=== PATIENT | female | born 1950 | race Caucasian/White ===

== ENCOUNTER 2020-06-01 15:20 | Outpatient (REF) | payer OTHER, SELFPAY | END 2020-06-01 15:21 | disposition home or self-care (01) | LOC: HO.LNP 15:20 | PROVIDERS: Visit Provider Nurse Practitioner Family | DX: Z20.828 Contact with and (suspected) exposure to other viral communicable diseases (principal); R53.1 Weakness | CPT/HCPCS: U0003 ==

== ENCOUNTER 2021-04-17 15:28 | Outpatient (REF) | payer OTHER, SELFPAY | END 2021-04-17 15:29 | disposition home or self-care (01) | LOC: HO.LNP 15:28 | PROVIDERS: Visit Provider Physician Assistant Medical | DX: J43.2 Centrilobular emphysema (principal); Z20.822 Contact with and (suspected) exposure to COVID-19 | CPT/HCPCS: U0003; U0005 ==

== ENCOUNTER 2022-01-31 08:37 | Day surgery (SDC) | payer OTHER, SELFPAY ==
[2022-01-25 16:07] VITALS: BMI 20.5
--- NOTE | 2022-01-28 09:18 | HO.ANESPROP2 ---
Documented by User: Teagan Hendrickson NP 01/28/22 09:20 HPI - Anesthesia Eval Consult details Narrative: 71yo F for Upper Endoscopy with Balloon Dilitation, Colonoscopy PMFSH Active Problems Active Problems: All Active Problems (Updated 01/25/22 @ 16:03 by Amanda Chong, RN) Weakness (Acute) Centrilobular emphysema (Acute) Hx of bladder cancer (Acute) Primary insomnia (Acute) Surgical menopause (Acute) Osteoporosis (Acute) Cigarette smoker two packs a day or less (Acute) Tubular adenoma of colon (Acute) Hiatal hernia (Acute) Esophagitis determined by endoscopy (Acute) S/P balloon dilatation of esophageal stricture (Acute) Past Medical History Medical History (Updated 01/25/22 @ 16:03 by Amanda Chong, ANNE-MARIE) Cigarette smoker two packs a day or less Dysphagia Esophagitis determined by endoscopy Hiatal hernia History of COVID-19 History of esophageal stricture Hx of bladder cancer Osteoporosis Primary insomnia Surgical menopause Tubular adenoma of colon Family History Family History Father HTN (hypertension) Mother Melanoma Brother No problems noted. Brother No problems noted. Sister No problems noted. Daughter Melanoma Son No problems noted. Son No problems noted. Son No problems noted. Surgical History Surgical History Bone spur Ganglion cyst of finger of left hand History of cystoscopy History of esophagogastroduodenoscopy (EGD) History of hysterectomy Hx of colonoscopy S/P balloon dilatation of esophageal stricture Social History Social History Housing: House Patient Tobacco Use Status: Current everyday Tobacco user Tobacco use type: Cigarette Cigarette Packs Per Day: 0.5 Cigarettes Per Day: 10.0 Smoked in Last 30 Days: Yes e-Cigarette/Vaping Use: Never Used Use of substances other than those prescribed or required for medical reasons: No Are you DNR?: No Advance Directives: No Advance Directives Information Provided: Yes Recently lost weight without trying: No Nutrition Risks: No Nutritional Risk Current occupational status: employed Meds Allergies Allergy/AdvReac Type Severity Reaction Status Date / Time No Known Allergies Allergy Verified 01/25/22 16:03 [No Known Allergies*] Home Medications Medication Instructions Recorded Confirmed Last Taken Type magnesium oxide 400 mg (241.3 mg 400 mg PO DAILY 06/01/20 01/25/22 Unknown History magnesium) tablet Exam Exam Date and Time: January 28, 2022917 Height,Weight and Vital Signs: Height 5 ft 1 in Weight 49.442 kg Assessment and Plan Assessment Anesthesia Assessment: Chart Reviewed Documented by User: Danica Gutierrez MD 01/31/22 09:42 [facility] Past Medical History Medical History (Updated 01/25/22 @ 16:03 by Amanda Chong RN) Cigarette smoker two packs a day or less Dysphagia Esophagitis determined by endoscopy Hiatal hernia History of COVID-19 History of esophageal stricture Hx of bladder cancer Osteoporosis Primary insomnia Surgical menopause Tubular adenoma of colon Functional capacity: independent ambulation Patient : No Family History Family History Father HTN (hypertension) Mother Melanoma Brother No problems noted. Brother No problems noted. Sister No problems noted. Daughter Melanoma Son No problems noted. Son No problems noted. Son No problems noted. Family history of problems with anesthesia: No Surgical History Surgical History Bone spur Ganglion cyst of finger of left hand History of cystoscopy History of esophagogastroduodenoscopy (EGD) History of hysterectomy Hx of colonoscopy S/P balloon dilatation of esophageal stricture History of Problems with Anesthesia: No Social History Social History Housing: House Patient Tobacco Use Status: Current everyday Tobacco user Tobacco use type: Cigarette Cigarette Packs Per Day: 0.5 Cigarettes Per Day: 10.0 Smoked in Last 30 Days: Yes e-Cigarette/Vaping Use: Never Used Use of substances other than those prescribed or required for medical reasons: No Are you DNR?: No Advance Directives: No Advance Directives Information Provided: Yes Recently lost weight without trying: No Nutrition Risks: No Nutritional Risk Current occupational status: employed Meds Allergies Allergy/AdvReac Type Severity Reaction Status Date / Time No Known Allergies Allergy Verified 01/25/22 16:03 [No Known Allergies*] Home Medications Medication Instructions Recorded Confirmed Last Taken Type magnesium oxide 400 mg (241.3 mg 400 mg PO DAILY 06/01/20 01/25/22 Unknown History magnesium) tablet Exam Airway Mallampati Class: II TM Dist: >3cm Neck ROM: Full Denture: Upper Heart: RRR Lungs: ronhi Assessment and Plan Final Anesthetic Review Family History of Problems with Anesthesia: No History of Problems with Anesthesia: No Final Preanesthetic Review: No Changes in Pt Med Stat, Consent Obtained/Reviewed and Anes Risks/Benef Reviewed Patient Risk: Low Procedure Risk: Low Anesthetic Plan Anesthetic Plan: MAC: Disposition: Standard PACU
[2022-01-31 08:44] VITALS: BMI 20.5
[2022-01-31 09:04] VITALS: BP 127/70; PULSE 110; RESP 16; TEMP 36.1; O2SAT 95
[2022-01-31] MEDS: Lactated Ringers 1,000 ML 100 ML IVCONT (09:15)
[2022-01-31] MEDS: Scopolamine 1.5 MG PATCH.TD.3 EAR-BEHIND (09:36)
[2022-01-31 11:13] VITALS: BP 121/56; PULSE 95; RESP 16; TEMP 36.3; O2SAT 98
--- NOTE | 2022-01-31 11:19 | PM.OP ---
Brief Operative Note Date of Service: 01/31/22 Pre-op diagnosis: Dysphagia, Screening Post-op diagnosis: other (Esophageal stricture, R/O EoE, Hiatal hernia, Colon polyps) Procedure: EGD with Balloon Dilation and biopsies, Colonoscopy to the cecum with hot snare polypectomy x 2 Surgeon: Koffi Andrews Anesthesia: MAC Was an In Flight Refueling System Repairer used for this Procedure?: No Estimated blood loss (mL): 2.0 Pathology: other (A. Esophagus at 25cm B. Ascending colon polyps x 2) Condition: stable Disposition: PACU
[2022-01-31 11:28] VITALS: BP 137/65; PULSE 89; RESP 16; O2SAT 96
[2022-01-31 11:43] VITALS: BP 155/64; PULSE 89; RESP 18; TEMP 36.3; O2SAT 96
--- NOTE | 2022-01-31 12:18 | HO.POSTANES ---
Post Anesthesia Evaluation Post Anesthesia Evaluation Vital Signs: Vital Signs Temp Pulse Resp BP Pulse Ox O2 Del Method 01/31/22 11:43 97.3 F 89 18 155/64 H 96 Room Air 01/31/22 11:28 89 16 137/65 96 Room Air 01/31/22 11:13 97.3 F 95 16 121/56 L 98 Room Air 01/31/22 09:04 97.0 F 110 H 16 127/70 95 Room Air Anesthesia: Monitored Mental Status: Awake Pain Control: Satisfactory Nausea/Vomiting: None Hydration: Adequate Anesthesia-Related Issues: No Anes. Related Issues
--- NOTE | 2022-01-31 21:35 | OP_ITS ---
SURGEON: Koffi Andrews MD INDICATIONS: The patient presents for evaluation of dysphagia, personal history of tubular adenoma of the colon, and colorectal cancer screening. Full consent has been obtained from her for this, including risks of bleeding and perforation. PREOPERATIVE DIAGNOSIS: POSTOPERATIVE DIAGNOSIS: PROCEDURE PERFORMED: Esophagogastroduodenoscopy with balloon dilation and biopsy, and colonoscopy to the cecum with hot snare polypectomy x 2. ESTIMATED BLOOD LOSS: COMPLICATIONS: ANESTHESIA: Monitored anesthesia care. ASSISTANTS: SPECIMENS: PREOPERATIVE DIAGNOSES: Dysphagia and personal history of tubular adenoma of the colon, colorectal cancer screening. POSTOPERATIVE DIAGNOSES: Dysphagia and personal history of tubular adenoma of the colon, colorectal cancer screening, esophageal stricture, rule out eosinophilic esophagitis, hiatal hernia, colon polyps, diverticulosis, component of anal stenosis. PROCEDURE IN DETAIL: The patient was placed in the left lateral decubitus position. The Olympus video gastroscope was passed in the posterior oropharynx and upper esophagus under direct vision. The very proximal esophagus was notable for what appeared to be a very proximal web or stricture, which the scope popped past easily. There also appeared to be some subtle rings in the proximal esophagus as well, which were easily passed with the scope. The scope was advanced to the distal esophagus. The gastroesophageal junction at 35 cm was notable for a somewhat tight fibrotic stricture, which did allow passage of the scope. There was no mass or ulceration. There was a small hiatal hernia. The scope was advanced to the pylorus and the duodenum was cannulated to the descending portion. The duodenum including the bulb appeared normal without mass or ulceration. The scope was withdrawn back into the stomach. The gastric antrum and body appeared normal with good peristalsis. The scope was retroflexed visualizing the proximal stomach carefully, which appeared normal, without any sign of mass or ulceration. The scope was straightened and withdrawn back into the esophagus. At that point, the gastroesophageal junction was notable for the previous stricture, which was clearly disrupted by the passage of the scope. Again, there was no mass, nor ulceration. I did inflate a 12 mm balloon at this level, which really did not add to any of the dilation, but I did not proceed beyond that given the clear disruption of the mucosa already. The remainder of the esophagus was carefully inspected. There were no mucosal abnormalities, although the mucosa was friable as it has been in the past. The area in the very proximal esophagus also appeared to be quite disrupted with some mucosal disruption noted. I did obtain 2 biopsies at 25 cm to rule out eosinophilic esophagitis. The scope was withdrawn from the patient. She was then turned around for the colonoscopy. The digital rectal exam revealed a tight anal sphincter in which I could not really insert my finger. The Olympus pediatric video colonoscope was entered into the rectum and advanced easily to the cecum. Once in the cecum, I did identify normal-appearing cecal pouch with appendiceal orifice and a normal-appearing ileocecal valve. The entire cecum and ileocecal valve appeared normal. Scope was then slowly withdrawn assessing all mucosal surfaces carefully. Preparation was excellent. In the ascending colon, were 2 approximately 8 mm polyps, both which were removed by hot snare polypectomy and recovered by suction. Both polypectomy sites appeared clean, without any sign of residual polyp,nor bleeding. I did not visualize any other polyps, colitis, nor angiodysplasia. There was a mild amount of sigmoid diverticulosis. In the rectum, scope was retroflexed visualizing some small internal hemorrhoids, but no other pathology. The rectal mucosa appeared normal. Scope was straightened and withdrawn from the patient. She tolerated both procedures well and was returned to recovery area in stable condition. IMPRESSION: 1. Esophageal strictures, status post balloon dilation. Rule out eosinophilic esophagitis. 2. Hiatal hernia. 3. Colon polyps. 4. Diverticulosis. 5. Internal hemorrhoids. 6. Tight anal sphincter. PLAN: The results of the pathology will be checked. She has been instructed to continue omeprazole 40 mg b.i.d. and to resume her Carafate suspension 1 g q.i.d. She has been advised to stay off all aspirin and NSAIDs long-term. I would recommend a repeat colonoscopy in 5 years and she has been advised to see me by the Fall for a followup visit. She was advised to call sooner as needed. MD PAYTON Cline/ED / [phone] MEMO
== END 2022-01-31 12:15 | disposition home or self-care (01) ==
PROVIDERS: PCP Internal Medicine; Visit Provider Internal Medicine
PROC: (CPT 45385; principal; 2022-01-31 09:40)
PROC: 0DJD8ZZ Inspection of Lower Intestinal Tract, Via Natural or Artificial Opening Endoscopic (ICD-10-PCS; CPT 45378; 2022-01-31 09:40)
DX: Z12.11 Encounter for screening for malignant neoplasm of colon (principal); Z86.010 Personal history of colon polyps; D12.2 Benign neoplasm of ascending colon; K57.30 Diverticulosis of large intestine without perforation or abscess without bleeding; K64.8 Other hemorrhoids; R13.10 Dysphagia, unspecified; K22.2 Esophageal obstruction; K20.80 Other esophagitis without bleeding; K44.9 Diaphragmatic hernia without obstruction or gangrene; F17.210 Nicotine dependence, cigarettes, uncomplicated; Z79.899 Other long term (current) drug therapy; Z79.51 Long term (current) use of inhaled steroids; Z85.51 Personal history of malignant neoplasm of bladder; Z86.16 Personal history of COVID-19; Z87.01 Personal history of pneumonia (recurrent)
CPT/HCPCS: 45385; 43249; 43239; 88305; 88312; C1726

== ENCOUNTER 2022-06-17 13:07 | Outpatient (REF) | payer OTHER, SELFPAY ==
[2022-06-17 15:12] LABS: Influenza A PCR POSITIVE (Negative); Influenza B PCR NEGATIVE (Negative); Resp Syncy Virus RNA Qual PCR NEGATIVE (Negative); SARS COV2 PCR INHOUSE NEGATIVE (Negative)
== END 2022-06-17 13:08 | disposition home or self-care (01) ==
LOC: HO.LNP 13:07
PROVIDERS: Visit Provider Internal Medicine
DX: Z20.822 Contact with and (suspected) exposure to COVID-19 (principal); R43.9 Unspecified disturbances of smell and taste
CPT/HCPCS: 0241U

== ENCOUNTER → 2022-08-29 13:20 | Outpatient (BNVA) | payer OTHER, SELFPAY | PROVIDERS: PCP Internal Medicine; Visit Provider Hospitalist | DX: Z13.89 Encounter for screening for other disorder (principal) ==

== ENCOUNTER 2022-09-12 09:42 | Outpatient (REF) | payer OTHER, SELFPAY ==
--- NOTE | ~2022-09-12 | CT_ITS ---
EXAMINATION: CT CHEST SCREENING CLINICAL INFORMATION: 71-year-old current smoker with [id number] history of smoking. COMPARISON: 09/23/2019 TECHNIQUE: Multidetector volumetric CT imaging of the chest is performed without contrast using low dose technique. Additional 2-D coronal and sagittal reformatted images and axial 3-D maximum intensity projection (MIP) images are generated on the CT workstation. This CT examination was performed using dose optimization techniques as appropriate, variously including the following: *Automated exposure control. *Adjustment of mA and/or kV according to patient size (this includes techniques or standardized protocols for targeted exams where dose is matched to indication/reason for exam; i.e. extremities or head). *Use of iterative reconstruction technique. DLP: 35 mGy-cm FINDINGS: LUNGS: The central airways are patent. There is bronchial wall thickening present without evidence of bronchiectasis. This may be related to respiratory bronchiolitis of smoking. There are moderate changes of centrilobular emphysema present. No confluent parenchymal disease is identified. There are scattered sub-4 mm densities present bilaterally. A few calcified granulomas are present. There is a 6 mm noncalcified density seen adjacent to a bronchus within the right lower lobe on image [address] series #5[address] This was not present on prior study. There is a 4 mm noncalcified density seen within the lingula on image 238 of 551. On prior study of 09/23/2019, this measured approximately 2 mm in diameter. MEDIASTINUM: The visualized thyroid gland is unremarkable. Heart normal size. No pericardial effusion. No thoracic aortic aneurysm. No mediastinal or hilar lymphadenopathy is appreciated. CORONARY ARTERY CALCIFICATION: Present. PLEURA: There is no pleural effusion. No pleural mass or thickening. AXILLA: No lymphadenopathy. UPPER ABDOMEN: No significant abnormality appreciated. Some splenic calcifications are seen. OSSEOUS STRUCTURES: No destructive bony lesion identified. CT/CT lung screening IMPRESSION: 1. New 6 mm right lower lobe density. 2. Enlarging 4 mm noncalcified density. 3. Old granulomatous disease. 4. Moderate changes of emphysema. ASSESSMENT: Lung-RADS category 4A: Suspicious. RECOMMENDATION: Short interval 3 month followup low dose CT chest.
--- NOTE | 2022-09-12 17:09 | PFT_ITS ---
Forced vital capacity 48%, FEV1 32%, FEV1/FVC ratio is 50. [id number] 17% and MVV is 30%. Post bronchodilator therapy, there is no change. Total lung capacity 105%. Residual volume is 168%. Diffusion capacity 40%. CONCLUSION: Very severe obstructive airway disorder. No response to bronchodilator therapy. There is evidence of air trapping. MD CLARITA Anderson/MODL / [id number]
== END 2022-09-12 09:43 | disposition home or self-care (01) ==
LOC: HO.RESP 09:42
PROVIDERS: Visit Provider Hospitalist
DX: Z12.2 Encounter for screening for malignant neoplasm of respiratory organs (principal); J44.9 Chronic obstructive pulmonary disease, unspecified; F17.210 Nicotine dependence, cigarettes, uncomplicated
CPT/HCPCS: 71271; 94060; 94727; 94729

== ENCOUNTER → 2022-10-03 14:30 | Outpatient (BNVA) | payer OTHER, SELFPAY | PROVIDERS: PCP Internal Medicine; Visit Provider Hospitalist | DX: K21.9 Gastro-esophageal reflux disease without esophagitis (principal); J44.9 Chronic obstructive pulmonary disease, unspecified ==

== ENCOUNTER 2022-11-07 08:34 | Outpatient (REF) | payer OTHER, SELFPAY ==
[2022-11-07 16:56] LABS: Urine Cytology See Pathology rpt
== END 2022-11-07 08:35 | disposition home or self-care (01) ==
LOC: HO.LNP 08:34
PROVIDERS: PCP Internal Medicine; Visit Provider Nurse Practitioner Family
DX: Z85.51 Personal history of malignant neoplasm of bladder (principal)
CPT/HCPCS: 88112

== ENCOUNTER 2022-12-14 10:08 | Outpatient (REF) | payer OTHER, SELFPAY ==
--- NOTE | ~2022-12-14 | CT_ITS ---
EXAMINATION: LUNG CANCER SCREENING CT CHEST WITHOUT CONTRAST / FOLLOW-UP EXAM CLINICAL INFORMATION: New or changing pulmonary nodules on the previous screening exam. History of smoking. COMPARISON: Multiple priors, most recently 09/12/2022 and 09/23/2019 TECHNIQUE: Multidetector volumetric CT imaging of the chest was obtained noncontrast using low dose screening CT technique. Axial thin section 0.625 mm reformations in soft tissue and lung windows were obtained. Sagittal and coronal reformations were obtained. Axial MIP images were also created and reviewed. This CT examination was performed using dose optimization techniques as appropriate, variously including the following: *Automated exposure control *Adjustment of mA and/or kV according to patient size (this includes techniques or standardized protocols for targeted exams where dose is matched to indication/reason for exam; i.e. extremities or head) *Use of iterative reconstruction technique TOTAL EXAM DLP: 31.57 mGy-cm FINDINGS: PULMONARY NODULES (see julian images): A previously new 6 mm nodule in the right lower lobe has resolved. A micronodule in the lingula, described as 4 mm previously is unchanged, and is actually in a different location than the punctate nodule seen in this region in 2020. Stable 3 mm nodule in the delicia pulmonis. No new or suspicious pulmonary nodules. LUNGS / PLEURA: Moderate to severe upper lobe predominant emphysema. Diffuse mild bronchial wall thickening. No pleural effusion or pneumothorax. MEDIASTINUM / MADELINE: Heart normal in size without pericardial effusion. Great vessels normal caliber. No lymphadenopathy. Coronary calcifications present. Imaged thyroid gland unremarkable. CHEST WALL / AXILLA: Unremarkable. UPPER ABDOMEN: Included portions grossly unremarkable allowing for limitations in technique. OSSEOUS STRUCTURES: No acute or suspicious osseous abnormalities. CT/CT lung screen follow up IMPRESSION: * No evidence of pulmonary malignancy. * Moderate emphysema and chronic airways disease. ASSESSMENT: Lung RADS category: 2. Benign appearance or behavior. Nodules with a very low likelihood of becoming a clinically active cancer due to size or lack of growth. Continue annual screening with low-dose CT in 12 months. Probability of malignancy less than 1%. RECOMMENDATION: Follow up low dose CT chest in 1 year.
== END 2022-12-14 10:09 | disposition home or self-care (01) ==
LOC: HO.CT 10:08
PROVIDERS: PCP Internal Medicine; Visit Provider Physician Assistant Medical
DX: Z12.2 Encounter for screening for malignant neoplasm of respiratory organs (principal); F17.210 Nicotine dependence, cigarettes, uncomplicated
CPT/HCPCS: 71250

== ENCOUNTER 2022-12-31 07:54 | Outpatient (REF) | payer OTHER, SELFPAY ==
[2022-12-31 11:03] LABS: MANUAL DIFF FLAG NO
[2022-12-31 11:11] LABS: Basophils Absolute Auto 0.1 X10*3/uL (0.0-0.2); Basophils Percent Auto 0.5 % (0-2); Eosinophils Absolute Auto 0.2 X10*3/uL (0.0-0.4); Eosinophils Percent Auto 2.4 % (0-4); Hemoglobin 16.3 g/dl (12.0-16.0); Imm Gran Abs Auto 0.02 X10*3/uL (0.00-0.03); Imm Gran Pct Auto 0.2 % (0.0-0.4); Lymphocytes Absolute Auto 2.7 X10*3/uL (1.2-4.9); Lymphocytes Percent Auto 29.5 % (20-40); Mean Corpuscular HGB Conc 33.3 g/dl (31.0-35.0); Mean Corpuscular Hemoglobin 31.5 pg (27.0-33.0); Mean Corpuscular Volume 94.8 fL (80.0-98.0); Mean Platelet Volume 10.6 fL (9.4-12.3); Monocytes Absolute Auto 0.8 X10*3/uL (0.1-1.2); Monocytes Percent Auto 8.5 % (2-11); Neutrophils Absolute Auto 5.4 x10*3/uL (2.0-8.3); Neutrophils Percent Auto 58.9 % (45-73); Platelet Count 239 X10*3/uL (160-400); Red Blood Count 5.17 X10*6/uL (4.20-5.50); Red Cell Distribution Width 12.3 % (11.0-16.0); White Blood Count 9.2 X10*3/uL (4.8-10.8)
[2022-12-31 11:32] LABS: Alanine Aminotransferase 6 U/L (0-31); Albumin Level 4.1 g/dL (3.5-5.0); Alkaline Phosphatase 103 U/L (39-117); Anion Gap 12 (12-20); Aspartate Amino Transferase 17 U/L (5-31); Bilirubin Total 0.9 mg/dL (0.0-1.0); Blood Urea Nitrogen 13 mg/dL (9-16); Calcium 9.7 mg/dL (8.4-10.2); Carbon Dioxide 30 mmol/L (22-29); Chloride 102 mmol/L (96-108); Cholesterol 182 mg/dL; Estimated Glomerular Filt Rate > 60; Glucose Fasting 89 mg/dL (60-99); HDL Cholesterol 54 mg/dL; LDL Cholesterol Calculated 108 mg/dl; Magnesium 2.5 mg/dL (1.6-2.6); Potassium 3.8 mmol/L (3.3-5.1); Sodium 140 mmol/L (135-145); Total Protein 7.5 g/dL (6.5-8.0); Triglycerides 101 mg/dL
[2022-12-31 11:51] LABS: Vitamin D 25-OH Total 17.7 ng/mL (>30)
== END 2022-12-31 07:55 | disposition home or self-care (01) ==
LOC: HO.HMGCLDS 07:54
PROVIDERS: PCP Internal Medicine; Visit Provider Internal Medicine
DX: Z00.01 Encounter for general adult medical examination with abnormal findings (principal); K20.90 Esophagitis, unspecified without bleeding; D12.6 Benign neoplasm of colon, unspecified; F17.210 Nicotine dependence, cigarettes, uncomplicated; M18.0 Bilateral primary osteoarthritis of first carpometacarpal joints; E89.40 Asymptomatic postprocedural ovarian failure; F51.01 Primary insomnia; J43.2 Centrilobular emphysema; Z85.51 Personal history of malignant neoplasm of bladder
CPT/HCPCS: 36415; 80053; 80061; 82306; 83735; 85025

== ENCOUNTER → 2023-01-13 13:26 | Outpatient (BNVA) | payer OTHER, SELFPAY | PROVIDERS: Visit Provider Urology | DX: N32.9 Bladder disorder, unspecified (principal); Z85.51 Personal history of malignant neoplasm of bladder | CPT/HCPCS: 52000 ==

== ENCOUNTER 2023-01-26 14:33 | Outpatient (REF) | payer OTHER, SELFPAY | END 2023-01-26 14:34 | disposition home or self-care (01) | LOC: HO.HMGCLDS 14:33 | PROVIDERS: PCP Internal Medicine; Visit Provider Urology | DX: C67.9 Malignant neoplasm of bladder, unspecified (principal) | CPT/HCPCS: 88121 ==

== ENCOUNTER 2023-01-31 14:42 | Outpatient (AMB) | payer OTHER, SELFPAY ==
[2023-01-31 14:51] VITALS: BP 124/60; PULSE 80; O2SAT 96; BMI 19.8
--- NOTE | 2023-01-31 14:51 | A.OFFVIS_ITS ---
Intake Vital Signs 01/31/23 14:51 Height 5 ft 1 in Weight 104 lb 11.513 oz BMI 19.8 BP 124/60 Blood Pressure Location Lt brachial Position Sitting Pulse 80 Pulse Source Pulse Oximeter Pulse Oximetry (%) 96 Oxygen Delivery Method Room Air Intake Visit Reasons: Cystoscopy - Siddharth - TBA Residential Property Manager Required: No At Home Independent Call Center Agent: At Home Independent Call Center Agent offered & declined Accompanied by: Self / Same As Patient Allergies No Known Allergies [No Known Allergies*] Allergy (Verified 01/31/23 14:57) Medication List - Last Reconciled 01/31/23 by Sully Velasco LPN albuterol sulfate 90 mcg/actuation (Ventolin HFA) 2 puffs inhalation QID PRN 30 days cetirizine 10 mg PO DAILY cholecalciferol (vitamin D3) 1,250 mcg PO QWEEK 3 months ipratropium-albuterol 0.5 mg-3 mg(2.5 mg base)/3 mL 3 mL inhalation DAILY 30 days magnesium oxide 400 mg PO DAILY omeprazole 20 mg PO BID Symbicort 160-4.5 mcg/actuation (budesonide-formoterol) 2 puffs inhalation BID NS tiotropium bromide 1.25 mcg/actuation (Spiriva Respimat) 1 puff PO DAILY zolpidem 10 mg PO BEDTIME PRN HPI Cystoscopy - Siddharth - TBA HPI Details Ebony is a pleasant 72 year old current 1/2 ppd smoker with 55 pack year history, followed for severe COPD and pulmonary nodules. Today she presents for pulmonary evaluation. She reports good control of symptoms on Spiriva and Symbicort. She reports infrequent use of albuterol. She has a productive cough at baseline that has been unchanged and denies any increase in dyspnea. She denies any chest congestion or wheezing. She denies any recent respiratory infections or hospitalizations. [facility] Medical History COPD (chronic obstructive pulmonary disease) Dysphagia Esophagitis determined by endoscopy Hiatal hernia History of COVID-19 History of esophageal stricture Hx of bladder cancer (~2008) Nicotine dependence, cigarettes, uncomplicated Osteoporosis (~2019) Primary insomnia Pulmonary nodules Stress incontinence Surgical menopause Tubular adenoma of colon (~2016) Surgical History History of bladder surgery History of cataract surgery History of colonoscopy History of cystoscopy History of esophageal dilatation History of esophagogastroduodenoscopy (EGD) History of hand surgery History of hysterectomy Family History Father HTN (hypertension) Mother Melanoma Brother No problems noted. Brother No problems noted. Sister No problems noted. Daughter Melanoma Son No problems noted. Son No problems noted. Son No problems noted. Social History Housing: House Patient Tobacco Use Status: Current everyday Tobacco user Tobacco use type: Cigarette Cigarette Packs Per Day: 0.5 Cigarettes Per Day: 10.0 e-Cigarette/Vaping Use: Never Used Current occupational status: employed Cognitive needs: No Hearing needs: No Vision needs: Yes Physical Exam Vital Signs: Last Vital Signs Pulse 80 01/31/23 14:51 BP 124/60 01/31/23 14:51 Pulse Ox 96 01/31/23 14:51 Oxygen Delivery Method Room Air 01/31/23 14:51 BMI result Body Mass Index 19.8 Results Reviewed Results Reviewed: Assessment & Plan Assessment & Plan (1) Preop pulmonary/respiratory exam: Code(s): Z01.811 - Encounter for preprocedural respiratory examination (2) COPD (chronic obstructive pulmonary disease): Code(s): J44.9 - Chronic obstructive pulmonary disease, unspecified Qualifiers: COPD type: chronic bronchitis Chronic bronchitis type: mixed simple and mucopurulent Qualified Code(s): J41.8 - Mixed simple and mucopurulent chronic bronchitis (3) Nicotine dependence, cigarettes, uncomplicated: Comment: (current smoker - onset 15yo, x 56yrs, max 1ppd, now 1/2ppd - 40pyh) Code(s): F17.210 - Nicotine dependence, cigarettes, uncomplicated Plan Ebony presents for pulmonary preoperative evaluation for proposed urological procedure. At baseline, her symptoms are well controlled on current regimen. She denies any recent exacerbations and on exam no wheezing was appreciated. PFT from revealed severe COPD with decreased DLCO of 40, report above. At this time, secondary to patient's advanced COPD with decrease in diffusion capacity, Ebony is at intermediate risk for perioperative complications. All questions were answered and patient is in agreement of plan. Will follow up for regularly scheduled appointment with Dr. Simmons scheduled in March. Coding Level of Care Code Est Pt Level 3 (85113) Diagnoses Preop pulmonary/respiratory exam Z01.811 COPD (chronic obstructive pulmonary disease) J41.8 COPD type: chronic bronchitis Chronic bronchitis type: mixed simple and mucopurulent Nicotine dependence, cigarettes, uncomplicated F17.210
== END 2023-01-31 15:21 | disposition home or self-care (01) ==
PROVIDERS: PCP Internal Medicine; Visit Provider Nurse Practitioner Family
DX: Z01.811 Encounter for preprocedural respiratory examination (principal); J41.8 Mixed simple and mucopurulent chronic bronchitis; F17.210 Nicotine dependence, cigarettes, uncomplicated
CPT/HCPCS: 99213

== ENCOUNTER → 2023-01-31 14:42 | Outpatient (BNVA) | payer OTHER, SELFPAY | PROVIDERS: PCP Internal Medicine; Visit Provider Nurse Practitioner Family ==

== ENCOUNTER 2023-02-09 14:28 | Outpatient (AMB) | payer OTHER, SELFPAY ==
[2023-02-09 14:41] VITALS: BP 114/62; PULSE 97; O2SAT 94; BMI 19.7
--- NOTE | 2023-02-09 14:41 | MHC.PC.OV ---
Vital Signs 02/09/23 14:41 Height 5 ft 1 in Weight 104 lb 6 oz BMI 19.7 BP 114/62 Blood Pressure Location Lt brachial Position Sitting Pulse 97 Pulse Source Pulse Oximeter Pulse Oximetry (%) 94 Oxygen Delivery Method Room Air Intake Visit Reasons: 6 Month ffup emphysema , smoking cessation Intake Note: Pt is here today for 6 month f/u emphysema and smoking cessation. Allergies No Known Allergies [No Known Allergies*] Allergy (Verified 06/05/23 02:54) Medication List - Last Reconciled 02/09/23 by Arlin Watkins MD albuterol sulfate 90 mcg/actuation (Ventolin HFA) 2 puffs inhalation QID PRN 30 days cetirizine 10 mg PO DAILY cholecalciferol (vitamin D3) 1,250 mcg PO QWEEK 3 months ipratropium-albuterol 0.5 mg-3 mg(2.5 mg base)/3 mL 3 mL inhalation DAILY 30 days magnesium oxide 400 mg PO DAILY Symbicort 160-4.5 mcg/actuation (budesonide-formoterol) 2 puffs inhalation BID NS tiotropium bromide 1.25 mcg/actuation (Spiriva Respimat) 1 puff PO DAILY zolpidem 10 mg PO BEDTIME PRN Tobacco use date assessed: 02/09/23 Fall risk assessment: No Falls in past year Last assessed Fall Risk: 02/09/23 Dental Screening Dental Screen Date: 02/09/23 Did you have a dental visit in the last 12 months?: No Did you have a dental problem in the last 6 months where you did not have access to dental care?: No Was dental information given to patient?: No HPI 6 Month ffup emphysema , smoking cessation HPI Details 72-year-old lady with emphysema, and actively smoking cigarettes still, here today for follow-up. She has tried quitting, has been unsuccessful, tried several ways to quit smoking which includes nicotine patches, nicotine gum, Wellbutrin and Chantix, and even hypnosis, but unable to quit; states she is not ready to totally quit smoking yet but is trying to cut back. Patient states she is doing well with current Symbicort and Spiriva, her dissipates in the yearly low-dose CT screening for lung cancer and latest 1 done in November 2022 showed benign appearing nodule, and due for a recheck again in 1 year. Complains of having disturbed sleep over the last several days, complaining of nasal congestion and postnasal drainage, wakes up in the morning feeling congested has to constantly clear her throat. Denies any accompanying shortness of breath, no headache or wheezing reported [facility] Medical History Multiple environmental allergies Pulmonary nodules Nicotine dependence, cigarettes, uncomplicated COPD (chronic obstructive pulmonary disease) Stress incontinence Hx of bladder cancer (~2008) Dysphagia History of COVID-19 Primary insomnia Surgical menopause Osteoporosis (~2019) Tubular adenoma of colon (~2016) Hiatal hernia Esophagitis determined by endoscopy History of esophageal stricture Surgical History History of cataract surgery History of esophageal dilatation History of bladder surgery History of hand surgery History of colonoscopy History of esophagogastroduodenoscopy (EGD) History of cystoscopy History of hysterectomy Family History Father HTN (hypertension) Mother Melanoma Brother No problems noted. Brother No problems noted. Sister No problems noted. Daughter Melanoma Son No problems noted. Son No problems noted. Son No problems noted. Social History Housing: House Patient Tobacco Use Status: Current everyday Tobacco user Tobacco use type: Cigarette Cigarette Packs Per Day: 0.5 Cigarettes Per Day: 10 e-Cigarette/Vaping Use: Never Used Current occupational status: employed Cognitive needs: No Hearing needs: No Vision needs: Yes Questionnaire PHQ-9 Over the last 2 weeks, how often have you been bothered by any of the following problems? 1. Little interest or pleasure in doing things: not at all 2. Feeling down, depressed, or hopeless: not at all 3. Trouble falling or staying asleep, or sleeping too much: more than half the days 4. Feeling tired or having little energy: not at all 5. Poor appetite or overeating: not at all 6. Feeling bad about yourself - or that you are a failure or have let yourself or your family down: not at all 7. Trouble concentrating on things, such as reading the newspaper or watching television: not at all 8. Moving or speaking so slowly that other people could have noticed. Or the opposite - being so fidgety or restless that you have been moving around a lot more than usual: not at all 9. Thoughts that you would be better off or of hurting yourself in some way: not at all Total score: 2 Depression Screening Interpretation: Negative 71986 - PHQ-9 Billing: Yes Source: Developed by Drs. Koffi Thao, Esperanza Prince, Yeison Jules and colleagues, with an educational onesimo from [employer]. Thrive Questionnaire Date Thrive assessed: 02/09/23 I am a: Patient What is your living situation today?: I have a steady place to live Within the past 12 months, did the food you bought not last and you didn't have the money to get more?: Never true Within the past 12 months, did you worry whether your food would run out before you got money to buy more?: Never true Do you have trouble paying for medicines?: No Do you have trouble getting transportation to medical appointments?: No Do you have trouble paying your heating and electricity bill?: No Do you have trouble taking care of your child, family member or friend?: No Do you have trouble with day-to-day activities such as bathing, preparing meals, shopping, managing finances, etc.?: No Are you currently unemployed and looking for a job?: No Are you interested in more education?: No AUDIT C Alcohol Use Questionnaire (AUDIT-C) 1. How often do you have a drink containing alcohol?: Never 3. How often do you have six or more drinks on one occasion?: Never Total Score: 0 Score Reviewed/Action Taken: Yes AVERY-7 AMB Questionnaire AVERY-7 Date AVERY - 7 assessed: 02/09/23 Feeling nervous, anxious, or on edge: 0 = Not at all Not being able to stop or control worryin = Not at all Worrying too much about different things: 0 = Not at all Trouble relaxin = Not at all Being so restless that it is hard to sit still: 0 = Not at all Becoming easily annoyed or irritable: 0 = Not at all Feeling afraid as if something awful might happen: 0 = Not at all Total AVERY-7 score (0-4 normal; 5-9 mild; 10-14 moderate; 15-21 severe): 0 Source: Developed by Drs. Koffi Thao, Esperanza Prince, Yeison Jules and colleagues, with an educational onesimo from [employer]. AVERY-7 Assessment Billing AVERY-7 Assessment Tool: AVERY-7 Assessment 54096 Review of Systems Const Denies body aches, Denies fever(s), Denies headache(s), Denies weakness and Reports weight loss Eyes Denies change in vision and Denies itchy eyes ENT Denies dizziness, Denies headache(s) and Denies sore throat Card Denies chest pain, Denies lightheadedness, Denies palpitations and Denies dyspnea Resp Denies chest congestion, Denies cough, Denies pain on inspiration and Denies dyspnea GI Denies abdominal pain and Denies change in bowel habits Reports no additional complaints Musc Reports no additional complaints Neuro Denies dizziness, Denies headache(s) and Denies weakness Endo Denies polydipsia, Denies polyuria and Denies palpitations Pranav/Lymph Denies easy bruising Aller/Immun Denies itchy eyes and Denies seasonal rhinorrhea Physical exam (Primary Care) Vital Signs: Last Vital Signs Pulse 97 02/09/23 14:41 BP 114/62 02/09/23 14:41 Pulse Ox 94 02/09/23 14:41 Oxygen Delivery Method Room Air 02/09/23 14:41 BMI result Body Mass Index 19.7 Tobacco/Smoking Status: Tobacco use Status Tobacco use date assessed 02/09/23 02/09/23 14:46 Patient Tobacco Use Status Current everyday Tobacco 02/09/23 14:44 Tobacco use type Cigarette 02/09/23 14:44 e-Cigarette/Vaping Use Never Used 02/09/23 14:44 Are you ready to quit: No PHQ-9: PHQ-9 Score PHQ-9: Total score 2 06/05/23 02:55 Depression Screening Interpretation: Negative Thrive Assessment: Date of Thrive Assessment Date Thrive assessed 02/09/23 02/09/23 15:31 Const General: cooperative, comfortable and no acute distress Nutritional Appearance: average body habitus Orientation/consciousness: patient oriented x3 Neck Neck: Yes full ROM, Yes no lymphadenopathy, Yes no meningeal signs and Yes supple Thyroid: Thyroid normal Resp Effort & Inspection: normal respiratory effort and able to speak in complete sentences Auscultation: clear to auscultation bilaterally Cardio Rate: regular rate Rhythm: regular rhythm Heart sounds: S1 normal heart sound present and S2 normal heart sound present GI Palpation (GI): Soft to palpation, nontender, no guarding and no masses Skin General skin exam: no rashes or lesions noted Neuro General: patient oriented x3, gait normal, moves all extremities, no meningeal signs, no focal motor deficits and CN's II-XI intact bilaterally Extrem General: Yes full ROM, Yes no joint enlargement, Yes no pedal edema and Yes normal gait Psych Appearance: grossly normal Mental Status: mental status grossly normal Speech and movement: Normal speech and movement present Affect: normal affect Attitude: cooperative Thought process: Normal thought process present Thought content: Normal thought content present Assessment and Plan Assessment & Plan (1) Centrilobular emphysema: Code(s): J43.2 - Centrilobular emphysema Plan: Continue with Symbicort, Spiriva and uses her Ventolin inhaler as needed for episodes of bronchospasm and wheezing and has a DuoNeb for her nebulizer. Continue to cut back on her smoking, not ready to quit at present time. (2) Primary insomnia: Code(s): F51.01 - Primary insomnia Plan: Started on Zyrtec for control of her allergies, this should also help with sleep as it can cause drowsiness. Call if no improvement of symptoms noted however (3) Multiple environmental allergies: Code(s): Z91.09 - Other allergy status, other than to drugs and biological substances Plan: Started on cetirizine 10 mg 1 tablet at bedtime Medications: Refilled cetirizine 10 mg PO DAILY 30 tabs 5RF Coding Level of Care Code Est Pt Level 3 (59228) Diagnoses Centrilobular emphysema J43.2 Primary insomnia F51.01 Multiple environmental allergies Z91.09 Additional Codes AVERY-7 Assessment Billing - AVERY-7 Assessment Tool: AVERY-7 Assessment 24412 ([id number])
== END 2023-02-09 15:30 | disposition home or self-care (01) ==
PROVIDERS: PCP Internal Medicine; Visit Provider Internal Medicine
DX: J43.2 Centrilobular emphysema (principal); F51.01 Primary insomnia; Z91.09 Other allergy status, other than to drugs and biological substances
CPT/HCPCS: 99213

== ENCOUNTER 2023-02-10 10:02 | Day surgery (SDC) | payer OTHER, SELFPAY ==
--- NOTE | 2023-02-08 14:45 | P.CONAN_ITS ---
Documented by User: Teagan Hendrickson NP 02/08/23 14:46 HPI - Anesthesia Eval Consult details Narrative: 72yo F for Upper Endoscopy with Balloon Dilitation PMFSH Active Problems Active Problems: All Active Problems (Updated 01/31/23 @ 15:39 by Kiera Coelho NP) Preop pulmonary/respiratory exam (Acute) Lesion of bladder (Acute) Pulmonary nodules (Acute) Nicotine dependence, cigarettes, uncomplicated (Acute) COPD (chronic obstructive pulmonary disease) (Acute) Stress incontinence (Acute) Hx of bladder cancer (Acute ~2008) Centrilobular emphysema (Acute) Primary insomnia (Acute) Surgical menopause (Acute) Osteoporosis (Acute ~2019) Tubular adenoma of colon (Acute ~2017) Hiatal hernia (Acute) Esophagitis determined by endoscopy (Acute) Past Medical History Medical History COPD (chronic obstructive pulmonary disease) Dysphagia Esophagitis determined by endoscopy Hiatal hernia History of COVID-19 History of esophageal stricture Hx of bladder cancer (~2008) Multiple environmental allergies Nicotine dependence, cigarettes, uncomplicated Osteoporosis (~2019) Primary insomnia Pulmonary nodules Stress incontinence Surgical menopause Tubular adenoma of colon (~2016) Family History Family History Father HTN (hypertension) Mother Melanoma Brother No problems noted. Brother No problems noted. Sister No problems noted. Daughter Melanoma Son No problems noted. Son No problems noted. Son No problems noted. Family history of problems with anesthesia: No Surgical History Surgical History History of bladder surgery History of cataract surgery History of colonoscopy History of cystoscopy History of esophageal dilatation History of esophagogastroduodenoscopy (EGD) History of hand surgery History of hysterectomy History of Problems with Anesthesia: No Social History Social History Housing: House Patient Tobacco Use Status: Current everyday Tobacco user Tobacco use type: Cigarette Cigarette Packs Per Day: 0.5 Cigarettes Per Day: 10.0 Smoked in Last 30 Days: Yes e-Cigarette/Vaping Use: Never Used Patient Interested in Nicotine Replacement: No Are you DNR?: No Advance Directives: No Advance Directives Information Provided: Yes Nutrition Risks: No Nutritional Risk Current occupational status: employed Cognitive needs: No Hearing needs: No Vision needs: Yes Meds Allergies Allergy/AdvReac Type Severity Reaction Status Date / Time No Known Allergies Allergy Verified 02/09/23 14:42 [No Known Allergies*] Exam Exam Date and Time: February 08, 2023 1445 Pertinent Lab Results Pertinent Lab Results: Laboratory Tests 12/31/22 12/31/22 08:09 08:09 WBC 9.2 Hgb 16.3 H Hct 49.0 H Plt Count 239 Sodium 140 Potassium 3.8 Chloride 102 Carbon Dioxide 30 H BUN 13 Creatinine 0.83 Assessment and Plan Assessment Anesthesia Assessment: Chart Reviewed Final Anesthetic Review Family History of Problems with Anesthesia: No History of Problems with Anesthesia: No Documented by User: Delma Humphrey MD 02/10/23 12:20 [facility] Past Medical History Medical History COPD (chronic obstructive pulmonary disease) Dysphagia Esophagitis determined by endoscopy Hiatal hernia History of COVID-19 History of esophageal stricture Hx of bladder cancer (~2008) Multiple environmental allergies Nicotine dependence, cigarettes, uncomplicated Osteoporosis (~2019) Primary insomnia Pulmonary nodules Stress incontinence Surgical menopause Tubular adenoma of colon (~2016) Family History Family History Father HTN (hypertension) Mother Melanoma Brother No problems noted. Brother No problems noted. Sister No problems noted. Daughter Melanoma Son No problems noted. Son No problems noted. Son No problems noted. Surgical History Surgical History History of bladder surgery History of cataract surgery History of colonoscopy History of cystoscopy History of esophageal dilatation History of esophagogastroduodenoscopy (EGD) History of hand surgery History of hysterectomy Social History Social History Housing: House Patient Tobacco Use Status: Current everyday Tobacco user Tobacco use type: Cigarette Cigarette Packs Per Day: 0.5 Cigarettes Per Day: 10.0 Smoked in Last 30 Days: Yes e-Cigarette/Vaping Use: Never Used Patient Interested in Nicotine Replacement: No Are you DNR?: No Advance Directives: No Advance Directives Information Provided: Yes Nutrition Risks: No Nutritional Risk Current occupational status: employed Cognitive needs: No Hearing needs: No Vision needs: Yes Meds Allergies Allergy/AdvReac Type Severity Reaction Status Date / Time No Known Allergies Allergy Verified 02/09/23 14:42 [No Known Allergies*] Exam Airway Mallampati Class: I TM Dist: >3cm Neck ROM: Full Denture: Upper Partial: Lower Loose/Missing/Broken Teeth: No Heart: rr Lungs: cta Assessment and Plan Final Anesthetic Review NPO: Yes ASA Class: III Final Preanesthetic Review: No Changes in Pt Med Stat, Meds/Allgs Chart Reviewed, Consent Obtained/Reviewed and Anes Risks/Benef Reviewed Anesthetic Plan Anesthetic Plan: MAC: Disposition: Standard PACU
[2023-02-10 10:46] VITALS: BMI 20.6
[2023-02-10] MEDS: Lactated Ringers 1,000 ML 100 ML IVCONT (11:01)
[2023-02-10 11:03] VITALS: BP 134/69; PULSE 102; RESP 18; TEMP 36.6; O2SAT 97
[2023-02-10] MEDS: Albuterol Sulfate (0.083%) 2.5 MG/3 ML VIAL.NEB INHALE (11:14)
[2023-02-10 11:16] VITALS: PULSE 93; RESP 16; O2SAT 96
--- NOTE | 2023-02-10 11:23 | PC.NURSE ---
report given to junior godfrey rn at this time.
--- NOTE | 2023-02-10 12:15 | PM.OP ---
Brief Operative Note Date of Service: 02/10/23 Pre-op diagnosis: Dysphagia Post-op diagnosis: other (Esophageal stricture, Hiatal hernia) Procedure: EGD with Balloon Dilation of distal esophageal stricture from 10mm to 11mm to 12mm Surgeon: Koffi Andrews Anesthesia: MAC Was an Manager Technical Support used for this Procedure?: No Estimated blood loss (mL): 2.0 Pathology: none sent Condition: stable Disposition: PACU
[2023-02-10 12:18] VITALS: BP 105/46; PULSE 100; RESP 22; TEMP 36.1; O2SAT 100
[2023-02-10 12:32] VITALS: BP 112/41; PULSE 101; RESP 20; O2SAT 95
[2023-02-10 12:47] VITALS: BP 130/60; PULSE 97; RESP 20; TEMP 36.7; O2SAT 95
--- NOTE | 2023-02-10 23:11 | OP_ITS ---
DATE OF SERVICE: 02/10/2023 SURGEON: Koffi Andrews MD INDICATIONS: The patient presents for evaluation of recurrent dysphagia and known history of esophageal stricture. Full consent has been obtained from her for this, including risks of bleeding and perforation. PREOPERATIVE DIAGNOSIS: POSTOPERATIVE DIAGNOSIS: PROCEDURE PERFORMED: Esophagogastroduodenoscopy with balloon dilation of distal esophageal stricture. ESTIMATED BLOOD LOSS: COMPLICATIONS: ANESTHESIA: Monitored anesthesia care. ASSISTANTS: SPECIMENS: PREOPERATIVE DIAGNOSES: Dysphagia and history of esophageal stricture. POSTOPERATIVE DIAGNOSES: Dysphagia and history of esophageal stricture, tight distal esophageal stricture, hiatal hernia. DESCRIPTION OF PROCEDURE: The patient was placed in the left lateral decubitus position. The Olympus video gastroscope was passed in the posterior oropharynx and upper esophagus under direct vision. I did not visualize any proximal esophageal stricture, rings, nor web. The scope was able to pass easily to the distal esophagus at 35 cm. There was a fairly tight fibrotic-appearing esophageal stricture at 35 cm. The scope would not advance past this despite some attempted passage with application of pressure with the scope. I then used a Znode incremental balloon to dilate the stricture from 10 mm to 11 mm to 12 mm at the recommended pressure for 30 seconds each. Of note, the 12 mm balloon was only inflated up to 7 psi rather than 8 as there was clearly some friability noted at that point. However, once the dilation was accomplished, it was then easy to pass the scope into the stomach. There was a small hiatal hernia. The scope was advanced to the pylorus and the duodenum was cannulated in the descending portion. The duodenum including the bulb appeared normal without mass or ulceration. The scope was withdrawn back in the stomach. The gastric antrum and body appeared normal with good peristalsis. The scope was retroflexed visualizing the proximal stomach carefully, which appeared normal, without any sign of mass or ulceration. The scope was withdrawn back to the esophagus. At that point, the area of dilation in the distal esophageal stricture was notable for friability and clearly disruption of the mucosa and the previous stricture. Therefore, no further dilation was performed. The scope was slowly withdrawn assessing the remainder of the esophagus, which appeared otherwise normal without any proximal esophageal ring, nor stricture. The scope was withdrawn from the patient. She tolerated the procedure well and was returned to recovery area in stable condition. IMPRESSION: 1. Distal esophageal stricture, status post balloon dilation. 2. Hiatal hernia. PLAN: I have instructed the patient continue omeprazole 40 mg b.i.d. on a long-term basis and to call me if she needs refills or has any recurrence or worsening of her dysphagia. She was advised to avoid all aspirin and NSAIDs long-term as well. She will see me on a p.r.n. basis otherwise. MD PAYTON Cline/ED / [phone] MTDD
== END 2023-02-10 14:10 | disposition home or self-care (01) ==
PROVIDERS: PCP Internal Medicine; Visit Provider Internal Medicine
PROC: (CPT 43249; principal; 2023-02-10 11:40)
DX: R13.19 Other dysphagia (principal); K22.2 Esophageal obstruction; K44.9 Diaphragmatic hernia without obstruction or gangrene; J44.9 Chronic obstructive pulmonary disease, unspecified; Z85.51 Personal history of malignant neoplasm of bladder; Z98.890 Other specified postprocedural states; Z79.899 Other long term (current) drug therapy; F17.210 Nicotine dependence, cigarettes, uncomplicated
CPT/HCPCS: 43249; 94640; C1726; J2250

== ENCOUNTER 2023-02-20 10:27 | Outpatient (REF) | payer OTHER, SELFPAY ==
--- NOTE | ~2023-02-20 | CT_ITS ---
EXAMINATION: CT ABDOMEN AND PELVIS WITHOUT AND WITH CONTRAST CLINICAL INFORMATION: Bladder disorder. COMPARISON: None available. TECHNIQUE: Noncontrast CT of the abdomen and pelvis is performed followed by split bolus contrast-enhanced images using 85 mL Omnipaque 350 contrast.? Postcontrast imaging is performed during the combined nephrogram and excretion phase. Sagittal and coronal reformatted images were obtained on the technologist's workstation for both the precontrast and postcontrast phases. This CT examination was performed using dose optimization techniques as appropriate, variously including the following: *Automated exposure control *Adjustment of mA and/or kV according to patient size (this includes techniques or standardized protocols for targeted exams where dose is matched to indication/reason for exam; i.e. extremities or head) *Use of iterative reconstruction technique DLP: 287 mGy-cm FINDINGS: LUNG BASES: The visualized lung bases are unremarkable. LIVER, GALLBLADDER, AND BILIARY TREE: The liver is normal in size, shape, and attenuation. No focal hepatic lesion or biliary ductal dilatation is present. The gallbladder is unremarkable with no evidence of radiopaque gallstones, gallbladder wall thickening, or obvious pericholecystic inflammatory changes. PANCREAS: Unremarkable. SPLEEN: Unremarkable. ADRENAL GLANDS: Unremarkable. KIDNEYS AND URETERS: There are no radiopaque renal calculi. Postcontrast, there are symmetrical bilateral kidney nephrograms with no focal lesion or enhancement seen. Left kidney measures 9.8 cm in length and right kidney measures 10.0 cm in length. There is opacification of bilateral kidney pelvises and ureters without any intraluminal filling defect or narrowing. BLADDER: There are no radiopaque bladder calculi. There is good opacification of bladder from excreted urinary contrast with no intraluminal filling defect. No bladder wall thickening. GASTROINTESTINAL TRACT: There is scattered stool and gas seen throughout the colon without significant distention. The small bowel loops are normal caliber. Appendix is not visualized. No free air or free fluid seen. ABDOMINAL WALL: No significant hernia is appreciated. LYMPH NODES: Normal. VASCULAR: Unremarkable. PELVIC VISCERA: Unremarkable. OSSEUS STRUCTURES: No aggressive lytic or sclerotic process seen. CT/CT urogram IMPRESSION: 1. No radiopaque urolith, enhancing renal mass or hydroureteronephrosis. 2. Unremarkable bladder. 3. Mild constipation.
[2023-02-20] MEDS: iohexoL 350 MG/ML 75 ML INFUS..BTL 85 ML IV (11:30)
[2023-02-20 13:18] LABS: Creatinine POC 0.7 mg/dL (0.5-1.4); GFR POC > 60
== END 2023-02-20 10:28 | disposition home or self-care (01) ==
LOC: HO.CT 10:27
PROVIDERS: PCP Internal Medicine; Visit Provider Urology
DX: N32.9 Bladder disorder, unspecified (principal); Z85.51 Personal history of malignant neoplasm of bladder
CPT/HCPCS: 74178; 82565; Q9967

== ENCOUNTER 2023-02-21 08:19 | Day surgery (SDC) | payer OTHER, SELFPAY ==
[2023-02-16 13:54] VITALS: BMI 19.6
--- NOTE | 2023-02-20 09:51 | HO.ANESPROP2 ---
HPI - Anesthesia Eval Consult details Narrative: 72yo F for TUR Bladder Tumor, Cystoscopy & Bladder Biopsy poss bilateral retrogrades s/p EGD 02/10/23 with MAC PMFSH Active Problems Active Problems: All Active Problems (Updated 02/09/23 @ 15:30 by Arlin Watkins MD) Centrilobular emphysema (Acute) Lesion of bladder (Acute) Multiple environmental allergies (Acute) Pulmonary nodules (Acute) Nicotine dependence, cigarettes, uncomplicated (Acute) COPD (chronic obstructive pulmonary disease) (Acute) Stress incontinence (Acute) Hx of bladder cancer (Acute ~2008) Primary insomnia (Acute) Surgical menopause (Acute) Osteoporosis (Acute ~2019) Tubular adenoma of colon (Acute ~2017) Hiatal hernia (Acute) Esophagitis determined by endoscopy (Acute) Past Medical History Medical History COPD (chronic obstructive pulmonary disease) Dysphagia Esophagitis determined by endoscopy Hiatal hernia History of COVID-19 History of esophageal stricture Hx of bladder cancer (~2008) Multiple environmental allergies Nicotine dependence, cigarettes, uncomplicated Osteoporosis (~2019) Primary insomnia Pulmonary nodules Stress incontinence Surgical menopause Tubular adenoma of colon (~2016) Family History Family History Father HTN (hypertension) Mother Melanoma Brother No problems noted. Brother No problems noted. Sister No problems noted. Daughter Melanoma Son No problems noted. Son No problems noted. Son No problems noted. Family history of problems with anesthesia: No Surgical History Surgical History (Updated 02/16/23 @ 13:50 by Yohana Chandler RN) History of bladder surgery History of cataract surgery History of colonoscopy History of cystoscopy History of esophageal dilatation History of esophagogastroduodenoscopy (EGD) History of hand surgery History of hysterectomy History of Problems with Anesthesia: No Social History Social History Housing: House Patient Tobacco Use Status: Current everyday Tobacco user Tobacco use type: Cigarette Cigarette Packs Per Day: 0.5 Cigarettes Per Day: 10 Smoked in Last 30 Days: Yes e-Cigarette/Vaping Use: Never Used Patient Interested in Nicotine Replacement: No Are you DNR?: No Advance Directives: No Advance Directives Information Provided: Yes Nutrition Risks: No Nutritional Risk Current occupational status: employed Cognitive needs: No Hearing needs: No Vision needs: Yes Meds Allergies Allergy/AdvReac Type Severity Reaction Status Date / Time No Known Allergies Allergy Verified 02/09/23 14:42 [No Known Allergies*] Exam Exam Date and Time: February 20, 2023 0951 Height,Weight and Vital Signs: Height 5 ft 1 in Weight 47.174 kg Pertinent Lab Results Pertinent Lab Results: Laboratory Tests 12/31/22 12/31/22 08:09 08:09 WBC 9.2 Hgb 16.3 H Hct 49.0 H Plt Count 239 Sodium 140 Potassium 3.8 Chloride 102 Carbon Dioxide 30 H BUN 13 Creatinine 0.83 Assessment and Plan Assessment Anesthesia Assessment: Chart Reviewed Final Anesthetic Review Family History of Problems with Anesthesia: No History of Problems with Anesthesia: No
[2023-02-21] VITALS (9 sets, daily range): BP systolic 121–139; BP diastolic 50–65; PULSE 79–97; RESP 16–20; TEMP 36.2–36.6; O2SAT 92–97
--- NOTE | ~2023-02-21 | FL_ITS ---
EXAMINATION: XR FLUOROSCOPY WITH IMAGES CLINICAL INFORMATION: Cystoscopy bladder biopsy, possible bilateral retrogrades. COMPARISON: None available. TECHNIQUE: Fluoroscopy Supervised By: Dr. Sweta Spencer. Fluoroscopy Time: 18.3 seconds. Cumulative Dose: 2.97 mGy. DAP: None available. Images: 7. FINDINGS: Several digital images obtained during bilateral retrograde pyelogram. There is contrast opacifying bilateral kidney pelvises and ureters with no intraluminal filling defect. The bladder is also opacified and appears unremarkable. FL/FL guidance in OR IMPRESSION: Bilateral retrograde pyelograms obtained during bilateral retrograde pyelogram.
[2023-02-21] MEDS: Lactated Ringers 1,000 ML 100 ML IVCONT (08:27)
[2023-02-21] MEDS: Albuterol Sulfate (0.083%) 2.5 MG/3 ML VIAL.NEB INHALE (09:06)
--- NOTE | 2023-02-21 10:51 | P.CONAN_ITS ---
[facility] Active Problems Active Problems: All Active Problems (Updated 02/09/23 @ 15:30 by Arlin Watkins MD) Centrilobular emphysema (Acute) Lesion of bladder (Acute) Multiple environmental allergies (Acute) Pulmonary nodules (Acute) Nicotine dependence, cigarettes, uncomplicated (Acute) COPD (chronic obstructive pulmonary disease) (Acute) Stress incontinence (Acute) Hx of bladder cancer (Acute ~2008) Primary insomnia (Acute) Surgical menopause (Acute) Osteoporosis (Acute ~2019) Tubular adenoma of colon (Acute ~2017) Hiatal hernia (Acute) Esophagitis determined by endoscopy (Acute) Past Medical History Medical History COPD (chronic obstructive pulmonary disease) Dysphagia Esophagitis determined by endoscopy Hiatal hernia History of COVID-19 History of esophageal stricture Hx of bladder cancer (~2008) Multiple environmental allergies Nicotine dependence, cigarettes, uncomplicated Osteoporosis (~2019) Primary insomnia Pulmonary nodules Stress incontinence Surgical menopause Tubular adenoma of colon (~2016) Family History Family History Father HTN (hypertension) Mother Melanoma Brother No problems noted. Brother No problems noted. Sister No problems noted. Daughter Melanoma Son No problems noted. Son No problems noted. Son No problems noted. Family history of problems with anesthesia: No Surgical History Surgical History History of bladder surgery History of cataract surgery History of colonoscopy History of cystoscopy History of esophageal dilatation History of esophagogastroduodenoscopy (EGD) History of hand surgery History of hysterectomy History of Problems with Anesthesia: No Social History Social History Housing: House Patient Tobacco Use Status: Current everyday Tobacco user Tobacco use type: Cigarette Cigarette Packs Per Day: 0.5 Cigarettes Per Day: 10 e-Cigarette/Vaping Use: Never Used Use of substances other than those prescribed or required for medical reasons: No Are you DNR?: No Advance Directives: No Advance Directives Information Provided: Yes (brochure mailed) Advance Directives on File: No Recently lost weight without trying: No Eating poorly because of decreased appetite: No Nutrition Risks: No Nutritional Risk Current occupational status: employed Cognitive needs: No Hearing needs: No Vision needs: Yes Meds Allergies Allergy/AdvReac Type Severity Reaction Status Date / Time No Known Allergies Allergy Verified 02/21/23 09:02 [No Known Allergies*] Active Medications: Current Medications Albuterol Sulfate (Albuterol Sulfate (0.083%) 2.5 Mg/3 Ml Vial.Neb) 2.5 mg I NHALE ONCE PRN PRN Reason: Shortness of Breath/Wheezing Last Admin: 02/21/23 09:06 Dose: 2.5 mg Fentanyl (Fentanyl Citrate/Pf 100 Mcg/2 Ml Vial) 25 mcg IVPUSH Q5M PRN; Protocol PRN Reason: Pain, Moderate(Pain Scale 4-6) Lactated Ringer's (Lr) 1,000 mls @ 100 mls/hr IVCONT .Q10H KIRAN Last Admin: 02/21/23 08:27 Dose: 100 mls/hr Ondansetron HCl (Ondansetron Hcl 4 Mg/2 Ml Vial) 4 mg IVPUSH ONCE PRN PRN Reason: Nausea and Vomiting Exam Exam Date and Time: February 21, 2023 1051 Height,Weight and Vital Signs: Height 5 ft 1 in Weight 47.174 kg Last Vital Signs Temp 97.9 F 02/21/23 08:52 Pulse 95 02/21/23 09:07 Resp 16 02/21/23 09:07 BP 139/51 L 02/21/23 08:52 Pulse Ox 97 02/21/23 08:52 O2 Del Method Room Air 02/21/23 08:52 Airway Mallampati Class: II Denture: Upper and Lower Heart: rrr Lungs: clear Assessment and Plan Final Anesthetic Review Family History of Problems with Anesthesia: No History of Problems with Anesthesia: No NPO: Yes ASA Class: III Final Preanesthetic Review: No Changes in Pt Med Stat, Meds/Allgs Chart Reviewed, Consent Obtained/Reviewed and Anes Risks/Benef Reviewed Patient Risk: Intermediate Procedure Risk: Low Anesthetic Plan Anesthetic Plan: GA Disposition: Standard PACU
[2023-02-21] MEDS: Scopolamine 1.5 MG PATCH.TD.3 TRANSDERMA (11:02)
--- NOTE | 2023-02-21 11:09 | MHC.SHP ---
Pre-Procedural Eval Section A Date of Service: 02/21/23 The History & Physical has been completed within 30 days and I have reviewed it.: No Section B Chief Complaint: Bladder disorder, unspecified Details of Present Illness: The patient has history of superficial bladder cancer, diagnosed in October of 2008. Past medical history significant for COPD and nicotine dependence, esophagitis with dysphagia. The patient is an active smoker and started smoking from the age of 17 years. The patient gives a history of cigarette use for over 55 years. 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 The She states that her last cystoscopy was about 3 years ago. The patient has history of hysterectomy about age 20 for menorrhagia. Urine cytology-- collected 11/07/22-- few atypical cells noted. Office Cystoscopy 01/13/23-- findings-- erythematous flat lesion on the posterior wall of the bladder which need further evaluation with biopsy. Allergies: Allergies Allergy/AdvReac Type Severity Reaction Status Date / Time No Known Allergies Allergy Verified 02/21/23 09:02 [No Known Allergies*] Review of Systems Review of Systems Comment: 10 point ROS negative other than stated in HPI Exam Surgical H&P Exam: Normal: HEENT, Normal: Heart, Normal: Lungs and Normal: Neurological Plan Diagnosis/Plan: Unchanged I have reviewed the history and physical and performed a pertinent physical examination on my patient. No changes have occurred unless specified. Cystoscopy, bilateral retrogrades, bladder lesion biopsy, random bladder biopsies Time Spent With Patient Time: Total time managing care of this patient today ____ minutes.
--- NOTE | 2023-02-21 12:25 | P.OP_ITS ---
Operative Note Operative Note Date of Service: 02/21/23 Narrative: PREOP DIAGNOSIS: History of superficial urothelial carcinoma the bladder, recurrent Bladder lesion POSTOP DIAGNOSIS: History of superficial urothelial carcinoma the bladder, recurrent Bladder lesion PROCEDURE: CYSTOSCOPY TRANSURETHRAL RESECTION OF BLADDER TUMOR, FULGURATION, RANDOM BLADDER BIOPSIES Anesthesia: General Surgeon Dr. Ulloa Findings: Flattened papillary bladder lesion </= 1 cm, right posterior wall Details of procedure: The patient was brought into the operating room placed on the OR table in supine position. 2 g of Ancef IV. General anesthesia was administered. The patient was repositioned into lithotomy position, prepped and draped in the usual sterile fashion. Time-out was done per protocol. The 22 [place] Cystoscope was passed transurethrally into the bladder. Visualization of the bladder noted a small Flattened papillary bladder lesion right posterior wall, there were some erythematous changes noted on the posterior wall. Remained on bladder biopsies were done from the right lateral wall, left lateral wall, dome. A biopsy of the erythematous area on the posterior wall was also performed. The Bugbee electrode was used to cauterize and obtain adequate hemostasis. Cold cup resection of the bladder tumor was done using the flexible biopsy forceps, and the base of the tumor was fulgurated with the Bugbee electrode. Once there was good hemostasis the cystoscope was removed. 2 % urojet placed. The patient was brought out of anesthesia and taken to recovery in stable condition. Complications: None Drains: NONE
[2023-02-21] MEDS: Phenazopyridine HCL 200 MG TABLET PO (13:06)
== END 2023-02-21 14:16 | disposition home or self-care (01) ==
PROVIDERS: PCP Internal Medicine; Visit Provider Urology
PROC: 0TBB8ZZ Excision of Bladder, Via Natural or Artificial Opening Endoscopic (ICD-10-PCS; CPT 52234; principal; 2023-02-21 10:10)
PROC: (CPT 52234; 2023-02-21 10:10)
DX: N32.9 Bladder disorder, unspecified (principal); Z85.51 Personal history of malignant neoplasm of bladder; N39.3 Stress incontinence (female) (male); J44.9 Chronic obstructive pulmonary disease, unspecified; R91.8 Other nonspecific abnormal finding of lung field; K20.80 Other esophagitis without bleeding; M81.0 Age-related osteoporosis without current pathological fracture; Z79.899 Other long term (current) drug therapy; Z79.51 Long term (current) use of inhaled steroids; F17.210 Nicotine dependence, cigarettes, uncomplicated; Z86.16 Personal history of COVID-19
CPT/HCPCS: 52234; 52204; 88305; 88307; 88342; 94640; C1758; J0690; J1100; J2250; J2405; J3010; Q9967

== ENCOUNTER → 2023-02-21 08:19 | Outpatient (BNV) | payer OTHER, SELFPAY | PROVIDERS: PCP Internal Medicine; Visit Provider Urology | DX: C67.1 Malignant neoplasm of dome of bladder (principal) | CPT/HCPCS: 52224 ==

== ENCOUNTER 2023-03-13 14:43 | Outpatient (AMB) | payer OTHER, SELFPAY ==
--- NOTE | 2023-03-13 11:43 | A.OFFVIS_ITS ---
Intake Intake Visit Reasons: 3w follow up Intake Note: Patient presents today for a follow-up on Post Op: Meds- Cipro & Pyridium Allergies to Antibiotic- No Known Allergies Blood Thinner- None Labview Programmer Required: No Accompanied by: Self / Same As Patient Allergies No Known Allergies [No Known Allergies*] Allergy (Verified 02/21/23 09:02) Medication List - Last Reconciled 03/13/23 by Sweta Sepncer MD albuterol sulfate 90 mcg/actuation (Ventolin HFA) 2 puffs inhalation QID PRN 30 days cetirizine 10 mg PO DAILY cholecalciferol (vitamin D3) 1,250 mcg PO QWEEK 3 months ipratropium-albuterol 0.5 mg-3 mg(2.5 mg base)/3 mL 3 mL inhalation DAILY 30 days magnesium oxide 400 mg PO DAILY nitrofurantoin monohyd/m-cryst 100 mg (Macrobid) 100 mg PO BID 5 days omeprazole 40 mg PO BID phenazopyridine (Pyridium) 200 mg PO TID PRN Symbicort 160-4.5 mcg/actuation (budesonide-formoterol) 2 puffs inhalation BID NS tiotropium bromide 1.25 mcg/actuation (Spiriva Respimat) 1 puff PO DAILY zolpidem 10 mg PO BEDTIME PRN HPI HPI Comments History of Present Illness Details Ebony is a 72-year-old female who presents today to the office for a follow-up s/p TURBT 02/21/23 03/13/2023? I have reviewed the CT urogram results from 02/20/2023 revealed no radiopaque urolith, enhancing renal mass or hydroureteronephrosis. Unremarkable bladder. Mild constipation. 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 Urothelial carcinoma from th e bladder, random dome. She reports burning after urination. She is still smoking cigarettes. Review of charts: Last visit: 01/13/2023? The patient was last seen in the office on 01/13/23 by LAVON Masters. The patient denies gross hematuria. The patient has history of superficial bladder cancer, diagnosed in October of 2008. Past medical history significant for COPD and nicotine dependence, esophagitis with dysphagia The patient is an active smoker and started smoking from the age of 17 years. In review of note from 11/07/22, VELIA Boyd documented pathology 10/2008? 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 The patient gives a history of cigarette use for over 55 years. She states that her last cystoscopy was about 3 years ago. The patient has history of hysterectomy about age 20 for menorrhagia. Urine cytology-- collected 11/07/22--? few atypical cells noted. Evaluation today UA-- Blood:200 Earle/uL, leukocytes: negative. Cystoscopy findings-- erythematous flat lesion on the posterior wall of the bladder which need further evaluation with biopsy. Plan:urine bladder/FISH cytology test, as outpatient, urine provided not sufficient to send for testing Cystoscopy TURBT discussed to be scheduled. CT urogram prior with contrast was ordered. 03/13/2032?Plan: Recurrent bladder cancer high grade papillary urothelial carcinoma Gemcitabine bladder instillations once a week for 6 weeks. Follow-up Cystoscopy bladder biopsies. Prescribed Macrobid 100 mg BID for 5 days. [facility] Medical History COPD (chronic obstructive pulmonary disease) Dysphagia Esophagitis determined by endoscopy Hiatal hernia History of COVID-19 History of esophageal stricture Hx of bladder cancer (~2008) Multiple environmental allergies Nicotine dependence, cigarettes, uncomplicated Osteoporosis (~2020) Primary insomnia Pulmonary nodules Stress incontinence Surgical menopause Tubular adenoma of colon (~2017) Surgical History History of bladder surgery History of cataract surgery History of colonoscopy History of cystoscopy History of esophageal dilatation History of esophagogastroduodenoscopy (EGD) History of hand surgery History of hysterectomy Family History Father HTN (hypertension) Mother Melanoma Brother No problems noted. Brother No problems noted. Sister No problems noted. Daughter Melanoma Son No problems noted. Son No problems noted. Son No problems noted. Social History Housing: House Patient Tobacco Use Status: Current everyday Tobacco user Tobacco use type: Cigarette Cigarette Packs Per Day: 0.5 Cigarettes Per Day: 10 e-Cigarette/Vaping Use: Never Used Current occupational status: employed Cognitive needs: No Hearing needs: No Vision needs: Yes Review of Systems Const All systems reviewed & are unremarkable except as noted in HPI and below Reports no additional complaints Eyes Reports no additional complaints ENT Reports no additional complaints Card Denies dyspnea Resp Denies cough and Denies dyspnea GI Reports no additional complaints Reports no additional complaints Musc Reports no additional complaints Skin/Breast Denies rash and Denies unusual bruising Neuro Reports no additional complaints Psych Reports no additional complaints Endo Reports no additional complaints Pranav/Lymph Reports no additional complaints Aller/Immun Reports no additional complaints Physical Exam Const General: cooperative, healthy appearing and no acute distress Orientation/consciousness: patient oriented x3 HEENT Head: Yes normal to inspection, Yes normocephalic and Yes atraumatic Eyes Conjunctivae: conjunctivae normal Neck Neck: Yes normal visual inspection and Yes trachea midline Chest Chest palpation & inspection: normal inspection of the chest Resp Effort & Inspection: normal respiratory effort Cardio Rate: regular rate GI Inspection: Yes normal to inspection Neuro General: patient oriented x3 Psych Appearance: grossly normal Results AMB Urinalysis, Automated UA Leukoctes 15 Donal/uL Last Edit by DHAVAL Kessler on 03/13/23 15:19 UA Nitrite Negative Last Edit by DHAVAL Kessler on 03/13/23 15:19 UA Urobilinogen 0.2 mg/dL Last Edit by Sadia Dodd A on 03/13/23 15:1 9 UA Protein 30 mg/dL Last Edit by Sadia Dodd [facility] on 03/13/23 15:19 UA pH 6.0 Last Edit by Sabinachristianalu Valecharlee A on 03/13/23 15:19 UA Blood 200 Earle/uL Last Edit by Sadia Dodd [facility] on 03/13/23 15:19 2+ Sadia Dodd 03/13/23 15:19 UA Specific [place] 1.030 Last Edit by Sadia Dodd A on 03/13/23 15: 19 UA Ketone Negative Last Edit by Sadia Dodd [facility] on 03/13/23 15:19 UA Bilirubin 0 mg/dL Last Edit by Sadia Yousif, [facility] on 03/13/23 15:19 UA Glucose 0 mg/dL Last Edit by Sadia Dodd [facility] on 03/13/23 15:19 Results Reviewed Results Reviewed: Laboratory Last Values Urine pH (Auto) 6.0 03/13/23 14:50 Specific [place] (Auto) 1.030 03/13/23 14:50 Urine Protein (Auto) 30 mg/dL 03/13/23 14:50 Glucose (UA)(Auto) 0 mg/dL 03/13/23 14:50 Urine Ketones (Auto) Negative 03/13/23 14:50 Urine Blood (Auto) 200 Earle/uL 03/13/23 14:50 Urine Nitrite (Auto) Negative 03/13/23 14:50 Urine Bilirubin (Auto) 0 mg/dL 03/13/23 14:50 Urine Urobilinogen (Auto) 0.2 mg/dL 03/13/23 14:50 Leukocyte Esterase (Auto) 15 Donal/uL 03/13/23 14:50 Date of Service: 02/20/23 EXAMINATION: CT ABDOMEN AND PELVIS WITHOUT AND WITH CONTRAST? CLINICAL INFORMATION: Bladder disorder.? COMPARISON: None available.? ? FINDINGS: LUNG BASES: The visualized lung bases are unremarkable.? LIVER, GALLBLADDER, AND BILIARY TREE: The liver is normal in size, shape, and attenuation. No focal hepatic lesion or biliary ductal dilatation is present. The gallbladder is unremarkable with no evidence of radiopaque gallstones, gallbladder wall thickening, or obvious pericholecystic inflammatory changes.? PANCREAS: Unremarkable.? SPLEEN: Unremarkable.? ADRENAL GLANDS: Unremarkable.? KIDNEYS AND URETERS: There are no radiopaque renal calculi. Postcontrast, there are symmetrical bilateral kidney nephrograms with no focal lesion or enhancement seen. Left kidney measures 9.8 cm in length and right kidney measures 10.0 cm in length. There is opacification of bilateral kidney pelvises and ureters without any intraluminal filling defect or narrowing. BLADDER: There are no radiopaque bladder calculi. There is good opacification of bladder from excreted urinary contrast with no intraluminal filling defect. No bladder wall thickening.? GASTROINTESTINAL TRACT: There is scattered stool and gas seen throughout the colon without significant distention. The small bowel loops are normal caliber. Appendix is not visualized. No free air or free fluid seen.? ABDOMINAL WALL: No significant hernia is appreciated.? LYMPH NODES: Normal. VASCULAR: Unremarkable. PELVIC VISCERA: Unremarkable.? OSSEUS STRUCTURES: No aggressive lytic or sclerotic process seen.? IMPRESSION: 1.? No radiopaque urolith, enhancing renal mass or hydroureteronephrosis. 2.? Unremarkable bladder. 3.? Mild constipation. Diagnosis A. Bladder, right posterior wall, transurethral resection: - High-grade papillary urothelial carcinoma; non-invasive. - Muscularis propria present. B. Bladder, left lateral wall random, biopsy: Focal urothelial atypia worrisome for carcinoma in situ; background mild chronic cystitis; negative for carcinoma. C. Bladder, posterior wall random, biopsy: Chronic cystitis with reactive changes and focal foreign material; negative for carcinoma. The D. Bladder, right lateral wall random, biopsy: Mild chronic cystitis; muscularis propria within normal limits; negative for carcinoma. E. Bladder, random dome, biopsy: Urothelial carcinoma in situ; suspicious for microinvasion. Bladder, transurethral resection/biopsy Procedure: Transurethral resection; biopsies Tumor site: Right posterior wall; random left wall and random dome Histologic type: Papillary urothelial carcinoma; CIS in random biopsy (E) and suspicious for carcinoma in B Histologic grade: High grade Muscularis propria: Present Extent of invasion: Non-invasive Lymphovascular invasion: Not identified Clinical History Bladder disorder Microscopic Description A-E. Microscopic sections reviewed. CK20 immunostain supports the diagnosis in B and E Material Received A. Bladder tumor right posterior wall B. Left lateral wall random bladder biopsies C. Posterior wall random bladder biopsies D. Right lateral wall random bladder biopsies E. Random dome bladder biopsies Gross Description Received in 5 parts. Part A: Received in formalin labeled ?bladder tumor right posterior wall? are 4 glistening, semitranslucent, soft, hyperemic, ryan-pink irregular tissue fragments ranging from 0.15-0.25 cm in greatest dimension which are submitted in toto in a single cassette labeled A. Part B: Received in formalin labeled ?left lateral wall random bladder bx? is a 0.3 cm in greatest dimension glistening, hyperemic and congested, pink-red irregular tissue fragment which is submitted in toto in a single cassette labeled B. Part C: Received in formalin labeled ?posterior wall random bladder bx? is a 0.3 cm in greatest dimension glistening, semitranslucent, soft, hyperemic, ryan- pink irregular tissue fragment which is submitted in toto in a single labeled C. Part D: Received in formalin labeled ?right lateral wall random bladder bx? is a 0.2 cm in greatest dimension glistening, semitranslucent, soft, ryan-pink irregular tissue fragment which is submitted in toto in a single cassette labeled D. Part E: Received in formalin labeled ?random dome bladder bx? is a 0.2 cm in greatest dimension glistening, semitranslucent, soft, ryan-pink irregular tissue fragment which is submitted in toto in a single cassette labeled E. CEDS Assessment & Plan Assessment & Plan (1) Bladder cancer: Code(s): C67.9 - Malignant neoplasm of bladder, unspecified (2) Urinary tract infection: Code(s): N39.0 - Urinary tract infection, site not specified (3) Dysuria: Code(s): R30.0 - Dysuria Plan Gemcitabine bladder instillation once a week for 6 weeks. Follow-up Cystoscopy bladder biopsies. Prescribed Macrobid 100 mg BID for 5 days. Orders: Orders AMB Urinalysis Automated 03/13/23 Z13.9 - Encounter for screening, unspecified Medications: New nitrofurantoin monohyd/m-cryst 100 mg (Macrobid) must administer with a meal/food 100 mg PO BID 10 caps 0RF 5 days Patient Instructions: The patient had an opportunity to ask questions regarding treatment plan. All questions were answered. Imaging, Laboratory studies and physical exam results were discussed and reviewed in detail. No major barriers to understanding were identified. The patient expressed understanding and agreement with the above treatment plan.? ? ? The patient is aware they should contact our office by phone for worsening of their current condition or the appearance of new symptoms. Compliance is encouraged with any medications and followup testing that is ordered.? ? ? It is a privilege to be allowed the opportunity to participate in the urologic care of your patient. If you have any questions or concerns regarding treatment for the above conditions please do not hesitate to contact me. The office telephone contact is [phone].? ? ? This note is constructed in part using voice recognition software. While every effort has been made to ensure accuracy water main pipe layer errors may have been included.? ? ? Yours sincerely,? ? ? Sweta Spencer MD? Coding Level of Care Code Est Pt Level 4 (16789) Diagnoses Bladder cancer C67.9 Urinary tract infection N39.0 Dysuria R30.0
== END 2023-03-13 15:48 | disposition home or self-care (01) ==
PROVIDERS: PCP Internal Medicine; Visit Provider Urology
DX: C67.9 Malignant neoplasm of bladder, unspecified (principal); N39.0 Urinary tract infection, site not specified; R30.0 Dysuria
CPT/HCPCS: 99214

== ENCOUNTER → 2023-03-13 14:43 | Outpatient (BNVA) | payer OTHER, SELFPAY | PROVIDERS: PCP Internal Medicine; Visit Provider Urology | DX: C67.9 Malignant neoplasm of bladder, unspecified (principal); N39.0 Urinary tract infection, site not specified; R30.0 Dysuria | CPT/HCPCS: 81003 ==

== ENCOUNTER 2023-04-05 10:07 | Outpatient (AMB) | payer OTHER, SELFPAY ==
--- NOTE | 2023-04-05 10:33 | MHC.OFFVIS ---
Intake Intake Visit Reasons: cath check (per dr ramos) Intake Note: Patient here for straight cath for UA and culture. Dr. Ramos wants to repeat UA to confirm if UTI is present or not for patient to have Gemcitibine instillation today at oncology. Head Of Measurement & Insights: Head Of Measurement & Insights Present Allergies No Known Allergies [No Known Allergies*] Allergy (Verified 02/21/23 09:02) [facility] Medical History COPD (chronic obstructive pulmonary disease) Dysphagia Esophagitis determined by endoscopy Hiatal hernia History of COVID-19 History of esophageal stricture Hx of bladder cancer (~2008) Multiple environmental allergies Nicotine dependence, cigarettes, uncomplicated Osteoporosis (~2019) Primary insomnia Pulmonary nodules Stress incontinence Surgical menopause Tubular adenoma of colon (~2016) Surgical History History of bladder surgery History of cataract surgery History of colonoscopy History of cystoscopy History of esophageal dilatation History of esophagogastroduodenoscopy (EGD) History of hand surgery History of hysterectomy Family History Father HTN (hypertension) Mother Melanoma Brother No problems noted. Brother No problems noted. Sister No problems noted. Daughter Melanoma Son No problems noted. Son No problems noted. Son No problems noted. Social History Housing: House Patient Tobacco Use Status: Current everyday Tobacco user Tobacco use type: Cigarette Cigarette Packs Per Day: 0.5 Cigarettes Per Day: 10 e-Cigarette/Vaping Use: Never Used Current occupational status: employed Cognitive needs: No Hearing needs: No Vision needs: Yes Results AMB Urinalysis, Automated UA Leukoctes 0 Donal/uL Last Edit by DHAVAL Pinto on 04/05/23 10:35 UA Nitrite Negative Last Edit by DHAVAL Pinto on 04/05/23 10:35 UA Urobilinogen 0.2 mg/dL Last Edit by DHAVAL Pinto on 04/05/23 10:35 UA Protein 15 mg/dL Last Edit by DHAVAL Pinto on 04/05/23 10:35 UA pH 5.5 Last Edit by Iona Garcia, RMA on 04/05/23 10:35 UA Blood 200 Earle/uL Last Edit by Iona Garcia, RMA on 04/05/23 10:35 UA Specific [place] 1.030 Last Edit by Iona Garcia, RMA on 04/05/23 10:35 UA Ketone Negative Last Edit by Iona Garcia, RMA on 04/05/23 10:35 UA Bilirubin 0 mg/dL Last Edit by Ionamason Garcia, RMA on 04/05/23 10:35 UA Glucose 0 mg/dL Last Edit by Ionamason Garcia, RMA on 04/05/23 10:35 Results Reviewed Results Reviewed: Laboratory Last Values Urine pH (Auto) 5.5 04/05/23 10:31 Specific [place] (Auto) 1.030 04/05/23 10:31 Urine Protein (Auto) 15 mg/dL 04/05/23 10:31 Glucose (UA)(Auto) 0 mg/dL 04/05/23 10:31 Urine Ketones (Auto) Negative 04/05/23 10:31 Urine Blood (Auto) 200 Earle/uL 04/05/23 10:31 Urine Nitrite (Auto) Negative 04/05/23 10:31 Urine Bilirubin (Auto) 0 mg/dL 04/05/23 10:31 Urine Urobilinogen (Auto) 0.2 mg/dL 04/05/23 10:31 Leukocyte Esterase (Auto) 0 Donal/uL 04/05/23 10:31 Assessment & Plan Assessment & Plan Plan UA was negative for nitrite and negative for leukocytes. Dr. Ramos read the results and said it was okay for patient to walk over to oncology for the gemcitabine instillation. I called Madelyn from oncology and confirmed that it was okay for patient to walk over for the procedure. Patient notified and walked over to oncology in no distress. Orders: Orders UA CC w/rflx Micro + Cult Today R39.9 - Unspecified symptoms and signs involving the genitourinary system AMB Urinalysis Automated Today Z13.9 - Encounter for screening, unspecified Coding
--- NOTE | 2023-04-05 11:36 | AM.OFFVISNUR ---
Intake Intake Visit Reasons: cath check (per dr ramos) Allergies No Known Allergies [No Known Allergies*] Allergy (Verified 02/21/23 09:02) Nursing Note Patient came in today for straight cath for a UA and culture per Dr. Ramos's orders. Patient came in and agreed to the straight cath. The UA was negative for nitrites and negative for leukocytes. Confirmed with Dr. Ramos. Dr. Ramos said patient was all set to go to oncology for the gemcitabine instillation. patient notified and walked over to oncology. Results AMB Urinalysis, Automated UA Leukoctes 0 Donal/uL Last Edit by Iona Garcia, A on 04/05/23 10:35 UA Nitrite Negative Last Edit by Iona Garcia, A on 04/05/23 10:35 UA Urobilinogen 0.2 mg/dL Last Edit by Iona Garcia, A on 04/05/23 10:35 UA Protein 15 mg/dL Last Edit by Iona Garcia, A on 04/05/23 10:35 UA pH 5.5 Last Edit by Iona Garcia, A on 04/05/23 10:35 UA Blood 200 Earle/uL Last Edit by Iona Garcia, A on 04/05/23 10:35 UA Specific [place] 1.030 Last Edit by Iona Garcia A on 04/05/23 10:35 UA Ketone Negative Last Edit by Iona Garcia, A on 04/05/23 10:35 UA Bilirubin 0 mg/dL Last Edit by Iona Garcia, A on 04/05/23 10:35 UA Glucose 0 mg/dL Last Edit by Iona Garcia, A on 04/05/23 10:35 Coding Assessment & Plan Assessment & Plan Orders: Orders UA CC w/rflx Micro + Cult Today R39.9 - Unspecified symptoms and signs involving the genitourinary system AMB Urinalysis Automated Today Z13.9 - Encounter for screening, unspecified
== END 2023-04-05 10:41 | disposition home or self-care (01) ==
PROVIDERS: PCP Internal Medicine; Visit Provider Urology
DX: Z13.9 Encounter for screening, unspecified (principal)

== ENCOUNTER 2023-04-05 10:07 | Outpatient (REF) | payer OTHER, SELFPAY ==
[2023-04-05 16:51] LABS: Appearance Urine Clear; Color Urine Yellow; Glucose Urine UA Negative (Negative); Leukocyte Esterase Urine Small (1+) (Negative); Nitrite Urine Negative (Negative); PH 5.5 (5.0-9.0); UMIC TRIGGER UACC YES; Urine Blood Moderate (2+) (Negative); Urine Ketones Negative (Negative); Urine Protein Trace mg/dL (Neg-Trace)
[2023-04-05 17:04] LABS: Bacteria Urine None Seen (None Seen); Calcium Oxalate Crystals Urine Present; Hyaline Casts Urine 0-2 /LPF (0-2); UACC Culture Trigger YES; WBC Urine 21-50 /HPF (0-5)
== END 2023-04-05 10:08 | disposition home or self-care (01) ==
LOC: HO.LAB 10:07
PROVIDERS: PCP Internal Medicine; Visit Provider Urology
DX: R82.89 Other abnormal findings on cytological and histological examination of urine (principal); Z13.9 Encounter for screening, unspecified
CPT/HCPCS: 81001; 81003; 87086

== ENCOUNTER 2023-05-05 14:04 | Outpatient (AMB) | payer OTHER, SELFPAY ==
--- NOTE | 2023-05-05 14:05 | A.OFFVIS_ITS ---
Intake Intake Visit Reasons: FOLLO-UP PER DR IRAHETA Intake Note: Patient presents today for a follow-up on Dysuria: Meds- Pyridium Allergies to Antibiotic- No Known Allergies Blood Thinner- None Dolphin Researcher Required: No Accompanied by: Self / Same As Patient Allergies No Known Allergies [No Known Allergies*] Allergy (Verified 02/21/23 09:02) HPI HPI Comments History of Present Illness Details Ebony is a 72-year-old female who presents today to the office for a follow-up. 05/05/2023? She is followed today for dysuria. 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 Urothelial carcinoma insitu from the bladder dome. Currently receiving Gemcitabine bladder instillations, completed 3 treatments, Today would have been week 4. Pre treatment UA was done yesterday, significant for ++leukocytes, ++RBC's I have advised to follow-up to do catheterize urine to send for urine culture. Examination: vaginal atrophy and urethral caruncle Catheterized urine minimal volume about 5 mL- just enough to send for culture. 05/05/23: Plan: Follow-up urine culture and treatment as appropriate and re institute the bladder instillations pending result for urine culture. PENDING SALE TO [facility] Medical History Multiple environmental allergies Pulmonary nodules Nicotine dependence, cigarettes, uncomplicated COPD (chronic obstructive pulmonary disease) Stress incontinence Hx of bladder cancer (~2008) Dysphagia History of COVID-19 Primary insomnia Surgical menopause Osteoporosis (~2019) Tubular adenoma of colon (~2016) Hiatal hernia Esophagitis determined by endoscopy History of esophageal stricture Surgical History History of cataract surgery History of esophageal dilatation History of bladder surgery History of hand surgery History of colonoscopy History of esophagogastroduodenoscopy (EGD) History of cystoscopy History of hysterectomy Family History Father HTN (hypertension) Mother Melanoma Brother No problems noted. Brother No problems noted. Sister No problems noted. Daughter Melanoma Son No problems noted. Son No problems noted. Son No problems noted. Social History Housing: House Patient Tobacco Use Status: Current everyday Tobacco user Tobacco use type: Cigarette Cigarette Packs Per Day: 0.5 Cigarettes Per Day: 10 e-Cigarette/Vaping Use: Never Used Current occupational status: employed Cognitive needs: No Hearing needs: No Vision needs: Yes Review of Systems Const All systems reviewed & are unremarkable except as noted in HPI and below Reports no additional complaints Eyes Reports no additional complaints ENT Reports no additional complaints Card Denies dyspnea Resp Denies cough and Denies dyspnea GI Reports no additional complaints Reports no additional complaints Musc Reports no additional complaints Skin/Breast Denies rash and Denies unusual bruising Neuro Reports no additional complaints Psych Reports no additional complaints Endo Reports no additional complaints Pranav/Lymph Reports no additional complaints Aller/Immun Reports no additional complaints Physical Exam Const General: cooperative, healthy appearing and no acute distress Orientation/consciousness: patient oriented x3 HEENT Head: Yes normal to inspection, Yes normocephalic and Yes atraumatic Eyes Conjunctivae: conjunctivae normal Neck Neck: Yes normal visual inspection and Yes trachea midline Chest Chest palpation & inspection: normal inspection of the chest Resp Effort & Inspection: normal respiratory effort GI Inspection: Yes normal to inspection Palpation (GI): Soft to palpation General: No no CVA tenderness External Female Exam: normal external appearance Speculum Exam - Vagina: vagina atrophic Back/Spine/Pelvis Back: No no CVA tenderness Neuro General: patient oriented x3 Psych Appearance: grossly normal Office Procedures Bladder/Catheter Procedure Details: Under sterile technique a 14 Mongolian catheter was passed transurethrally, 5 mL urine drained [id number] Bladder Catheter Procedure code (CPT) selection complete Assessment & Plan Assessment & Plan (1) Bladder cancer: Code(s): C67.9 - Malignant neoplasm of bladder, unspecified (2) Dysuria: Code(s): R30.0 - Dysuria Plan Follow-up urine culture and treatment as appropriate and re institute the bladder instillations pending result for urine culture.? Orders: Orders AMB Bladder/Catheter Procedure 05/05/23 C67.9 - Malignant neoplasm of bladder, unspecified Urine Culture 05/05/23 N39.0 - Urinary tract infection, site not specified Patient Instructions: The patient had an opportunity to ask questions regarding treatment plan. All questions were answered. Imaging, Laboratory studies and physical exam results were discussed and reviewed in detail. No major barriers to understanding were identified. The patient expressed understanding and agreement with the above treatment plan.? ? ? The patient is aware they should contact our office by phone for worsening of their current condition or the appearance of new symptoms. Compliance is encouraged with any medications and followup testing that is ordered.? ? ? It is a privilege to be allowed the opportunity to participate in the urologic care of your patient. If you have any questions or concerns regarding treatment for the above conditions please do not hesitate to contact me. The office telephone contact is [phone].? ? ? This note is constructed in part using voice recognition software. While every effort has been made to ensure accuracy stationary fireman errors may have been included.? ? ? Yours sincerely,? ? ? Sweta Spencer MD? ? Coding Level of Care Code Est Pt Level 3 (63435) Diagnoses Bladder cancer C67.9 Dysuria R30.0 CPT Codes Bladder/Catheter Procedure - CPT: 88959-Mehiva Bladder Catheter ([id number])
== END 2023-05-05 14:56 | disposition home or self-care (01) ==
LOC: HO.HUSH 14:04
PROVIDERS: PCP Internal Medicine; Visit Provider Urology
DX: C67.9 Malignant neoplasm of bladder, unspecified (principal); R30.0 Dysuria
CPT/HCPCS: 51701; 99213

== ENCOUNTER 2023-05-05 14:04 | Outpatient (REF) | payer OTHER, SELFPAY | END 2023-05-05 14:05 | disposition home or self-care (01) | LOC: HO.LAB 14:04 | PROVIDERS: PCP Internal Medicine; Visit Provider Urology | DX: N39.0 Urinary tract infection, site not specified (principal); D09.0 Carcinoma in situ of bladder; F17.210 Nicotine dependence, cigarettes, uncomplicated | CPT/HCPCS: 51701; 87086 ==

== ENCOUNTER 2023-07-12 14:54 | Outpatient (AMB) | payer OTHER, SELFPAY ==
--- NOTE | 2023-07-12 15:02 | A.OFFVIS_ITS ---
Intake Intake Visit Reasons: follow up after gemcitabine Intake Note: Patient presents today to discuss Gemcitabine: Meds- Pyridium Allergies to Antibiotic- No Known Allergies Blood Thinner- None Feed Blender Required: No Accompanied by: Self / Same As Patient Allergies No Known Allergies [No Known Allergies*] Allergy (Verified 08/10/23 11:13) HPI HPI Comments History of Present Illness Details Ebony is a 72-year-old female who presents today to the office for a follow-up. She completed 9 weekly bladder instillations of gemcitabine. 07/12/23? Ebony is followed for bladder cancer, initially diagnosed 2008. 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 Urothelial carcinoma insitu from the bladder dome. BCG not available, she Received Gemcitabine bladder instillations. weekly Treatments were interrupted due to leukocytosis and urine c/s checked, she complained of symptoms of dysuria and fatigue. 06/2723: Plan: Cystoscopy bladder biopsies [facility] Medical History (Updated 08/13/23 @ 17:59 by Sweta Spencer MD) Multiple environmental allergies Pulmonary nodules Nicotine dependence, cigarettes, uncomplicated COPD (chronic obstructive pulmonary disease) Stress incontinence Hx of bladder cancer (~2008) Dysphagia History of COVID-19 Primary insomnia Surgical menopause Osteoporosis (~2019) Tubular adenoma of colon (~2016) Hiatal hernia Esophagitis determined by endoscopy History of esophageal stricture Surgical History (Updated 08/11/23 @ 10:08 by Yohana Chandler RN) History of cataract surgery History of esophageal dilatation History of bladder surgery History of hand surgery History of colonoscopy History of esophagogastroduodenoscopy (EGD) History of cystoscopy History of hysterectomy Family History Father HTN (hypertension) Mother Melanoma Brother No problems noted. Brother No problems noted. Sister No problems noted. Daughter Melanoma Son No problems noted. Son No problems noted. Son No problems noted. Social History Housing: House Patient Tobacco Use Status: Current everyday Tobacco user Tobacco use type: Cigarette Cigarette Packs Per Day: 0.5 Cigarettes Per Day: 10 e-Cigarette/Vaping Use: Never Used Current occupational status: employed Cognitive needs: No Hearing needs: No Vision needs: Yes Review of Systems Const All systems reviewed & are unremarkable except as noted in HPI and below Reports no additional complaints Eyes Reports no additional complaints ENT Reports no additional complaints Card Denies dyspnea Resp Denies cough and Denies dyspnea GI Reports no additional complaints Reports no additional complaints Musc Reports no additional complaints Skin/Breast Denies rash and Denies unusual bruising Neuro Reports no additional complaints Psych Reports no additional complaints Endo Reports no additional complaints Pranav/Lymph Reports no additional complaints Aller/Immun Reports no additional complaints Assessment & Plan Assessment & Plan (1) Bladder cancer: Code(s): C67.9 - Malignant neoplasm of bladder, unspecified (2) Leukocytes in urine: Code(s): R82.998 - Other abnormal findings in urine (3) Dysuria: Code(s): R30.0 - Dysuria Plan cystoscopy bladder biopsies Patient Instructions: The patient had an opportunity to ask questions regarding treatment plan. All questions were answered. Imaging, Laboratory studies and physical exam results were discussed and reviewed in detail. No major barriers to understanding were identified. The patient expressed understanding and agreement with the above treatment plan. The patient is aware they should contact our office by phone for worsening of their current condition or the appearance of new symptoms. Compliance is encouraged with any medications and followup testing that is ordered. It is a privilege to be allowed the opportunity to participate in the urologic care of your patient. If you have any questions or concerns regarding treatment for the above conditions please do not hesitate to contact me. The office telephone contact is [phone]. This note is constructed in part using voice recognition software. While every effort has been made to ensure accuracy therapist physical errors may have been included. Yours sincerely, Sweta Spencer MD Coding Level of Care Code Est Pt Level 4 (35707) Diagnoses Bladder cancer C67.9 Leukocytes in urine R82.998 Dysuria R30.0
== END 2023-07-12 15:42 | disposition home or self-care (01) ==
PROVIDERS: PCP Internal Medicine; Visit Provider Urology
DX: C67.8 Malignant neoplasm of overlapping sites of bladder (principal); R82.998 Other abnormal findings in urine; R30.0 Dysuria
CPT/HCPCS: 99214

== ENCOUNTER → 2023-07-12 14:54 | Outpatient (BNVA) | payer OTHER, SELFPAY | PROVIDERS: PCP Internal Medicine; Visit Provider Urology ==

== ENCOUNTER 2023-08-10 11:01 | Outpatient (AMB) | payer OTHER, SELFPAY ==
[2023-08-10 11:11] VITALS: BP 120/60; PULSE 88; O2SAT 95; BMI 19.1
--- NOTE | 2023-08-10 11:11 | A.OFFVIS_ITS ---
Intake Vital Signs 08/10/23 11:11 Height 5 ft 1.5 in Weight 102 lb 8.239 oz BMI 19.1 BP 120/60 Blood Pressure Location Lt brachial Position Sitting Pulse 88 Pulse Source Pulse Oximeter Pulse Oximetry (%) 95 Oxygen Delivery Method Room Air Intake Visit Reasons: Cystoscopy TURBT with bladder bx on 08/15/23 Pension Adviser Required: No Allergies No Known Allergies [No Known Allergies*] Allergy (Verified 08/10/23 11:13) HPI HPI Comments History of Present Illness Details The patient is a 72 year woman the with tobacco dependency along with COPD presenting with worsening shortness of breath. She has minimal smoker all her life. The patient was having issues with shortness of breath and back in 2002 she did undergo pulmonary function studies here at [facility]. It demonstrated that her FEV1 was down to 54% after bronchodilators consistent with moderate to severe COPD. She has been participating in the lung cancer screening program. Her last CT scan was a year to ago. She does have moderate degree of emphysema in the upper lung zones and has the ill-defined nodular density in the right hemithorax. Her next CT scan will be in the coming months. The patient has been taking Symbicort Spiriva now for some time. These inhalers appear to be working for her. She would like not to change them at this time. As far as smoking cessation she has quit many times but she has gone back to smoking. She has tried and failed multiple medications including Wellbutrin Chantix. She also tried hypnosis. She is willing to try the Nicotrol inhaler with hopes that she can start cutting down release alternating a real cigarette with day Nicotrol inhaler. With the hope that she continue decreasing. The patient will also have pulmonary function studies are will return in 4-6 weeks. The meantime will start azithromycin 2 treated for the chronic bronchitis related to her COPD. 10/03/2022 the patient is here for a pulmonary follow-up visit. Overall she is doing a little better. She is concerned because she did have her low-dose CT scan of the chest and she was found to have multiple nodules. She has a new 6 mm pulmonary nodule and it was recommended that she have a very repeat CT scan in 3 months time. I did reassure her. We did look at the CAT scan. She does have significant emphysema. Her new pulmonary nodules do not have concerning appearance is however I do agree that repeating the CT scan in 3 months time is to correct decision. She continues use her respiratory medicine with good effect. She still struggling with smoking. We did review her pulmonary function studies demonstrating very severe COPD. The patient also has significant air trapping. Her diffusing capacity is around 40% predicted. Explained to her that if it drops further down to the 30s then she will likely require oxygen supplementation. 08/10/2023 the patient is here for a pulm onary follow-up visit. She has a scheduled procedure with Urology. Apparently she was diagnosed with bladder cancer many years ago and then was lost to follow-up. Now she has been on therapy for with urology. Although she would like to stop the therapy. She needs to have a repeat cystoscopy at this point under anesthesia. She does have severe COPD. She has been medically optimized with both Symbicort Spiriva. She continues to smoke cigarettes. She does have a productive chronic cough. [id number] severity. Typically worse in the morning. She is also part of the lung cancer screening program. Her next CT scan is going to be around November or December of 2023. Clinically from the pulmonary standpoint the patient may be able to proceed with anesthesia and surgical intervention. She does have increased risk for perioperative pulmonary complications which includes hypoxia, atelectasis, COPD exacerbation and pneumonia. At this point the patient is able to proceed with her procedure. Prior to the procedure she will start using her nebulizer more regularly to try a bronchodilator and try to clear secretions out of her lungs preemptively. FOR[facility]LY [facility], [facility] Medical History Multiple environmental allergies Pulmonary nodules Nicotine dependence, cigarettes, uncomplicated COPD (chronic obstructive pulmonary disease) Stress incontinence Hx of bladder cancer (~2008) Dysphagia History of COVID-19 Primary insomnia Surgical menopause Osteoporosis (~2019) Tubular adenoma of colon (~2016) Hiatal hernia Esophagitis determined by endoscopy History of esophageal stricture Surgical History History of cataract surgery History of esophageal dilatation History of bladder surgery History of hand surgery History of colonoscopy History of esophagogastroduodenoscopy (EGD) History of cystoscopy History of hysterectomy Family History Father HTN (hypertension) Mother Melanoma Brother No problems noted. Brother No problems noted. Sister No problems noted. Daughter Melanoma Son No problems noted. Son No problems noted. Son No problems noted. Social History Housing: House Patient Tobacco Use Status: Current everyday Tobacco user Tobacco use type: Cigarette Cigarette Packs Per Day: 0.5 Cigarettes Per Day: 10 e-Cigarette/Vaping Use: Never Used Current occupational status: employed Cognitive needs: No Hearing needs: No Vision needs: Yes Review of Systems Const Denies body aches, Denies fever(s), Denies headache(s), Denies weakness and Reports weight loss Eyes Denies change in vision and Denies itchy eyes ENT Denies dizziness, Denies headache(s), Denies nasal congestion, Denies nasal discharge and Denies sore throat Card Denies chest pain, Denies lightheadedness, Denies palpitations, Denies dyspnea and Reports dyspnea on exertion Resp Reports chest congestion, Reports cough, Denies dyspnea, Reports dyspnea on exertion and Reports wheezing GI Denies abdominal pain and Denies change in bowel habits Musc Reports myalgias Neuro Denies dizziness, Denies headache(s) and Denies weakness Endo Denies polydipsia, Denies polyuria and Denies palpitations Pranav/Lymph Denies easy bruising Aller/Immun Denies itchy eyes, Denies seasonal rhinorrhea and Reports wheezing Physical Exam Vital Signs: Last Vital Signs Pulse 88 08/10/23 11:11 BP 120/60 08/10/23 11:11 Pulse Ox 95 08/10/23 11:11 Oxygen Delivery Method Room Air 08/10/23 11:11 BMI result Body Mass Index 19.1 Const General: comfortable Orientation/consciousness: patient oriented x3 Limitations: no limitations HEENT Head: Yes normal to inspection Eyes General: appearance normal, both eyes and all related structures Neck Neck: Yes normal visual inspection Chest Chest palpation & inspection: normal palpation of entire chest wall Resp Effort & Inspection: normal respiratory effort Auscultation: diminished lung sounds Cardio Rate: regular rate Rhythm: regular rhythm Heart sounds: S1 normal heart sound present and S2 normal heart sound present GI Auscultation: normal bowel sounds Neuro General: patient oriented x3 Extrem General: Yes no clubbing, cyanosis or edema Assessment & Plan Assessment & Plan (1) COPD (chronic obstructive pulmonary disease): Code(s): J44.9 - Chronic obstructive pulmonary disease, unspecified Qualifiers: COPD type: chronic bronchitis Chronic bronchitis type: mixed simple and mucopurulent Qualified Code(s): J41.8 - Mixed simple and mucopurulent chronic bronchitis (2) Cigarette smoker two packs a day or less: Code(s): F17.210 - Nicotine dependence, cigarettes, uncomplicated (3) Hiatal hernia: Code(s): K44.9 - Diaphragmatic hernia without obstruction or gangrene (4) Pulmonary nodules: Code(s): R91.8 - Other nonspecific abnormal finding of lung field (5) Preop pulmonary/respiratory exam: Code(s): Z01.811 - Encounter for preprocedural respiratory examination Plan continue Symbocrt and Spiriva KENDRICK as needed Duoneb as needed Tobacco cessation LDCT The patient is able to proceed with urology procedure/surgery and anesthesia F/U 6-8 months with PFTs Orders: Orders PFT pulmonary function test Today J41.8 - Mixed simple and mucopurulent chronic bronchitis Coding Level of Care Code Est Pt Level 4 (53055) Diagnoses Mixed simple and mucopurulent chronic bronchitis J41.8 COPD type: chronic bronchitis Chronic bronchitis type: mixed simple and mucopurulent Cigarette smoker two packs a day or less F17.210 Hiatal hernia K44.9 Pulmonary nodules R91.8 Preop pulmonary/respiratory exam Z01.811 Time Spent (min) 17
== END 2023-08-10 11:36 | disposition home or self-care (01) ==
PROVIDERS: PCP Internal Medicine; Visit Provider Hospitalist
DX: J41.8 Mixed simple and mucopurulent chronic bronchitis (principal); F17.210 Nicotine dependence, cigarettes, uncomplicated; K44.9 Diaphragmatic hernia without obstruction or gangrene; R91.8 Other nonspecific abnormal finding of lung field; Z01.811 Encounter for preprocedural respiratory examination
CPT/HCPCS: 99214

== ENCOUNTER → 2023-08-10 11:01 | Outpatient (BNVA) | payer OTHER, SELFPAY | PROVIDERS: PCP Internal Medicine; Visit Provider Hospitalist ==

== ENCOUNTER 2023-08-15 05:53 | Day surgery (SDC) | payer OTHER, SELFPAY ==
[2023-08-11 10:13] VITALS: BMI 19.0
[2023-08-15] VITALS (7 sets, daily range): BP systolic 131–158; BP diastolic 64–76; PULSE 69–91; RESP 16–18; TEMP 36.2–36.7; O2SAT 91–96; BMI 19.3
--- NOTE | 2023-08-15 07:12 | MHC.SHP ---
Pre-Procedural Eval Section A - 24 Hr Update-Section A only Date of Service: 08/15/23 The patient is an INPATIENT: No The patient has been examined within 24 hours of the surgical procedure. The History & Physical has been completed within 30 days and I have reviewed it.: Yes Section B - Complete if H&P > 30 days Chief Complaint: Malignant neoplasm of bladder, unspecified Allergies: Allergies Allergy/AdvReac Type Severity Reaction Status Date / Time No Known Allergies Allergy Verified 08/10/23 11:13 [No Known Allergies*] Plan Diagnosis/Plan: Unchanged I have reviewed the history and physical and performed a pertinent physical examination on my patient. No changes have occurred unless specified. Cystoscopy bladder biopsies, transurethral resection bladder tumor Time Spent With Patient Time: Total time managing care of this patient today ____ minutes.
[2023-08-15] MEDS: Scopolamine 1.5 MG PATCH.TD.3 EAR-BEHIND (07:23)
--- NOTE | 2023-08-15 08:03 | HO.ANESPROP2 ---
[facility] Active Problems Active Problems: All Active Problems (Updated 08/13/23 @ 17:59 by Sweta Spencer MD) Leukocytes in urine (Acute) Dysuria (Acute) Urinary tract infection (Acute) Bladder cancer (Acute) Lesion of bladder (Acute) Centrilobular emphysema (Acute) Multiple environmental allergies (Acute) Pulmonary nodules (Acute) Nicotine dependence, cigarettes, uncomplicated (Acute) COPD (chronic obstructive pulmonary disease) (Acute) Stress incontinence (Acute) Hx of bladder cancer (Acute ~2008) Primary insomnia (Acute) Surgical menopause (Acute) Osteoporosis (Acute ~2019) Tubular adenoma of colon (Acute ~2017) Hiatal hernia (Acute) Esophagitis determined by endoscopy (Acute) Past Medical History Medical History Multiple environmental allergies Pulmonary nodules Nicotine dependence, cigarettes, uncomplicated COPD (chronic obstructive pulmonary disease) Stress incontinence Hx of bladder cancer (~2008) Dysphagia History of COVID-19 Primary insomnia Surgical menopause Osteoporosis (~2019) Tubular adenoma of colon (~2017) Hiatal hernia Esophagitis determined by endoscopy History of esophageal stricture Functional capacity: independent ambulation Family History Family History Father HTN (hypertension) Mother Melanoma Brother No problems noted. Brother No problems noted. Sister No problems noted. Daughter Melanoma Son No problems noted. Son No problems noted. Son No problems noted. Family history of problems with anesthesia: No Surgical History Surgical History History of cataract surgery History of esophageal dilatation History of bladder surgery History of hand surgery History of colonoscopy History of esophagogastroduodenoscopy (EGD) History of cystoscopy History of hysterectomy History of Problems with Anesthesia: No Social History Social History Housing: House Patient Tobacco Use Status: Current everyday Tobacco user Tobacco use type: Cigarette Cigarette Packs Per Day: 0.5 Cigarettes Per Day: 10 e-Cigarette/Vaping Use: Never Used Advance Directives: No Advance Directives Information Provided: Yes Current occupational status: employed Cognitive needs: No Hearing needs: No Vision needs: Yes Meds Allergies Allergy/AdvReac Type Severity Reaction Status Date / Time No Known Allergies Allergy Verified 08/10/23 11:13 [No Known Allergies*] Home Medications Medication Instructions Recorded Confirmed Last Taken Type omeprazole 40 mg capsule,delayed 40 mg PO BID 03/13/23 08/11/23 Unknown History release nebulizers 08/10/23 Unknown History Exam Height,Weight and Vital Signs: Height 5 ft 1.5 in Weight 47.174 kg Last Vital Signs Temp 97.9 F 08/15/23 06:34 Pulse 91 08/15/23 06:34 Resp 18 08/15/23 06:34 BP 152/74 H 08/15/23 06:34 Pulse Ox 96 08/15/23 06:34 O2 Del Method Room Air 08/15/23 06:34 Airway Mallampati Class: II TM Dist: >3cm Neck ROM: Full Denture: Upper and Lower Heart: RRR Lungs: CTA Assessment and Plan Assessment Anesthesia Assessment: Anesthesia Plan Discussed and Smoking Cess. Discussed Final Anesthetic Review Family History of Problems with Anesthesia: No History of Problems with Anesthesia: No NPO: Yes ASA Class: II Final Preanesthetic Review: Meds/Allgs Chart Reviewed, Consent Obtained/Reviewed and Anes Risks/Benef Reviewed Patient Risk: Low Procedure Risk: Low Anesthetic Plan Anesthetic Plan: GA Disposition: Standard PACU
--- NOTE | 2023-08-15 08:36 | P.OP_ITS ---
Operative Note Operative Note Date of Service: 08/15/23 Narrative: PREOP DIAGNOSIS: Urothelial carcinoma the bladder, CIS s/p gemcitobine bladder instillations POSTOP DIAGNOSIS: Urothelial carcinoma the bladder, CIS s/p gemcitobine bladder instillations PROCEDURE: CYSTOSCOPY TRANSURETHRAL RESECTION OF BLADDER TUMOR, FULGURATION, RANDOM BLADDER BIOPSIES Anesthesia: General Surgeon Dr. Sweta Ulloa Findings: Flattened irregular erythematous bladder lesion </= 1 cm, left posterior wall Details of procedure: The patient was brought into the operating room placed on the OR table in supine position. 2 g of Ancef IV. General anesthesia was administered. The patient was repositioned into lithotomy position, prepped and draped in the usual sterile fashion. Time-out was done per protocol. 2% lidocaine jelly placed transurethrally. The 22 Arabic Cystoscope was passed transurethrally into the bladder. Visualization of the bladder noted a irregular erythematous bladder lesion left posterior wall, in an area that was previously biopsied, there were no other suspicious lesions noted. Random bladder biopsies were done from the right lateral wall, posterior wall, and dome. The Bugbee electrode was used to cauterize and obtain adequate hemostasis. Cold cup resection of the erythematous area on the left posterior wall was performed using the flexible biopsy forceps and the base of the tumor was fulgurated with the Bugbee electrode. Once there was good hemostasis the cystoscope was removed. 2 % urojet placed. The patient was brought out of anesthesia and taken to recovery in stable condition. EBL: minimal, <5 mL Complications: None Drains: NONE
--- NOTE | 2023-08-15 09:49 | HO.POSTANES ---
Post Anesthesia Evaluation Post Anesthesia Evaluation Date of Service: 08/15/23 Vital Signs: Vital Signs Temp Pulse Resp BP Pulse Ox O2 Del Method O2 Flow Rate 08/15/23 09:16 97.1 F 83 18 143/65 H 94 Room Air 08/15/23 09:01 83 17 147/69 H 94 Room Air 08/15/23 08:46 79 16 131/64 96 Nasal Cannula 2 08/15/23 08:41 81 16 145/67 H 96 Nasal Cannula 2 08/15/23 08:36 69 16 146/76 H 96 Nasal Cannula 2 08/15/23 08:31 98.1 F 86 16 158/69 H 91 L Room Air 08/15/23 06:34 97.9 F 91 18 152/74 H 96 Room Air Anesthesia: General LMA Mental Status: Awake Pain Control: Satisfactory Nausea/Vomiting: None Hydration: Adequate Anesthesia-Related Issues: No Anes. Related Issues
== END 2023-08-15 10:05 | disposition home or self-care (01) ==
PROVIDERS: PCP Internal Medicine; Visit Provider Urology
PROC: 0TBB8ZZ Excision of Bladder, Via Natural or Artificial Opening Endoscopic (ICD-10-PCS; CPT 52234; principal; 2023-08-15 07:30)
DX: C67.9 Malignant neoplasm of bladder, unspecified (principal); D09.0 Carcinoma in situ of bladder; R82.998 Other abnormal findings in urine; R30.0 Dysuria; N39.3 Stress incontinence (female) (male); Z85.51 Personal history of malignant neoplasm of bladder; Z92.21 Personal history of antineoplastic chemotherapy; J44.9 Chronic obstructive pulmonary disease, unspecified; R91.8 Other nonspecific abnormal finding of lung field; K20.90 Esophagitis, unspecified without bleeding; F51.01 Primary insomnia; M81.0 Age-related osteoporosis without current pathological fracture; Z79.899 Other long term (current) drug therapy; F17.210 Nicotine dependence, cigarettes, uncomplicated; Z98.890 Other specified postprocedural states; Z86.16 Personal history of COVID-19
CPT/HCPCS: 52234; 52204; 88305; 88342; 88360; J0690; J1100; J2250; J2704; J3010

== ENCOUNTER → 2023-08-15 05:53 | Outpatient (BNV) | payer OTHER, SELFPAY | PROVIDERS: PCP Internal Medicine; Visit Provider Urology | DX: C67.4 Malignant neoplasm of posterior wall of bladder (principal) | CPT/HCPCS: 52234 ==

== ENCOUNTER 2023-09-01 14:31 | Outpatient (AMB) | payer OTHER, SELFPAY ==
--- NOTE | 2023-09-01 11:37 | A.OFFVIS_ITS ---
Intake Intake Visit Reasons: Bladder bx results Intake Note: Patient presents today to discuss Bladder Biopsy Results: Meds- Pyridium Allergies to Antibiotic- No Known Allergies Blood Thinner- None Cell Tester Required: No Accompanied by: Self / Same As Patient Allergies No Known Allergies [No Known Allergies*] Allergy (Verified 09/01/23 15:39) HPI HPI Comments History of Present Illness Details 09/01/23--S/P bladder bx post gemcitabine instillations path 08/15/23--CIS - right lat wall, left lat wall, post wall, Discussed nicotine cessation Discussed treatment recommendation for Bladder instillation of BCG immunotherapy, not readily available. I will investigate availablity. Otherwise bladder instillation with combination gemcitobine with docetaxel. Review of chart: 03/13/2023? Ebony is a 72-year-old female who presents today to the office for a follow-up s/p TURBT 02/21/23 I have reviewed the CT urogram results from 02/20/2023 revealed no radiopaque urolith, enhancing renal mass or hydroureteronephrosis. Unremarkable bladder. Mild constipation. 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 Urothelial carcinoma from the bladder, random dome. She reports burning after urination. She is still smoking cigarettes. Last visit: 01/13/2023? The patient was last seen in the office on 01/13/23 by LAVON Masters. The patient denies gross hematuria. The patient has history of superficial bladder cancer, diagnosed in October of 2008. Past medical history significant for COPD and nicotine dependence, esophagitis with dysphagia The patient is an active smoker and started smoking from the age of 17 years. In review of note from 11/07/22, VELIA Boyd documented pathology 10/2008? 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 The patient gives a history of cigarette use for over 55 years. She states that her last cystoscopy was about 3 years ago. The patient has history of hysterectomy about age 20 for menorrhagia. Urine cytology-- collected 11/07/22--? few atypical cells noted. Evaluation today UA-- Blood:200 Earel/uL, leukocytes: negative. Cystoscopy findings-- erythematous flat lesion on the posterior wall of the bladder which need further evaluation with biopsy. Plan:urine bladder/FISH cytology test, as outpatient, urine provided not sufficient to send for testing Cystoscopy TURBT discussed to be scheduled. CT urogram prior with contrast was ordered. 09/01/23--Discussed treatment recommendat ion for Bladder instillation of BCG immunotherapy, not readily available has been on back order. I will investigate availablity. Otherwise bladder instillation with combination gemcitobine with docetaxel [facility] Medical History Multiple environmental allergies Pulmonary nodules Nicotine dependence, cigarettes, uncomplicated COPD (chronic obstructive pulmonary disease) Stress incontinence Hx of bladder cancer (~2008) Dysphagia History of COVID-19 Primary insomnia Surgical menopause Osteoporosis (~2019) Tubular adenoma of colon (~2016) Hiatal hernia Esophagitis determined by endoscopy History of esophageal stricture Surgical History History of cataract surgery History of esophageal dilatation History of bladder surgery History of hand surgery History of colonoscopy History of esophagogastroduodenoscopy (EGD) History of cystoscopy History of hysterectomy Family History Father HTN (hypertension) Mother Melanoma Brother No problems noted. Brother No problems noted. Sister No problems noted. Daughter Melanoma Son No problems noted. Son No problems noted. Son No problems noted. Social History Housing: House Patient Tobacco Use Status: Current everyday Tobacco user Tobacco use type: Cigarette Cigarette Packs Per Day: 0.5 Cigarettes Per Day: 10 e-Cigarette/Vaping Use: Never Used Current occupational status: employed Cognitive needs: No Hearing needs: No Vision needs: Yes Review of Systems Const All systems reviewed & are unremarkable except as noted in HPI and below Reports no additional complaints Eyes Reports no additional complaints ENT Reports no additional complaints Card Reports no additional complaints Resp Reports no additional complaints GI Reports no additional complaints Reports as per HPI Musc Reports no additional complaints Skin/Breast Reports system reviewed and no additional complaints, except as documented Neuro Reports no additional complaints Psych Reports no additional complaints Endo Reports no additional complaints Pranav/Lymph Reports no additional complaints Aller/Immun Reports no additional complaints Results Reviewed Results Reviewed: Collected: 08/15/23 Location: [facility] Received: 08/15/23 Diagnosis A. Bladder, random posterior wall, biopsy: -Urothelial carcinoma in situ, involving cystitis glandularis; no invasion identified. -Muscularis propria present. B. Bladder, right lateral wall, biopsy: -Focal urothelial carcinoma in situ; no invasion identified. -Muscularis propria not identified. C. Bladder, left posterior wall lesion, biopsy: -Urothelial carcinoma in situ, focally involving cystitis glandularis; no invasion identified. -Encrusted cystitis with acute and chronic inflammation, and cystitis glandularis. -Muscularis propria not identified. D. Bladder, dome, biopsy: -Benign urothelium with mild chronic inflammation. -Muscularis propria present. Assessment & Plan Assessment & Plan (1) Bladder cancer: Code(s): C67.9 - Malignant neoplasm of bladder, unspecified (2) Dysuria: Code(s): R30.0 - Dysuria (3) CIS (carcinoma in situ of bladder): Code(s): D09.0 - Carcinoma in situ of bladder (4) Nicotine dependence: Code(s): F17.200 - Nicotine dependence, unspecified, uncomplicated Plan Discussed treatment recommendation for Bladder instillation of BCG immunotherapy, not readily available has been on back order. I will investigate availablity. Otherwise bladder instillation with combination gemcitobine with docetaxel Coding Level of Care Code Est Pt Level 4 (92057) Diagnoses Bladder cancer C67.9 Dysuria R30.0 CIS (carcinoma in situ of bladder) D09.0 Nicotine dependence F17.200
== END 2023-09-01 17:08 | disposition home or self-care (01) ==
PROVIDERS: PCP Internal Medicine; Visit Provider Urology
DX: C67.9 Malignant neoplasm of bladder, unspecified (principal); R30.0 Dysuria; D09.0 Carcinoma in situ of bladder; F17.200 Nicotine dependence, unspecified, uncomplicated
CPT/HCPCS: 99214

== ENCOUNTER → 2023-09-01 14:31 | Outpatient (BNVA) | payer OTHER, SELFPAY | PROVIDERS: PCP Internal Medicine; Visit Provider Urology ==

== ENCOUNTER 2024-01-05 13:13 | Outpatient (AMB) | payer OTHER, SELFPAY ==
--- NOTE | 2024-01-05 13:14 | A.OFFVIS_ITS ---
Intake Visit Reasons: biopsy/H&P Intake Note: Patient presents today to discuss Bladder Biopsy Results: Meds- Pyridium Allergies to Antibiotic- No Known Allergies Blood Thinner- None Lpc Required: No Accompanied by: Self / Same As Patient Allergies No Known Allergies [No Known Allergies*] Allergy (Verified 01/05/24 13:15) HPI Comments Details: 01/05/24--Ebony is a 73-year-old female who is being followed due to urothelial carcinoma of the bladder, initially diagnosed by another urologist in 2008. She did not have follow-up for several years and was seen in December of 2022 and is status post TURBT 02/21/2023 noting high-grade noninvasive urothelial carcinoma right lateral wall followed by gemcitabine installations. Repeat bladder biopsies 08/15/2023 noted multifocal areas of carcinoma in Situ. The patient received bladder installations of mitomycin/cytarubine, last 1 12/08/2023. The patient states she has been doing well she denies dysuria. During the course of bladder installations she did have some fatigue. Consent today is obtained for repeat cystoscopy bladder biopsies. Review of chart: 09/01/23--S/P bladder bx post gemcitabine instillations path 08/15/23--CIS - right lat wall, left lat wall, post wall, Discussed nicotine cessation Discussed treatment recommendation for Bladder instillation of BCG immunotherapy, not readily available. I will investigate availablity. Otherwise bladder instillation with combination gemcitobine with docetaxel. 03/13/2023? Ebony is a 72-year-old female who presents today to the office for a follow-up s/p TURBT 02/21/23 I have reviewed the CT urogram results from 02/20/2023 revealed no radiopaque urolith, enhancing renal mass or hydroureteronephrosis. Unremarkable bladder. Mild constipation. 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 Urothelial carcinoma from the okay since he is seeing me for the 1st time, rachel cotton. She reports burning after urination. She is still smoking cigarettes. 01/13/2023? The patient was last seen in the office on 01/13/23 by LAVON Masters. The patient denies gross hematuria. The patient has history of superficial bladder cancer, diagnosed in October of 2008. Past medical history significant for COPD and nicotine dependence, esophagitis with dysphagia The patient is an active smoker and started smoking from the age of 17 years. In review of note from 11/07/22, VELIA Boyd documented pathology 10/2008? 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 The patient gives a history of cigarette use for over 55 years. She states that her last cystoscopy was about 3 years ago. The patient has history of hysterectomy about age 20 for menorrhagia. Urine cytology-- collected 11/07/22--? few atypical cells noted. Evaluation today UA-- Blood:200 Earle/uL, leukocytes: negative. Cystoscopy findings-- erythematous flat lesion on the posterior wall of the bladder which need further evaluation with biopsy. Plan:urine bladder/FISH cytology test, as outpatient, urine provided not sufficient to send for testing Cystoscopy TURBT discussed to be scheduled. CT urogram prior with contrast was ordered. PFSH Medical History Multiple environmental allergies Pulmonary nodules Nicotine dependence, cigarettes, uncomplicated COPD (chronic obstructive pulmonary disease) Stress incontinence Hx of bladder cancer (~2008) Dysphagia History of COVID-19 Primary insomnia Surgical menopause Osteoporosis (~2019) Tubular adenoma of colon (~2016) Hiatal hernia Esophagitis determined by endoscopy History of esophageal stricture Surgical History History of cataract surgery History of esophageal dilatation History of bladder surgery History of hand surgery History of colonoscopy History of esophagogastroduodenoscopy (EGD) History of cystoscopy History of hysterectomy Family History Father HTN (hypertension) Mother Melanoma Brother No problems noted. Brother No problems noted. Sister No problems noted. Daughter Melanoma Son No problems noted. Son No problems noted. Son No problems noted. Social History Housing: House Patient Tobacco Use Status: Current everyday Tobacco user Tobacco use type: Cigarette Cigarette Packs Per Day: 0.5 Cigarettes Per Day: 10 e-Cigarette/Vaping Use: Never Used Current occupational status: employed Cognitive needs: No Hearing needs: No Vision needs: Yes Review of Systems Const All systems reviewed & are unremarkable except as noted in HPI and below Reports no additional complaints Eyes Reports no additional complaints ENT Reports no additional complaints Card Reports no additional complaints Resp Reports no additional complaints GI Reports no additional complaints Reports as per HPI Musc Reports no additional complaints Skin/Breast Reports system reviewed and no additional complaints, except as documented Neuro Reports no additional complaints Psych Reports no additional complaints Endo Reports no additional complaints Pranav/Lymph Reports no additional complaints Aller/Immun Reports no additional complaints Results Reviewed Results Reviewed: Collected: 08/15/23 Location: [facility] Received: 08/15/23 Diagnosis A. Bladder, random posterior wall, biopsy: -Urothelial carcinoma in situ, involving cystitis glandularis; no invasion identified. -Muscularis propria present. B. Bladder, right lateral wall, biopsy: -Focal urothelial carcinoma in situ; no invasion identified. -Muscularis propria not identified. C. Bladder, left posterior wall lesion, biopsy: -Urothelial carcinoma in situ, focally involving cystitis glandularis; no invasion identified. -Encrusted cystitis with acute and chronic inflammation, and cystitis glandularis. -Muscularis propria not identified. D. Bladder, dome, biopsy: -Benign urothelium with mild chronic inflammation. -Muscularis propria present. Date of Service: 02/20/23 EXAMINATION: CT ABDOMEN AND PELVIS WITHOUT AND WITH CONTRAST? CLINICAL INFORMATION: Bladder disorder.? COMPARISON: None available.? ? FINDINGS: LUNG BASES: The visualized lung bases are unremarkable.? LIVER, GALLBLADDER, AND BILIARY TREE: The liver is normal in size, shape, and attenuation. No focal hepatic lesion or biliary ductal dilatation is present. The gallbladder is unremarkable with no evidence of radiopaque gallstones, gallbladder wall thickening, or obvious pericholecystic inflammatory changes.? PANCREAS: Unremarkable.? SPLEEN: Unremarkable.? ADRENAL GLANDS: Unremarkable.? KIDNEYS AND URETERS: There are no radiopaque renal calculi. Postcontrast, there are symmetrical bilateral kidney nephrograms with no focal lesion or enhancement seen. Left kidney measures 9.8 cm in length and right kidney measures 10.0 cm in length. There is opacification of bilateral kidney pelvises and ureters without any intraluminal filling defect or narrowing. BLADDER: There are no radiopaque bladder calculi. There is good opacification of bladder from excreted urinary contrast with no intraluminal filling defect. No bladder wall thickening.? GASTROINTESTINAL TRACT: There is scattered stool and gas seen throughout the colon without significant distention. The small bowel loops are normal caliber. Appendix is not visualized. No free air or free fluid seen.? ABDOMINAL WALL: No significant hernia is appreciated.? LYMPH NODES: Normal. VASCULAR: Unremarkable. PELVIC VISCERA: Unremarkable.? OSSEUS STRUCTURES: No aggressive lytic or sclerotic process seen.? IMPRESSION: 1.? No radiopaque urolith, enhancing renal mass or hydroureteronephrosis. 2.? Unremarkable bladder. 3.? Mild constipation. Collected: 02/21/23 Location: [facility] Received: 02/21/23 Diagnosis A. Bladder, right posterior wall, transurethral resection: - High-grade papillary urothelial carcinoma; non-invasive. - Muscularis propria present. B. Bladder, left lateral wall random, biopsy: Focal urothelial atypia worrisome for carcinoma in situ; background mild chronic cystitis; negative for carcinoma. C. Bladder, posterior wall random, biopsy: Chronic cystitis with reactive changes and focal foreign material; negative for carcinoma. The D. Bladder, right lateral wall random, biopsy: Mild chronic cystitis; muscularis propria within normal limits; negative for carcinoma. E. Bladder, random dome, biopsy: Urothelial carcinoma in situ; suspicious for microinvasion. Bladder, transurethral resection/biopsy Procedure: Transurethral resection; biopsies Tumor site: Right posterior wall; random left wall and random dome Histologic type: Papillary urothelial carcinoma; CIS in random biopsy (E) and suspicious for carcinoma in B Histologic grade: High grade Muscularis propria: Present Extent of invasion: Non-invasive Lymphovascular invasion: Not identified Clinical History Bladder disorder Microscopic Description A-E. Microscopic sections reviewed. CK20 immunostain supports the diagnosis in B and E Material Received A. Bladder tumor right posterior wall B. Left lateral wall random bladder biopsies C. Posterior wall random bladder biopsies D. Right lateral wall random bladder biopsies E. Random dome bladder biopsies Assessment & Plan Assessment & Plan (1) Bladder cancer: Code(s): C67.9 - Malignant neoplasm of bladder, unspecified Category: Medical (2) Dysuria: Code(s): R30.0 - Dysuria Category: Medical (3) CIS (carcinoma in situ of bladder): Code(s): D09.0 - Carcinoma in situ of bladder Category: Medical (4) Nicotine dependence: Code(s): F17.200 - Nicotine dependence, unspecified, uncomplicated Category: Medical Plan Schedule cystoscopy bladder biopsies Patient Instructions: The patient had an opportunity to ask questions regarding treatment plan. The patient expressed understanding and agreement with the above treatment plan. The patient is aware they should contact our office by phone for worsening of their current condition or the appearance of new symptoms. Compliance is encour aged with any medications and followup testing that is ordered. It is a privilege to be allowed the opportunity to participate in the urologic care of your patient. If you have any questions or concerns regarding treatment for the above conditions please do not hesitate to contact me. The office telephone contact is [phone]. This note is constructed in part using voice recognition software. While every effort has been made to ensure accuracy side guider errors may have been included. Yours sincerely, Sweta Spencer MD Coding Level of Care Code Est Pt Level 4 (68652) Diagnoses Bladder cancer C67.9 Dysuria R30.0 CIS (carcinoma in situ of bladder) D09.0 Nicotine dependence F17.200
== END 2024-01-05 14:00 | disposition home or self-care (01) ==
PROVIDERS: PCP Internal Medicine; Visit Provider Urology
DX: C67.9 Malignant neoplasm of bladder, unspecified (principal); R30.0 Dysuria; D09.0 Carcinoma in situ of bladder; F17.200 Nicotine dependence, unspecified, uncomplicated
CPT/HCPCS: 99214

== ENCOUNTER → 2024-01-05 13:13 | Outpatient (BNVA) | payer OTHER, SELFPAY | PROVIDERS: PCP Internal Medicine; Visit Provider Urology ==

== ENCOUNTER 2024-01-30 11:06 | Day surgery (SDC) | payer OTHER, SELFPAY ==
--- NOTE | 2024-01-29 13:00 | HO.ANESPROP2 ---
Documented by User: Teagan Hendrickson NP 01/29/24 13:01 HPI - Anesthesia Eval Consult details Narrative: 73yo F for Cystoscopy & Bladder Biopsy s/p TURBT 07/2023 with GA-LMA 4 PMFSH Active Problems Active Problems: All Active Problems Nicotine dependence (Acute) CIS (carcinoma in situ of bladder) (Acute) Leukocytes in urine (Acute) Dysuria (Acute) Urinary tract infection (Acute) Bladder cancer (Acute) Lesion of bladder (Acute) Centrilobular emphysema (Acute) Multiple environmental allergies (Acute) Pulmonary nodules (Acute) Nicotine dependence, cigarettes, uncomplicated (Acute) COPD (chronic obstructive pulmonary disease) (Acute) Stress incontinence (Acute) Hx of bladder cancer (Acute ~2008) Primary insomnia (Acute) Surgical menopause (Acute) Osteoporosis (Acute ~2019) Tubular adenoma of colon (Acute ~2016) Hiatal hernia (Acute) Esophagitis determined by endoscopy (Acute) Past Medical History Medical History Multiple environmental allergies Pulmonary nodules Nicotine dependence, cigarettes, uncomplicated COPD (chronic obstructive pulmonary disease) Stress incontinence Hx of bladder cancer (~2008) Dysphagia History of COVID-19 Primary insomnia Surgical menopause Osteoporosis (~2019) Tubular adenoma of colon (~2016) Hiatal hernia Esophagitis determined by endoscopy History of esophageal stricture Family History Family History Father HTN (hypertension) Mother Melanoma Brother No problems noted. Brother No problems noted. Sister No problems noted. Daughter Melanoma Son No problems noted. Son No problems noted. Son No problems noted. Family history of problems with anesthesia: No Surgical History Surgical History History of cataract surgery History of esophageal dilatation History of bladder surgery History of hand surgery History of colonoscopy History of esophagogastroduodenoscopy (EGD) History of cystoscopy History of hysterectomy History of Problems with Anesthesia: No Social History Social History Housing: House Patient Tobacco Use Status: Current everyday Tobacco user Tobacco use type: Cigarette Cigarette Packs Per Day: 0.5 Cigarettes Per Day: 5 e-Cigarette/Vaping Use: Never Used Use of substances other than those prescribed or required for medical reasons: No Are you DNR?: No Advance Directives: No Advance Directives Information Provided: Yes Current occupational status: employed Cognitive needs: No Hearing needs: No Vision needs: Yes Meds Allergies Allergy/AdvReac Type Severity Reaction Status Date / Time No Known Allergies Allergy Verified 01/05/24 13:15 [No Known Allergies*] Home Medications ?Medication ?Instructions ?Recorded ?Confirmed ?Last Taken ?Type omeprazole 40 mg capsule,delayed 40 mg PO BID 03/13/23 08/11/23 Unknown History release nebulizers 08/10/23 Unknown History Assessment and Plan Assessment Anesthesia Assessment: Chart Reviewed Final Anesthetic Review Family History of Problems with Anesthesia: No History of Problems with Anesthesia: No Documented by User: Vicky Rivas MD 01/30/24 12:57 PMFSH Past Medical History Medical History Multiple environmental allergies Pulmonary nodules Nicotine dependence, cigarettes, uncomplicated COPD (chronic obstructive pulmonary disease) Stress incontinence Hx of bladder cancer (~2008) Dysphagia History of COVID-19 Primary insomnia Surgical menopause Osteoporosis (~2019) Tubular adenoma of colon (~2016) Hiatal hernia Esophagitis determined by endoscopy History of esophageal stricture Family History Family History Father HTN (hypertension) Mother Melanoma Brother No problems noted. Brother No problems noted. Sister No problems noted. Daughter Melanoma Son No problems noted. Son No problems noted. Son No problems noted. Surgical History Surgical History History of cataract surgery History of esophageal dilatation History of bladder surgery History of hand surgery History of colonoscopy History of esophagogastroduodenoscopy (EGD) History of cystoscopy History of hysterectomy Social History Social History Housing: House Patient Tobacco Use Status: Current everyday Tobacco user Tobacco use type: Cigarette Cigarette Packs Per Day: 0.5 Cigarettes Per Day: 5 e-Cigarette/Vaping Use: Never Used Use of substances other than those prescribed or required for medical reasons: No Are you DNR?: No Advance Directives: No Advance Directives Information Provided: Yes Current occupational status: employed Cognitive needs: No Hearing needs: No Vision needs: Yes Meds Allergies Allergy/AdvReac Type Severity Reaction Status Date / Time No Known Allergies Allergy Verified 01/05/24 13:15 [No Known Allergies*] Home Medications ?Medication ?Instructions ?Recorded ?Confirmed ?Last Taken ?Type omeprazole 40 mg capsule,delayed 40 mg PO BID 03/13/23 08/11/23 Unknown History release nebulizers 08/10/23 Unknown History Exam Airway Mallampati Class: II TM Dist: >3cm Neck ROM: Full Heart: rrrr Lungs: cta Assessment and Plan Assessment Anesthesia Assessment: Anesthesia Plan Discussed Final Anesthetic Review ASA Class: III Final Preanesthetic Review: No Changes in Pt Med Stat, Meds/Allgs Chart Reviewed, Consent Obtained/Reviewed and Anes Risks/Benef Reviewed Patient Risk: Intermediate Procedure Risk: Low Anesthetic Plan Anesthetic Plan: GA Disposition: Standard PACU
[2024-01-30] VITALS (8 sets, daily range): BP systolic 126–134; BP diastolic 53–65; PULSE 80–103; RESP 14–16; TEMP 36.4–36.7; O2SAT 93–100; BMI 18.1
[2024-01-30] MEDS: Lactated Ringers 1,000 ML 100 ML IVCONT (11:42)
[2024-01-30] MEDS: Scopolamine 1.5 MG PATCH.TD.3 TRANSDERMA (12:46)
--- NOTE | 2024-01-30 12:55 | MHC.SHP ---
Pre-Procedural Eval Section A - 24 Hr Update-Section A only Date of Service: 01/30/24 The patient is an INPATIENT: No The patient has been examined within 24 hours of the surgical procedure. The History & Physical has been completed within 30 days and I have reviewed it.: Yes Section B - Complete if H&P > 30 days Chief Complaint: Malignant neoplasm of bladder, unspecified Allergies: Allergies Allergy/AdvReac Type Severity Reaction Status Date / Time No Known Allergies Allergy Verified 01/05/24 13:15 [No Known Allergies*] Plan Diagnosis/Plan: Unchanged I have reviewed the history and physical and performed a pertinent physical examination on my patient. No changes have occurred unless specified. Cystoscopy bladder biopsies. Time Spent With Patient Time: Total time managing care of this patient today ____ minutes.
--- NOTE | 2024-01-30 13:48 | W.PM.OPN ---
Operative Note Operative Note Date of Service: 01/30/24 Narrative: PREOP DIAGNOSIS: History of urothelial carcinoma of the bladder status post bladder installations with chemo agent POSTOP DIAGNOSIS: History of urothelial carcinoma of the bladder status post bladder installations with chemo agent PROCEDURE: Cystoscopy bladder biopsies, fulguration SURGEON: Sweta Spencer MD ANESTHESIA: General Details of procedure: The patient was brought into the operating room placed on the OR table in supine position. Antibiotics confirmed. General anesthesia was administered. The patient was repositioned into lithotomy position, prepped and draped in the usual sterile fashion. Time-out was done per protocol. A 22 fr cystoscope was placed transurethrally into the bladder. Urine was sent for culture. The right and left ureteral orifices were visualized. There were minimal erythematous changes noted on the posterior wall. Biopsies were taken from the erythematous changes posterior wall x3. Two biopsies sent labeled posterior wall # 1, and third biopsy labelled posterior wall # 2. Random bladder biopsies taken from the left and right lateral french. Cautery was used for hemostasis and to fulgurate the base of the biopsies on the posterior wall. Good hemostasis was obtained. The bladder was drained the cystoscope was removed. 2% lidocaine urojet was passed transurethrally into the bladder. The patient was brought out of anesthesia and taken to recovery in stable condition. Complications: None Drains: none
[2024-01-30] MEDS: Phenazopyridine HCL 200 MG TABLET PO (14:41)
== END 2024-01-30 15:31 | disposition home or self-care (01) ==
PROVIDERS: PCP Internal Medicine; Visit Provider Urology
PROC: (CPT 52204; principal; 2024-01-30 13:30)
DX: D09.0 Carcinoma in situ of bladder (principal); R30.0 Dysuria; Z85.51 Personal history of malignant neoplasm of bladder; Z92.21 Personal history of antineoplastic chemotherapy; N39.3 Stress incontinence (female) (male); J44.9 Chronic obstructive pulmonary disease, unspecified; R91.8 Other nonspecific abnormal finding of lung field; M81.0 Age-related osteoporosis without current pathological fracture; K44.9 Diaphragmatic hernia without obstruction or gangrene; K20.90 Esophagitis, unspecified without bleeding; Z79.899 Other long term (current) drug therapy; Z79.51 Long term (current) use of inhaled steroids; Z91.09 Other allergy status, other than to drugs and biological substances; F17.210 Nicotine dependence, cigarettes, uncomplicated; Z98.890 Other specified postprocedural states
CPT/HCPCS: 52204; 87086; 88305; J0690; J1100; J2250; J2405; J2704; J3010

== ENCOUNTER → 2024-01-30 11:06 | Outpatient (BNV) | payer OTHER, SELFPAY | PROVIDERS: PCP Internal Medicine; Visit Provider Urology | DX: C67.8 Malignant neoplasm of overlapping sites of bladder (principal) | CPT/HCPCS: 52204 ==

== ENCOUNTER 2024-02-16 13:44 | Outpatient (AMB) | payer OTHER, SELFPAY ==
--- NOTE | 2024-02-16 13:48 | A.OFFVIS_ITS ---
Intake Visit Reasons: Bladder biopsy results Intake Note: Ebony is a 73 year old female who presents to the office today for her bladder biopsy results. Allergies No Known Allergies [No Known Allergies*] Allergy (Verified 02/16/24 13:49) Medication List - Last Reconciled 02/16/24 by Sweta Spencer MD albuterol sulfate 90 mcg/actuation (Ventolin HFA) 2 puffs inhalation QID PRN 30 days cetirizine 10 mg PO DAILY ipratropium-albuterol 0.5 mg-3 mg(2.5 mg base)/3 mL 3 mL inhalation DAILY 30 days magnesium oxide 400 mg PO DAILY nebulizers As directed omeprazole 40 mg PO BID Symbicort 160-4.5 mcg/actuation (budesonide-formoterol) 2 puffs inhalation BID NS tiotropium bromide 1.25 mcg/actuation (Spiriva Respimat) 1 puff PO DAILY zolpidem 10 mg PO BEDTIME PRN HPI Comments Details: 02/16/24--s/p post repeat bladder biopsies, 01/30/24- significant for CIS is all biopsies. The patient has failed chemotherapy bladder instillations. Plan refer to oncology for evaluation for Keytruda. She was prescribed gemtesa for LUTS for urinary frequency/urgency, insurance did not cover. She states she does not want another medication called in at this time. Patient agrees with plan. Review of chart: 01/05/24--Ebony is a 73-year-old female who is being followed due to urothelial carcinoma of the bladder, initially diagnosed by another urologist in 2008. She did not have follow-up for several years and was seen in December of 2022 and is status post TURBT 02/21/2023 noting high-grade noninvasive urothelial carcinoma right lateral wall followed by gemcitabine installations. Repeat bladder biopsies 08/15/2023 noted multifocal areas of carcinoma in Situ. The patient received bladder installations of mitomycin/cytarubine, last 1 12/08/2023. The patient states she has been doing well she denies dysuria. During the course of bladder installations she did have some fatigue. Consent today is obtained for repeat cystoscopy bladder biopsies. 09/01/23--S/P bladder bx post gemcitabine instillations. path 08/15/23--CIS - right lat wall, left lat wall, post wall, Discussed nicotine cessation. Discussed treatment recommendation for Bladder instillation of BCG immunotherapy, not readily available. I will investigate availablity. Otherwise bladder instillation with combination gemcitobine with docetaxel. 03/13/2023? Ebony is a 72-year-old female who presents today to the office for a follow-up s/p TURBT 02/21/23. I have reviewed the CT urogram results from 02/20/2023 revealed no radiopaque urolith, enhancing renal mass or hydroureteronephrosis. Unremarkable bladder. Mild constipation. 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 Urothelial carcinoma from the okay since he is seeing me for the 1st time, rachel cotton. She reports burning after urination. She is still smoking cigarettes. 01/13/2023? The patient was last seen in the office on 01/13/23 by LAVON Masters. The patient denies gross hematuria. The patient has history of superficial bladder cancer, diagnosed in October of 2008. Past medical history significant for COPD and nicotine dependence, esophagitis with dysphagia. The patient is an active smoker and started smoking from the age of 17 years. In review of note from 11/07/22, [facility] documented pathology 10/2008? 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 The patient gives a history of cigarette use for over 55 years. She states that her last cystoscopy was about 3 years ago. The patient has history of hysterectomy about age 20 for menorrhagia. Urine cytology-- collected 11/07/22--? few atypical cells noted. Evaluation today UA-- Blood:200 Earle/uL, leukocytes: negative. Cystoscopy findings-- erythematous flat lesion on the posterior wall of the bladder which need further evaluation with biopsy. Plan:urine bladder/FISH cytology test, as outpatient, urine provided not sufficient to send for testing Cystoscopy TURBT discussed to be scheduled. CT urogram prior with contrast was ordered. PFSH Medical History Multiple environmental allergies Pulmonary nodules Nicotine dependence, cigarettes, uncomplicated COPD (chronic obstructive pulmonary disease) Stress incontinence Hx of bladder cancer (~2008) Dysphagia History of COVID-19 Primary insomnia Surgical menopause Osteoporosis (~2019) Tubular adenoma of colon (~2016) Hiatal hernia Esophagitis determined by endoscopy History of esophageal stricture Surgical History History of cataract surgery History of esophageal dilatation History of bladder surgery History of hand surgery History of colonoscopy History of esophagogastroduodenoscopy (EGD) History of cystoscopy History of hysterectomy Family History Father HTN (hypertension) Mother Melanoma Brother No problems noted. Brother No problems noted. Sister No problems noted. Daughter Melanoma Son No problems noted. Son No problems noted. Son No problems noted. Social History Housing: House Patient Tobacco Use Status: Current everyday Tobacco user Tobacco use type: Cigarette Cigarette Packs Per Day: 0.5 Cigarettes Per Day: 5 e-Cigarette/Vaping Use: Never Used Current occupational status: employed Cognitive needs: No Hearing needs: No Vision needs: Yes Review of Systems Const All systems reviewed & are unremarkable except as noted in HPI and below Reports no additional complaints Eyes Reports no additional complaints ENT Reports no additional complaints Card Reports no additional complaints Resp Reports no additional complaints GI Reports no additional complaints Reports as per HPI Musc Reports no additional complaints Skin/Breast Reports system reviewed and no additional complaints, except as documented Neuro Reports no additional complaints Psych Reports no additional complaints Endo Reports no additional complaints Pranav/Lymph Reports no additional complaints Aller/Immun Reports no additional complaints Results Reviewed Results Reviewed: Collected: 01/30/24 [facility] Received: 01/30/24 Diagnosis A. Bladder, posterior wall #1, biopsy: Carcinoma in situ; no muscularis propria identified. B. Bladder, right lateral wall, biopsy: Carcinoma in situ; no muscularis propria identified. C. Bladder, left lateral wall, biopsy: Carcinoma in situ; no muscularis propria identified. D. Bladder, posterior wall #2, biopsy: Carcinoma in situ; no muscularis propria identified. Clinical History Malignant neoplasm of bladder, unspecified Microscopic Description A-D. Microscopic sections reviewed. Material Received A. Posterior bladder wall #1 B. Right lateral bladder wall C. Left lateral bladder wall D. Posterior bladder wall #2 Collected: 08/15/23 [facility] Received: 08/15/23 Diagnosis A. Bladder, random posterior wall, biopsy: -Urothelial carcinoma in situ, involving cystitis glandularis; no invasion identified. -Muscularis propria present. B. Bladder, right lateral wall, biopsy: -Focal urothelial carcinoma in situ; no invasion identified. -Muscularis propria not identified. C. Bladder, left posterior wall lesion, biopsy: -Urothelial carcinoma in situ, focally involving cystitis glandularis; no invasion identified. -Encrusted cystitis with acute and chronic inflammation, and cystitis glandularis. -Muscularis propria not identified. D. Bladder, dome, biopsy: -Benign urothelium with mild chronic inflammation. -Muscularis propria present. Date of Service: 02/20/23 EXAMINATION: CT ABDOMEN AND PELVIS WITHOUT AND WITH CONTRAST? CLINICAL INFORMATION: Bladder disorder.? COMPARISON: None available.? ? FINDINGS: LUNG BASES: The visualized lung bases are unremarkable.? LIVER, GALLBLADDER, AND BILIARY TREE: The liver is normal in size, shape, and attenuation. No focal hepatic lesion or biliary ductal dilatation is present. The gallbladder is unremarkable with no evidence of radiopaque gallstones, gallbladder wall thickening, or obvious pericholecystic inflammatory changes.? PANCREAS: Unremarkable.? SPLEEN: Unremarkable.? ADRENAL GLANDS: Unremarkable.? KIDNEYS AND URETERS: There are no radiopaque renal calculi. Postcontrast, there are symmetrical bilateral kidney nephrograms with no focal lesion or enhancement seen. Left kidney measures 9.8 cm in length and right kidney measures 10.0 cm in length. There is opacification of bilateral kidney pelvises and ureters without any intraluminal filling defect or narrowing. BLADDER: There are no radiopaque bladder calculi. There is good opacification of bladder from excreted urinary contrast with no intraluminal filling defect. No bladder wall thickening.? GASTROINTESTINAL TRACT: There is scattered stool and gas seen throughout the colon without significant distention. The small bowel loops are normal caliber. Appendix is not visualized. No free air or free fluid seen.? ABDOMINAL WALL: No significant hernia is appreciated.? LYMPH NODES: Normal. VASCULAR: Unremarkable. PELVIC VISCERA: Unremarkable.? OSSEUS STRUCTURES: No aggressive lytic or sclerotic process seen.? IMPRESSION: 1.? No radiopaque urolith, enhancing renal mass or hydroureteronephrosis. 2.? Unremarkable bladder. 3.? Mild constipation. Collected: 02/21/23 [facility] Received: 02/21/23 Diagnosis A. Bladder, right posterior wall, transurethral resection: - High-grade papillary urothelial carcinoma; non-invasive. - Muscularis propria present. B. Bladder, left lateral wall random, biopsy: Focal urothelial atypia worrisome for carcinoma in situ; background mild chronic cystitis; negative for carcinoma. C. Bladder, posterior wall random, biopsy: Chronic cystitis with reactive changes and focal foreign material; negative for carcinoma. The D. Bladder, right lateral wall random, biopsy: Mild chronic cystitis; muscularis propria within normal limits; negative for carcinoma. E. Bladder, random dome, biopsy: Urothelial carcinoma in situ; suspicious for microinvasion. Bladder, transurethral resection/biopsy Procedure: Transurethral resection; biopsies Tumor site: Right posterior wall; random left wall and random dome Histologic type: Papillary urothelial carcinoma; CIS in random biopsy (E) and suspicious for carcinoma in B Histologic grade: High grade Muscularis propria: Present Extent of invasion: Non-invasive Lymphovascular invasion: Not identified Clinical History Bladder disorder Microscopic Description A-E. Microscopic sections reviewed. CK20 immunostain supports the diagnosis in B and E Material Received A. Bladder tumor right posterior wall B. Left lateral wall random bladder biopsies C. Posterior wall random bladder biopsies D. Right lateral wall random bladder biopsies E. Random dome bladder biopsies Assessment & Plan Assessment & Plan (1) CIS (carcinoma in situ of bladder): Code(s): D09.0 - Carcinoma in situ of bladder Category: Medical Plan refer to Oncology. Orders: Referrals Hematology & Oncology Referral D09.0 - Carcinoma in situ of bladder Medications: Discontinued vibegron (Gemtesa) Discontinued Reason: Insurance Denied 75 mg PO DAILY 30 tabs 3RF bladder spasms, urinary urgency Patient Instructions: The patient had an opportunity to ask questions regarding treatment plan. The patient expressed understanding and agreement with the above treatment plan. The patient is aware they should contact our office by phone for worsening of their current condition or the appearance of new symptoms. Compliance is encouraged with any medications and followup testing that is ordered. It is a privilege to be allowed the opportunity to participate in the urologic care of your patient. If you have any questions or concerns regarding treatment for the above conditions please do not hesitate to contact me. The office telephone contact is [phone]. This note is constructed in part using voice recognition software. While every effort has been made to ensure accuracy frame feeder errors may have been included. Yours sincerely, Sweta Spencer MD Coding Level of Care Code Est Pt Level 4 (92280) Diagnoses CIS (carcinoma in situ of bladder) D09.0
== END 2024-02-16 14:11 | disposition home or self-care (01) ==
PROVIDERS: PCP Internal Medicine; Visit Provider Urology
DX: D09.0 Carcinoma in situ of bladder (principal)
CPT/HCPCS: 99214

== ENCOUNTER → 2024-02-16 13:44 | Outpatient (BNVA) | payer OTHER, SELFPAY | PROVIDERS: PCP Internal Medicine; Visit Provider Urology ==

== ENCOUNTER → 2024-03-14 15:00 | Outpatient (BNV) | payer OTHER, SELFPAY | PROVIDERS: PCP Internal Medicine; Referring Provider Urology; Visit Provider Internal Medicine Medical Oncology | DX: D09.0 Carcinoma in situ of bladder (principal); Z92.21 Personal history of antineoplastic chemotherapy; R91.8 Other nonspecific abnormal finding of lung field | CPT/HCPCS: 99213; 99214 ==

== ENCOUNTER 2024-03-20 12:54 | Outpatient (AMB) | payer OTHER, SELFPAY ==
[2024-03-20 13:00] VITALS: BP 118/66; PULSE 96; O2SAT 95; BMI 19.9
--- NOTE | 2024-03-20 13:00 | A.OFFPC_ITS ---
Vital Signs 03/20/24 13:00 Height 5 ft 1 in Weight 105 lb 2 oz BMI 19.9 BP 118/66 Blood Pressure Location Lt brachial Position Sitting Pulse 96 Pulse Source Pulse Oximeter Pulse Oximetry (%) 95 Oxygen Delivery Method Room Air Intake Visit Reasons: f/u rx refill zolpidem Allergies No Known Allergies [No Known Allergies*] Allergy (Verified 03/20/24 13:02) Medication List - Last Reconciled 03/25/24 by Arlin Watkins MD albuterol sulfate 90 mcg/actuation (Ventolin HFA) 2 puffs inhalation QID PRN 30 days cetirizine 10 mg PO DAILY ipratropium-albuterol 0.5 mg-3 mg(2.5 mg base)/3 mL 3 mL inhalation DAILY 30 days magnesium oxide 400 mg PO DAILY nebulizers As directed omeprazole 40 mg PO BID Symbicort 160-4.5 mcg/actuation (budesonide-formoterol) 2 puffs inhalation BID NS tiotropium bromide 1.25 mcg/actuation (Spiriva Respimat) 1 puff PO DAILY zolpidem 10 mg PO BEDTIME PRN Tobacco use date assessed: 03/20/24 Fall risk assessment: No Falls in past year Dental Screening Dental Screen Date: 03/20/24 Did you have a dental visit in the last 12 months?: Yes Did you have a dental problem in the last 6 months where you did not have access to dental care?: No Was dental information given to patient?: Patient declined HPI f/u rx refill zolpidem HPI0 Details 73-year-old lady with chronic insomnia, here today for follow-up. She has been taking zolpidem 10 mg per tablet, sometimes would take it half a tablet at bedtime but usually would need to take another dose the same night as she still has difficulty with maintaining sleep on the lower dose. Denies any adverse effects from the medication does not wake up groggy or lightheaded., denies sleep walking [facility] Medical History (Updated 03/25/24 @ 00:19 by Arlin Watkins MD) Multiple environmental allergies Pulmonary nodules Nicotine dependence, cigarettes, uncomplicated COPD (chronic obstructive pulmonary disease) Stress incontinence Hx of bladder cancer (~2008) Dysphagia History of COVID-19 Primary insomnia Surgical menopause Osteoporosis (~2020) Tubular adenoma of colon (~2017) Hiatal hernia Esophagitis determined by endoscopy History of esophageal stricture Surgical History History of cataract surgery History of esophageal dilatation History of bladder surgery History of hand surgery History of colonoscopy History of esophagogastroduodenoscopy (EGD) History of cystoscopy History of hysterectomy Family History Father HTN (hypertension) Mesothelioma Mother Melanoma Brother No problems noted. Brother No problems noted. Sister No problems noted. Daughter Melanoma Son No problems noted. Son No problems noted. Son No problems noted. Sister Lung cancer Social History Housing: House Patient Tobacco Use Status: Current everyday Tobacco user Tobacco use type: Cigarette e-Cigarette/Vaping Use: Never Used service: No Current occupational status: employed Cognitive needs: No Hearing needs: No Vision needs: Yes Questionnaire PHQ-9 Over the last 2 weeks, how often have you been bothered by any of the following problems? 1. Little interest or pleasure in doing things: not at all 2. Feeling down, depressed, or hopeless: not at all 3. Trouble falling or staying asleep, or sleeping too much: nearly every day 4. Feeling tired or having little energy: several days 5. Poor appetite or overeating: not at all 6. Feeling bad about yourself - or that you are a failure or have let yourself or your family down: not at all 7. Trouble concentrating on things, such as reading the newspaper or watching television: not at all 8. Moving or speaking so slowly that other people could have noticed. Or the op posite - being so fidgety or restless that you have been moving around a lot more than usual: not at all 9. Thoughts that you would be better off or of hurting yourself in some way: not at all Total score: 4 Depression Screening Interpretation: Negative Depression Screening Done: Yes 29575 - PHQ-9 Billing: Yes Source: Developed by Drs. Koffi Thao, Esperanza Prince, Yeison Jules and colleagues, with an educational onesimo from [employer]. Thrive Questionnaire Date Thrive assessed: 03/20/24 I am a: Patient What is your living situation today?: I have a steady place to live Within the past 12 months, did the food you bought not last and you didn't have the money to get more?: Never true Within the past 12 months, did you worry whether your food would run out before you got money to buy more?: Never true Do you have trouble paying for medicines?: No Do you have trouble getting transportation to medical appointments?: No Do you have trouble paying your heating and electricity bill?: No Do you have trouble taking care of your child, family member or friend?: No Do you have trouble with day-to-day activities such as bathing, preparing meals, shopping, managing finances, etc.?: No Are you currently unemployed and looking for a job?: No Are you interested in more education?: No Please select the resources that you would like help with: None Currently or been in a relationship where the following occur: No concerns reported THRIVE Score: 0 AUDIT C Alcohol Use Questionnaire (AUDIT-C) 1. How often do you have a drink containing alcohol?: Never Total Score: 0 AVERY-7 AMB Questionnaire AVERY-7 Date AVERY - 7 assessed: 02/09/23 Feeling nervous, anxious, or on edge: 0 = Not at all Not being able to stop or control worryin = Several days Worrying too much about different things: 0 = Not at all Trouble relaxin = Not at all Being so restless that it is hard to sit still: 0 = Not at all Becoming easily annoyed or irritable: 0 = Not at all Feeling afraid as if something awful might happen: 0 = Not at all Total AVERY-7 score (0-4 normal; 5-9 mild; 10-14 moderate; 15-21 severe): 1 Source: Developed by Drs. Koffi Thao, Esperanza Prince, Yeison Jules and colleagues, with an educational onesimo from [employer]. AVERY-7 Assessment Billing AVERY-7 Assessment Tool: AVERY-7 Assessment 52672 Review of Systems Const Denies body aches, Denies fever(s), Denies headache(s) and Denies weakness Eyes Denies change in vision ENT Denies dizziness, Denies headache(s), Denies nasal congestion and Denies nasal discharge Card Denies chest pain, Denies lightheadedness, Denies palpitations, Denies dyspnea and Reports dyspnea on exertion Resp Denies dyspnea and Reports dyspnea on exertion GI Denies abdominal pain and Denies change in bowel habits Reports no additional complaints Musc Reports myalgias Neuro Denies dizziness, Denies headache(s) and Denies weakness Endo Denies polydipsia, Denies polyuria and Denies palpitations Pranav/Lymph Denies easy bruising Aller/Immun Denies seasonal rhinorrhea Physical exam (Primary Care) Vital Signs: Last Vital Signs Pulse 96 03/20/24 13:00 BP 118/66 03/20/24 13:00 Pulse Ox 95 03/20/24 13:00 Oxygen Delivery Method Room Air 03/20/24 13:00 BMI result Body Mass Index 19.9 Tobacco/Smoking Status: Tobacco use Status Tobacco use date assessed 03/20/24 03/20/24 13:03 Patient Tobacco Use Status Current everyday Tobacco 03/20/24 13:03 Tobacco use type Cigarette 03/20/24 13:03 e-Cigarette/Vaping Use Never Used 03/20/24 13:03 Are you ready to quit: No PHQ-9: PHQ-9 Score PHQ-9: Total score 4 03/20/24 13:34 Depression Screening Interpretation: Negative Thrive Assessment: Date of Thrive Assessment Date Thrive assessed 02/09/23 03/20/24 13:03 Currently or been in a relationship where the following occur: No concerns reported Const General: cooperative, comfortable and no acute distress Nutritional Appearance: average body habitus Orientation/consciousness: patient oriented x3 Neck Neck: Yes full ROM, Yes no lymphadenopathy, Yes no meningeal signs and Yes supple Thyroid: Thyroid normal Resp Effort & Inspection: normal respiratory effort and able to speak in complete sentences Auscultation: diminished lung sounds Cardio Rate: regular rate Rhythm: regular rhythm Heart sounds: S1 normal heart sound present and S2 normal heart sound present GI Palpation (GI): Soft to palpation, nontender, no guarding and no masses Neuro General: patient oriented x3, gait normal, moves all extremities, no meningeal signs, no focal motor deficits and CN's II-XI intact bilaterally Extrem General: Yes full ROM, Yes no joint enlargement, Yes no pedal edema and Yes normal gait Psych Appearance: grossly normal Mental Status: mental status grossly normal Speech and movement: Normal speech and movement present Affect: normal affect Attitude: cooperative Thought process: Normal thought process present Thought content: Normal thought content present Assessment and Plan Assessment & Plan (1) Primary insomnia: Code(s): F51.01 - Primary insomnia Plan: Refill prescription for zolpidem 10 mg per tablet, to take 1 tab at at bedtime as needed for difficulty with sleeping. Patient aware of possible side effects of medication, advised to take it only a on an as needed basis Medications: Refilled zolpidem 10 mg PO BEDTIME PRN 30 tabs 0RF insomnia Coding Level of Care Code Est Pt Level 3 (53305) Diagnoses Primary insomnia F51.01 Additional Codes AVERY-7 Assessment Billing - AVERY-7 Assessment Tool: AVERY-7 Assessment 66886 ([id number])
== END 2024-03-20 14:35 | disposition home or self-care (01) ==
PROVIDERS: PCP Internal Medicine; Visit Provider Internal Medicine
DX: F51.01 Primary insomnia (principal)
CPT/HCPCS: 99213

== ENCOUNTER 2024-03-21 13:48 | Outpatient (REF) | payer OTHER, SELFPAY ==
--- NOTE | ~2024-03-21 | CT_ITS ---
EXAMINATION: CT Chest, Abdomen, and Pelvis CLINICAL INFORMATION: Bladder cancer, smoking history COMPARISON: CT urogram on 02/20/2023, CT lung cancer screening on 12/14/2022 TECHNIQUE: Helical computed tomography was performed from the inferior neck through the pubic symphysis after administration of 100 mL of Omnipaque 350 intravenous contrast. Multiplanar reconstructions are available for interpretation. DOSE LOWERING TECHNIQUES: This CT examination was performed using dose optimization techniques as appropriate, variously including the following: - Automated exposure control - Adjustment of mA and/or kV according to patient size (this includes techniques or standardized protocols for targeted exams were dose is matched to indication/reason for exam; i.e. extremities or head) - Use of degenerative construction technique Total DLP is 339 mGy*cm. FINDINGS: Lungs: There is in the regular spiculated lesion in the left upper lobe measuring 1.6 cm. There is underlying moderate emphysema. There is a 0.6 cm nodule in the lateral right upper lobe. Airways: The central airways are patent. The peripheral airways are normal. There is no bronchiectasis. Pleura: The pleural surfaces are normal bilaterally. There is no pleural effusion. There is no pneumothorax. Mediastinum/Araceli: Multiple small mediastinal lymph nodes. Cardiovascular: The heart is globally normal in size. The thoracic aorta is normal in course and caliber. The main pulmonary artery is normal in caliber. There is no pericardial effusion or pericardial thickening. There are coronary artery calcifications. Liver: Normal in size and attenuation. No focal lesions. Gallbladder and bile ducts: The gallbladder is normal. No intrahepatic or extrahepatic biliary ductal dilatation. Spleen: Normal in size and attenuation. Pancreas: Unremarkable. Adrenal glands: Unremarkable. Right kidney: The right kidney is normal. There is no hydronephrosis or hydroureter. Left kidney: The left kidney is normal. There is no hydronephrosis or hydroureter. Lymph nodes: There is no lymphadenopathy in the abdomen or pelvis. Gastrointestinal tract: The stomach, small, and large bowel are normal in course and caliber. Urinary bladder: Underdistended. Mild diffuse bladder wall thickening may be secondary to underdistention. No definite discrete focal lesions. Pelvic organs: Prior hysterectomy. Vasculature: Normal in caliber. The moderate atherosclerotic disease. Additional findings: There is no intraperitoneal free air or fluid. Soft tissues: In the right perineal soft tissues, there is an indeterminate 2.7 cm fluid collection/soft tissue density. Osseous structures: No lytic or blastic lesions identified. CT/CT abdomen pelvis wo/w IV con IMPRESSION: 1. 1.6 cm spiculated lesion in the left upper lobe is highly suspicious for malignancy. Consider biopsy for further evaluation. 2. 0.6 cm nodule in the lateral right upper lobe. 3. Indeterminate 2.7 cm fluid collection/soft tissue density in the right perineal soft tissues. Recommend correlation with direct visualization. 4. Mild diffuse bladder wall thickening may be secondary to underdistention. No definite discrete focal lesions. Electronically signed by: Cat Taveras MD 03/23/2024 10:42 AM EDT RP
[2024-03-21] MEDS: iohexoL 350 MG/ML 100 ML INFUS..BTL IV (14:54)
== END 2024-03-21 13:49 | disposition home or self-care (01) ==
LOC: HO.CT 13:48
PROVIDERS: PCP Internal Medicine; Visit Provider Internal Medicine Medical Oncology
DX: C67.9 Malignant neoplasm of bladder, unspecified (principal); Z85.51 Personal history of malignant neoplasm of bladder
CPT/HCPCS: 71260; 74178; Q9967

== ENCOUNTER → 2024-04-09 08:24 | Outpatient (BNV) | payer OTHER, SELFPAY | PROVIDERS: PCP Internal Medicine; Visit Provider Physician Assistant Surgical | DX: R91.8 Other nonspecific abnormal finding of lung field (principal); J93.9 Pneumothorax, unspecified | CPT/HCPCS: 32408; 32551; 77012; 99152 ==

== ENCOUNTER 2024-04-09 12:49 | Inpatient (IN) | payer OTHER, SELFPAY ==
[2024-04-09] VITALS (15 sets, daily range): BP systolic 119–195; BP diastolic 55–133; PULSE 90–138; RESP 16–24; TEMP 36.2–37; O2SAT 94–100; BMI 19.8
--- NOTE | 2024-04-09 | ECG_ITS ---
Test Reason : tachycardia Blood Pressure : / mmHG Vent. Rate : 137 BPM Atrial Rate : 137 BPM P-R Int : 136 ms QRS Dur : 058 ms QT Int : 290 ms P-R-T Axes : 083 079 074 degrees QTc Int : 437 ms Sinus tachycardia with Fusion complexes Right atrial enlargement Anterior infarct (cited on or before 28-AUG-2018) Abnormal ECG When compared with ECG of 28-AUG-2018 07:19, Fusion complexes are now Present Vent. rate has increased BY 45 BPM Referred By: Una Virgen Electronically Signed By:LINCOLN SEE
--- NOTE | ~2024-04-09 | XR_ITS ---
EXAMINATION: XR CHEST CLINICAL INFORMATION: Follow-up left pneumothorax COMPARISON: Multiple priors with the last chest x-ray of 04/13/2024 TECHNIQUE: Frontal view of the chest was obtained. FINDINGS: A left-sided chest tube with the tip projecting over the left upper chest area of paramediastinal location is again noted and likely unchanged considering the change in technique and positioning of the patient compared to last x-ray. No visible pneumothorax. Underlying changes of emphysema are better seen on the chest CT of 03/21/2024. No significant pleural effusions or pulmonary edema. Cardiomediastinal silhouette is unchanged with normal cardiac size. Multiple EKG leads and wires overlie the chest. Irregular patchy opacity in the left apex is redemonstrated. This finding was biopsied under CT guidance on 04/09/2024. No new airspace opacities are seen. XR/XR chest 1V IMPRESSION: No visible pneumothorax. Considering the technical/positional differences, the left chest tube appears to be unchanged in position. Electronically signed by: Bryce Maria MD 04/14/2024 08:10 AM EDT
--- NOTE | ~2024-04-09 | XR_ITS ---
EXAMINATION: XR CHEST CLINICAL INFORMATION: Follow-up left-sided pneumothorax COMPARISON: Chest radiograph 04/10/2024 TECHNIQUE: Frontal view of the chest was obtained. FINDINGS: Tiny residual left apical pneumothorax has been completely stable with no increase in size. Chest tube remains in place in the left hemithorax. No other significant abnormality is noted involving the heart, lungs, mediastinum, bony thorax or soft tissues. XR/XR chest 1V IMPRESSION: Tiny residual left apical pneumothorax. Electronically signed by: Otis Chavez MD 04/11/2024 04:03 PM EDT
--- NOTE | ~2024-04-09 | XR_ITS ---
EXAMINATION: XR CHEST CLINICAL INFORMATION: Follow-up left-sided pneumothorax. COMPARISON: Most recent chest radiograph done earlier the same day. TECHNIQUE: Frontal view of the chest was obtained. FINDINGS: Redemonstration of a left-sided pigtail catheter. Small left-sided pneumothorax, increased when compared to the prior radiographs done earlier the same day. The pneumothorax measures approximately 1.9 cm apically as well as 1.0 cm laterally, and 2.4 cm within the left lung base. The prior examination there was only a small left apical pneumothorax. No right-sided pneumothorax. No pleural effusion. Stable left apical airspace opacities. Stable cardiomediastinal silhouette. XR/XR chest 1V IMPRESSION: 1. Left-sided pigtail catheter in unchanged position. Small left-sided pneumothorax, increased when compared to the prior radiographs done earlier the same day. 2. Stable left apical airspace opacities. This critical result was discussed with Dr. Turner at 10:17 PM on 04/11/2024 and it was ascertained that the content and urgency of the report was understood at the time of direct communication. Electronically signed by: Jaylon Gonsalves MD 04/11/2024 10:18 PM EDT
--- NOTE | ~2024-04-09 | XR_ITS ---
EXAMINATION: XR CHEST CLINICAL INFORMATION: Postbiopsy left pneumothorax, chest tube placement COMPARISON: Chest x-ray on 02/02/2019 TECHNIQUE: Frontal view of the chest was obtained. FINDINGS: HEART & VASCULARITY: There are normal cardiac size and pulmonary vascularity. LUNGS: Lungs are hyperinflated. Streaky, patchy and nodular densities are seen in medial left upper lobe extending to the left lung apex. Left apical 2% pneumothorax is seen. Left lateral small caliber percutaneous thoracostomy catheter is seen, forming a loop in the left midlung with the coiled up tip in lateral left lower chest. BONES: Bony skeleton is intact. XR/XR chest 1V IMPRESSION: 1. Unchanged emphysematous COPD. 2. Interval development of extensive patchy, streaky and nodular densities in medial left upper lobe. 3. Interval appearance of tiny residual postbiopsy left apical pneumothorax and placement of left lateral thoracostomy catheter. Electronically signed by: Gustavo Dias MD 04/10/2024 07:10 AM EDT
--- NOTE | ~2024-04-09 | XR_ITS ---
EXAMINATION: XR CHEST CLINICAL INFORMATION: Follow-up pneumothorax. COMPARISON: Chest radiograph 04/13/2024 at 11:48 AM. TECHNIQUE: Frontal view of the chest was obtained. FINDINGS: Similar moderate left-sided pneumothorax. Left sided catheter in similar positioning to prior. Unchanged focal reticular opacities overlying the left upper lung field. No new focal air space densities. No pleural effusion. Stable cardiomediastinal silhouette. No acute osseous findings. XR/XR chest 1V IMPRESSION: 1. Similar moderate left-sided pneumothorax. 2. Unchanged focal reticular opacities in the left upper lung field. Electronically signed by: Misty Pérez MD 04/13/2024 05:09 PM EDT
--- NOTE | ~2024-04-09 | XR_ITS ---
EXAMINATION: XR CHEST CLINICAL INFORMATION: Chest tube. Follow-up pneumothorax. COMPARISON: Chest x-ray from 2 hours earlier the same day. TECHNIQUE: Portable AP view of the chest was obtained. FINDINGS: A previously seen small bore left chest tube is no longer visualized. The tip and sidehole of a new large bore left chest tube project over the left upper and mid lung sanchez, respectively. No significant residual pneumothorax or pleural fluid is seen. Similar appearance of small, focal left upper lobe interstitial and alveolar infiltrate. Question small left basal atelectasis and/or focal infiltrate. The right lung appears clear. The heart appears normal in size. The mediastinum, diaphragm, bones, and soft tissues appear unremarkable. XR/XR chest 1V IMPRESSION: Findings as above. Electronically signed by: Basilio Vargas MD 04/13/2024 07:40 PM EDT
--- NOTE | ~2024-04-09 | XR_ITS ---
EXAMINATION: XR CHEST CLINICAL INFORMATION: Dyspnea COMPARISON: Chest radiograph 04/09/2024 TECHNIQUE: Frontal view of the chest was obtained. FINDINGS: Trace residual left apical pneumothorax. Left lateral hemithorax pigtail catheter in similar position. The lungs are adequately expanded. Background emphysematous changes. Similar streaky and patchy opacity within the left upper lobe. No pleural effusions. The cardiomediastinal silhouette is within normal limits. No acute osseous abnormality. XR/XR chest 1V IMPRESSION: Trace residual left apical pneumothorax. Left lateral hemithorax pigtail catheter in similar position. Similar streaky and patchy opacity in the left upper lobe. Background emphysematous changes. Electronically signed by: Gael Corbett MD 04/10/2024 08:54 AM EDT
--- NOTE | ~2024-04-09 | XR_ITS ---
EXAMINATION: XR CHEST CLINICAL INFORMATION: Chest tube placement. COMPARISON: April 14, 2024 TECHNIQUE: Frontal view of the chest was obtained. FINDINGS: The lungs are well expanded. Irregular patchy opacity at the left apex is redemonstrated. No new consolidation. Left chest tube is in place with tip terminating towards the left apex. No sizable pneumothorax. No significant pleural effusion. Cardiac silhouette is unchanged. XR/XR chest 1V IMPRESSION: Left chest tube terminating towards the left apex. No acute abnormality. Electronically signed by: Francisco Ruggiero MD 04/15/2024 08:30 AM EDT
--- NOTE | ~2024-04-09 | XR_ITS ---
EXAMINATION: XR CHEST CLINICAL INFORMATION: Dyspnea, image of 04/09/2024 at 11:54 PM presented for interpretation COMPARISON: 04/09/2024 and previous exams TECHNIQUE: AP portable upright view of the chest was obtained. FINDINGS: Small residual left apical pneumothorax. Pigtail catheter is redemonstrated in the lateral left hemithorax, similar in position Redemonstration of emphysematous changes. Heart size is normal. Similar streaky opacities predominantly in the left upper lung. No significant pleural effusion. XR/XR chest 1V IMPRESSION: Small residual left apical pneumothorax. This study was presented 04/10/2024 for interpretation. Stat results provided at this time as requested by referring provider. Electronically signed by: Kathie Samaniego MD 04/10/2024 09:16 AM EDT
--- NOTE | ~2024-04-09 | CT_ITS ---
Left upper lobe lung mass. Current smoker. Bladder cancer. PROCEDURES: 1. Limited preprocedure CT of the chest. Permanent images saved in PACS. 2. CT-guided biopsy of the left lung mass. 3. CT- guided left chest tube 3. Limited postprocedure CT of the chest. Permanent images saved in PACS. CLINICIANS: Grea Stratton PA-C MEDICATIONS: -Versed 0.5 mg, Fentanyl 25 mcg, and lidocaine 1% 10 mL SQ -Antibiotics: None -For additional details, please see nursing flowsheet. COMPLICATIONS: None ESTIMATED BLOOD LOSS: < 5 ml CONTRAST: None SPECIMENS: 4 x 20 g cores were sent for pathology MODERATE SEDATION TIME: 27 min PROCEDURE NOTE: The procedure, risks, benefits, and alternatives were carefully explained to the patient and written informed consent was obtained. The patient was placed prone on the CT table. A timeout was performed. A limited CT of the chest was performed to localize the left lung mass and choose appropriate needle entry and trajectory. The patient was prepped and draped in usual sterile fashion. The skin and deeper soft tissues were anesthetized with lidocaine. Under CT guidance, a 19-gauge trocar needle was advanced to the left lung mass. A 20 gauge biopsy device was inserted through the trocar needle and advanced into the mass. A total of 4 cores were performed. The specimens were placed in formalin and sent to pathology. A total of 10 mL of nonclotted blood was obtained from the patient's IV by the nursing staff. A blood patch was then administered through the trocar needle. The needle was removed. A dry dressing was applied and secured with Tegaderm. A limited postprocedure CT of the chest was performed, which did not demonstrate any pneumothorax or hemothorax. As the patient was moved to the [facility] to be transferred to the PACU, she experienced immediate shortness of breath and left chest discomfort. A new limited CT of the chest was performed, which demonstrated a large left pneumothorax. The patient's left anterior chest was prepped and draped in usual sterile fashion.The skin and subcutaneous tissues were anesthetized with lidocaine. Under CT guidance, a 5 Bulgarian Yueh needle/catheter was advanced into the left pleural space. Air was immediately aspirated. A 0.0035 J wire was inserted through the the trocar needle and coiled in the left chest cavity. The needle was then removed over the wire. The tract was then serially dilated. Over the wire, a 10 fr all-purpose drainage catheter was advanced and coiled into the left pleural space under CT guidance. The wire was then removed. The catheter was immediately contacted to a close drainage system. The catheter was secured to the skin with a 2-0 nylon suture. A limited postprocedure CT was then obtained, which demonstrated a significant reduction in the size of the left pneumothorax. The patient was stable after the procedure and was transferred to the post anesthesia care unit. The procedure was done under moderate sedation with a dedicated nurse for monitoring of vital signs. CT/CT chest tube placement Impression: 1. CT-guided left lung mass biopsy 2. CT-guided left chest tube placement for large pneumothorax. This procedure was performed by Gera Stratton PA-C and supervised by Dr. Cortes. Electronically signed by: Mike Cortes MD 04/11/2024 03:19 PM EDT
--- NOTE | ~2024-04-09 | XR_ITS ---
EXAMINATION: XR CHEST CLINICAL INFORMATION: Follow-up left pneumothorax COMPARISON: Chest radiograph 04/11/2024 TECHNIQUE: Frontal view of the chest was obtained. FINDINGS: Left-sided pigtail catheter in similar position. Trace residual left apical pneumothorax, decreased from prior exam. The lungs are adequately expanded. Similar left apical airspace opacities. Right lung is clear. No pleural effusions. The cardiac mediastinal silhouette is within normal limits. Aortic calcifications. XR/XR chest 1V IMPRESSION: Left-sided pigtail catheter in similar position. Trace residual left apical pneumothorax, decreased from prior exam. Similar patchy opacities in the left lung apex. Electronically signed by: Gael Corbett MD 04/12/2024 04:45 PM EDT
--- NOTE | ~2024-04-09 | XR_ITS ---
EXAMINATION: XR CHEST CLINICAL INFORMATION: Follow-up left pneumothorax. COMPARISON: Chest 04/12/2024 at 7:20 AM. TECHNIQUE: Frontal view of the chest was obtained. FINDINGS: There is moderate increase in the left pneumothorax with no change in percutaneously placed left chest catheter. There is patchy opacity seen in the left upper lobe, stable. The right lung is expanded and clear. Heart size and vascularity is normal. No gross bony abnormality seen. XR/XR chest 1V IMPRESSION: Increase in the left pneumothorax in spite of chest catheter. Left upper lobe patchy opacity question atelectasis/infiltrate versus scarring, stable. Electronically signed by: Dony Farah MD 04/13/2024 09:30 AM EDT RP
--- NOTE | ~2024-04-09 | XR_ITS ---
EXAMINATION: XR CHEST CLINICAL INFORMATION: Evaluate for pneumothorax COMPARISON: Chest radiograph 6:28 AM today TECHNIQUE: Frontal view of the chest was obtained. FINDINGS: Again seen is a left-sided chest tube with its tip at the left apex. No pneumothorax is visualized. The exam is otherwise unchanged XR/XR chest 1V IMPRESSION: No pneumothorax is seen. Left-sided chest tube remains in place. Electronically signed by: Otis Chavez MD 04/15/2024 06:11 PM EDT
--- NOTE | ~2024-04-09 | CT_ITS ---
Left upper lobe lung mass. Current smoker. Bladder cancer. PROCEDURES: 1. Limited preprocedure CT of the chest. Permanent images saved in PACS. 2. CT-guided biopsy of the left lung mass. 3. CT- guided left chest tube 3. Limited postprocedure CT of the chest. Permanent images saved in PACS. CLINICIANS: Gera Stratton PA-C MEDICATIONS: -Versed 0.5 mg, Fentanyl 25 mcg, and lidocaine 1% 10 mL SQ -Antibiotics: None -For additional details, please see nursing flowsheet. COMPLICATIONS: None ESTIMATED BLOOD LOSS: < 5 ml CONTRAST: None SPECIMENS: 4 x 20 g cores were sent for pathology MODERATE SEDATION TIME: 27 min PROCEDURE NOTE: The procedure, risks, benefits, and alternatives were carefully explained to the patient and written informed consent was obtained. The patient was placed prone on the CT table. A timeout was performed. A limited CT of the chest was performed to localize the left lung mass and choose appropriate needle entry and trajectory. The patient was prepped and draped in usual sterile fashion. The skin and deeper soft tissues were anesthetized with lidocaine. Under CT guidance, a 19-gauge trocar needle was advanced to the left lung mass. A 20 gauge biopsy device was inserted through the trocar needle and advanced into the mass. A total of 4 cores were performed. The specimens were placed in formalin and sent to pathology. A total of 10 mL of nonclotted blood was obtained from the patient's IV by the nursing staff. A blood patch was then administered through the trocar needle. The needle was removed. A dry dressing was applied and secured with Tegaderm. A limited postprocedure CT of the chest was performed, which did not demonstrate any pneumothorax or hemothorax. As the patient was moved to the [facility] to be transferred to the PACU, she experienced immediate shortness of breath and left chest discomfort. A new limited CT of the chest was performed, which demonstrated a large left pneumothorax. The patient's left anterior chest was prepped and draped in usual sterile fashion.The skin and subcutaneous tissues were anesthetized with lidocaine. Under CT guidance, a 5 [place] Yueh needle/catheter was advanced into the left pleural space. Air was immediately aspirated. A 0.0035 J wire was inserted through the the trocar needle and coiled in the left chest cavity. The needle was then removed over the wire. The tract was then serially dilated. Over the wire, a 10 fr all-purpose drainage catheter was advanced and coiled into the left pleural space under CT guidance. The wire was then removed. The catheter was immediately contacted to a close drainage system. The catheter was secured to the skin with a 2-0 nylon suture. A limited postprocedure CT was then obtained, which demonstrated a significant reduction in the size of the left pneumothorax. The patient was stable after the procedure and was transferred to the post anesthesia care unit. The procedure was done under moderate sedation with a dedicated nurse for monitoring of vital signs. CT/CT biopsy lung LT Impression: 1. CT-guided left lung mass biopsy 2. CT-guided left chest tube placement for large pneumothorax. This procedure was performed by Gera Stratton PA-C and supervised by Dr. Cortes. Electronically signed by: Mike Cortes MD 04/11/2024 03:19 PM EDT
--- NOTE | ~2024-04-09 | XR_ITS ---
EXAMINATION: XR CHEST CLINICAL INFORMATION: Chest tube removed. Air leak. COMPARISON: Chest x-ray from 4 hours earlier the same day. TECHNIQUE: Portable AP view of the chest was obtained. FINDINGS: The previously seen left chest tube has been removed compared with 4 hours prior. There is an approximately 5-10% left pneumothorax, similar at the apex and new at the base. Small hazy and patchy density at the left base appears unchanged, possibly representing a small amount of pleural fluid, atelectasis, and/or infiltrate. Focal somewhat stellate left upper lobe density appears unchanged. Suspect emphysema. The heart appears normal in size. Mild atherosclerotic aorta. Bones appear unremarkable. XR/XR chest 1V IMPRESSION: Findings as above. Electronically signed by: Basilio Vargas MD 04/16/2024 11:08 AM EDT RP
--- NOTE | ~2024-04-09 | XR_ITS ---
EXAMINATION: XR CHEST CLINICAL INFORMATION: Followup left pneumothorax, CT to water seal. COMPARISON: 04/15/2024 TECHNIQUE: Frontal view of the chest was obtained. FINDINGS: Redemonstration of left-sided chest tube with tip at the left apex. There is a small left apical pneumothorax. Heart size is normal. Similar asymmetric elevation of the left lung base with moderate left basilar streaky opacities. Trace left pleural effusion. XR/XR chest 1V IMPRESSION: 1. Small left apical pneumothorax. 2. Similar asymmetric elevation of the left lung base with moderate left basilar streaky opacities. Trace left pleural effusion. Electronically signed by: Kathie Samaniego MD 04/17/2024 08:48 AM EDT RP
[2024-04-09 09:26] LABS: INTERNATIONAL NORM RATIO 0.9 (0.9-1.1); Prothrombin Time 10.2 SEC (10.9-12.4)
[2024-04-09 09:29] LABS: Partial Thromboplastin Time 30.3 SEC (26.0-36.8)
--- NOTE | 2024-04-09 10:28 | MHC.SHP ---
Pre-Procedural Eval Section A - 24 Hr Update-Section A only Date of Service: 04/09/24 Section B - Complete if H&P > 30 days Chief Complaint: LEFT LUNG-bladder cancer Details of Present Illness: 73 y/o female with bladder cancer who presents with a left lung mass. Relevant Family History (Specify if Yes): No Relevant Social History: Tobacco Use (current) Present Medications: see Short Stay Collaborative assessment Medical History: Significant History History of Previous Operations: Relevant previous surgery/procedure and date(s) Allergies: Allergies Allergy/AdvReac Type Severity Reaction Status Date / Time No Known Allergies Allergy Verified 04/03/24 14:33 [No Known Allergies*] Review of Systems Sugical H&P ROS: Negative: Constitution, Cardiovascular, Respiratory and Integumentary Exam Surgical H&P Exam: Normal: Heart, Normal: Lungs, Normal: Skin and Normal: Neurological Plan 73 y/o female with bladder cancer and a MANUEL lung mass -CT left lung biopsy. Time Spent With Patient Time: Total time managing care of this patient today ____ minutes.
--- NOTE | 2024-04-09 11:30 | PC.NURSE ---
This RN assumed care at 1900, pt called asking for inhaler, lungs sounded wheezy/diminished, reached out to respiratory about it, as pt began to desat, very diaphoretic, dyspnic needing to be increased to 5L NC from 2L. Pt sitting at edge of bed reporting severe SOB, rapid response called for assistance. Chest tube is functioning properly and in place. Vital signs taken: BP 198/100, tachycardic in the 140s. Additional IV placed #22 LFA. Obtained EKG, VBG, CXR. IV ativan, lasix and metoprolol given per Dr. Virgen tele monitor and Lobo placed per Dr. Virgen's order. Pt responding well, SpO2 95%, RR: 20, BP: 123/64, HR: 90.
--- NOTE | 2024-04-09 12:27 | PM.PROC ---
Brief Operative Note Date of procedure: 04/09/24 Pre-op diagnosis: Left lung mass, smoker, bladder cancer Post-op diagnosis: same Procedure: 1) CT left lung mass biopsy 2) CT left chest tube 4 x 20 g cores performed. Patient developed a large pneumothorax immediately post procedure with respiratory distress. A 10 fr chest tube was placed emergently with significant improvement in respiratory status. Will contact Hospitalist staff for admission. Gera EWING Interventional Radiology
[2024-04-09] MEDS: Morphine Sulfate 2 MG/ML CARTRIDGE 1 MG IVPUSH (12:38)
[2024-04-09] MEDS: ondansetron HCL 4 MG/2 ML VIAL IVPUSH (12:51)
[2024-04-09] MEDS: Lidocaine HCl 1 % MPF 5 ML VIAL 10 ML SUBCUT (13:55)
--- NOTE | 2024-04-09 14:14 | HO.THORCON_ITS ---
History of Present Illness Consult details Consult date: 04/09/24 Narrative: Patient is a 73-year-old female who underwent left upper lobe lung mass interventional radiologic biopsy and developed an iatrogenic postprocedure pneumothorax. This was treated with just to placement with good result. Patient is currently on the floor and clinically stable. Consult by thoracic surgery for chest tube management was undertaken. Chart was reviewed and patient evaluated PMFSH Past Medical History Medical History (Updated 04/09/24 @ 14:17 by Lee Turner MD) Multiple environmental allergies Pulmonary nodules Nicotine dependence, cigarettes, uncomplicated COPD (chronic obstructive pulmonary disease) Stress incontinence Hx of bladder cancer (~2008) Dysphagia History of COVID-19 Primary insomnia Surgical menopause Osteoporosis (~2019) Tubular adenoma of colon (~2016) Hiatal hernia Esophagitis determined by endoscopy History of esophageal stricture Family History Family History Father HTN (hypertension) Mesothelioma Mother Melanoma Brother No problems noted. Brother No problems noted. Sister No problems noted. Daughter Melanoma Son No problems noted. Son No problems noted. Son No problems noted. Sister Lung cancer Surgical History Surgical History History of cataract surgery History of esophageal dilatation History of bladder surgery History of hand surgery History of colonoscopy History of esophagogastroduodenoscopy (EGD) History of cystoscopy History of hysterectomy Social History Social History Household Members: Spouse Housing: House Do you presently have visiting nurse or other home services: No Patient Tobacco Use Status: Current everyday Tobacco user Tobacco use type: Cigarette Cigarettes Per Day: 5 Smoked in Last 30 Days: Yes e-Cigarette/Vaping Use: Never Used Patient Interested in Nicotine Replacement: Yes Patient Given Instructions on How to Stop Smoking: No Second Hand Smoke Exposure: No Use of substances other than those prescribed or required for medical reasons: No Currently Displaying Signs/Symptoms of Drug Intoxication Withdrawal: No Have you been hit, kicked, punched, or otherwise hurt by someone within the past year? If so, by whom?: No Do you feel safe in your current relationship?: Yes Is there a partner from a previous relationship who is making you feel unsafe now?: No Are you made to feel afraid or neglected: No Advance Directives: No Advance Directives Information Provided: Yes Advance Directives on File: Yes Recently lost weight without trying: Unsure Nutrition Risks: No Nutritional Risk Patient : No : No Poor oral hygiene: No service: No Current occupational status: employed Cognitive needs: No Hearing needs: No Vision needs: Yes Meds Allergies Allergy/AdvReac Type Severity Reaction Status Date / Time No Known Allergies Allergy Verified 04/03/24 14:33 [No Known Allergies*] Active Medications: Current Medications Acetaminophen (Acetaminophen 325 Mg Tablet) 650 mg PO Q6H PRN PRN Reason: Pain, Mild (Pain Scale 1-3), fever or headache Calcium Carbonate (Calcium Carbonate 750 Mg Tab.Chew) 750 mg PO Q4H PRN PRN Reason: Heartburn Heparin Sodium (Porcine) (Heparin Sodium,Porcine 5,000 Unit/Ml Vial) 5,000 unit SUBCUT Q12H KIRAN Magnesium Hydroxide (Milk Of Magnesia 30 Ml Oral.Susp) 30 ml PO DAILY PRN PRN Reason: Constipation Melatonin (Melatonin 3 Mg Tablet) 6 mg PO BEDTIME PRN PRN Reason: Insomnia Morphine Sulfate (Morphine Sulfate 2 Mg/Ml Cartridge) 1 mg IVPUSH Q4H PRN; Protocol PRN Reason: Pain, Severe (Pain Scale 7-10) Last Admin: 04/09/24 12:38 Dose: 1 mg Ondansetron HCl (Ondansetron Hcl 4 Mg/2 Ml Vial) 4 mg IVPUSH Q8H PRN PRN Reason: Nausea and Vomiting Last Admin: 04/09/24 12:51 Dose: 4 mg Sodium Chloride (0.9 % Sodium Chloride Flush 3 Ml Syringe) 3 ml [facility]FLUSH [facility] Home Medications ?Medication ?Instructions ?Recorded ?Confirmed ?Last Taken ?Type omeprazole 40 mg capsule,delayed 40 mg PO BID PRN Acid Reflux 03/13/23 04/09/24 Unknown History release nebulizers 08/10/23 04/03/24 Unknown History ipratropium 0.5 mg-albuterol 3 mg 3 ml inhalation DAILY PRN 04/09/24 04/09/24 Unknown History (2.5 mg base)/3 mL nebulization Shortness Of Breath Or Wheezing soln Physical Exam 2 Vital Signs: Vital Signs: Last Vital Signs Temp 97.8 F 04/09/24 14:02 Pulse 100 04/09/24 14:02 Resp 22 H 04/09/24 14:02 BP 137/64 04/09/24 14:02 Pulse Ox 97 04/09/24 14:02 O2 Del Method Nasal Cannula 04/09/24 14:02 O2 Flow Rate 2 04/09/24 14:02 BMI result Body Mass Index 19.8 Chest: Other: Chest tube site dressing clean dry and intact. Very small air leak and minimal output from Pleur-evac. Results Labs 04/10/24 06:47 04/10/24 06:47 Labs: Abnormal lab results 04/09/24 Range/Units 09:14 PT 10.2 L (10.9-12.4) SEC All other labs normal. Assessment and Plan (1) Pneumothorax after biopsy: Status: Acute Plan With present, chest tube to wall suction, encourage incentive spirometry, wean O2 as tolerated, out of bed to chair, serial chest x-rays. Procedures Date of Service Date of Service: 04/10/24
--- NOTE | 2024-04-09 14:31 | PHA.MEDREC ---
Addendum entered by Maday Bonner RPh 04/09/24 14:49: Med rec was reviewed by [facility]. Original Note: Pharmacy Consult ? Medication Reconciliation Pharmacy has completed the medication reconciliation. spoke to patient to confirm med list. Patient states she is not taking Magnesium oxide 400 mg.
--- NOTE | 2024-04-09 14:40 | P.HPHOSP_ITS ---
History of Present Illness Date of Service: 04/09/24 Chief Complaint: Pneumothorax 73-year-old woman status post lung biopsy for lung mass. She was in Interventional Radiology and after biopsy developed a large pneumothorax. She had a chest tube placed emergently. Iron provider contacted hospitalist service to request admission for patient. Patient was seen and evaluated in the PACU, she reported some pain especially at the chest tube site. She denied any nausea, vomiting, diarrhea. She has chronic shortness of breath and wet cough. Her vital signs are stable, lab work is pending. Plan is to admit patient for further management and treatment of acute pneumothorax. Review of Systems Review of Systems: Denies any recent fever chills or decrease in appetite respiratory chronic shortness of breath and cough cardiovascular denied chest pain gastrointestinal denies any dysphagia abdominal pain nausea vomiting or diarrhea genitourinary denies any dysuria frequency or hematuria musculoskeletal denies any joint pain or swelling neuropsych denies any weakness or seizures all other systems reviewed are negative [facility] Medical History (Updated 04/09/24 @ 14:17 by Lee Turner MD) Multiple environmental allergies Pulmonary nodules Nicotine dependence, cigarettes, uncomplicated COPD (chronic obstructive pulmonary disease) Stress incontinence Hx of bladder cancer (~2008) Dysphagia History of COVID-19 Primary insomnia Surgical menopause Osteoporosis (~2019) Tubular adenoma of colon (~2016) Hiatal hernia Esophagitis determined by endoscopy History of esophageal stricture Family History Father HTN (hypertension) Mesothelioma Mother Melanoma Brother No problems noted. Brother No problems noted. Sister No problems noted. Daughter Melanoma Son No problems noted. Son No problems noted. Son No problems noted. Sister Lung cancer Surgical History History of cataract surgery History of esophageal dilatation History of bladder surgery History of hand surgery History of colonoscopy History of esophagogastroduodenoscopy (EGD) History of cystoscopy History of hysterectomy Social History Household Members: Spouse Housing: House Do you presently have visiting nurse or other home services: No Patient Tobacco Use Status: Current everyday Tobacco user Tobacco use type: Cigarette Cigarettes Per Day: 5 Smoked in Last 30 Days: Yes e-Cigarette/Vaping Use: Never Used Patient Interested in Nicotine Replacement: Yes Patient Given Instructions on How to Stop Smoking: No Second Hand Smoke Exposure: No Use of substances other than those prescribed or required for medical reasons: No Have you been hit, kicked, punched, or otherwise hurt by someone within the past year? If so, by whom?: No Do you feel safe in your current relationship?: Yes Is there a partner from a previous relationship who is making you feel unsafe now?: No Are you made to feel afraid or neglected: No Advance Directives: No Advance Directives Information Provided: Yes Advance Directives on File: Yes Recently lost weight without trying: Unsure Nutrition Risks: No Nutritional Risk Patient : No : No Poor oral hygiene: No service: No Current occupational status: employed Cognitive needs: No Hearing needs: No Vision needs: Yes Meds Allergies Allergy/AdvReac Type Severity Reaction Status Date / Time No Known Allergies Allergy Verified 04/03/24 14:33 [No Known Allergies*] Active Medications: Current Medications Acetaminophen (Acetaminophen 325 Mg Tablet) 650 mg PO Q6H PRN PRN Reason: Pain, Mild (Pain Scale 1-3), fever or headache Calcium Carbonate (Calcium Carbonate 750 Mg Tab.Chew) 750 mg PO Q4H PRN PRN Reason: Heartburn Heparin Sodium (Porcine) (Heparin Sodium,Porcine 5,000 Unit/Ml Vial) 5,000 unit SUBCUT Q12H KIRAN Magnesium Hydroxide (Milk Of Magnesia 30 Ml Oral.Susp) 30 ml PO DAILY PRN PRN Reason: Constipation Melatonin (Melatonin 3 Mg Tablet) 6 mg PO BEDTIME PRN PRN Reason: Insomnia Morphine Sulfate (Morphine Sulfate 2 Mg/Ml Cartridge) 1 mg IVPUSH Q4H PRN; Protocol PRN Reason: Pain, Severe (Pain Scale 7-10) Last Admin: 04/09/24 12:38 Dose: 1 mg Ondansetron HCl (Ondansetron Hcl 4 Mg/2 Ml Vial) 4 mg IVPUSH Q8H PRN PRN Reason: Nausea and Vomiting Last Admin: 04/09/24 12:51 Dose: 4 mg Sodium Chloride (0.9 % Sodium Chloride Flush 3 Ml Syringe) 3 ml IVFLUSH [facility] Home Medications ?Medication ?Instructions ?Recorded ?Confirmed ?Last Taken ?Type omeprazole 40 mg capsule,delayed 40 mg PO BID 03/13/23 04/09/24 04/08/24 History release nebulizers 08/10/23 04/03/24 Unknown History ipratropium 0.5 mg-albuterol 3 mg 3 ml inhalation DAILY PRN 04/09/24 04/09/24 Unknown History (2.5 mg base)/3 mL nebulization Shortness Of Breath Or Wheezing soln Physical Exam Vital Signs and Narrative: Vital Signs: Last Vital Signs Temp 97.8 F 04/09/24 14:02 Pulse 100 04/09/24 14:02 Resp 22 H 04/09/24 14:02 BP 137/64 04/09/24 14:02 Pulse Ox 97 04/09/24 14:02 O2 Del Method Nasal Cannula 04/09/24 14:02 O2 Flow Rate 2 04/09/24 14:02 BMI result Body Mass Index 19.8 Appearing in no acute distress head is normocephalic atraumatic eyes pupils are PERRLA sclera is anicteric mouth throat mucous membranes are intact and moist neck is supple no lymphadenopathy, no JVD noted lung sounds rhonchorous, left chest tube heart regular rate rhythm, clear S1, S2 positive bowel sounds, abdomen is soft, nontender neuro patient is alert x3, no focal deficits Results Labs Labs: Laboratory Results - last 24 hr 04/09/24 09:14 PT 10.2 L INR 0.9 APTT 30.3 Assessment and Plan (1) Pneumothorax after biopsy: Status: Acute Plan 73 year old women s/p lung biopsy admitted due to large pneumothorax after procedure Large pneumothorax Status post lung biopsy Thoracic surgery following Pain management Repeat chest x-ray in the morning History of bladder cancer Under the care of [facility] Oncology Smoker Patient reports that she smokes 5 cigarettes a day NRT as needed Discussed importance of smoking cessation COPD No exacerbation Continue albuterol and other respiratory treatments as needed sign GERD Continue PPI DVT prophylaxis with pneumatic compression boots Full code Quality Stroke Does the patient have a stroke diagnosis?: No VTE Prior VTE?: No VTE Risk Level:: Medical - moderate - high VTE Device Contraindication: Treatment Not Indicated VTE Drug Contraindication: N/A - Med Ordered
[2024-04-09 15:35] LABS: Hematocrit 41.8 % (37.0-47.0); Hemoglobin 14.3 g/dl (12.0-16.0); Mean Corpuscular HGB Conc 34.2 g/dl (31.0-35.0); Mean Corpuscular Hemoglobin 31.6 pg (27.0-33.0); Mean Corpuscular Volume 92.5 fL (80.0-98.0); Mean Platelet Volume 9.9 fL (9.4-12.3); Platelet Count 179 X10*3/uL (160-400); Red Blood Count 4.52 X10*6/uL (4.20-5.50); Red Cell Distribution Width 12.7 % (11.0-16.0); White Blood Count 16.3 X10*3/uL (4.8-10.8)
[2024-04-09] MEDS: Heparin Sodium,Porcine 5,000 UNIT/ML VIAL 5000 UNIT SUBCUT (15:49)
[2024-04-09 15:50] LABS: Anion Gap 9 (12-20); Blood Urea Nitrogen 17 mg/dL (9-16); Calcium 9.6 mg/dL (8.4-10.2); Carbon Dioxide 31 mmol/L (22-29); Chloride 105 mmol/L (96-108); Creatinine Clr Calc Pharmacy 48.2; Estimated Glomerular Filt Rate > 60; Glucose Random 109 mg/dL (60-115); Potassium 4.2 mmol/L (3.3-5.1); Sodium 141 mmol/L (135-145)
[2024-04-09] MEDS: 0.9 % Sodium Chloride Flush 3 ML SYRINGE IVFLUSH ×2 (15:53→21:15)
[2024-04-09 23:34] LABS: Glucose, Whole Blood 124 mg/dL (60-115)
[2024-04-09] MEDS: LORazepam 2 MG/ML VIAL 1 MG IVPUSH (23:38)
[2024-04-09] MEDS: Furosemide 40 MG/4 ML VIAL IVPUSH (23:50)
[2024-04-09 23:54] LABS: VBG Base Excess 0.9 mmol/L; VBG HCO3 24 mmol/L (22-26); VBG pCO2 36 mmHg; VBG pH 7.43 (7.32-7.43); VBG pO2 77 mmHg
[2024-04-09] MEDS: Metoprolol Tartrate 5 MG/5 ML VIAL IVPUSH (23:55)
[2024-04-10] VITALS (11 sets, daily range): BP systolic 116–165; BP diastolic 58–76; PULSE 72–102; RESP 17–24; TEMP 36.2–36.7; O2SAT 89–98
--- NOTE | 2024-04-10 00:04 | PM.EVENT ---
Event Note Date of Service: 04/10/24 Event Note: Rapid response was called as patient was diaphoretic, dyspneic and with increasing oxygen requirements. Patient was sitting at the edge of the bed leaning over and saying that she was feeling short of breath. Chest tube okay. Blood pressure around 198/100 and patient was tachycardic in the 140s. Etiology of acute respiratory distress is likely pulmonary edema in the setting of increased BP. Obtained chest x-ray. Administered IV Lasix and IV beta-eamon with improvement in dyspnea and oxygen requirements. Time Spent With Patient Time: Total time managing care of this patient today ____ minutes.
[2024-04-10 00:32] LABS: B Type Natriuretic Peptide 72 pg/mL (<100)
[2024-04-10 01:04] LABS: Venous Blood Gas Refer to POC result
[2024-04-10 07:14] LABS: MANUAL DIFF FLAG NO
[2024-04-10 07:22] LABS: Basophils Absolute Auto 0.1 X10*3/uL (0.0-0.2); Basophils Percent Auto 0.4 % (0-2); Eosinophils Percent Auto 0.3 % (0-4); Hematocrit 45.6 % (37.0-47.0); Hemoglobin 15.4 g/dl (12.0-16.0); Imm Gran Abs Auto 0.06 X10*3/uL (0.00-0.03); Imm Gran Pct Auto 0.4 % (0.0-0.4); Lymphocytes Absolute Auto 2.2 X10*3/uL (1.2-4.9); Lymphocytes Percent Auto 16.2 % (20-40); Mean Corpuscular HGB Conc 33.8 g/dl (31.0-35.0); Mean Corpuscular Hemoglobin 31.4 pg (27.0-33.0); Mean Corpuscular Volume 92.9 fL (80.0-98.0); Monocytes Absolute Auto 1.3 X10*3/uL (0.1-1.2); Monocytes Percent Auto 9.5 % (2-11); Neutrophils Absolute Auto 9.8 x10*3/uL (2.0-8.3); Neutrophils Percent Auto 73.2 % (45-73); Platelet Count 200 X10*3/uL (160-400); Red Blood Count 4.91 X10*6/uL (4.20-5.50); Red Cell Distribution Width 12.6 % (11.0-16.0); White Blood Count 13.4 X10*3/uL (4.8-10.8)
[2024-04-10 07:34] LABS: Alanine Aminotransferase 7 U/L (0-31); Albumin Level 4.2 g/dL (3.5-5.0); Alkaline Phosphatase 119 U/L (39-117); Anion Gap 15 (12-20); Aspartate Amino Transferase 18 U/L (5-31); Bilirubin Total 0.7 mg/dL (0.0-1.0); Blood Urea Nitrogen 18 mg/dL (9-16); Calcium 9.8 mg/dL (8.4-10.2); Carbon Dioxide 33 mmol/L (22-29); Chloride 98 mmol/L (96-108); Estimated Glomerular Filt Rate 55; Glucose Random 108 mg/dL (60-115); Potassium 4.5 mmol/L (3.3-5.1); Sodium 141 mmol/L (135-145); Total Protein 7.8 g/dL (6.5-8.0)
--- NOTE | 2024-04-10 08:01 | PM.PNTS ---
Subjective Subjective Date of Service: 04/10/24 Interval history: Last evening's events noted; CHF improved. Patient states her dyspnea is better. Minimal output from Pleur-evac. Very small air leak. Physical Exam Vital Signs: Vital Signs: Last Vital Signs Temp 97.5 F 04/10/24 07:50 Pulse 80 04/10/24 07:50 Resp 17 04/10/24 07:50 BP 116/60 04/10/24 07:50 Pulse Ox 97 04/10/24 07:50 O2 Del Method Nasal Cannula 04/10/24 07:50 O2 Flow Rate 2 04/10/24 07:50 Oxygen Flow Rate 2 04/10/24 02:30 BMI result Body Mass Index 19.8 Chest: Other: Chest tube dressing clean dry and intact. Pleur-evac as noted above. A.m. chest x-ray no pneumothorax Procedures Date of Service Date of Service: 04/10/24 Progress Note: A&P Assessment and plan (1) Pneumothorax after biopsy: Status: Acute (2) Left upper lobe pulmonary nodule: Status: Acute Plan Continue current plan of chest tube to wall suction, encourage incentive spirometry, out of bed to chair, wean O2 as tolerated Time Spent With Patient Time: Total time managing care of this patient today ____ minutes. Quality Stroke Does the patient have a stroke diagnosis?: No VTE Prior VTE?: No VTE Risk Level:: Medical - moderate - high VTE Device Contraindication: Treatment Not Indicated VTE Drug Contraindication: N/A - Med Ordered
[2024-04-10] MEDS: 0.9 % Sodium Chloride Flush 3 ML SYRINGE IVFLUSH ×2 (08:10→21:25)
[2024-04-10] MEDS: Fluticasone/Vilanterol 200/25 BLST.W.DEV 1 PUFF INHALE (10:46)
[2024-04-10] MEDS: Heparin Sodium,Porcine 5,000 UNIT/ML VIAL 5000 UNIT SUBCUT (13:28)
--- NOTE | 2024-04-10 14:12 | P.PNIM_ITS ---
Subjective Subjective Date of Service: 04/10/24 Interval History: Feeling better this morning complaining of pain at site chest tube and lung biopsy. Denies shortness of breath, tolerating diet no other acute events overnight. Review of Systems All other system reviewed and negative Physical Exam 2 Vital Signs: Vital Signs: Last Vital Signs Temp 98.0 F 04/10/24 11:38 Pulse 90 04/10/24 11:38 Resp 18 04/10/24 11:38 BP 131/58 L 04/10/24 11:38 Pulse Ox 98 04/10/24 11:38 O2 Del Method Nasal Cannula 04/10/24 11:38 O2 Flow Rate 2 04/10/24 11:38 Oxygen Flow Rate 2 04/10/24 02:30 BMI result Body Mass Index 19.8 Const: Other: General awake alert in no acute distress. Neck supple no JVD. CVS regular rate rhythm, Respiratory lungs diminished breath sound , no respiratory distress, no wheeze, no rhonchi. Gastrointestinal abdomen soft, non tender, bowel sounds audible Extremities noedema. Neuro non focal Skin no rash Objective Data Active Medications Acetaminophen (Acetaminophen 325 Mg Tablet) 650 mg PO Q6H PRN PRN Reason: Pain, Mild (Pain Scale 1-3), fever or headache Albuterol/Ipratropium (Albuterol/Iprat 2.5/0.5mg 3 Ml Ampul.Neb) 3 ml INHALE DAILY PRN PRN Reason: Shortness Of Breath Or Wheezing Calcium Carbonate (Calcium Carbonate 750 Mg Tab.Chew) 750 mg PO Q4H PRN PRN Reason: Heartburn Fluticasone/Vilanterol (Fluticasone/Vilanterol 200/25 Blst.W.Dev) 1 puff INHALE RDAILY [facility] Last Admin: 04/10/24 10:46 Dose: 1 puff Documented By: PIPPA Heparin Sodium (Porcine) (Heparin Sodium,Porcine 5,000 Unit/Ml Vial) 5,000 unit SUBCUT Q12H [facility] Last Admin: 04/10/24 13:28 Dose: 5,000 unit Documented By: POP Magnesium Hydroxide (Milk Of Magnesia 30 Ml Oral.Susp) 30 ml PO DAILY PRN PRN Reason: Constipation Melatonin (Melatonin 3 Mg Tablet) 6 mg PO BEDTIME PRN PRN Reason: Insomnia Morphine Sulfate (Morphine Sulfate 2 Mg/Ml Cartridge) 1 mg IVPUSH Q4H PRN; Protocol PRN Reason: Pain, Severe (Pain Scale 7-10) Last Admin: 04/09/24 12:38 Dose: 1 mg Documented By: AKOSUA Nicotine Polacrilex (Nicotine Polacrilex Lozenge 2 Mg Lozenge) 2 mg BUCCAL Q2H PRN PRN Reason: Nicotine Cravings Non-Formulary Medication (Tiotropium Ethel [Spiriva Respimat]) 1 puff PO DAILY KIRAN Ondansetron HCl (Ondansetron Hcl 4 Mg/2 Ml Vial) 4 mg IVPUSH Q8H PRN PRN Reason: Nausea and Vomiting Last Admin: 04/09/24 12:51 Dose: 4 mg Documented By: AKOSUA Sodium Chloride (0.9 % Sodium Chloride Flush 3 Ml Syringe) 3 ml IVFLUSH QSHIFT KIRAN Last Admin: 04/10/24 08:10 Dose: 3 ml Documented By: POP Zolpidem Tartrate (Zolpidem Tartrate 5 Mg Tablet) 10 mg PO BEDTIME PRN PRN Reason: insomnia Labs 04/10/24 06:47 04/10/24 06:47 Labs: Laboratory Results - last 24 hr 04/09/24 04/09/24 04/09/24 15:28 23:30 23:43 MCV 92.5 MCH 31.6 MCHC 34.2 RDW 12.7 Plt Count 179 MPV 9.9 Immature Gran % (Auto) Neut % (Auto) Lymph % (Auto) [place] % (Auto) Eos % (Auto) Baso % (Auto) Lymph # (Auto) [place] # (Auto) Eos # (Auto) Baso # (Auto) Abs Immat Gran (auto) Absolute Neuts (auto) Absolute Nucleated RBC 0.000 Nucleated RBC % (auto) 0.0 VBG pH 7.43 VBG pCO2 36 VBG pO2 77 VBG HCO3 24 VBG O2 Saturation 96.0 VBG Base Excess 0.9 Anion Gap 9 L Estim Creat Clear Calc 48.2 Estimated GFR > 60 POC Glucose 124 H Random Glucose 109 Calcium 9.6 Total Bilirubin AST ALT Alkaline Phosphatase B-Natriuretic Peptide Total Protein Albumin 04/09/24 04/10/24 23:45 06:47 MCV 92.9 MCH 31.4 MCHC 33.8 RDW 12.6 Plt Count 200 MPV 10.0 Immature Gran % (Auto) 0.4 Neut % (Auto) 73.2 H Lymph % (Auto) 16.2 L [place] % (Auto) 9.5 Eos % (Auto) 0.3 Baso % (Auto) 0.4 Lymph # (Auto) 2.2 [place] # (Auto) 1.3 H Eos # (Auto) 0.0 Baso # (Auto) 0.1 Abs Immat Gran (auto) 0.06 H Absolute Neuts (auto) 9.8 H Absolute Nucleated RBC 0.000 Nucleated RBC % (auto) 0.0 VBG pH VBG pCO2 VBG pO2 VBG HCO3 VBG O2 Saturation VBG Base Excess Anion Gap 15 Estim Creat Clear Calc 38.0 Estimated GFR 55 POC Glucose Random Glucose 108 Calcium 9.8 Total Bilirubin 0.7 AST 18 ALT 7 Alkaline Phosphatase 119 H B-Natriuretic Peptide 72 Total Protein 7.8 Albumin 4.2 Assessment and Plan (1) Pneumothorax after biopsy: Status: Acute (2) Nicotine dependence: Status: Acute Plan 73 year old women s/p lung biopsy admitted due to large pneumothorax after procedure Acute Large pneumothorax Status post lung biopsy Thoracic surgery following Pain management/cough medicine chest x-ray this a.m. showed trace residual left apical pneumothorax, left lateral hemithorax pigtail catheter in similar position, background emphysematous changes, similar streaky and patchy opacity left upper lobe. Leukocytosis likely reactive will follow Continue chest tube/serial chest x-ray as per thoracic surgery History of bladder cancer Follow-up outpatient with [facility] [place] Oncology Active Smoker smokes 5 cigarettes a day NRT as needed Discussed importance of smoking cessation COPD No acute exacerbation Continue home inhalers Breo and Spiriva GERD scheduled PPI DVT prophylaxis with heparin subQ Full code In my clinical judgment patient requires continued inpatient hospitalization from treatment of acute left pneumothorax requiring chest tube and expert consultation. Quality Stroke Does the patient have a stroke diagnosis?: No VTE Prior VTE?: No VTE Risk Level:: Medical - moderate - high VTE Device Contraindication: Treatment Not Indicated VTE Drug Contraindication: N/A - Med Ordered
--- NOTE | 2024-04-10 16:03 | MHC.CM.PN ---
Pt self-care, lives at home with her partner who will transport her home at discharge. New HCP completed with pt, now on file. PCP: Dr. Arlin Watkins
[2024-04-10] MEDS: Acetaminophen 325 MG TABLET 650 MG PO (21:25)
[2024-04-11] MEDS: Heparin Sodium,Porcine 5,000 UNIT/ML VIAL 5000 UNIT SUBCUT
[2024-04-11 04:00] VITALS: BP 124/59; PULSE 94; RESP 20; TEMP 36.2; O2SAT 94
[2024-04-11 07:19] LABS: Anion Gap 15 (12-20); Blood Urea Nitrogen 28 mg/dL (9-16); Calcium 9.9 mg/dL (8.4-10.2); Carbon Dioxide 30 mmol/L (22-29); Chloride 100 mmol/L (96-108); Creatinine Clr Calc Pharmacy 42.8; Estimated Glomerular Filt Rate > 60; Glucose Random 96 mg/dL (60-115); Sodium 141 mmol/L (135-145)
[2024-04-11 07:48] LABS: Hematocrit 46.1 % (37.0-47.0); Hemoglobin 15.6 g/dl (12.0-16.0); Mean Corpuscular HGB Conc 33.8 g/dl (31.0-35.0); Mean Corpuscular Hemoglobin 31.1 pg (27.0-33.0); Mean Platelet Volume 10.4 fL (9.4-12.3); Platelet Count 202 X10*3/uL (160-400); Red Blood Count 5.01 X10*6/uL (4.20-5.50); Red Cell Distribution Width 12.6 % (11.0-16.0); White Blood Count 8.4 X10*3/uL (4.8-10.8)
[2024-04-11 07:50] VITALS: BP 105/53; PULSE 98; RESP 20; TEMP 35.6; O2SAT 93
[2024-04-11] MEDS: Omeprazole 20 MG CAPSULE.DR PO (07:50)
[2024-04-11] MEDS: Acetaminophen 325 MG TABLET 650 MG PO ×3 (07:50→23:24)
[2024-04-11] MEDS: 0.9 % Sodium Chloride Flush 3 ML SYRINGE IVFLUSH (07:50)
--- NOTE | 2024-04-11 08:55 | PM.PNTS ---
Subjective Subjective Date of Service: 04/11/24 <Gayathri Ortiz PA-C - Last Filed: 04/11/24 08:58> 04/11/24 <Lee Turner MD - Last Filed: 04/11/24 10:15> Interval history: Occasionally coughing up bloody sputum. Feels like her breathing is better. Now on room air. OOB to commode and recliner. <Gayathri Ortiz PA-C - Last Filed: 04/11/24 08:58> Physical Exam Vital Signs: Vital Signs: Last Vital Signs Temp 96.0 F L 04/11/24 07:50 Pulse 98 04/11/24 07:50 Resp 20 04/11/24 07:50 BP 105/53 L 04/11/24 07:50 Pulse Ox 93 04/11/24 07:50 O2 Del Method Room Air 04/11/24 07:50 O2 Flow Rate 2 04/11/24 04:00 Oxygen Flow Rate 2 04/10/24 02:30 BMI result Body Mass Index 19.8 <Gayathri Ortiz PA-C - Last Filed: 04/11/24 08:58> Const: General: comfortable, no acute distress and alert <ANDERSON Carrasco Last Filed: 04/11/24 08:58> Orientation/consciousness: patient oriented x3 <ANDERSON Carrasco Last Filed: 04/11/24 08:58> Chest: Other: chest tube in anterior chest wall pleurvac with scant drainage, very small air leak <Gayathri Ortiz PA-C - Last Filed: 04/11/24 08:58> Resp: Effort & Inspection: normal respiratory effort, able to speak in complete sentences, Actively coughing, no respiratory distress, not tachypneic and no use of accessory muscles <ANDERSON Carrasco Last Filed: 04/11/24 08:58> Skin: General skin exam: no rashes or lesions noted <ANDERSON Carrasco Last Filed: 04/11/24 08:58> Neuro: General: patient oriented x3 and moves all extremities <ANDERSON Carrasco Last Filed: 04/11/24 08:58> Procedures Date of Service Date of Service: 04/11/24 <Gayathri Ortiz PA-C - Last Filed: 04/11/24 08:58> 04/11/24 <Lee Turner MD - Last Filed: 04/11/24 10:15> Progress Note: A&P Assessment and plan (1) Pneumothorax after biopsy: Status: Acute <Gayathri Ortiz PA-C - Last Filed: 04/11/24 08:58> (2) Left upper lobe pulmonary nodule: Status: Acute <Gayathri Ortiz PA-C - Last Filed: 04/11/24 08:58> Assessment and Plan: Chest tube to water seal this morning. Repeat CXR later this afternoon. If lung remains up and she remains stable from respiratory standpoint, possible dc chest tube tomorrow. Encouraged OOB, incentive use. Small amount of hemoptysis is expected following biopsy, cont to monitor. <Gayathri Ortiz PA-C - Last Filed: 04/11/24 08:58> Chest tube to water seal this morning. Repeat CXR later this afternoon. If lung remains up and she remains stable from respiratory standpoint, possible dc chest tube tomorrow. Encouraged OOB, incentive use. Small amount of hemoptysis is expected following biopsy, cont to monitor. As noted above <Lee Turner MD - Last Filed: 04/11/24 10:15> Time Spent With Patient Time: Total time managing care of this patient today ____ minutes. <Gayathri Ortiz PA-C - Last Filed: 04/11/24 08:58> Quality Stroke Does the patient have a stroke diagnosis?: No <Gayathri Ortiz PA-C - Last Filed: 04/11/24 08:58> VTE Prior VTE?: No <Gayathri Ortiz PA-C - Last Filed: 04/11/24 08:58> VTE Risk Level:: Medical - moderate - high <ANDERSON Carrasco Last Filed: 04/11/24 08:58> VTE Device Contraindication: Treatment Not Indicated <Gayathri Ortiz PA-C - Last Filed: 04/11/24 08:58> VTE Drug Contraindication: N/A - Med Ordered <Gayathri Ortiz PA-C - Last Filed: 04/11/24 08:58>
[2024-04-11] MEDS: Fluticasone/Vilanterol 200/25 BLST.W.DEV 1 PUFF INHALE (09:32)
[2024-04-11 09:34] VITALS: PULSE 120; RESP 22; O2SAT 90
[2024-04-11 12:05] VITALS: BP 123/58; PULSE 114; RESP 20; TEMP 36.7; O2SAT 96
--- NOTE | 2024-04-11 14:14 | PM.CNPUL ---
History of Present Illness History of Present Illness Consult date: 04/11/24 Chief complaint: Pneumothorax Narrative: 73-year-old lady with underlying COPD and spiculated left lung nodule, now status post transthoracic biopsy on 04/09/2024 complicated by pneumothorax, now status post chest tube still with significant air bubbling through the collection chamber, with hospital course complicated by small volume hemoptysis, now improving. Review of Systems Constitutional: Constitutional: Denies daytime sleepiness, Denies excessive sweating, Denies fatigue, Denies fever(s), Denies lethargy, Denies malaise, Denies night sweats, Denies snoring and Denies weight loss Eyes: Eyes: Denies blurry vision and Denies itchy eyes ENT: Denies nasal congestion, Denies post nasal drip, Denies sinus pain, Denies sinus pressure and Denies other ( Thrush) Cardiovascular: Cardiovascular: Denies chest pain, Denies pedal edema, Denies dyspnea, Denies orthopnea and Denies paroxysmal nocturnal dyspnea Respiratory: Respiratory: Reports cough, Reports hemoptysis, Denies excessive phlegm production, Denies dyspnea, Denies snoring and Denies wheezing Gastrointestinal: Gastrointestinal: Denies abdominal pain and Denies heartburn Musculoskeletal: Musculoskeletal: Denies myalgias, Denies arthralgias and Denies joint swelling Integumentary/Breasts: Skin/Breast: Denies rash Neurologic: Denies memory loss and Denies seizure-like activity Psychiatric: Psychiatric: Denies abnormal sleep pattern, Denies anxiety and Denies memory loss Endocrine: Endocrine: Denies excessive sweating, Denies fatigue and Denies heat intolerance Hematologic/Lymphatic: Hematologic/Lymphatic: Denies easy bruising Allergic/Immunologic: Allergic/Immunologic: Denies itchy eyes, Denies seasonal rhinorrhea and Denies wheezing PMFSH Past Medical History Medical History (Updated 04/11/24 @ 14:16 by Davin Campbell MD) Multiple environmental allergies Pulmonary nodules Nicotine dependence, cigarettes, uncomplicated COPD (chronic obstructive pulmonary disease) Stress incontinence Hx of bladder cancer (~2008) Dysphagia History of COVID-19 Primary insomnia Surgical menopause Osteoporosis (~2019) Tubular adenoma of colon (~2016) Hiatal hernia Esophagitis determined by endoscopy History of esophageal stricture Family History Family History Father HTN (hypertension) Mesothelioma Mother Melanoma Brother No problems noted. Brother No problems noted. Sister No problems noted. Daughter Melanoma Son No problems noted. Son No problems noted. Son No problems noted. Sister Lung cancer Surgical History Surgical History History of cataract surgery History of esophageal dilatation History of bladder surgery History of hand surgery History of colonoscopy History of esophagogastroduodenoscopy (EGD) History of cystoscopy History of hysterectomy Social History Social History Household Members: Spouse Housing: House Do you presently have visiting nurse or other home services: No Patient Tobacco Use Status: Current everyday Tobacco user Tobacco use type: Cigarette Cigarettes Per Day: 5 Smoked in Last 30 Days: Yes e-Cigarette/Vaping Use: Never Used Patient Interested in Nicotine Replacement: Yes Patient Given Instructions on How to Stop Smoking: No Second Hand Smoke Exposure: No Use of substances other than those prescribed or required for medical reasons: No Currently Displaying Signs/Symptoms of Drug Intoxication Withdrawal: No Have you been hit, kicked, punched, or otherwise hurt by someone within the past year? If so, by whom?: No Do you feel safe in your current relationship?: Yes Is there a partner from a previous relationship who is making you feel unsafe now?: No Are you made to feel afraid or neglected: No Advance Directives: No Advance Directives Information Provided: Yes Advance Directives on File: Yes Recently lost weight without trying: Unsure Nutrition Risks: No Nutritional Risk Patient : No : No Poor oral hygiene: No service: No Current occupational status: employed Cognitive needs: No Hearing needs: No Vision needs: Yes Meds Allergies Allergy/AdvReac Type Severity Reaction Status Date / Time No Known Allergies Allergy Verified 04/03/24 14:33 [No Known Allergies*] Active Medications: Current Medications Acetaminophen (Acetaminophen 325 Mg Tablet) 650 mg PO Q6H PRN PRN Reason: Pain, Mild (Pain Scale 1-3), fever or headache Last Admin: 04/11/24 07:50 Dose: 650 mg Albuterol/Ipratropium (Albuterol/Iprat 2.5/0.5mg 3 Ml Ampul.Neb) 3 ml INHALE DAILY PRN PRN Reason: Shortness Of Breath Or Wheezing Calcium Carbonate (Calcium Carbonate 750 Mg Tab.Chew) 750 mg PO Q4H PRN PRN Reason: Heartburn Fluticasone/Vilanterol (Fluticasone/Vilanterol 200/25 Blst.W.Dev) 1 puff INHALE RDAILY [facility] Last Admin: 04/11/24 09:32 Dose: 1 puff Guaifenesin/Dextromethorphan (Guaifenesin Dm 200/20/10 Ml 10 Ml Syrup) 10 ml PO TID [facility] Magnesium Hydroxide (Milk Of Magnesia 30 Ml Oral.Susp) 30 ml PO DAILY PRN PRN Reason: Constipation Melatonin (Melatonin 3 Mg Tablet) 6 mg PO BEDTIME PRN PRN Reason: Insomnia Morphine Sulfate (Morphine Sulfate 2 Mg/Ml Cartridge) 2 mg IVPUSH Q4H PRN; Protocol PRN Reason: Pain, Severe (Pain Scale 7-10) Nicotine Polacrilex (Nicotine Polacrilex Lozenge 2 Mg Lozenge) 2 mg BUCCAL Q2H PRN PRN Reason: Nicotine Cravings Pt Own (Tiotropium [place] [Spiriva Respimat] 1.25 Mcg/Actuation Mist) 1 puff PO [facility] Last Admin: 04/11/24 11:42 Dose: Not Given Omeprazole (Omeprazole 20 Mg Capsule.Dr) 20 mg PO DAILY@0630 [facility] Last Admin: 04/11/24 07:50 Dose: 20 mg Ondansetron HCl (Ondansetron Hcl 4 Mg/2 Ml Vial) 4 mg IVPUSH Q8H PRN PRN Reason: Nausea and Vomiting Last Admin: 04/09/24 12:51 Dose: 4 mg Sodium Chloride (0.9 % Sodium Chloride Flush 3 Ml Syringe) 3 ml IVFLUSH QSHIFT [facility] Last Admin: 04/11/24 07:50 Dose: 3 ml Zolpidem Tartrate (Zolpidem Tartrate 5 Mg Tablet) 10 mg PO BEDTIME PRN PRN Reason: insomnia Home Medications ?Medication ?Instructions ?Recorded ?Confirmed ?Last Taken ?Type omeprazole 40 mg capsule,delayed 40 mg PO BID PRN Acid Reflux 03/13/23 04/09/24 Unknown History release nebulizers 08/10/23 04/03/24 Unknown History ipratropium 0.5 mg-albuterol 3 mg 3 ml inhalation DAILY PRN 04/09/24 04/09/24 Unknown History (2.5 mg base)/3 mL nebulization Shortness Of Breath Or Wheezing soln Physical Exam Vital Signs: Vital Signs: Last Vital Signs Temp 98.0 F 04/11/24 12:05 Pulse 114 H 04/11/24 12:05 Resp 20 04/11/24 12:05 BP 123/58 L 04/11/24 12:05 Pulse Ox 96 04/11/24 12:05 O2 Del Method Nasal Cannula 04/11/24 12:05 O2 Flow Rate 2 04/11/24 12:05 Oxygen Flow Rate 2 04/10/24 02:30 BMI result Body Mass Index 19.8 Const: General: no acute distress and alert Nutritional Appearance: not obese Orientation/consciousness: Other orientation findings ( oriented) HEENT: Head: Yes atraumatic Eyes: General: appearance normal, both eyes and all related structures Sclerae: sclerae normal EOM: EOMs intact bilaterally Neck: Neck: Yes supple Lymphatic: no lymphadenopathy noted Chest: Other: left-sided chest tube with air leak Resp: Effort & Inspection: normal respiratory effort and no use of accessory muscles Auscultation: clear to auscultation bilaterally Cardio: Rate: tachycardic Rhythm: regular rhythm Heart sounds: no gallops, no murmurs and no rubs Skin: General skin exam: other ( warm) Extrem: General: No clubbing, No cyanosis and No edema Results Laboratory Findings 04/11/24 07:00 04/11/24 07:00 ABG, PT/INR, D-dimer: PT/INR, D-dimer PT 10.2 SEC (10.9-12.4) L 04/09/24 09:14 INR 0.9 (0.9-1.1) 04/09/24 09:14 Abnormal lab findings: Abnormal Labs 04/09/24 04/09/24 04/09/24 09:14 15:28 23:30 WBC 16.3 H Neut % (Auto) Lymph % (Auto) [place] # (Auto) Abs Immat Gran (auto) Absolute Neuts (auto) PT 10.2 L Carbon Dioxide 31 H Anion Gap 9 L BUN 17 H POC Glucose 124 H Alkaline Phosphatase 04/10/24 04/11/24 06:47 07:00 WBC 13.4 H Neut % (Auto) 73.2 H Lymph % (Auto) 16.2 L [place] # (Auto) 1.3 H Abs Immat Gran (auto) 0.06 H Absolute Neuts (auto) 9.8 H PT Carbon Dioxide 33 H 30 H Anion Gap BUN 18 H 28 H POC Glucose Alkaline Phosphatase 119 H Assessment and Plan (1) Pneumothorax after biopsy: Status: Acute (2) Hemoptysis: Status: Acute (3) Left upper lobe pulmonary nodule: Status: Acute (4) COPD (chronic obstructive pulmonary disease): Qualifiers: COPD type: chronic bronchitis Chronic bronchitis type: mixed simple and mucopurulent Qualified Code(s): J41.8 - Mixed simple and mucopurulent chronic bronchitis Status: Acute Plan Impression: 73-year-old lady status post transthoracic biopsy of a left upper lobe nodule complicated by pneumothorax and small volume hemoptysis. Hemoptysis is improving. Pneumothorax status post chest tube, still with air leak. Recommendations: At this time will continue with conservative management. When air leak resolves, consider clamping chest tube And assessing with chest x-ray. Hemoptysis is small volume, self-limited, and improving. At this time does not require further investigation. Procedures Date of Service Date of Service: 04/11/24
--- NOTE | 2024-04-11 14:26 | P.PNIM_ITS ---
Subjective Subjective Date of Service: 04/11/24 Interval History: Complaining of hemoptysis, coughing up small amount of bloody sputum that started yesterday, good worsened this morning, denies fever chills, complaining of chest discomfort at site of chest tube, denies shortness of breath, not on home oxygen, no acute events overnight. Review of Systems All other system reviewed and are negative. Physical Exam 2 Vital Signs: Vital Signs: Last Vital Signs Temp 98.0 F 04/11/24 12:05 Pulse 114 H 04/11/24 12:05 Resp 20 04/11/24 12:05 BP 123/58 L 04/11/24 12:05 Pulse Ox 96 04/11/24 12:05 O2 Del Method Nasal Cannula 04/11/24 12:05 O2 Flow Rate 2 04/11/24 12:05 Oxygen Flow Rate 2 04/10/24 02:30 BMI result Body Mass Index 19.8 Const: Other: General awake alert in no acute distress. Neck supple no JVD. CVS regular rate rhythm, Respiratory lungs diminished breath sound , no respiratory distress, no wheeze, no rhonchi. Left anterior chest tube in place/biopsy site left upper back with no hematoma Gastrointestinal abdomen soft, non tender, bowel sounds audible Extremities no edema. Neuro non focal Skin no rash Psych appropriate affect Objective Data Active Medications Acetaminophen (Acetaminophen 325 Mg Tablet) 650 mg PO Q6H PRN PRN Reason: Pain, Mild (Pain Scale 1-3), fever or headache Last Admin: 04/11/24 07:50 Dose: 650 mg Documented By: POP Albuterol/Ipratropium (Albuterol/Iprat 2.5/0.5mg 3 Ml Ampul.Neb) 3 ml INHALE DAILY PRN PRN Reason: Shortness Of Breath Or Wheezing Calcium Carbonate (Calcium Carbonate 750 Mg Tab.Chew) 750 mg PO Q4H PRN PRN Reason: Heartburn Fluticasone/Vilanterol (Fluticasone/Vilanterol 200/25 Blst.W.Dev) 1 puff INHALE RDAILY [facility] Last Admin: 04/11/24 09:32 Dose: 1 puff Documented By: PIPPA Guaifenesin/Dextromethorphan (Guaifenesin Dm 200/20/10 Ml 10 Ml Syrup) 10 ml PO TID [facility] Magnesium Hydroxide (Milk Of Magnesia 30 Ml Oral.Susp) 30 ml PO DAILY PRN PRN Reason: Constipation Melatonin (Melatonin 3 Mg Tablet) 6 mg PO BEDTIME PRN PRN Reason: Insomnia Morphine Sulfate (Morphine Sulfate 2 Mg/Ml Cartridge) 2 mg IVPUSH Q4H PRN; Protocol PRN Reason: Pain, Severe (Pain Scale 7-10) Nicotine Polacrilex (Nicotine Polacrilex Lozenge 2 Mg Lozenge) 2 mg BUCCAL Q2H PRN PRN Reason: Nicotine Cravings Pt Own (Tiotropium [place] [Spiriva Respimat] 1.25 Mcg/Actuation Mist) 1 puff PO RDAILY [facility] Last Admin: 04/11/24 11:42 Dose: Not Given Documented By: POP Non-Admin Reason: Previously Administered Omeprazole (Omeprazole 20 Mg Capsule.Dr) 20 mg PO DAILY@0630 [facility] Last Admin: 04/11/24 07:50 Dose: 20 mg Documented By: POP Ondansetron HCl (Ondansetron Hcl 4 Mg/2 Ml Vial) 4 mg IVPUSH Q8H PRN PRN Reason: Nausea and Vomiting Last Admin: 04/09/24 12:51 Dose: 4 mg Documented By: DANGELL Sodium Chloride (0.9 % Sodium Chloride Flush 3 Ml Syringe) 3 ml IVFLUSH QSHIFT [facility] Last Admin: 04/11/24 07:50 Dose: 3 ml Documented By: POP Zolpidem Tartrate (Zolpidem Tartrate 5 Mg Tablet) 10 mg PO BEDTIME PRN PRN Reason: insomnia Labs 04/11/24 07:00 04/11/24 07:00 Labs: Laboratory Results - last 24 hr 04/11/24 07:00 MCV 92.0 MCH 31.1 MCHC 33.8 RDW 12.6 Plt Count 202 MPV 10.4 Absolute Nucleated RBC 0.000 Nucleated RBC % (auto) 0.0 Anion Gap 15 Estim Creat Clear Calc 42.8 Estimated GFR > 60 Random Glucose 96 Calcium 9.9 Assessment and Plan (1) Hemoptysis: Status: Acute (2) Pneumothorax after biopsy: Status: Acute (3) Left upper lobe pulmonary nodule: Status: Acute Plan 73 year old women s/p lung biopsy admitted due to large pneumothorax after procedure Acute Large pneumothorax Status post lung biopsy on 04/09 complicated by pneumothorax Chest tube with persistent air leakage Thoracic surgery/pulmonology following, continue serial x-ray Continue prn morphine/cough medicine tid chest x-ray this a.m. pending Leukocytosis likely reactive resolved Continue chest tube/serial chest x-ray as per thoracic surgery Biopsy showed no malignant cells. Acute hypoxic respiratory failure likely due to above Continue O2 support and wean as tolerated not on home O2. Hemoptysis Likely due to capillary rupture with increased thoracic pressure DC heparin, stable hematocrit Seen by pulmonology no further investigation at this time, continue to follow History of bladder cancer Follow-up outpatient with [facility] [place] Oncology Active Smoker smokes 5 cigarettes a day , continue Nicorette lozenges Discussed importance of smoking cessation COPD No acute exacerbation Continue home inhalers Breo and Spiriva and as needed duoneb updraft GERD scheduled PPI DVT prophylaxis with compression boots Full code In my clinical judgment patient requires continued inpatient hospitalization from treatment of acute left pneumothorax requiring chest tube and expert consultation. Quality Stroke Does the patient have a stroke diagnosis?: No VTE Prior VTE?: No VTE Risk Level:: Medical - moderate - high VTE Device Contraindication: Treatment Not Indicated VTE Drug Contraindication: N/A - Med Ordered
[2024-04-11 15:10] VITALS: BP 116/59; PULSE 97; RESP 16; TEMP 36.7; O2SAT 96
[2024-04-11 19:35] VITALS: BP 110/75; PULSE 97; RESP 18; TEMP 35.9; O2SAT 97
[2024-04-11] MEDS: SYMBICORT 2 EACH PO (22:43)
[2024-04-12] MEDS: 0.9 % Sodium Chloride Flush 3 ML SYRINGE IVFLUSH ×3 (00:10→15:08)
[2024-04-12 03:51] VITALS: BP 134/63; PULSE 88; RESP 20; TEMP 36.1; O2SAT 92
[2024-04-12] MEDS: Omeprazole 20 MG CAPSULE.DR PO (05:36)
[2024-04-12 06:31] LABS: Hematocrit 44.4 % (37.0-47.0); Hemoglobin 14.8 g/dl (12.0-16.0); Mean Corpuscular HGB Conc 33.3 g/dl (31.0-35.0); Mean Corpuscular Volume 92.9 fL (80.0-98.0); Mean Platelet Volume 10.1 fL (9.4-12.3); Platelet Count 208 X10*3/uL (160-400); Red Blood Count 4.78 X10*6/uL (4.20-5.50); Red Cell Distribution Width 12.5 % (11.0-16.0); White Blood Count 10.1 X10*3/uL (4.8-10.8)
[2024-04-12 07:43] VITALS: BP 115/55; PULSE 86; RESP 20; TEMP 36.6; O2SAT 92
--- NOTE | 2024-04-12 08:39 | PM.PNTS ---
Subjective Subjective Date of Service: 04/12/24 Interval history: Had increasing pneumothorax on f/u CXR yesterday after being placed to water seal. Chest tube put back on suction. Feels well this morning, denies shortness of breath. Asking to ambulate to bathroom instead of using commode. Blood in sputum has stopped. Physical Exam Vital Signs: Vital Signs: Last Vital Signs Temp 97.8 F 04/12/24 07:43 Pulse 86 04/12/24 07:43 Resp 20 04/12/24 07:43 BP 115/55 L 04/12/24 07:43 Pulse Ox 92 04/12/24 07:43 O2 Del Method Room Air 04/12/24 07:43 O2 Flow Rate 2 04/12/24 03:51 Oxygen Flow Rate 2 04/10/24 02:30 BMI result Body Mass Index 19.8 Const: General: comfortable, no acute distress and alert Orientation/consciousness: patient oriented x3 Chest: Other: chest tube anterior chest, dressing dry pleurvac with scant output, small air leak Resp: Effort & Inspection: normal respiratory effort, no respiratory distress and not tachypneic Skin: General skin exam: no rashes or lesions noted Neuro: General: patient oriented x3 and moves all extremities Procedures Date of Service Date of Service: 04/12/24 Progress Note: A&P Assessment and plan (1) Pneumothorax after biopsy: Status: Acute (2) Hemoptysis: Status: Acute Plan F/u CXR today shows lung back up. Small air leak persists. Stable from respiratory standpoint. Continue chest tube to suction today. If tomorrow morning CXR status quo, can attempt to place back on water seal, repeat CXR later in the morning with removal the following day if tolerating. Hemoptysis resolved. Patient comfortable with plan. Ok to dc suction to ambulate to bathroom. Time Spent With Patient Time: Total time managing care of this patient today ____ minutes. Quality Stroke Does the patient have a stroke diagnosis?: No VTE Prior VTE?: No VTE Risk Level:: Medical - moderate - high VTE Device Contraindication: Treatment Not Indicated VTE Drug Contraindication: N/A - Med Ordered
[2024-04-12] MEDS: TIOTROPIUM BROMIDE PO (08:46)
[2024-04-12] MEDS: SYMBICORT 2 EACH PO ×2 (08:46→21:45)
[2024-04-12] MEDS: ACTUATION MIST PO (08:46)
[2024-04-12] MEDS: Acetaminophen 325 MG TABLET 650 MG PO ×2 (08:51→18:21)
--- NOTE | 2024-04-12 09:21 | P.PNIM_ITS ---
Subjective Subjective Date of Service: 04/12/24 Interval History: seen and examined this AM feels improved -- breathing easier; reports resolving hemoptysis Review of Systems Negative except HPI/interval history. Physical Exam 2 Vital Signs: Vital Signs: Last Vital Signs Temp 97.8 F 04/12/24 07:43 Pulse 86 04/12/24 07:43 Resp 20 04/12/24 07:43 BP 115/55 L 04/12/24 07:43 Pulse Ox 92 04/12/24 07:43 O2 Del Method Room Air 04/12/24 07:43 O2 Flow Rate 2 04/12/24 03:51 Oxygen Flow Rate 2 04/10/24 02:30 BMI result Body Mass Index 19.8 Const: Other: General - no acute distress, appears comfortable Cardiovascular - regular rate and rhythm, S1-S2 Lungs - air entry equal b/l Abdomen - soft, nontender, no rebound or guarding Extremities - no edema bilaterally Neuro - awake and alert, no focal deficits Objective Data Active Medications Acetaminophen (Acetaminophen 325 Mg Tablet) 650 mg PO Q6H PRN PRN Reason: Pain, Mild (Pain Scale 1-3), fever or headache Last Admin: 04/12/24 08:51 Dose: 650 mg Documented By: SAUL Albuterol/Ipratropium (Albuterol/Iprat 2.5/0.5mg 3 Ml Ampul.Neb) 3 ml INHALE DAILY PRN PRN Reason: Shortness Of Breath Or Wheezing Calcium Carbonate (Calcium Carbonate 750 Mg Tab.Chew) 750 mg PO Q4H PRN PRN Reason: Heartburn Guaifenesin/Dextromethorphan (Guaifenesin Dm 200/20/10 Ml 10 Ml Syrup) 10 ml PO TID KIRAN Last Admin: 04/12/24 08:46 Dose: Not Given Documented By: SAUL Non-Admin Reason: Patient Refused Magnesium Hydroxide (Milk Of Magnesia 30 Ml Oral.Susp) 30 ml PO DAILY PRN PRN Reason: Constipation Melatonin (Melatonin 3 Mg Tablet) 6 mg PO BEDTIME PRN PRN Reason: Insomnia Morphine Sulfate (Morphine Sulfate 2 Mg/Ml Cartridge) 2 mg IVPUSH Q4H PRN; Protocol PRN Reason: Pain, Severe (Pain Scale 7-10) Nicotine Polacrilex (Nicotine Polacrilex Lozenge 2 Mg Lozenge) 2 mg BUCCAL Q2H PRN PRN Reason: Nicotine Cravings Pt Own (Tiotropium [place] [Spiriva Respimat] 1.25 Mcg/Actuation Mist) 1 puff PO RDAILY [facility] Last Admin: 04/12/24 08:46 Dose: 1 puff Documented By: SAUL Pt Own (Symbicort (160/4.5mcg Inhaler)) 2 each PO RBID [facility] Last Admin: 04/12/24 08:46 Dose: 2 each Documented By: SAUL Omeprazole (Omeprazole 20 Mg Capsule.Dr) 20 mg PO DAILY@0630 [facility] Last Admin: 04/12/24 05:36 Dose: 20 mg Documented By: FROY Ondansetron HCl (Ondansetron Hcl 4 Mg/2 Ml Vial) 4 mg IVPUSH Q8H PRN PRN Reason: Nausea and Vomiting Last Admin: 04/09/24 12:51 Dose: 4 mg Documented By: DANGELDesi Sodium Chloride (0.9 % Sodium Chloride Flush 3 Ml Syringe) 3 ml IVFLUSH QSHIFT [facility] Last Admin: 04/12/24 08:46 Dose: 3 ml Documented By: SAUL Zolpidem Tartrate (Zolpidem Tartrate 5 Mg Tablet) 10 mg PO BEDTIME PRN PRN Reason: insomnia Labs 04/12/24 05:58 04/11/24 07:00 Labs: Laboratory Results - last 24 hr 04/12/24 05:58 MCV 92.9 MCH 31.0 MCHC 33.3 RDW 12.5 Plt Count 208 MPV 10.1 Absolute Nucleated RBC 0.000 Nucleated RBC % (auto) 0.0 Assessment and Plan (1) Hemoptysis: Status: Acute (2) Pneumothorax after biopsy: Status: Acute (3) Left upper lobe pulmonary nodule: Status: Acute Plan 73 year old women s/p lung biopsy admitted due to large pneumothorax after procedure Acute Large pneumothorax Status post lung biopsy on 04/09 complicated by pneumothorax CXR - appears improved compared to yesterday, pending formal read by radiology thoracic surgery following -- see their notes for full details Continue prn morphine/cough medicine tid Leukocytosis likely reactive resolved Continue chest tube/serial chest x-ray as per thoracic surgery Biopsy showed no malignant cells. Acute hypoxic respiratory failure likely due to above Continue O2 support and wean as tolerated not on home O2. Hemoptysis Likely due to capillary rupture with increased thoracic pressure DC heparin, stable hematocrit Seen by pulmonology no further investigation at this time, continue to follow History of bladder cancer Follow-up outpatient with [facility] [place] Oncology Active Smoker smokes 5 cigarettes a day , continue Nicorette lozenges Discussed importance of smoking cessation COPD No acute exacerbation Continue home inhalers Breo and Spiriva and as needed duoneb updraft GERD scheduled PPI DVT prophylaxis with compression boots Full code In my clinical judgment patient requires continued inpatient hospitalization from treatment of acute left pneumothorax requiring chest tube and expert consultation. Quality Stroke Does the patient have a stroke diagnosis?: No VTE Prior VTE?: No VTE Risk Level:: Medical - moderate - high VTE Device Contraindication: Treatment Not Indicated VTE Drug Contraindication: N/A - Med Ordered
[2024-04-12 11:53] VITALS: BP 111/54; PULSE 95; RESP 20; TEMP 36.3; O2SAT 97
--- NOTE | 2024-04-12 15:23 | MHC.CM.PN ---
EMR reviewed and per MD rounds, pt is not medically cleared for discharge due to management of acute left pneumothorax with chest tube in place.
[2024-04-12 16:00] VITALS: BP 117/72; PULSE 105; RESP 18; TEMP 36.4; O2SAT 94
[2024-04-12 20:00] VITALS: BP 122/60; PULSE 103; RESP 18; TEMP 36.3; O2SAT 93
[2024-04-13 03:08] VITALS: BP 131/60; PULSE 100; RESP 18; TEMP 36.6; O2SAT 95
[2024-04-13] MEDS: Omeprazole 20 MG CAPSULE.DR PO (06:00)
[2024-04-13 08:00] VITALS: BP 129/71; PULSE 110; RESP 22; TEMP 36.4; O2SAT 96
[2024-04-13] MEDS: ACTUATION MIST PO (08:10)
[2024-04-13] MEDS: TIOTROPIUM BROMIDE PO (08:10)
[2024-04-13] MEDS: 0.9 % Sodium Chloride Flush 3 ML SYRINGE IVFLUSH ×4 (08:12→19:32)
[2024-04-13] MEDS: SYMBICORT 2 EACH PO ×2 (08:15→19:44)
[2024-04-13 12:47] VITALS: BP 131/60; PULSE 111; RESP 20; TEMP 36.9; O2SAT 98
--- NOTE | 2024-04-13 12:47 | P.PNIM_ITS ---
Subjective Subjective Date of Service: 04/13/24 Interval History: seen and examined this AM feels improved -- breathing easier; reports resolving hemoptysis still having pain at CT site Review of Systems Negative except HPI/interval history. Physical Exam 2 Vital Signs: Vital Signs: Last Vital Signs Temp 97.5 F 04/13/24 08:00 Pulse 110 H 04/13/24 08:00 Resp 22 H 04/13/24 08:00 BP 129/71 04/13/24 08:00 Pulse Ox 96 04/13/24 08:00 O2 Del Method Nasal Cannula 04/13/24 08:00 O2 Flow Rate 3 04/13/24 08:00 Oxygen Flow Rate 2 04/10/24 02:30 BMI result Body Mass Index 19.8 Appearing in no acute distress lung sounds are clear to auscultation, Chest tube in place heart regular rate rhythm, clear S1, S2 positive bowel sounds, abdomen is soft, nontender neuro patient is alert x3, no focal deficits Objective Data Active Medications Acetaminophen (Acetaminophen 325 Mg Tablet) 650 mg PO Q6H PRN PRN Reason: Pain, Mild (Pain Scale 1-3), fever or headache Last Admin: 04/12/24 18:21 Dose: 650 mg Documented By: SALU Albuterol/Ipratropium (Albuterol/Iprat 2.5/0.5mg 3 Ml Ampul.Neb) 3 ml INHALE DAILY PRN PRN Reason: Shortness Of Breath Or Wheezing Calcium Carbonate (Calcium Carbonate 750 Mg Tab.Chew) 750 mg PO Q4H PRN PRN Reason: Heartburn Guaifenesin/Dextromethorphan (Guaifenesin Dm 200/20/10 Ml 10 Ml Syrup) 10 ml PO TID KIRAN Last Admin: 04/13/24 08:13 Dose: Not Given Documented By: POP Non-Admin Reason: Patient Refused Magnesium Hydroxide (Milk Of Magnesia 30 Ml Oral.Susp) 30 ml PO DAILY PRN PRN Reason: Constipation Melatonin (Melatonin 3 Mg Tablet) 6 mg PO BEDTIME PRN PRN Reason: Insomnia Morphine Sulfate (Morphine Sulfate 2 Mg/Ml Cartridge) 2 mg IVPUSH Q4H PRN; Protocol PRN Reason: Pain, Severe (Pain Scale 7-10) Nicotine Polacrilex (Nicotine Polacrilex Lozenge 2 Mg Lozenge) 2 mg BUCCAL Q2H PRN PRN Reason: Nicotine Cravings Pt Own (Tiotropium [place] [Spiriva Respimat] 1.25 Mcg/Actuation Mist) 1 puff PO RDAILY [facility] Last Admin: 04/13/24 08:10 Dose: 1 puff Documented By: MELISSA Pt Own (Symbicort (160/4.5mcg Inhaler)) 2 each PO RBID [facility] Last Admin: 04/13/24 08:15 Dose: 2 each Documented By: MELISSA Omeprazole (Omeprazole 20 Mg Capsule.Dr) 20 mg PO DAILY@0630 [facility] Last Admin: 04/13/24 06:00 Dose: 20 mg Documented By: CONSTANTINE Ondansetron HCl (Ondansetron Hcl 4 Mg/2 Ml Vial) 4 mg IVPUSH Q8H PRN PRN Reason: Nausea and Vomiting Last Admin: 04/09/24 12:51 Dose: 4 mg Documented By: DANGELDesi Sodium Chloride (0.9 % Sodium Chloride Flush 3 Ml Syringe) 3 ml IVFLUSH QSHIFT [facility] Last Admin: 04/13/24 08:12 Dose: 3 ml Documented By: POP Zolpidem Tartrate (Zolpidem Tartrate 5 Mg Tablet) 10 mg PO BEDTIME PRN PRN Reason: insomnia Labs 04/12/24 05:58 04/11/24 07:00 Assessment and Plan (1) Hemoptysis: Status: Acute (2) Pneumothorax after biopsy: Status: Acute (3) Left upper lobe pulmonary nodule: Status: Acute Plan 73 year old women s/p lung biopsy admitted due to large pneumothorax after procedure Acute Large pneumothorax Status post lung biopsy on 04/09 complicated by pneumothorax thoracic surgery following Continue prn morphine/cough medicine tid Continue chest tube/serial chest x-ray as per thoracic surgery Biopsy showed no malignant cells. CXR showing> worsening pneumo, general surgery consultation pending Acute hypoxic respiratory failure likely due to above Continue O2 support and wean as tolerated not on home O2. Hemoptysis Likely due to capillary rupture with increased thoracic pressure DC heparin, stable hematocrit Seen by pulmonology no further investigation at this time, continue to follow History of bladder cancer Follow-up outpatient with [facility] [place] Oncology Active Smoker smokes 5 cigarettes a day , continue Nicorette lozenges Discussed importance of smoking cessation COPD No acute exacerbation Continue home inhalers Breo and Spiriva and as needed duoneb updraft GERD scheduled PPI DVT prophylaxis with compression boots Attending Hernan Parker Full code In my clinical judgment patient requires continued inpatient hospitalization from treatment of acute left pneumothorax requiring chest tube and expert consultation. Quality Stroke Does the patient have a stroke diagnosis?: No VTE Prior VTE?: No VTE Risk Level:: Medical - moderate - high VTE Device Contraindication: Treatment Not Indicated VTE Drug Contraindication: N/A - Med Ordered
[2024-04-13 16:00] VITALS: BP 118/76; PULSE 108; RESP 18; TEMP 37; O2SAT 93
[2024-04-13] MEDS: ondansetron HCL 4 MG/2 ML VIAL IVPUSH (17:28)
[2024-04-13] MEDS: Morphine Sulfate 2 MG/ML CARTRIDGE IVPUSH (18:09)
--- NOTE | 2024-04-13 18:42 | PM.PNTS ---
Subjective Subjective Date of Service: 04/15/24 Interval history: Patient has had increasing shortness of breath. A.m. chest x-ray demonstrates significant increase in pneumothorax. IR chest tube appears kinked. Physical Exam Vital Signs: Vital Signs: Last Vital Signs Temp 98.6 F 04/13/24 16:00 Pulse 108 H 04/13/24 16:00 Resp 18 04/13/24 16:00 BP 118/76 04/13/24 16:00 Pulse Ox 93 04/13/24 16:00 O2 Del Method Nasal Cannula 04/13/24 16:00 O2 Flow Rate 3 04/13/24 16:00 Oxygen Flow Rate 2 04/10/24 02:30 BMI result Body Mass Index 19.8 Chest: Other: Decreased breath sounds left. . Procedures Date of Service Date of Service: 04/15/24 Procedure Note Procedure Note: Patient required urgent chest tube placement. Risks, benefits, alternatives of procedure reviewed with the patient included but not limited to bleeding, infection, recurrent pneumothorax, numbness, pain, scarring, tube dislodgement the patient wished to proceed. All questions answered. After appropriate positioning, patient underwent IV analgesia with morphine and left chest was prepped and draped in usual sterile fashion. An anterior axillary line 5th intercostal space, uneventful chest tube placement under sterile technique was performed with 24 [place] chest tube. Gush of air was retrieved upon entry. Chest tube was uneventfully placed and secured with 0 silk suture x2. Occlusive dressing applied with occlusive dressing and silk tape.. Chest tube connections were taped and secured, mesentery to chest wall with was applied to chest tube. Postprocedure chest x-ray pending. Patient had previously IR placed chest tube removed with the Vaseline and gauze occlusive dressing placed. Progress Note: A&P Assessment and plan (1) Pneumothorax after biopsy: Status: Acute (2) Left upper lobe pulmonary nodule: Status: Acute Plan Status post chest tube placement. Well tolerated. Time Spent With Patient Time: Total time managing care of this patient today ____ minutes. Quality Stroke Does the patient have a stroke diagnosis?: No VTE Prior VTE?: No VTE Risk Level:: Medical - moderate - high VTE Device Contraindication: Treatment Not Indicated VTE Drug Contraindication: N/A - Med Ordered
[2024-04-13] MEDS: Lidocaine HCl 1 % MPF 30 ML VIAL SUBCUT (18:54)
[2024-04-13] MEDS: Metoclopramide HCl 10 MG/2 ML VIAL IVPUSH (19:32)
[2024-04-13] MEDS: Acetaminophen 325 MG TABLET 650 MG PO (19:44)
[2024-04-13 20:00] VITALS: BP 135/68; PULSE 102; RESP 18; TEMP 36.6; O2SAT 95
[2024-04-13 21:00] VITALS: PULSE 97; RESP 18
[2024-04-14] VITALS (8 sets, daily range): BP systolic 107–141; BP diastolic 57–64; PULSE 86–102; RESP 16–20; TEMP 36.1–36.5; O2SAT 94–97
[2024-04-14] MEDS: Acetaminophen 325 MG TABLET 650 MG PO ×5 (02:36→20:17)
[2024-04-14] MEDS: Omeprazole 20 MG CAPSULE.DR PO (05:31)
[2024-04-14] MEDS: 0.9 % Sodium Chloride Flush 3 ML SYRINGE IVFLUSH ×2 (07:38→20:18)
[2024-04-14] MEDS: SYMBICORT 2 EACH PO ×2 (08:46→20:17)
[2024-04-14] MEDS: ACTUATION MIST PO (08:47)
[2024-04-14] MEDS: TIOTROPIUM BROMIDE PO (08:47)
--- NOTE | 2024-04-14 09:36 | PM.PNGS ---
Subjective Subjective Date of Service: 04/14/24 Interval history: Patient reports some pain from the chest tube insertion site but overall feels much improved this morning. No respiratory distress. Physical Exam Vital Signs: Vital Signs: Last Vital Signs Temp 96.9 F 04/14/24 08:00 Pulse 99 04/14/24 08:00 Resp 20 04/14/24 08:00 BP 107/58 L 04/14/24 08:00 Pulse Ox 97 04/14/24 08:00 O2 Del Method Nasal Cannula 04/14/24 08:00 O2 Flow Rate 3 04/14/24 08:00 Oxygen Flow Rate 2 04/10/24 02:30 BMI result Body Mass Index 19.8 Const: General: no acute distress Nutritional Appearance: well nourished Orientation/consciousness: patient oriented x3 Chest: Other: Chest tube in place with minimal serosanguineous discharge. No air leak identified. Tube on water seal. Resp: Effort & Inspection: normal respiratory effort, no audible wheezes and no cough Skin: General skin exam: no rashes or lesions noted Neuro: General: patient oriented x3 Objective Data Active Medications Acetaminophen (Acetaminophen 325 Mg Tablet) 650 mg PO Q6H PRN PRN Reason: Pain, Mild (Pain Scale 1-3), fever or headache Last Admin: 04/14/24 07:36 Dose: 650 mg Documented By: POP Albuterol/Ipratropium (Albuterol/Iprat 2.5/0.5mg 3 Ml Ampul.Neb) 3 ml INHALE DAILY PRN PRN Reason: Shortness Of Breath Or Wheezing Calcium Carbonate (Calcium Carbonate 750 Mg Tab.Chew) 750 mg PO Q4H PRN PRN Reason: Heartburn Guaifenesin/Dextromethorphan (Guaifenesin Dm 200/20/10 Ml 10 Ml Syrup) 10 ml PO TID KIRAN Last Admin: 04/14/24 08:21 Dose: Not Given Documented By: POP Non-Admin Reason: Patient Refused Magnesium Hydroxide (Milk Of Magnesia 30 Ml Oral.Susp) 30 ml PO DAILY PRN PRN Reason: Constipation Melatonin (Melatonin 3 Mg Tablet) 6 mg PO BEDTIME PRN PRN Reason: Insomnia Morphine Sulfate (Morphine Sulfate 2 Mg/Ml Cartridge) 2 mg IVPUSH Q4H PRN; Protocol PRN Reason: Pain, Severe (Pain Scale 7-10) Last Admin: 04/13/24 18:09 Dose: 2 mg Documented By: POP Nicotine Polacrilex (Nicotine Polacrilex Lozenge 2 Mg Lozenge) 2 mg BUCCAL Q2H PRN PRN Reason: Nicotine Cravings Pt Own (Tiotropium [place] [Spiriva Respimat] 1.25 Mcg/Actuation Mist) 1 puff PO RDAILY [facility] Last Admin: 04/14/24 08:47 Dose: 1 puff Documented By: POP Pt Own (Symbicort (160/4.5mcg Inhaler)) 2 each PO RBID [facility] [place] Last Admin: 04/14/24 08:46 Dose: 2 each Documented By: POP Omeprazole (Omeprazole 20 Mg Capsule.Dr) 20 mg PO DAILY@0630 [facility] Last Admin: 04/14/24 05:31 Dose: 20 mg Documented By: GASPER Ondansetron HCl (Ondansetron Hcl 4 Mg/2 Ml Vial) 4 mg IVPUSH Q8H PRN PRN Reason: Nausea and Vomiting Last Admin: 04/13/24 17:28 Dose: 4 mg Documented By: POP Sodium Chloride (0.9 % Sodium Chloride Flush 3 Ml Syringe) [facility] Last Admin: 04/14/24 07:38 Dose: 3 ml Documented By: POP Zolpidem Tartrate (Zolpidem Tartrate 5 Mg Tablet) 10 mg PO BEDTIME PRN PRN Reason: insomnia Labs 04/12/24 05:58 04/11/24 07:00 Procedures Date of Service Date of Service: 04/14/24 Progress Note: A&P Assessment and plan (1) Pneumothorax after biopsy: Status: Acute (2) Hemoptysis: Status: Acute (3) Left upper lobe pulmonary nodule: Status: Acute Plan Patient with postprocedure pneumothorax following lung biopsy. Recurrent pneumothorax noted yesterday and new chest tube placed. Patient feels much improved today. Chest x-ray this morning shows full expansion of the left lung without pneumothorax. Chest tube in good position. Time Spent With Patient Time: Total time managing care of this patient today ____ minutes. Quality Stroke Does the patient have a stroke diagnosis?: No VTE Prior VTE?: No VTE Risk Level:: Medical - moderate - high VTE Device Contraindication: Treatment Not Indicated VTE Drug Contraindication: N/A - Med Ordered
--- NOTE | 2024-04-14 09:44 | P.PNIM_ITS ---
Subjective Subjective Date of Service: 04/14/24 Interval History: seen and examined this AM New CT placed yesterday, sob has resolved still having pain at CT site Review of Systems Negative except HPI/interval history. Physical Exam 2 Vital Signs: Vital Signs: Last Vital Signs Temp 96.9 F 04/14/24 08:00 Pulse 99 04/14/24 08:00 Resp 20 04/14/24 08:00 BP 107/58 L 04/14/24 08:00 Pulse Ox 97 04/14/24 08:00 O2 Del Method Nasal Cannula 04/14/24 08:00 O2 Flow Rate 3 04/14/24 08:00 Oxygen Flow Rate 2 04/10/24 02:30 BMI result Body Mass Index 19.8 Appearing in no acute distress lung sounds are clear to auscultation heart regular rate rhythm, clear S1, S2 positive bowel sounds, abdomen is soft, nontender neuro patient is alert x3, no focal deficits Left side CT Objective Data Active Medications Acetaminophen (Acetaminophen 325 Mg Tablet) 650 mg PO Q6H PRN PRN Reason: Pain, Mild (Pain Scale 1-3), fever or headache Last Admin: 04/14/24 07:36 Dose: 650 mg Documented By: POP Albuterol/Ipratropium (Albuterol/Iprat 2.5/0.5mg 3 Ml Ampul.Neb) 3 ml INHALE DAILY PRN PRN Reason: Shortness Of Breath Or Wheezing Calcium Carbonate (Calcium Carbonate 750 Mg Tab.Chew) 750 mg PO Q4H PRN PRN Reason: Heartburn Guaifenesin/Dextromethorphan (Guaifenesin Dm 200/20/10 Ml 10 Ml Syrup) 10 ml PO TID KIRAN Last Admin: 04/14/24 08:21 Dose: Not Given Documented By: POP Non-Admin Reason: Patient Refused Magnesium Hydroxide (Milk Of Magnesia 30 Ml Oral.Susp) 30 ml PO DAILY PRN PRN Reason: Constipation Melatonin (Melatonin 3 Mg Tablet) 6 mg PO BEDTIME PRN PRN Reason: Insomnia Morphine Sulfate (Morphine Sulfate 2 Mg/Ml Cartridge) 2 mg IVPUSH Q4H PRN; Protocol PRN Reason: Pain, Severe (Pain Scale 7-10) Last Admin: 04/13/24 18:09 Dose: 2 mg Documented By: HO.RUANES Nicotine Polacrilex (Nicotine Polacrilex Lozenge 2 Mg Lozenge) 2 mg BUCCAL Q2H PRN PRN Reason: Nicotine Cravings Pt Own (Tiotropium [place] [Spiriva Respimat] 1.25 Mcg/Actuation Mist) 1 puff PO RDAILY [facility] TO [facility] Last Admin: 04/14/24 08:47 Dose: 1 puff Documented By: POP Pt Own (Symbicort (160/4.5mcg Inhaler)) 2 each PO RBID [facility] Last Admin: 04/14/24 08:46 Dose: 2 each Documented By: POP Omeprazole (Omeprazole 20 Mg Capsule.Dr) 20 mg PO DAILY@0630 [facility] Last Admin: 04/14/24 05:31 Dose: 20 mg Documented By: GASPER Ondansetron HCl (Ondansetron Hcl 4 Mg/2 Ml Vial) 4 mg IVPUSH Q8H PRN PRN Reason: Nausea and Vomiting Last Admin: 04/13/24 17:28 Dose: 4 mg Documented By: POP Sodium Chloride (0.9 % Sodium Chloride Flush 3 Ml Syringe) 3 ml IVFLUSH QSHIFT [facility] Last Admin: 04/14/24 07:38 Dose: 3 ml Documented By: POP Zolpidem Tartrate (Zolpidem Tartrate 5 Mg Tablet) 10 mg PO BEDTIME PRN PRN Reason: insomnia Labs 04/12/24 05:58 04/11/24 07:00 Assessment and Plan (1) Hemoptysis: Status: Acute (2) Pneumothorax after biopsy: Status: Acute (3) Left upper lobe pulmonary nodule: Status: Acute Plan 73 year old women s/p lung biopsy admitted due to large pneumothorax after procedure Acute Large pneumothorax Status post lung biopsy on 04/09 complicated by pneumothorax Continue prn morphine/cough medicine tid Biopsy showed no malignant cells. CXR 04/13 showing worsening pneumo> Thoracic surg changed CT placement to 5th intercostal space CXR today showing no visible pneumothorax, further orders as per thoracic surg Acute hypoxic respiratory failure likely due to above Continue O2 support and wean as tolerated not on home O2. Hemoptysis. Resolved Likely due to capillary rupture with increased thoracic pressure DC heparin, stable hematocrit Seen by pulmonology no further investigation at this time, continue to follow History of bladder cancer Follow-up outpatient with [facility] [place] Active Smoker smokes 5 cigarettes a day , continue Nicorette lozenges Discussed importance of smoking cessation COPD No acute exacerbation Continue home inhalers Breo and Spiriva and as needed duoneb updraft GERD scheduled PPI DVT prophylaxis with compression boots Attending Hernan Parker Full code In my clinical judgment patient requires continued inpatient hospitalization from treatment of acute left pneumothorax requiring chest tube and expert consultation. Quality Stroke Does the patient have a stroke diagnosis?: No VTE Prior VTE?: No VTE Risk Level:: Medical - moderate - high VTE Device Contraindication: Treatment Not Indicated VTE Drug Contraindication: N/A - Med Ordered
[2024-04-14] MEDS: Dextrose 5 % and 0.9 % NaCl 1,000 ML 80 ML IVCONT ×2 (11:03→23:31)
[2024-04-15] VITALS (7 sets, daily range): BP systolic 119–152; BP diastolic 53–68; PULSE 94–105; RESP 18–22; TEMP 36.4–37.3; O2SAT 92–99
[2024-04-15] MEDS: Acetaminophen 325 MG TABLET 650 MG PO ×4 (01:06→22:45)
[2024-04-15 06:24] LABS: Hematocrit 39.9 % (37.0-47.0); Mean Corpuscular HGB Conc 32.6 g/dl (31.0-35.0); Mean Corpuscular Hemoglobin 30.8 pg (27.0-33.0); Mean Corpuscular Volume 94.5 fL (80.0-98.0); Mean Platelet Volume 10.1 fL (9.4-12.3); Platelet Count 197 X10*3/uL (160-400); Red Blood Count 4.22 X10*6/uL (4.20-5.50); Red Cell Distribution Width 12.5 % (11.0-16.0); White Blood Count 11.5 X10*3/uL (4.8-10.8)
[2024-04-15] MEDS: Omeprazole 20 MG CAPSULE.DR PO (06:30)
[2024-04-15 07:01] LABS: Anion Gap 9 (12-20); Blood Urea Nitrogen 17 mg/dL (9-16); Carbon Dioxide 29 mmol/L (22-29); Chloride 107 mmol/L (96-108); Creatinine Clr Calc Pharmacy 54.5; Estimated Glomerular Filt Rate > 60; Glucose Random 127 mg/dL (60-115); Magnesium 1.9 mg/dL (1.6-2.6); Potassium 3.5 mmol/L (3.3-5.1); Sodium 141 mmol/L (135-145)
--- NOTE | 2024-04-15 07:27 | PM.PNTS ---
Subjective Subjective Date of Service: 04/15/24 Interval history: Patient complaining of chest tube discomfort. Respiratory symptoms have markedly improved. Chest tube/Pleur-evac; no obvious air leak. Minimal serosanguineous output. A.m. chest x-ray no pneumothorax. Physical Exam Vital Signs: Vital Signs: Last Vital Signs Temp 98.0 F 04/15/24 04:00 Pulse 98 04/15/24 04:00 Resp 18 04/15/24 04:00 BP 141/61 H 04/15/24 04:00 Pulse Ox 94 04/15/24 04:00 O2 Del Method Room Air 04/15/24 04:00 O2 Flow Rate 3 04/15/24 00:56 Oxygen Flow Rate 2 04/10/24 02:30 BMI result Body Mass Index 19.8 Chest: Other: Chest tube dressings clean dry and intact. For sounds bilaterally Procedures Date of Service Date of Service: 04/15/24 Progress Note: A&P Assessment and plan (1) Pneumothorax after biopsy: Status: Acute (2) Thoracostomy tube in place: Status: Acute Plan A.m. chest x-ray demonstrating no pneumothorax. No air leak and Pleur-evac. We will attempt chest tube to water seal get portable chest x-ray film a few hours after this. Time Spent With Patient Time: Total time managing care of this patient today ____ minutes. Quality Stroke Does the patient have a stroke diagnosis?: No VTE Prior VTE?: No VTE Risk Level:: Medical - moderate - high VTE Device Contraindication: Treatment Not Indicated VTE Drug Contraindication: N/A - Med Ordered
--- NOTE | 2024-04-15 09:30 | HO.PM.IMPN ---
Subjective Subjective Date of Service: 04/15/24 Interval History: seen and examined this AM CT placed repositioned, sob has resolved still having pain at CT site Review of Systems Negative except HPI/interval history. Physical Exam Vital Signs: Vital Signs: Last Vital Signs Temp 98.0 F 04/15/24 07:44 Pulse 97 04/15/24 07:44 Resp 18 04/15/24 07:44 BP 130/58 L 04/15/24 07:44 Pulse Ox 93 04/15/24 07:44 O2 Del Method Room Air 04/15/24 07:44 O2 Flow Rate 3 04/15/24 00:56 Oxygen Flow Rate 2 04/10/24 02:30 BMI result Body Mass Index 19.8 Appearing in no acute distress lung sounds are clear to auscultation heart regular rate rhythm, clear S1, S2 positive bowel sounds, abdomen is soft, nontender neuro patient is alert x3, no focal deficits CT to left chest Objective Data Active Medications Acetaminophen (Acetaminophen 325 Mg Tablet) 650 mg PO Q4H PRN PRN Reason: Pain, Mild (Pain Scale 1-3), fever or headache Last Admin: 04/15/24 08:35 Dose: 650 mg Documented By: MARTA Albuterol/Ipratropium (Albuterol/Iprat 2.5/0.5mg 3 Ml Ampul.Neb) 3 ml INHALE DAILY PRN PRN Reason: Shortness Of Breath Or Wheezing Calcium Carbonate (Calcium Carbonate 750 Mg Tab.Chew) 750 mg PO Q4H PRN PRN Reason: Heartburn Guaifenesin/Dextromethorphan (Guaifenesin Dm 200/20/10 Ml 10 Ml Syrup) 10 ml PO TID [facility] Last Admin: 04/15/24 07:50 Dose: Not Given Documented By: MARTA Non-Admin Reason: Patient Refused Dextrose/Sodium Chloride (D5ns) 1,000 mls @ 80 mls/hr IVCONT .[id number] [facility] Last Admin: 04/14/24 23:31 Dose: 80 mls/hr Documented By: GASPER Magnesium Hydroxide (Milk Of Magnesia 30 Ml Oral.Susp) 30 ml PO DAILY PRN PRN Reason: Constipation Melatonin (Melatonin 3 Mg Tablet) 6 mg PO BEDTIME PRN PRN Reason: Insomnia Morphine Sulfate (Morphine Sulfate 2 Mg/Ml Cartridge) 2 mg IVPUSH Q4H PRN; Protocol PRN Reason: Pain, Severe (Pain Scale 7-10) Last Admin: 04/13/24 18:09 Dose: 2 mg Documented By: POP Nicotine Polacrilex (Nicotine Polacrilex Lozenge 2 Mg Lozenge) 2 mg BUCCAL Q2H PRN PRN Reason: Nicotine Cravings Pt Own (Symbicort (160/4.5mcg Inhaler)) 2 each PO RBID [facility] Last Admin: 04/14/24 20:17 Dose: 2 each Documented By: GASPER Pt Own (Tiotropium [place] [Spiriva Respimat] 1.25 Mcg/Actuation Mist) 1 puff PO RDAILY [facility] Omeprazole (Omeprazole 20 Mg Capsule.Dr) 20 mg PO DAILY@0630 [facility] Last Admin: 04/15/24 06:30 Dose: 20 mg Documented By: GASPER Ondansetron HCl (Ondansetron Hcl 4 Mg/2 Ml Vial) 4 mg IVPUSH Q8H PRN PRN Reason: Nausea and Vomiting Last Admin: 04/13/24 17:28 Dose: 4 mg Documented By: POP Sodium Chloride (0.9 % Sodium Chloride Flush 3 Ml Syringe) 3 ml IVFLUSH QSHIFT [facility] Last Admin: 04/15/24 07:51 Dose: Not Given Documented By: MARTA Non-Admin Reason: IV Running Zolpidem Tartrate (Zolpidem Tartrate 5 Mg Tablet) 10 mg PO BEDTIME PRN PRN Reason: insomnia Labs 04/15/24 05:39 04/15/24 05:38 Labs: Laboratory Results - last 24 hr 04/15/24 04/15/24 05:38 05:39 MCV 94.5 MCH 30.8 MCHC 32.6 RDW 12.5 Plt Count 197 MPV 10.1 Absolute Nucleated RBC 0.000 Nucleated RBC % (auto) 0.0 Anion Gap 9 L Estim Creat Clear Calc 54.5 Estimated GFR > 60 Random Glucose 127 H Calcium 9.0 D Magnesium 1.9 Assessment and Plan (1) Hemoptysis: Status: Acute (2) Pneumothorax after biopsy: Status: Acute (3) Left upper lobe pulmonary nodule: Status: Acute Plan 73 year old women s/p lung biopsy admitted due to large pneumothorax after procedure Acute Large pneumothorax Status post lung biopsy on 04/09 complicated by pneumothorax morphine stopped due to nausea, started ultram prn /cough medicine tid Biopsy showed no malignant cells. CXR 04/13 showing worsening pneumo> Thoracic surg changed CT placement to 5th intercostal space CXR 04/14 showing no visible pneumothorax changed to water seal CXR today showing resolution, recheck CXR at 11am to determine if CT can be pulled Acute hypoxic respiratory failure likely due to above. Resolved Continue O2 support and wean as tolerated not on home O2. Hemoptysis. Resolved Likely due to capillary rupture with increased thoracic pressure DC heparin, stable hematocrit Seen by pulmonology no further investigation at this time, continue to follow History of bladder cancer Follow-up outpatient with [facility] [place] Oncology Active Smoker smokes 5 cigarettes a day , continue Nicorette lozenges Discussed importance of smoking cessation COPD No acute exacerbation Continue home inhalers Breo and Spiriva and as needed duoneb updraft GERD scheduled PPI DVT prophylaxis with compression boots Attending Dr. Becerra Full code In my clinical judgment patient requires continued inpatient hospitalization from treatment of acute left pneumothorax requiring chest tube and expert consultation. Quality Stroke Does the patient have a stroke diagnosis?: No VTE Prior VTE?: No VTE Risk Level:: Medical - moderate - high VTE Device Contraindication: Treatment Not Indicated VTE Drug Contraindication: N/A - Med Ordered
[2024-04-15] MEDS: ACTUATION MIST PO (09:46)
[2024-04-15] MEDS: TIOTROPIUM BROMIDE PO (09:46)
[2024-04-15] MEDS: SYMBICORT 2 EACH PO ×2 (09:46→22:38)
[2024-04-15] MEDS: Dextrose 5 % and 0.9 % NaCl 1,000 ML 80 ML IVCONT ×2 (10:57→22:41)
[2024-04-15] MEDS: traMADoL HCL 50 MG TABLET 25 MG PO (14:34)
--- NOTE | 2024-04-15 16:06 | MHC.CM.PN ---
EMR reviewed and per MD rounds, pt is not medically cleared for discharge due to management of pneumothorax with chest tube in place.
[2024-04-15] MEDS: 0.9 % Sodium Chloride Flush 3 ML SYRINGE IVFLUSH (22:39)
[2024-04-16] VITALS: BP 149/65; PULSE 93; RESP 18; TEMP 36.6; O2SAT 99
[2024-04-16 03:30] VITALS: BP 123/58; PULSE 92; RESP 20; TEMP 36.4; O2SAT 93
[2024-04-16] MEDS: Omeprazole 20 MG CAPSULE.DR PO (05:54)
[2024-04-16] MEDS: Acetaminophen 325 MG TABLET 650 MG PO (05:54)
[2024-04-16 06:37] VITALS: PULSE 102
--- NOTE | 2024-04-16 07:39 | P.PNTS_ITS ---
Subjective Subjective Date of Service: 04/16/24 Interval history: No new respiratory issues. No further hemoptysis episodes Chest tube minimal output and no air leak. A.m. chest x-ray demonstrates lung fully expanded on water seal Physical Exam Vital Signs: Vital Signs: Last Vital Signs Temp 97.6 F 04/16/24 03:30 Pulse 102 H 04/16/24 06:37 Resp 20 04/16/24 03:30 BP 123/58 L 04/16/24 03:30 Pulse Ox 93 04/16/24 03:30 O2 Del Method Nasal Cannula 04/16/24 03:30 O2 Flow Rate 3 04/16/24 03:30 Oxygen Flow Rate 2 04/10/24 02:30 BMI result Body Mass Index 19.8 Chest: Other: Dressings clean dry and intact for chest tubes. Pleur-evac as noted above no air leak Procedures Date of Service Date of Service: 04/16/24 Progress Note: A&P Assessment and plan (1) Thoracostomy tube in place: Status: Acute (2) Pneumothorax after biopsy: Status: Acute Plan We will remove chest tube later this morning and repeat film in the few hours. If stable, patient can be discharged from surgical perspective. I will follow- up with her as an outpatient. Patient will need VNA services for chest tube dressing changes q.o.d.. Time Spent With Patient Time: Total time managing care of this patient today ____ minutes. Quality Stroke Does the patient have a stroke diagnosis?: No VTE Prior VTE?: No VTE Risk Level:: Medical - moderate - high VTE Device Contraindication: Treatment Not Indicated VTE Drug Contraindication: N/A - Med Ordered
[2024-04-16 08:00] VITALS: BP 146/65; PULSE 96; RESP 18; TEMP 36.9; O2SAT 99
--- NOTE | 2024-04-16 09:33 | P.PNIM_ITS ---
Subjective Subjective Date of Service: 04/16/24 Interval History: seen and examined this AM CT removed Review of Systems Negative except HPI/interval history. Physical Exam 2 Vital Signs: Vital Signs: Last Vital Signs Temp 98.4 F 04/16/24 08:00 Pulse 96 04/16/24 08:00 Resp 18 04/16/24 08:00 BP 146/65 H 04/16/24 08:00 Pulse Ox 99 04/16/24 08:00 O2 Del Method Nasal Cannula 04/16/24 08:00 O2 Flow Rate 3 04/16/24 08:00 Oxygen Flow Rate 2 04/10/24 02:30 BMI result Body Mass Index 19.8 Appearing in no acute distress lung sounds are clear to auscultation heart regular rate rhythm, clear S1, S2 positive bowel sounds, abdomen is soft, nontender neuro patient is alert x3, no focal deficits Objective Data Active Medications Acetaminophen (Acetaminophen 325 Mg Tablet) 650 mg PO Q4H PRN PRN Reason: Pain, Mild (Pain Scale 1-3), fever or headache Last Admin: 04/16/24 05:54 Dose: 650 mg Documented By: ZECHARIAH Albuterol/Ipratropium (Albuterol/Iprat 2.5/0.5mg 3 Ml Ampul.Neb) 3 ml INHALE DAILY PRN PRN Reason: Shortness Of Breath Or Wheezing Calcium Carbonate (Calcium Carbonate 750 Mg Tab.Chew) 750 mg PO Q4H PRN PRN Reason: Heartburn Guaifenesin/Dextromethorphan (Guaifenesin Dm 200/20/10 Ml 10 Ml Syrup) 10 ml PO TID [facility] Last Admin: 04/16/24 08:01 Dose: Not Given Documented By: POP Non-Admin Reason: Patient Refused Dextrose/Sodium Chloride (D5ns) 1,000 mls @ 80 mls/hr IVCONT .[id number] [facility] Last Admin: 04/15/24 22:41 Dose: 80 mls/hr Documented By: ZECHARIAH Magnesium Hydroxide (Milk Of Magnesia 30 Ml Oral.Susp) 30 ml PO DAILY PRN PRN Reason: Constipation Melatonin (Melatonin 3 Mg Tablet) 6 mg PO BEDTIME PRN PRN Reason: Insomnia Nicotine Polacrilex (Nicotine Polacrilex Lozenge 2 Mg Lozenge) 2 mg BUCCAL Q2H PRN PRN Reason: Nicotine Cravings Pt Own (Symbicort (160/4.5mcg Inhaler)) 2 each PO RBID [facility] Last Admin: 04/15/24 22:38 Dose: 2 each Documented By: ZECHARIAH Pt Own (Tiotropium Daisy [Spiriva Respimat] 1.25 Mcg/Actuation Mist) 1 puff PO RDAILY [facility] Omeprazole (Omeprazole 20 Mg Capsule.Dr) 20 mg PO DAILY@0630 [facility] Last Admin: 04/16/24 05:54 Dose: 20 mg Documented By: ZECHARIAH Ondansetron HCl (Ondansetron Hcl 4 Mg/2 Ml Vial) 4 mg IVPUSH Q8H PRN PRN Reason: Nausea and Vomiting Last Admin: 04/13/24 17:28 Dose: 4 mg Documented By: POP Sodium Chloride (0.9 % Sodium Chloride Flush 3 Ml Syringe) 3 ml IVFLUSH QSHIFT [facility] Last Admin: 04/16/24 08:01 Dose: Not Given Documented By: POP Non-Admin Reason: IV Running Tramadol HCl (Tramadol Hcl 50 Mg Tablet) 25 mg PO Q6H PRN PRN Reason: Pain, Moderate(Pain Scale 4-6) Last Admin: 04/15/24 14:34 Dose: 25 mg Documented By: MARTA Zolpidem Tartrate (Zolpidem Tartrate 5 Mg Tablet) 10 mg PO BEDTIME PRN PRN Reason: insomnia Labs 04/15/24 05:39 04/15/24 05:38 Assessment and Plan (1) Hemoptysis: Status: Acute (2) Pneumothorax after biopsy: Status: Acute (3) Left upper lobe pulmonary nodule: Status: Acute Plan 73 year old women s/p lung biopsy admitted due to large pneumothorax after procedure Acute Large pneumothorax Status post lung biopsy on 04/09 complicated by pneumothorax morphine stopped due to nausea, started ultram prn /cough medicine tid Biopsy showed no malignant cells. CXR 04/13 showing worsening pneumo> Thoracic surg changed CT placement to 5th intercostal space CXR 04/14 showing no visible pneumothorax changed to water seal CXR today showing resolution, CT removed, cxr for this afternoon Acute hypoxic respiratory failure likely due to above. Resolved Continue O2 support and wean as tolerated not on home O2. Hemoptysis. Resolved Likely due to capillary rupture with increased thoracic pressure DC heparin, stable hematocrit Seen by pulmonology no further investigation at this time, continue to follow History of bladder cancer Follow-up outpatient with [facility] [place] Oncology Active Smoker smokes 5 cigarettes a day , continue Nicorette lozenges Discussed importance of smoking cessation COPD No acute exacerbation Continue home inhalers Breo and Spiriva and as needed duoneb updraft GERD scheduled PPI DVT prophylaxis with compression boots Attending Dr. Becerra Full code In my clinical judgment patient requires continued inpatient hospitalization from treatment of acute left pneumothorax requiring chest tube and expert consultation. Quality Stroke Does the patient have a stroke diagnosis?: No VTE Prior VTE?: No VTE Risk Level:: Medical - moderate - high VTE Device Contraindication: Treatment Not Indicated VTE Drug Contraindication: N/A - Med Ordered
[2024-04-16] MEDS: ACTUATION MIST PO ×2 (10:02→12:18)
[2024-04-16] MEDS: TIOTROPIUM BROMIDE PO ×2 (10:02→12:18)
[2024-04-16] MEDS: SYMBICORT 2 EACH PO (10:03)
--- NOTE | 2024-04-16 10:31 | P.DS_ITS ---
DS: Providers Provider Date of Service: 04/16/24 Date of admission: 04/09/24 12:49 Primary care physician: Arlin Watkins MD Consults: 04/09/24 12:45 Consult to Thoracic Surgery Routine Consulting Provider: Lee Turner Reason for consultation: chest tube, pneumothorax 04/11/24 12:00 Consult to Pulmonology Routine Consulting Provider: Balwinder Simmons Reason for consultation: hemoptysis/pneumothorax Has provider been notified: No 04/11/24 12:38 Consult to Pulmonology Routine Consulting Provider: Davin Campbell Reason for consultation: hemoptysis/pneumothorax Has provider been notified: No DS: Diagnosis Discharge Diagnosis (1) Hemoptysis: Status: Acute (2) Pneumothorax after biopsy: Status: Acute (3) Left upper lobe pulmonary nodule: Status: Acute DS: Summary Hospital Course Hospital Course: 73-year-old woman status post lung biopsy for lung mass. She was in Interventional Radiology and after biopsy developed a large pneumothorax. She had a chest tube placed emergently. Iron provider contacted hospitalist service to request admission for patient. Patient was seen and evaluated in the PACU, she reported some pain especially at the chest tube site. She denied any nausea, vomiting, diarrhea. She has chronic shortness of breath and wet cough. Her vital signs are stable, lab work is pending. Plan is to admit patient for further management and treatment of acute pneumothorax. 73-year-old woman initially having an day stay lung biopsy but developed a pneumothorax. She had a chest tube placed and in patient admission was requested. She had some complications throughout the hospital stay including placement issues where new chest tube had to be placed to the 5th intercostal space. This chest tube was placed on suction and then 04/15/2024 placed on water seal. Today she had repeat imaging which showed resolution of pneumothorax and chest tube was removed. Patient is to follow-up with thoracic surgery in their office in 7 days. COPD. Secondary to tobacco use. Discussed the importance of smoking cessation. No COPD exacerbation during hospitalization. Continue home inhalers Hemoptysis. Likely secondary to capillary rupture with increased thoracic pressure. Seen evaluated by pulmonology with no further recommendation for treatment. History of bladder cancer. Outpatient follow up with [facility] [place] Oncology GERD. Continue PPI Time Attestation Discharge Coordination Time (in mins): 37 Quality: Safe Use of Opioids Does Pt have an Active Cancer Diagnosis on the Problem List?: No Quality: Stroke Does the patient have a stroke diagnosis?: No Physical Exam Vital Signs: Vital Signs: Last Vital Signs Temp 98.4 F 04/16/24 08:00 Pulse 96 04/16/24 08:00 Resp 18 04/16/24 08:00 BP 146/65 H 04/16/24 08:00 Pulse Ox 99 04/16/24 08:00 O2 Del Method Nasal Cannula 04/16/24 08:00 O2 Flow Rate 3 04/16/24 08:00 Oxygen Flow Rate 2 04/10/24 02:30 BMI result Body Mass Index 19.8 Appearing in no acute distress head is normocephalic atraumatic eyes pupils are PERRLA sclera is anicteric mouth throat mucous membranes are intact and moist neck is supple no lymphadenopathy, no JVD noted lung sounds are clear to auscultation heart regular rate rhythm, clear S1, S2 positive bowel sounds, abdomen is soft, nontender neuro patient is alert x3, no focal deficits DS: Data Data Completed and Pending Completed studies during hospitalization [Text1]: Pending at discharge 04/09/24 12:01 Surgical Path [Surgical] [PTH] Routine Discharge Plan Discharge Anticipated Discharge Date/Time: 04/16/24 10:29 Patient Disposition: Home Health Service Discharge Diagnosis: Lung biopsy Pneumothorax Hemoptysis Referrals: Arlin Watkins MD [Primary Care Provider] - 1 Week Lee Turner MD [Physician] - 1 Week Discharge Medications: Continued cetirizine 10 mg tablet 10 mg PO DAILY Qty: 30 5RF budesonide-formoterol [Symbicort] 160-4.5 mcg/actuation HFA aerosol inhaler 2 puff inhalation BID Qty: 10.2 3RF Spiriva Respimat 1.25 mcg/actuation mist 1 puff PO DAILY Qty: 12 1RF ipratropium-albuterol 0.5 mg-3 mg(2.5 mg base)/3 mL solution for nebulization 3 ml inhalation DAILY PRN (Reason: Shortness Of Breath Or Wheezing) Rx Instructions: Medicare B zolpidem 10 mg tablet 10 mg PO BEDTIME PRN (Reason: insomnia) Qty: 30 0RF albuterol sulfate [Ventolin HFA] 90 mcg/actuation HFA aerosol inhaler 2 puff inhalation QID PRN (Reason: shortness of breath or wheezing) 30 Days Qty: 18 11RF omeprazole 40 mg capsule,delayed release(DR/EC) 40 mg PO BID PRN (Reason: Acid Reflux) (DME) nebulizers Misc See Rx Instructions .Route Rx Instructions: As directed Discharge Orders: Discharge Order (Routine); Ordered 04/16/24 Ordered By: Stella Simmons Diet: Advance to usual diet Activity on Discharge: No heavy lifting Stand Alone Forms: Patient Portal Discharge page, Work/School Release Print Language: Spanish Activity Restrictions/Additional Instructions: May shower. VNA services for chest tube dressing changes Care Plan Goals: Follow up with thoracic surgeon in the office in 1 week Health Concerns: Lung biopsy Pneumothorax Hemoptysis Plan of Treatment: Follow-up with primary care provider as needed Take all medications as prescribed Assessment: See discharge summary
--- NOTE | 2024-04-16 11:14 | W.MHC.F2F ---
Service Date Service Date: 04/16/24 Encounter Date of encounter: 04/16/24 Reasons for Services Signs and symptoms assessed: Pneumothorax Reason for custodial: CV/CP assess and/or care and other (Chest tube site management) Homebound: Leaving the home is medically contraindicated at this time without the asist of a device and/or another person due th the listed conditions above and below. Reason homebound: weakness related to hospital stay Certification: Based on the above findings, I certify that this patient is confined to the home and needs intermittent custodial care, physical therapy and/or speech therapy, or continues to need occupational therapy. The patient is under my care, and I have initiated the establishment of the plan of care. The patient will be followed by a physician who will periodically review the plan of care. Time Spent With Patient Time: Total time managing care of this patient today ____ minutes.
[2024-04-16 11:27] VITALS: BP 118/57; PULSE 96; RESP 18; TEMP 36.6; O2SAT 94
--- NOTE | 2024-04-16 14:21 | MHC.CM.PN ---
Pt is medically cleared for discharge home today with [employer] [facility], pts partner will transport her home.
== END 2024-04-16 14:10 | disposition home health service (06) | DRG 143 ==
LOC: HO.SSSA 12:51 → HO.S3 13:23 → HO.IMC 04-10 02:10
PROVIDERS: Hospitalist; Physician Assistant Surgical; Student in an Organized Health Care Education/Training Program; Admitting Provider Nurse Practitioner Acute Care; PCP Internal Medicine; Visit Provider Nurse Practitioner Acute Care
PROC: 0BBG3ZX Excision of Left Upper Lung Lobe, Percutaneous Approach, Diagnostic (ICD-10-PCS; principal; 2024-04-09 10:30)
DX: J95.811 Postprocedural pneumothorax (principal); J96.01 Acute respiratory failure with hypoxia; R04.2 Hemoptysis; R91.1 Solitary pulmonary nodule; J44.9 Chronic obstructive pulmonary disease, unspecified; F17.210 Nicotine dependence, cigarettes, uncomplicated; Z71.6 Tobacco abuse counseling; K21.9 Gastro-esophageal reflux disease without esophagitis; Z85.51 Personal history of malignant neoplasm of bladder; Z79.899 Other long term (current) drug therapy
CPT/HCPCS: 32408; 32551; 36415; 71045; 80048; 80053; 82803; 82947; 83735; 83880; 85025; 85027; 85610; 85730; 88305; 88312; 92950; 93005; 94640; 94799; 99152; 99153; A7041; C1729; C1758; J1644; J1940; J2060; J2250; J2270; J2310; J2405; J2765; J3010

== ENCOUNTER → 2024-04-09 12:49 | Outpatient (BNV) | payer OTHER, SELFPAY | PROVIDERS: Admitting Provider Nurse Practitioner Acute Care; PCP Internal Medicine; Visit Provider Internal Medicine Pulmonary Disease | DX: J95.811 Postprocedural pneumothorax (principal); R04.2 Hemoptysis; R91.1 Solitary pulmonary nodule; J41.8 Mixed simple and mucopurulent chronic bronchitis | CPT/HCPCS: 99223 ==

== ENCOUNTER → 2024-04-09 12:49 | Outpatient (BNV) | payer OTHER, SELFPAY | PROVIDERS: Admitting Provider Nurse Practitioner Acute Care; PCP Internal Medicine; Visit Provider Nurse Practitioner Acute Care | DX: R04.2 Hemoptysis (principal); J95.811 Postprocedural pneumothorax; R91.1 Solitary pulmonary nodule | CPT/HCPCS: 99222; 99232; 99239; G0180 ==

== ENCOUNTER → 2024-04-09 12:49 | Outpatient (BNV) | payer OTHER, SELFPAY | PROVIDERS: Admitting Provider Nurse Practitioner Acute Care; PCP Internal Medicine; Visit Provider Surgery | DX: Z96.89 Presence of other specified functional implants (principal); J95.811 Postprocedural pneumothorax | CPT/HCPCS: 32551; 99222; 99232; 99233 ==

== ENCOUNTER 2024-04-24 11:28 | Outpatient (AMB) | payer OTHER, SELFPAY ==
--- NOTE | 2024-04-24 11:33 | A.OFFVIS_ITS ---
Intake Visit Reasons: s/p Thoracostomy tube removal Intake Note: Patient here s/p thoracostomy tube removal. Chest tube removed without incident on 04-16-2024. VNA services every other day. Patient c/o: SOB. No longer taking rx pain meds. 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 Status post allogeneic pneumothorax status post lung biopsy. Pathology was negative. Patient states she still has occasional shortness of breath. O2 saturation very between 89 and 93% in office today [facility] Medical History (Updated 04/24/24 @ 00:03 by Airam Olivera) Nicotine dependence Multiple environmental allergies Pulmonary nodules Nicotine dependence, cigarettes, uncomplicated COPD (chronic obstructive pulmonary disease) Stress incontinence Hx of bladder cancer (~2008) Dysphagia History of COVID-19 Primary insomnia Surgical menopause Osteoporosis (~2019) Tubular adenoma of colon (~2016) Hiatal hernia Esophagitis determined by endoscopy History of esophageal stricture Surgical History (Updated 04/24/24 @ 11:44 by Lee Turner MD) Pneumothorax after biopsy History of cataract surgery History of esophageal dilatation History of bladder surgery History of hand surgery History of colonoscopy History of esophagogastroduodenoscopy (EGD) History of cystoscopy History of hysterectomy Family History Father HTN (hypertension) Mesothelioma Mother Melanoma Brother No problems noted. Brother No problems noted. Sister No problems noted. Daughter Melanoma Son No problems noted. Son No problems noted. Son No problems noted. Sister Lung cancer Social History Household Members: Spouse Housing: House Do you presently have visiting nurse or other home services: No Patient Tobacco Use Status: Current everyday Tobacco user Tobacco use type: Cigarette Cigarettes Per Day: 5 e-Cigarette/Vaping Use: Never Used Second Hand Smoke Exposure: No service: No Current occupational status: employed Cognitive needs: No Hearing needs: No Vision needs: Yes Physical Exam Chest Other: Chest tube and biopsy sites were all clean dry and intact. Patient has extensive COPD lung findings. Breath sounds bilaterally diminished bilaterally Assessment & Plan Assessment & Plan (1) Pneumothorax after biopsy: Code(s): J95.811 - Postprocedural pneumothorax Category: Surgical Plan: Patient was scheduled to follow-up with oncology tomorrow. We will arrange for patient to see Dr. Simmons/pulmonology whom she has seen in the past regarding her shortness of breath. I will also get a chest x-ray today to rule out any other acute pathology. Patient will be contacted with x-ray results. Orders: Orders XR chest 2V Today J95.811 - Postprocedural pneumothorax Coding Level of Care Code Global (16704) Diagnoses Pneumothorax after biopsy J95.811
== END 2024-04-24 11:59 | disposition home or self-care (01) ==
PROVIDERS: PCP Internal Medicine; Visit Provider Surgery
DX: J95.811 Postprocedural pneumothorax (principal)
CPT/HCPCS: 99213

== ENCOUNTER 2024-04-24 11:28 | Outpatient (REF) | payer OTHER, SELFPAY ==
--- NOTE | ~2024-04-24 | XR_ITS ---
EXAMINATION: XR CHEST CLINICAL INFORMATION: Postprocedural pneumothorax. Shortness of breath. COMPARISON: Multiple priors with the last chest x-ray of 04/16/2024. TECHNIQUE: 2 views of the chest were obtained. FINDINGS: Patient is status post CT-guided left lung lesion biopsy on 04/09/2024. There is interval increase in the left pneumothorax compared to last x-ray of 04/16/2024. There is moderate left pneumothorax with fluid level and on the current study. Changes of emphysema are better seen on the previous CT. No evidence of mediastinal shift. Cardiomediastinal silhouette is stable with normal cardiac size. No new airspace opacities are noted. Streaky and patchy opacities at the left lung apex are stable compared to last study. No evidence of pulmonary edema or significant right pleural effusion. No right pneumothorax. Osteopenia of the spine. XR/XR chest 2V IMPRESSION: Left hydropneumothorax with significantly increased, now moderate left pneumothorax compared to last x-ray. No mediastinal shift is noted at this time. This critical result was discussed with Dr. Terry at 5:16 PM on 04/24/2024 and it was ascertained that the content and urgency of the report was understood at the time of direct communication. Electronically signed by: Bryce Maria MD 04/24/2024 05:24 PM EDT
== END 2024-04-24 11:29 | disposition home or self-care (01) ==
LOC: HO.XRAY 11:28
PROVIDERS: PCP Internal Medicine; Visit Provider Surgery
DX: J95.811 Postprocedural pneumothorax (principal)
CPT/HCPCS: 71046

== ENCOUNTER 2024-04-25 11:20 | Outpatient (REF) | payer OTHER, SELFPAY ==
--- NOTE | ~2024-04-25 | XR_ITS ---
EXAMINATION: XR CHEST CLINICAL INFORMATION: Postprocedural pneumothorax. COMPARISON: Most recent chest radiograph dated 04/24/2024. TECHNIQUE: 2 views of the chest were obtained. FINDINGS: Redemonstration of a left-sided hydropneumothorax, unchanged in size when compared to the prior examination. Small right-sided pleural effusion, unchanged. No right-sided pneumothorax. No new airspace consolidation. Stable cardiomediastinal silhouette. XR/XR chest 2V IMPRESSION: 1. Left-sided hydropneumothorax, unchanged. 2. Small right-sided pleural effusion, unchanged. No right-sided pneumothorax. Electronically signed by: Jaylon Gonsalves MD 04/25/2024 01:26 PM EDT
== END 2024-04-25 11:21 | disposition home or self-care (01) ==
LOC: HO.XRAY 11:20
PROVIDERS: PCP Internal Medicine; Referring Provider Surgery; Visit Provider Hospitalist
DX: J43.2 Centrilobular emphysema (principal); J95.811 Postprocedural pneumothorax
CPT/HCPCS: 71046; 94618; 99211

== ENCOUNTER 2024-04-25 11:20 | Outpatient (AMB) | payer OTHER, SELFPAY ==
[2024-04-25 11:51] VITALS: BP 136/80; PULSE 102; O2SAT 94
--- NOTE | 2024-04-25 11:51 | MHC.OFFVIS ---
Vital Signs 04/25/24 11:51 BP 136/80 Blood Pressure Location Lt brachial Position Sitting Pulse 102 H Pulse Source Pulse Oximeter Pulse Oximetry (%) 94 Oxygen Delivery Method Room Air Intake Visit Reasons: 6 Mins Walk Visit Allergies No Known Allergies [No Known Allergies*] Allergy (Verified 04/25/24 11:52) Medication List - Last Reconciled 04/25/24 by Rochelle Leahy LPN albuterol sulfate 90 mcg/actuation (Ventolin HFA) 2 puffs inhalation QID PRN 30 days cetirizine 10 mg PO DAILY ipratropium-albuterol 0.5 mg-3 mg(2.5 mg base)/3 mL 3 mL inhalation DAILY PRN nebulizers As directed omeprazole 40 mg PO BID PRN Symbicort 160-4.5 mcg/actuation (budesonide-formoterol) 2 puffs inhalation BID NS tiotropium bromide 1.25 mcg/actuation (Spiriva Respimat) 1 puff PO DAILY zolpidem 10 mg PO BEDTIME PRN PFSH Medical History (Updated 04/24/24 @ 11:42 by Lee Turner MD) Nicotine dependence Multiple environmental allergies Pulmonary nodules Nicotine dependence, cigarettes, uncomplicated COPD (chronic obstructive pulmonary disease) Stress incontinence Hx of bladder cancer (~2008) Dysphagia History of COVID-19 Primary insomnia Surgical menopause Osteoporosis (~2019) Tubular adenoma of colon (~2016) Hiatal hernia Esophagitis determined by endoscopy History of esophageal stricture Surgical History (Updated 04/24/24 @ 11:44 by Lee Turner MD) Pneumothorax after biopsy History of cataract surgery History of esophageal dilatation History of bladder surgery History of hand surgery History of colonoscopy History of esophagogastroduodenoscopy (EGD) History of cystoscopy History of hysterectomy Family History Father HTN (hypertension) Mesothelioma Mother Melanoma Brother No problems noted. Brother No problems noted. Sister No problems noted. Daughter Melanoma Son No problems noted. Son No problems noted. Son No problems noted. Sister Lung cancer Social History Household Members: Spouse Housing: House Do you presently have visiting nurse or other home services: No Patient Tobacco Use Status: Current everyday Tobacco user Tobacco use type: Cigarette Cigarettes Per Day: 5 e-Cigarette/Vaping Use: Never Used Second Hand Smoke Exposure: No Use of substances other than those prescribed or required for medical reasons: No Have you been hit, kicked, punched, or otherwise hurt by someone within the past year? If so, by whom?: No Do you feel safe in your current relationship?: Yes Do you have thoughts of harming others: None Do you have a plan to hurt others: No Plan Patient : No service: No Current occupational status: employed Cognitive needs: No Hearing needs: No Vision needs: Yes Physical Exam Vital Signs: Last Vital Signs Pulse 102 H 04/25/24 11:51 BP 136/80 04/25/24 11:51 Pulse Ox 94 04/25/24 11:51 Oxygen Delivery Method Room Air 04/25/24 11:51 Office Procedures 6 Minute Walk Time:: 11:30 SPO2 % at rest: 94 Pulse at rest: 102 SPO2 % during excercise: 90 Pulse during excercise: 122 SPO2 % after excercise: 93 Pulse after excercise: 110 Distance in yards walked: 240 Migue Score: 6 Performance Observations:: Ebony walked on level ground without assistance, she walked on room air maintaining her SPO2 90-92% for the entire walk. No supplemental O2 required. 15479 - 6 Minute Walk Assessment & Plan Assessment & Plan (1) Centrilobular emphysema: Code(s): J43.2 - Centrilobular emphysema Category: Medical Plan does not qualify for oxygen Orders: Orders AMB 6 minute walk Today J43.2 - Centrilobular emphysema Coding Level of Care Code Established Pt Est Pt Level 1 (32494) Patient Type Established Diagnoses Centrilobular emphysema J43.2 CPT Codes Coding ([id number]) Comment NURSES VISIT ONLY
[2024-04-25 11:53] VITALS: PULSE 102; O2SAT 94
== END 2024-04-25 11:47 | disposition home or self-care (01) ==
PROVIDERS: PCP Internal Medicine; Visit Provider Hospitalist
DX: J43.2 Centrilobular emphysema (principal)
CPT/HCPCS: 94618

== ENCOUNTER 2024-05-17 13:50 | Outpatient (AMB) | payer OTHER, SELFPAY ==
--- NOTE | 2024-05-17 13:47 | A.OFFVIS_ITS ---
Intake Visit Reasons: 3m follow up Intake Note: Patient is present for 3M F/U Urology Medication:NONE Antibiotic Allergy:NONE Blood Thinner:NONE Oracle Financial Application Developer Required: No Allergies No Known Allergies [No Known Allergies*] Allergy (Verified 05/17/24 13:47) Medication List - Last Reconciled 05/18/24 by Sweta Spencer MD albuterol sulfate 90 mcg/actuation (Ventolin HFA) 2 puffs inhalation QID PRN 30 days azithromycin (Zithromax Z-Beau) For 250 mg dose pack: take 500 mg today (day 1), then 250 mg for 4 days (days 2-5) cetirizine 10 mg PO DAILY ipratropium-albuterol 0.5 mg-3 mg(2.5 mg base)/3 mL 3 mL inhalation DAILY PRN nebulizers As directed omeprazole 40 mg PO BID PRN Symbicort 160-4.5 mcg/actuation (budesonide-formoterol) 2 puffs inhalation BID NS tiotropium bromide 1.25 mcg/actuation (Spiriva Respimat) 1 puff PO DAILY zolpidem 10 mg PO BEDTIME PRN HPI Comments Details: 05/17/24-- Ebony is a 73-year-old female who is being followed due to urothelial carcinoma of the bladder, and CIS of bladder. Last cysto/biopsy - 01/28/24- Significant for CIS bladder. She was referred to Oncology. Currently receiving Keytruda. Initially diagnosed by another urologist in 2008. She did not have follow-up for several years and was seen in December of 2022 and is status post TURBT 02/21/2023 noting high-grade noninvasive urothelial carcinoma right lateral wall followed by gemcitabine installations. Repeat bladder biopsies 08/15/2023 noted multifocal areas of carcinoma in Situ. The patient received bladder installati ons of mitomycin/cytarubine, last 12/08/2023. During the course of bladder installations she did have some fatigue. Plan--After completes Keytruda, will schedule out patient cysto bladder bx. Review of chart: 02/16/24--s/p post repeat bladder biopsies, 01/30/24- significant for CIS is all biopsies. The patient has failed chemotherapy bladder instillations. Plan refer to oncology for evaluation for Keytruda. She was prescribed gemtesa for LUTS for urinary frequency/urgency, insurance did not cover. She states she does not want another medication called in at this time. Patient agrees with plan. 01/05/24--Ebony is a 73-year-old female who is being followed due to urothelial carcinoma of the bladder, initially diagnosed by another urologist in 2008. She did not have follow-up for several years and was seen in December of 2022 and is status post TURBT 02/21/2023 noting high-grade noninvasive urothelial carcinoma right lateral wall followed by gemcitabine installations. Repeat bladder biops ies 08/15/2023 noted multifocal areas of carcinoma in Situ. The patient received bladder installations of mitomycin/cytarubine, last 1 12/08/2023. The patient states she has been doing well she denies dysuria. During the course of bladder installations she did have some fatigue. Consent today is obtained for repeat cystoscopy bladder biopsies. 09/01/23--S/P bladder bx post gemcitabine instillations. path 08/15/23--CIS - right lat wall, left lat wall, post wall, Discussed nicotine cessation. Discussed treatment recommendation for Bladder instillation of BCG immunotherapy, not readily available. I will investigate availablity. Otherwise bladder instillation with combination gemcitobine with docetaxel. 03/13/2023?Ebony is a 72-year-old female who presents today to the office for a follow-up s/p TURBT 02/21/23. I have reviewed the CT urogram results from 02/20/2023 revealed no radiopaque urolith, enhancing renal mass or hydroureteronephrosis. Unremarkable bladder. Mild constipation. 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 Urothelial carcinoma from the okay since he is seeing me for the 1st time, random dome. She reports burning after urination. She is still smoking cigarettes. 01/13/2023?The patient was last seen in the office on 01/13/23 by LAVON Masters. The patient denies gross hematuria. The patient has history of superficial bladder cancer, diagnosed in October of 2008. Past medical history significant for COPD and nicotine dependence, esophagitis with dysphagia. The patient is an active smoker and started smoking from the age of 17 years. In review of note from 11/07/22, VELIA Boyd documented pathology 10/2008? 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 The patient gives a history of cigarette use for over 55 years. She states that her last cystoscopy was about 3 years ago. The patient has history of hysterectomy about age 20 for menorrhagia. Urine cytology-- collected 11/07/22--? few atypical cells noted. Evaluation today UA-- Blood:200 Earle/uL, leukocytes: negative. Cystoscopy findings-- erythematous flat lesion on the posterior wall of the bladder which need further evaluation with biopsy. Plan:urine bladder/FISH cytology test, as outpatient, urine provided not sufficient to send for testing Cystoscopy TURBT discussed to be scheduled. CT urogram prior with contrast was ordered. PFSH Medical History Nicotine dependence Multiple environmental allergies Pulmonary nodules Nicotine dependence, cigarettes, uncomplicated COPD (chronic obstructive pulmonary disease) Stress incontinence Hx of bladder cancer (~2008) Dysphagia History of COVID-19 Primary insomnia Surgical menopause Osteoporosis (~2019) Tubular adenoma of colon (~2016) Hiatal hernia Esophagitis determined by endoscopy History of esophageal stricture Surgical History Pneumothorax after biopsy History of cataract surgery History of esophageal dilatation History of bladder surgery History of hand surgery History of colonoscopy History of esophagogastroduodenoscopy (EGD) History of cystoscopy History of hysterectomy Family History Father HTN (hypertension) Mesothelioma Mother Melanoma Brother No problems noted. Brother No problems noted. Sister No problems noted. Daughter Melanoma Son No problems noted. Son No problems noted. Son No problems noted. Sister Lung cancer Social History Household Members: Spouse Housing: House Do you presently have visiting nurse or other home services: No Patient Tobacco Use Status: Current everyday Tobacco user Tobacco use type: Cigarette Cigarettes Per Day: 5 e-Cigarette/Vaping Use: Never Used Second Hand Smoke Exposure: No service: No Current occupational status: employed Cognitive needs: No Hearing needs: No Vision needs: Yes Review of Systems Const All systems reviewed & are unremarkable except as noted in HPI and below Reports no additional complaints Eyes Reports no additional complaints ENT Reports no additional complaints Card Reports no additional complaints Resp Reports no additional complaints GI Reports no additional complaints Reports as per HPI Musc Reports no additional complaints Skin/Breast Reports system reviewed and no additional complaints, except as documented Neuro Reports no additional complaints Psych Reports no additional complaints Endo Reports no additional complaints Pranav/Lymph Reports no additional complaints Aller/Immun Reports no additional complaints Telehealth Telehealth Telehealth Platform: [employer] Location of provider rendering services: practice address Location of patient: address on file Patient Identification confirmed using: Name, : Yes Telehealth method: video Patient verbally consented to treatment: Yes Patient verbally consented to billing insurance company: Yes Patient informed of any privacy concerns related to visit: Yes Results Reviewed Results Reviewed: Collected: 01/30/24 Location: [facility] Received: 01/30/24 Diagnosis A. Bladder, posterior wall #1, biopsy: Carcinoma in situ; no muscularis propria identified. B. Bladder, right lateral wall, biopsy: Carcinoma in situ; no muscularis propria identified. C. Bladder, left lateral wall, biopsy: Carcinoma in situ; no muscularis propria identified. D. Bladder, posterior wall #2, biopsy: Carcinoma in situ; no muscularis propria identified. Clinical History Malignant neoplasm of bladder, unspecified Microscopic Description A-D. Microscopic sections reviewed. Material Received A. Posterior bladder wall #1 B. Right lateral bladder wall C. Left lateral bladder wall D. Posterior bladder wall #2 Collected: 08/15/23 Location: [facility] Received: 08/15/23 Diagnosis A. Bladder, random posterior wall, biopsy: -Urothelial carcinoma in situ, involving cystitis glandularis; no invasion identified. -Muscularis propria present. B. Bladder, right lateral wall, biopsy: -Focal urothelial carcinoma in situ; no invasion identified. -Muscularis propria not identified. C. Bladder, left posterior wall lesion, biopsy: -Urothelial carcinoma in situ, focally involving cystitis glandularis; no invasion identified. -Encrusted cystitis with acute and chronic inflammation, and cystitis glandularis. -Muscularis propria not identified. D. Bladder, dome, biopsy: -Benign urothelium with mild chronic inflammation. -Muscularis propria present. Date of Service: 02/20/23 EXAMINATION: CT ABDOMEN AND PELVIS WITHOUT AND WITH CONTRAST? CLINICAL INFORMATION: Bladder disorder.? COMPARISON: None available.? ? FINDINGS: LUNG BASES: The visualized lung bases are unremarkable.? LIVER, GALLBLADDER, AND BILIARY TREE: The liver is normal in size, shape, and attenuation. No focal hepatic lesion or biliary ductal dilatation is present. The gallbladder is unremarkable with no evidence of radiopaque gallstones, gallbladder wall thickening, or obvious pericholecystic inflammatory changes.? PANCREAS: Unremarkable.? SPLEEN: Unremarkable.? ADRENAL GLANDS: Unremarkable.? KIDNEYS AND URETERS: There are no radiopaque renal calculi. Postcontrast, there are symmetrical bilateral kidney nephrograms with no focal lesion or enhancement seen. Left kidney measures 9.8 cm in length and right kidney measures 10.0 cm in length. There is opacification of bilateral kidney pelvises and ureters without any intraluminal filling defect or narrowing. BLADDER: There are no radiopaque bladder calculi. There is good opacification of bladder from excreted urinary contrast with no intraluminal filling defect. No bladder wall thickening.? GASTROINTESTINAL TRACT: There is scattered stool and gas seen throughout the colon without significant distention. The small bowel loops are normal caliber. Appendix is not visualized. No free air or free fluid seen.? ABDOMINAL WALL: No significant hernia is appreciated.? LYMPH NODES: Normal. VASCULAR: Unremarkable. PELVIC VISCERA: Unremarkable.? OSSEUS STRUCTURES: No aggressive lytic or sclerotic process seen.? IMPRESSION: 1.? No radiopaque urolith, enhancing renal mass or hydroureteronephrosis. 2.? Unremarkable bladder. 3.? Mild constipation. Collected: 02/21/23 Location: [facility] Received: 02/21/23 Diagnosis A. Bladder, right posterior wall, transurethral resection: - High-grade papillary urothelial carcinoma; non-invasive. - Muscularis propria present. B. Bladder, left lateral wall random, biopsy: Focal urothelial atypia worrisome for carcinoma in situ; background mild chronic cystitis; negative for carcinoma. C. Bladder, posterior wall random, biopsy: Chronic cystitis with reactive changes and focal foreign material; negative for carcinoma. The D. Bladder, right lateral wall random, biopsy: Mild chronic cystitis; muscularis propria within normal limits; negative for carcinoma. E. Bladder, random dome, biopsy: Urothelial carcinoma in situ; suspicious for microinvasion. Bladder, transurethral resection/biopsy Procedure: Transurethral resection; biopsies Tumor site: Right posterior wall; random left wall and random dome Histologic type: Papillary urothelial carcinoma; CIS in random biopsy (E) and suspicious for carcinoma in B Histologic grade: High grade Muscularis propria: Present Extent of invasion: Non-invasive Lymphovascular invasion: Not identified Clinical History Bladder disorder Microscopic Description A-E. Microscopic sections reviewed. CK20 immunostain supports the diagnosis in B and E Material Received A. Bladder tumor right posterior wall B. Left lateral wall random bladder biopsies C. Posterior wall random bladder biopsies D. Right lateral wall random bladder biopsies E. Random dome bladder biopsies Assessment & Plan Assessment & Plan (1) CIS (carcinoma in situ of bladder): Code(s): D09.0 - Carcinoma in situ of bladder Category: Medical (2) Bladder cancer: Code(s): C67.9 - Malignant neoplasm of bladder, unspecified Category: Medical Plan Following with Oncology- receiving Keytruda immunotherapy After completion discussed follow up cystoscopy biopsy. Patient Instructions: The patient had an opportunity to ask questions regarding treatment plan. The patient expressed understanding and agreement with the above treatment plan. The patient is aware they should contact our office by phone for worsening of their current condition or the appearance of new symptoms. Compliance is encouraged with any medications and followup testing that is ordered. It is a privilege to be allowed the opportunity to participate in the urologic care of your patient. If you have any questions or concerns regarding treatment for the above conditions please do not hesitate to contact me. The office t elephone contact is [phone]. This note is constructed in part using voice recognition software. While every effort has been made to ensure accuracy local tanker truck driver errors may have been included. Yours sincerely, Sweta Spencer MD Coding Level of Care Code Tele Est Pt Level 4 (37682) Diagnoses CIS (carcinoma in situ of bladder) D09.0 Bladder cancer C67.9
== END 2024-05-17 14:43 | disposition home or self-care (01) ==
LOC: HO.HUSH 13:50
PROVIDERS: PCP Internal Medicine; Visit Provider Urology
DX: D09.0 Carcinoma in situ of bladder (principal); C67.9 Malignant neoplasm of bladder, unspecified
CPT/HCPCS: 99214

== ENCOUNTER → 2024-05-17 13:50 | Outpatient (BNVA) | payer OTHER, SELFPAY | PROVIDERS: PCP Internal Medicine; Visit Provider Urology ==

== ENCOUNTER 2024-06-05 10:03 | Outpatient (REF) | payer OTHER, SELFPAY ==
--- NOTE | ~2024-06-05 | XR_ITS ---
EXAMINATION: XR CHEST CLINICAL INFORMATION: J95.811 - Postprocedural pneumothorax COMPARISON: X-ray dated April 25, 2024. TECHNIQUE: 2 views of the chest were obtained. FINDINGS: Hyperinflated lungs. Pulmonary reticular pattern. Blunting of the right costophrenic angle. Spiculated opacity left lung apex. No gross consolidation pleural effusion or pneumothorax. Cardiomediastinal silhouette is normal in size. Calcified plaque aortic arch Multilevel spondylosis. Osteopenia versus fibrosis.. XR/XR chest 2V IMPRESSION: Spiculated opacity, left upper lung lobe. Recommend dedicated CT chest. Electronically signed by: Chetan Pabon MD 06/05/2024 12:53 PM EST
== END 2024-06-05 10:04 | disposition home or self-care (01) ==
LOC: HO.HMGCX 10:03
PROVIDERS: PCP Internal Medicine; Visit Provider Surgery
DX: J95.811 Postprocedural pneumothorax (principal)
CPT/HCPCS: 71046

== ENCOUNTER → 2024-06-05 10:07 | Outpatient (BNV) | payer OTHER, SELFPAY | PROVIDERS: PCP Internal Medicine; Visit Provider Radiology Diagnostic Radiology | DX: J95.811 Postprocedural pneumothorax (principal) | CPT/HCPCS: 71046 ==

== ENCOUNTER 2024-06-17 13:51 | Outpatient (AMB) | payer OTHER, SELFPAY ==
--- NOTE | 2024-06-17 13:53 | A.OFFVIS_ITS ---
Vital Signs 06/17/24 14:00 Weight 99 lb BP 140/62 H Blood Pressure Location Rt brachial Position Sitting Pulse 98 Pulse Oximetry (%) 95 Oxygen Delivery Method Room Air Intake Visit Reasons: discuss resampling of lung lesion Intake Note: Patient scheduled today's appointment requesting re-sampling mass on rt upper lobe lung lesion. Previous radiologic bx on 04-09-2024. Currently on chemo for bladder CA. Patient c/o: SOB. Has to reschedule follow up with Dr. Simmons. Communications Equipment Operator Required: No Accompanied by: Self / Same As Patient Allergies No Known Allergies [No Known Allergies*] Allergy (Verified 06/17/24 13:59) HPI Comments Details: Patient presents for follow-up status post in late March biopsy of the left lung lesion. This proved to be inflammatory/non neoplastic. Patient presents here for follow-up. She has no new respiratory issues or complaints patient denies any hemoptysis, chronic cough, chest pain . She is not [facility] Medical History Nicotine dependence Multiple environmental allergies Pulmonary nodules Nicotine dependence, cigarettes, uncomplicated COPD (chronic obstructive pulmonary disease) Stress incontinence Hx of bladder cancer (~2008) Dysphagia History of COVID-19 Primary insomnia Surgical menopause Osteoporosis (~2019) Tubular adenoma of colon (~2016) Hiatal hernia Esophagitis determined by endoscopy History of esophageal stricture Surgical History Pneumothorax after biopsy History of cataract surgery History of esophageal dilatation History of bladder surgery History of hand surgery History of colonoscopy History of esophagogastroduodenoscopy (EGD) History of cystoscopy History of hysterectomy Family History Father HTN (hypertension) Mesothelioma Mother Melanoma Brother No problems noted. Brother No problems noted. Sister No problems noted. Daughter Melanoma Son No problems noted. Son No problems noted. Son No problems noted. Sister Lung cancer Social History Household Members: Spouse Housing: House Do you presently have visiting nurse or other home services: No Patient Tobacco Use Status: Current everyday Tobacco user Tobacco use type: Cigarette Cigarettes Per Day: 5 e-Cigarette/Vaping Use: Never Used Second Hand Smoke Exposure: No service: No Current occupational status: employed Cognitive needs: No Hearing needs: No Vision needs: Yes Physical Exam Vital Signs: Last Vital Signs Pulse 98 06/17/24 14:00 BP 140/62 H 06/17/24 14:00 Pulse Ox 95 06/17/24 14:00 Oxygen Delivery Method Room Air 06/17/24 14:00 Chest Other: Chest breath sounds bilaterally, consistent with COPD. No cervical periclavicular or axillary adenopathy bilaterally GI Other: Abdomen is soft, benign Assessment & Plan Assessment & Plan (1) Pulmonary nodules: Code(s): R91.8 - Other nonspecific abnormal finding of lung field Category: Surgical Plan: Current plan is for a three-month post biopsy PET-CT scan per radiologic recommendation and patient will see me after the study. All questions answered. Arrangements made for this. Orders: Orders PET CT fusion skull to thigh 1 Month R91.8 - Other nonspecific abnormal finding of lung field Coding Level of Care Code Est Pt Level 4 (17917) Diagnoses Pulmonary nodules R91.8
[2024-06-17 14:00] VITALS: BP 140/62; PULSE 98; O2SAT 95
== END 2024-06-17 14:15 | disposition home or self-care (01) ==
PROVIDERS: PCP Internal Medicine; Visit Provider Surgery
DX: R91.8 Other nonspecific abnormal finding of lung field (principal)
CPT/HCPCS: 99214

== ENCOUNTER → 2024-06-17 13:51 | Outpatient (BNVA) | payer OTHER, SELFPAY | PROVIDERS: PCP Internal Medicine; Visit Provider Surgery ==

== ENCOUNTER 2024-07-30 15:22 | Outpatient (REF) | payer OTHER, SELFPAY | END 2024-07-30 15:23 | disposition home or self-care (01) | LOC: HO.LNP 15:22 | PROVIDERS: PCP Internal Medicine; Visit Provider Hospitalist | DX: R91.1 Solitary pulmonary nodule (principal) | CPT/HCPCS: 87070; 87077; 87116; 87186; 87205; 87206 ==

== ENCOUNTER 2024-07-30 15:22 | Outpatient (AMB) | payer OTHER, SELFPAY ==
--- NOTE | 2024-07-30 15:27 | MHC.OFFVIS ---
Vital Signs 07/30/24 15:29 Height 5 ft 1 in Weight 95 lb 14.417 oz BMI 18.1 BP 110/78 Blood Pressure Location Rt brachial Position Sitting Pulse 91 Pulse Source Pulse Oximeter Pulse Oximetry (%) 96 Oxygen Delivery Method Room Air Intake Visit Reasons: copd Allergies morphine Adverse Reaction (Intermediate, Verified 07/30/24 15:32) Vomiting HPI Comments Details: The patient is a 73 year woman the with tobacco dependency along with COPD presenting with worsening shortness of breath. She has minimal smoker all her life. The patient was having issues with shortness of breath and back in 2002 she did undergo pulmonary function studies here at [place]. It demonstrated that her FEV1 was down to 54% after bronchodilators consistent with moderate to severe COPD. She has been participating in the lung cancer screening program. Her last CT scan was a year to ago. She does have moderate degree of emphysema in the upper lung zones and has the ill-defined nodular density in the right hemithorax. Her next CT scan will be in the coming months. The patient has been taking Symbicort Spiriva now for some time. These inhalers appear to be working for her. She would like not to change them at this time. As far as smoking cessation she has quit many times but she has gone back to smoking. She has tried and failed multiple medications including Wellbutrin Chantix. She also tried hypnosis. She is willing to try the Nicotrol inhaler with hopes that she can start cutting down release alternating a real cigarette with day Nicotrol inhaler. With the hope that she continue decreasing. The patient will also have pulmonary function studies are will return in 4-6 weeks. The meantime will start azithromycin 2 treated for the chronic bronchitis related to her COPD. 10/03/2022 the patient is here for a pulmonary follow-up visit. Overall she is doing a little better. She is concerned because she did have her low-dose CT scan of the chest and she was found to have multiple nodules. She has a new 6 mm pulmonary nodule and it was recommended that she have a very repeat CT scan in 3 months time. I did reassure her. We did look at the CAT scan. She does have significant emphysema. Her new pulmonary nodules do not have concerning appearance is however I do agree that repeating the CT scan in 3 months time is to correct decision. She continues use her respiratory medicine with good effect. She still struggling with smoking. We did review her pulmonary function studies demonstrating very severe COPD. The patient also has significant air trapping. Her diffusing capacity is around 40% predicted. Explained to her that if it drops further down to the 30s then she will likely require oxygen supplementation. 08/10/2023 the patient is here for a pulmonary follow-up visit. She has a scheduled procedure with Urology. Apparently she was diagnosed with bladder cancer many years ago and then was lost to follow-up. Now she has been on therapy for with urology. Although she would like to stop the therapy. She needs to have a repeat cystoscopy at this point under anesthesia. She does have severe COPD. She has been medically optimized with both Symbicort Spiriva. She continues to smoke cigarettes. She does have a productive chronic cough. [id number]-wc-[id number] severity. Typically worse in the morning. She is also part of the lung cancer screening program. Her next CT scan is going to be around November or December of 2023. Clinically from the pulmonary standpoint the patient may be able to proceed with anesthesia and surgical intervention. She does have increased risk for perioperative pulmonary complications which includes hypoxia, atelectasis, COPD exacerbation and pneumonia. At this point the patient is able to proceed with her procedure. Prior to the procedure she will start using her nebulizer more regularly to try a bronchodilator and try to clear secretions out of her lungs preemptively. 07/30/2024 the patient is here for pulmonary follow-up visit. Overall she is doing better now. Back in March she was found to have a worsening left upper lobe nodular density. She was sent for CT-guided biopsy. Was complicated by a pneumothorax and she was admitted to the hospital for several days. Initially she had a small bore chest tube that was not enough and then she had a surgically placed chest tube. After about 5 days her pneumothorax seal then she was able to be discharged. She is doing well. She continues to have a cough chest congestion. Moderate severity. She does use her inhalers with good effect. 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 Therefore, will have her get blood work including a T spot. We sent sputums today for both Gram stain culture and also AFB. She is going to follow-up with thoracic surgery and she is going to have a PET scan ordered in the coming months. In addition to that she does continue on chemo for her bladder cancer. The patient will follow-up in 3-4 months. If he has any issues prior to that she will call for an earlier assessment. [facility] Medical History (Updated 07/30/24 @ 15:41 by Balwinder Simmons MD) Pulmonary nodule Nicotine dependence Multiple environmental allergies Nicotine dependence, cigarettes, uncomplicated COPD (chronic obstructive pulmonary disease) Stress incontinence Hx of bladder cancer (~2008) Dysphagia History of COVID-19 Primary insomnia Surgical menopause Osteoporosis (~2019) Tubular adenoma of colon (~2016) Hiatal hernia Esophagitis determined by endoscopy History of esophageal stricture Surgical History (Updated 06/17/24 @ 14:17 by Lee Turner MD) Pulmonary nodules Pneumothorax after biopsy History of cataract surgery History of esophageal dilatation History of bladder surgery History of hand surgery History of colonoscopy History of esophagogastroduodenoscopy (EGD) History of cystoscopy History of hysterectomy Family History Father HTN (hypertension) Mesothelioma Mother Melanoma Brother No problems noted. Brother No problems noted. Sister No problems noted. Daughter Melanoma Son No problems noted. Son No problems noted. Son No problems noted. Sister Lung cancer Social History (Updated 07/30/24 @ 15:31 by Laura Diaz CMA) Household Members: Spouse Housing: House Do you presently have visiting nurse or other home services: No Patient Tobacco Use Status: Current everyday Tobacco user Tobacco use type: Cigarette Cigarettes Per Day: 3 e-Cigarette/Vaping Use: Never Used Second Hand Smoke Exposure: No service: No Current occupational status: employed Cognitive needs: No Hearing needs: No Vision needs: Yes Review of Systems Const Denies body aches, Denies fever(s), Denies headache(s), Denies weakness and Reports weight loss Eyes Denies change in vision and Denies itchy eyes ENT Denies dizziness, Denies headache(s), Denies nasal congestion, Denies nasal discharge and Denies sore throat Card Denies chest pain, Denies lightheadedness, Denies palpitations, Denies dyspnea and Reports dyspnea on exertion Resp Reports chest congestion, Reports cough, Denies dyspnea, Reports dyspnea on exertion and Reports wheezing GI Denies abdominal pain and Denies change in bowel habits Musc Reports myalgias Neuro Denies dizziness, Denies headache(s) and Denies weakness Endo Denies polydipsia, Denies polyuria and Denies palpitations Pranav/Lymph Denies easy bruising Aller/Immun Denies itchy eyes, Denies seasonal rhinorrhea and Reports wheezing Physical Exam Vital Signs: Last Vital Signs Pulse 91 07/30/24 15:29 BP 110/78 07/30/24 15:29 Pulse Ox 96 07/30/24 15:29 Oxygen Delivery Method Room Air 07/30/24 15:29 BMI result Body Mass Index 18.1 Const General: comfortable Orientation/consciousness: patient oriented x3 Limitations: no limitations HEENT Head: Yes normal to inspection Eyes General: appearance normal, both eyes and all related structures Neck Neck: Yes normal visual inspection Chest Chest palpation & inspection: normal palpation of entire chest wall Resp Effort & Inspection: normal respiratory effort Auscultation: diminished lung sounds Cardio Rate: regular rate Rhythm: regular rhythm Heart sounds: S1 normal heart sound present and S2 normal heart sound present GI Auscultation: normal bowel sounds Neuro General: patient oriented x3 Extrem General: Yes no clubbing, cyanosis or edema Assessment & Plan Assessment & Plan (1) COPD (chronic obstructive pulmonary disease): Comment: ff'd by pulmonary clinic Code(s): J44.9 - Chronic obstructive pulmonary disease, unspecified Category: Medical Qualifiers: COPD type: chronic bronchitis Chronic bronchitis type: mixed simple and mucopurulent Qualified Code(s): J41.8 - Mixed simple and mucopurulent chronic bronchitis (2) Cigarette smoker two packs a day or less: Code(s): F17.210 - Nicotine dependence, cigarettes, uncomplicated Category: Social Hx (3) Hiatal hernia: Code(s): K44.9 - Diaphragmatic hernia without obstruction or gangrene Category: Medical (4) Pulmonary nodules: Code(s): R91.8 - Other nonspecific abnormal finding of lung field Category: Surgical Plan continue Symbocrt and Spiriva KENDRICK as needed Duoneb as needed Tobacco cessation PET scan ordered by Thoracic surgery Sputum AFB and GS culture sent Labs and Tspot requested F/U 4 months Orders: Orders Acid-fast Culture + Smear Today R91.1 - Solitary pulmonary nodule T Spot TB Today R91.1 - Solitary pulmonary nodule Erythrocyte Sedimentation Rate Today R91.1 - Solitary pulmonary nodule Sputum Cult + Gram stain Today R91.1 - Solitary pulmonary nodule Complete Blood Count Auto Diff Today R91.1 - Solitary pulmonary nodule Coding Level of Care Code Est Pt Level 4 (54802) Complex EM visit Add On G2211 Diagnoses Mixed simple and mucopurulent chronic bronchitis J41.8 COPD type: chronic bronchitis Chronic bronchitis type: mixed simple and mucopurulent Cigarette smoker two packs a day or less F17.210 Hiatal hernia K44.9 Pulmonary nodules R91.8 Time Spent (min) 17
[2024-07-30 15:29] VITALS: BP 110/78; PULSE 91; O2SAT 96; BMI 18.1
--- OUTSIDE RECORDS SUMMARY | 2024-07-30 17:45 | XMS_ITS ---
Author Organization [facility] Address [address] [place] [address] Care Team Providers Care Junior Software Engineer Name Role Phone June CHINO, Arlin Primary Care Provider Koffi Ferguson [phone] REASON FOR VISIT esophageal stricture, esophageal dysphagia Encounters Encounter Location Date Provider Diagnosis [facility] Outpatient [address] [place] [address] [id number] 02/10/2023 Koffi Andrews Esophageal strictu re K22.2 ; Hiatal hernia K44.9 and Dysphagia R13.10 ASSESSMENTS Encounter Date Diagnosis Assessment Notes Treatment Notes Treatment Clinical Notes 02/10/2023 Esophageal stricture (ICD-10 - K22.2) 02/10/2023 Hiatal hernia (ICD-10 - K44.9) 02/10/2023 Dysphagia (ICD-10 - R13.10) PLAN OF TREATMENT No Information
--- OUTSIDE RECORDS SUMMARY | 2024-07-30 17:46 | XMS_ITS ---
Author Organization [facility] Address [address] [place] [address] Care Team Providers Care Welding Operator Name Role Phone June CHINO, Arlin Primary Care Provider Koffi Ferguson [phone] REASON FOR VISIT H & P Encounters Encounter Location Date Provider Diagnosis [facility] [address] [place] [address] 01/31/2023 Koffi Andrews PLAN OF TREATMENT No Information
--- OUTSIDE RECORDS SUMMARY | 2024-07-30 17:46 | XMS_ITS | Patient Health Record ---
Author Organization [facility] Address [address] [place] [address] Care Team Providers Care Pressroom Foreman Name Role Phone June CHINO, Arlin Primary Care Provider Koffi Ferguson Unavailable [phone] ALLERGIES No Known Allergies REASON FOR REFERRAL No Information MEDICATIONS Medication SIG (Take, Route, Frequency, Duration) Notes Start Date End Date Status Omeprazole 20 MG TAKE 2 CAPSULES BY M OUTH TWICE A DAY for 90 Not-Taking PriLOSEC 20 MG 2 capsules Orally BID Not-Taking Carafate 1 GM Dissolve 1 tablet in 1 ounce of warm water Orally TID 30-60 minutes AC for 30 day(s) 11/28/2021 Not-Taking OsmoPrep 1.102-0.398 GM 4 tablets with 8 ounces of water as directed Orally 8 times over the course of the night before the colonoscopy as directed. for 1 days 12/14/2021 Active Symbicort Active Omeprazole 20 MG 1 capsule Orally BID Not-Taking ProAir HFA Active Omeprazole 40 MG 1 Orally BID for 30 day(s) 12/24/2019 Active Spiriva Respimat 1.25 MCG/ACT TAKE 1 PUFF BY MOUTH EVERY DAY Inhalation for 30 Active IMMUNIZATIONS Vaccine Route Administration Date Status Comme nts Influenza Unknown 03/17/2019 Administered Influenza Unknown 03/17/2021 Administered SOCIAL HISTORY Tobacco Use: Social History Observation Description Date Details (start date - stop date) Current Smoker NA - NA Sex Assigned At : Social History Observation Description Sex Assigned At Unknown Tobacco Use/Smoking Question Answer Notes Patient is a current smoker How many cigarettes a day do you smoke? 6-10 How soon after you wake up d o you smoke your first cigarette? after 60 minutes Are you interested in quitting? Thinking about q uitting PROBLEMS Problem Type ICD Code Onset Dates Problem Status W/U Status Risk SNOMED Code Notes Problem Dysphagia (R13.10) Active confirmed 01393691 Problem Encounter for screening for malignant neoplasm of colon (Z12.11) Active confirmed 334378455 Problem Encounter for screening for malignant neoplasm of rectum (Z12.12) Active confirmed Screening fo r malignant neoplasm of rectum (870384845) Problem Esophageal stricture (K22.2) Active confirmed 79708815 Problem Esophageal dysphagia (R13.14) Active confirmed 07246250 Problem Esophageal dysphagia (R13.10) Active confirmed 24208988 Problem Erosive esophagitis (K22.10) Active confirmed 74624571 Problem Esophageal dysphagia (R13.19) Active confirmed 85911516 Problem History of adenomatous polyp of colon (Z86.010) Active confirmed History of adenomatous polyp of colon (345813920) Problem Diverticulosis of colon (K57.30) Active confirmed Diverticulosi s of colon (734616360) Problem Esophageal ring (K22.2) Active confirmed Esophageal ring (19933066) PLAN OF TREATMENT Pending Test Test Name Order Date XR BARIUM SWALLOW-ESOPHAGUS 01/02/2017 Pathology 01/31/2022 Future Test Test Name Order Date UPPER GI ENDOSCOPY BALLOOON DILATION OF ESOPH 06/28/2016 COLONOSCOPY 06/28/2016 UPPER GI ENDOSCOPY BALLOOON DILATION OF ESOPH 04/06/2018 UPPER GI ENDOSCOPY BALLOOON DILATION OF ESOPH 12/24/2019 UPPER GI ENDOSCOPY BALLOOON DILATION OF ESOPH 11/18/2021 UPPER GI ENDOSCOPY BALLOOON DILATION OF ESOPH 12/14/2021 COLONOSCOPY 12/14/2021 UPPER GI ENDOSCOPY BALLOOON DILATION OF ESOPH 01/17/2023 Insurance Providers Payer Name Payer Address Payer Phone Subscriber Number Group Number Insured Name Patient Relationship to Insured Coverage Start Date Coverage End Date [facility] [address] [place] [phone] [id number] COBY QUEEN Self - patient is the insured MEDICAL (GENERAL) HISTORY Medical History History ICD Code Bladder cancer--treated with cystoscopy COPD EGD in 2002--small hiatal he rnia and mild gastritis--biopsies were negative for H. pylori. Screening Colonoscopy in 2002--negative except for a hyperplastic polyp Denies [place],DM,CVA,renal disease Colonoscopy 08/2016--small tu bular adenomas, diverticulosis and internal hemoorhoids Esophageal stricture--EGD's and balloon dilations in 08/2016(very tight stricture), 09/2016, and 10/2016(much improved)--hiatal hernia Pneumonia 2018 EGD with a balloon dilation in March of 2018 for recurrent dysphagia. Her exam revealed some esophagitis, her hiatal hernia, and a relatively mild stricture which was dilated up to a 16.5 mm balloon. This did give her some good relief until the spring. EGD with balloon dilation fr om 10-12 mm in December of 2019--at that time the scope could not be passed by the stricture initially. There was also significant erosive esophagitis. A followup upper endoscopy in February of 2020 revealed significant healing of the esophagitis and a more patent stricture allowing easy passage of the scope. Further dilation with a 12-13.5 mm balloon was done at that time. I did not dilate past 13.5 mm due to the friability of the tissue at the level of the stricture. Surgical History Surgery Date(Month/Year) Hysterectomy--both ovaries are still in place 1978 Bladder surgery-cancer--done with cystos copy
== END 2024-07-30 15:55 | disposition home or self-care (01) ==
PROVIDERS: PCP Internal Medicine; Visit Provider Hospitalist
DX: J41.8 Mixed simple and mucopurulent chronic bronchitis (principal); F17.210 Nicotine dependence, cigarettes, uncomplicated; K44.9 Diaphragmatic hernia without obstruction or gangrene; R91.8 Other nonspecific abnormal finding of lung field
CPT/HCPCS: 99214

== ENCOUNTER 2024-08-01 08:03 | Outpatient (AMB) | payer OTHER, SELFPAY ==
--- NOTE | 2024-07-31 23:46 | MHC.OFFVIS ---
Intake Visit Reasons: Discussion on cystoscopy/Questions Intake Note: Patient is present for discussion on Cysto, patient has questions Urology Med: None Antibiotic Allergy: None Blood Thinner: None Assistant Finance Director Required: No Accompanied by: Self / Same As Patient Allergies morphine Adverse Reaction (Intermediate, Verified 08/01/24 08:05) Vomiting HPI Comments Details: 08/01/24--Ebony is a 73-year-old female who is being followed due to urothelial carcinoma of the bladder, and CIS of bladder. Last cysto/biopsy - 01/28/24- Significant for CIS bladder. She was referred to Oncology. Currently receiving Keytruda. Last cycle scheduled for 08/08/24. Plan repeat cystoscopy bladder biopsies. Review of chart: 05/17/24-- Ebony is a 73-year-old female who is being followed due to urothelial carcinoma of the bladder, and CIS of bladder. Last cysto/biopsy - 01/28/24- Significant for CIS bladder. She was referred to Oncology. Currently receiving Keytruda. Initially diagnosed by another urologist in 2008. She did not have follow-up for several years and was seen in December of 2022 and is status post TURBT 02/21/2023 noting high-grade noninvasive urothelial carcinoma right lateral wall followed by gemcitabine installations. Repeat bladder biopsies 08/15/2023 noted multifocal areas of carcinoma in Situ. The patient received bladder installations of mitomycin/cytarubine, last 12/08/2023. During the course of bladder installations she did have some fatigue. Plan--After completes Keytruda, will schedule out patient cysto bladder bx. 02/16/24--s/p post repeat bladder biopsies, 01/30/24- significant for CIS is all biopsies. The patient has failed chemotherapy bladder instillations. Plan refer to oncology for evaluation for Keytruda. She was prescribed gemtesa for LUTS for urinary frequency/urgency, insurance did not cover. She states she does not want another medication called in at this time. Patient agrees with plan. 01/05/24--Ebony is a 73-year-old female who is being followed due to urothelial carcinoma of the bladder, initially diagnosed by another urologist in 2008. She did not have follow-up for several years and was seen in December of 2022 and is status post TURBT 02/21/2023 noting high-grade noninvasive urothelial carcinoma right lateral wall followed by gemcitabine installations. Repeat bladder biopsies 08/15/2023 noted multifocal areas of carcinoma in Situ. The patient received bladder installations of mitomycin/cytarubine, last 1 12/08/2023. The patient states she has been doing well she denies dysuria. During the course of bladder installations she did have some fatigue. Consent today is obtained for repeat cystoscopy bladder biopsies. 09/01/23--S/P bladder bx post gemcitabine instillations. path 08/15/23--CIS - right lat wall, left lat wall, post wall, Discussed nicotine cessation. Discussed treatment recommendation for Bladder instillation of BCG immunotherapy, not readily available. I will investigate availablity. Otherwise bladder instillation with combination gemcitobine with docetaxel. 03/13/2023?Ebony is a 72-year-old female who presents today to the office for a follow-up s/p TURBT 02/21/23. I have reviewed the CT urogram results from 02/20/2023 revealed no radiopaque urolith, enhancing renal mass or hydroureteronephrosis. Unremarkable bladder. Mild constipation. 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 Urothelial carcinoma from the okay since he is seeing me for the 1st time, rachel barrone. She reports burning after urination. She is still smoking cigarettes. 01/13/2023?The patient was last seen in the office on 01/13/23 by LAVON Masters. The patient denies gross hematuria. The patient has history of superficial bladder cancer, diagnosed in October of 2008. Past medical history significant for COPD and nicotine dependence, esophagitis with dysphagia. The patient is an active smoker and started smoking from the age of 17 years. In review of note from 11/07/22, VELIA Boyd documented pathology 10/2008? 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 The patient gives a history of cigarette use for over 55 years. She states that her last cystoscopy was about 3 years ago. The patient has history of hysterectomy about age 20 for menorrhagia. Urine cytology-- collected 11/07/22--? few atypical cells noted. Evaluation today UA-- Blood:200 Earle/uL, leukocytes: negative. Cystoscopy findings-- erythematous flat lesion on the posterior wall of the bladder which need further evaluation with biopsy. Plan:urine bladder/FISH cytology test, as outpatient, urine provided not sufficient to send for testing Cystoscopy TURBT discussed to be scheduled. CT urogram prior with contrast was ordered. PFSH Medical History Pulmonary nodule Nicotine dependence Multiple environmental allergies Nicotine dependence, cigarettes, uncomplicated COPD (chronic obstructive pulmonary disease) Stress incontinence Hx of bladder cancer (~2008) Dysphagia History of COVID-19 Primary insomnia Surgical menopause Osteoporosis (~2019) Tubular adenoma of colon (~2016) Hiatal hernia Esophagitis determined by endoscopy History of esophageal stricture Surgical History Pulmonary nodules Pneumothorax after biopsy History of cataract surgery History of esophageal dilatation History of bladder surgery History of hand surgery History of colonoscopy History of esophagogastroduodenoscopy (EGD) History of cystoscopy History of hysterectomy Family History Father HTN (hypertension) Mesothelioma Mother Melanoma Brother No problems noted. Brother No problems noted. Sister No problems noted. Daughter Melanoma Son No problems noted. Son No problems noted. Son No problems noted. Sister Lung cancer Social History Household Members: Spouse Housing: House Do you presently have visiting nurse or other home services: No Patient Tobacco Use Status: Current everyday Tobacco user Tobacco use type: Cigarette Cigarettes Per Day: 3 e-Cigarette/Vaping Use: Never Used Second Hand Smoke Exposure: No service: No Current occupational status: employed Cognitive needs: No Hearing needs: No Vision needs: Yes Review of Systems Const All systems reviewed & are unremarkable except as noted in HPI and below Reports no additional complaints Eyes Reports no additional complaints ENT Reports no additional complaints Card Reports no additional complaints Resp Reports no additional complaints GI Reports no additional complaints Reports as per HPI Musc Reports no additional complaints Skin/Breast Reports system reviewed and no additional complaints, except as documented Neuro Reports no additional complaints Psych Reports no additional complaints Endo Reports no additional complaints Pranav/Lymph Reports no additional complaints Aller/Immun Reports no additional complaints Telehealth Telehealth Telehealth Platform: Doximity Location of provider rendering services: practice address Location of patient: address on file Patient Identification confirmed using: Name, : Yes Telehealth method: voice only Patient verbally consented to treatment: Yes Patient verbally consented to billing insurance company: Yes Patient informed of any privacy concerns related to visit: Yes Minutes spent on Phone/Video with Pt.: 13 Assessment & Plan Assessment & Plan (1) CIS (carcinoma in situ of bladder): Code(s): D09.0 - Carcinoma in situ of bladder Category: Medical (2) Bladder cancer: Code(s): C67.9 - Malignant neoplasm of bladder, unspecified Category: Medical (3) Cigarette smoker two packs a day or less: Code(s): F17.210 - Nicotine dependence, cigarettes, uncomplicated Category: Social Hx Plan Following with Oncology- receiving Keytruda immunotherapy Last cycle scheduled for 08/08/24. Schedule repeat cystoscopy biopsies. Patient Instructions: The patient had an opportunity to ask questions regarding treatment plan. The patient expressed understanding and agreement with the above treatment plan. The patient is aware they should contact our office by phone for worsening of their current condition or the appearance of new symptoms. Compliance is encouraged with any medications and followup testing that is ordered. It is a privilege to be allowed the opportunity to participate in the urologic care of your patient. If you have any questions or concerns regarding treatment for the above conditions please do not hesitate to contact me. The office telephone contact is [phone]. This note is constructed in part using voice recognition software. While every effort has been made to ensure accuracy counseling services manager errors may have been included. Yours sincerely, Sweta Spencer MD Coding Level of Care Code Tele Est Pt Level 3 (35685) Diagnoses CIS (carcinoma in situ of bladder) D09.0 Bladder cancer C67.9 Cigarette smoker two packs a day or less F17.210
== END 2024-08-01 09:01 | disposition home or self-care (01) ==
LOC: HO.HUSH 08:03
PROVIDERS: PCP Internal Medicine; Visit Provider Urology
DX: D09.0 Carcinoma in situ of bladder (principal); C67.9 Malignant neoplasm of bladder, unspecified; F17.210 Nicotine dependence, cigarettes, uncomplicated
CPT/HCPCS: 98013

== ENCOUNTER 2024-08-13 07:59 | Outpatient (REF) | payer OTHER, SELFPAY ==
--- NOTE | ~2024-08-13 | PE_ITS ---
EXAMINATION: FLUORINE-18 FDG PET/CT SCAN CLINICAL INFORMATION: Spiculated opacity left upper lobe. TECHNIQUE: 66 minutes following the intravenous administration of 15.9 mCi of fluorine 18 FDG, images from the skull base to proximal thighs were obtained using a combined PET/CT scanner with CT scan based attenuation correction. No oral or intravenous contrast was administered. Transverse, coronal, sagittal, and volume reconstruction projections were obtained. The patient's blood glucose as determined by a finger stick, was 91 mg/dL immediately prior to injection. The radiotracer was injected intravenously through left antecubital vein, without any complications. Total CT exam dose-length product 295 mGy-cm. * These CT images were obtained using dose optimization techniques as appropriate, variously including the following: Automated exposure control * Adjustment of mA and/or kV according to patient size (this includes techniques or standardized protocols for targeted exams where dose is matched to indication/reason for exam; i.e. extremities or head) * Use of iterative reconstruction technique COMPARISON: Chest x-ray 06/05/2024, 04/25/2024 FINDINGS: HEAD AND NECK: No abnormal radiotracer uptake. No large intracranial hemorrhage, acute territorial infarct or significant shift of midline structures. CHEST: Ports and Devices: None Lungs: There is no abnormal FDG uptake seen within the left upper lobe spiculated lesion seen on recent chest x-ray. Patient has been previously treated for left upper lobe consistent melanoma Pleura: No significant pleural effusion. Lymph Nodes: No tracer-avid mediastinal, hilar or internal mammary or axillary lymphadenopathy. Mediastinum: There is no significant pericardial effusion/thickening. Breasts/Chest Wall: No abnormal radiotracer uptake. ABDOMEN/PELVIS: Liver/Biliary System: No focal tracer-avid liver lesion. The gallbladder appears unremarkable. Pancreas: Normal. Spleen: No abnormal radiotracer uptake. No evidence of splenomegaly. Adrenal Glands: No abnormal radiotracer uptake. Kidneys: No hydronephrosis, hydroureter or renal calculi bilaterally. Bowel: There is moderate scattered stool seen throughout the colon without distention. The small bowel loops in the stomach is unremarkable. Lymph Nodes: No tracer avid retroperitoneal, mesenteric or pelvic and/or groin lymphadenopathy. Pelvic Organs: The urinary bladder is underdistended. MUSCULOSKELETAL: Nonspecific activity in bilateral shoulder joints and medial wrist joints likely DJD. No other abnormal FDG activity seen. No aggressive lytic or sclerotic process seen VASCULAR: The abdominal aorta is of normal caliber except for mild atherosclerosis PET/PET CT fusion skull to thigh IMPRESSION: No abnormal FDG activity seen in the left upper lobe spiculated opacity seen on recent chest x-ray 06/05/2024. Patient had a known left upper lobe mass which was biopsied and likely treated in 2023. Rest of the whole body PET scan is unremarkable. Electronically signed by: Dony Farah MD 08/14/2024 07:29 AM CAROL
--- OUTSIDE RECORDS SUMMARY | 2024-08-13 08:04 | XMS_ITS | Patient Health Record ---
Author Organization [facility] Address [address] [place] [id number] Care Team Providers Care Block Paver Name Role Phone June CHINO, Arlin Primary Care Provider Koffi Ferguson Unavailable [phone] ALLERGIES No Known Allergies REASON FOR REFERRAL [...] Code Notes Problem Dysphagia (R13.10) Active confirmed 84779790 Problem Encounter for screening for malignant neoplasm of colon (Z12.11) Active confirmed 768536387 Problem Encounter for screening for malignant neoplasm of rectum (Z12.12) Active confirmed Screening fo r malignant neoplasm of rectum (556173334) Problem Esophageal stricture (K22.2) Active confirmed 77673451 Problem Esophageal dysphagia (R13.14) Active confirmed 66807833 Problem Esophageal dysphagia (R13.10) Active confirmed 47315319 Problem Erosive esophagitis (K22.10) Active confirmed 39849179 Problem Esophageal dysphagia (R13.19) Active confirmed 62670309 Problem History of adenomatous polyp of colon (Z86.010) Active confirmed History of adenomatous polyp of colon (834875789) Problem Diverticulosis of colon (K57.30) Active confirmed Diverticulosi s of colon (028957073) Problem Esophageal ring (K22.2) Active confirmed Esophageal ring (71883288) PLAN OF TREATMENT Pending Test Test Name [...] Insured Coverage Start Date Coverage End Date [facility] [address] [place] [phone] [id number] COBY QUEEN Self - patient is the insured MEDICAL (GENERAL) HISTORY Medical History History ICD Code Bladder cancer--treated with cystoscopy COPD EGD in 2002--small hiatal he rnia and mild gastritis--biopsies were negative for H. pylori. Screening Colonoscopy in 2002--negative except for a hyperplastic polyp Denies HI,DM,CVA,renal disease Colonoscopy 08/2016--small tu bular adenomas, diverticulosis [...]
--- OUTSIDE RECORDS SUMMARY | 2024-08-13 08:04 | XMS_ITS ---
Author Organization [facility] Address [address] [place] [address] Care Team Providers Care Home Health Caregiver Name Role Phone June CHINO, Arlin Primary Care Provider Koffi Ferguson [phone] REASON FOR VISIT esophageal stricture, esophageal dysphagia Encounters Encounter Location Date Provider Diagnosis [facility] [address] [place] [id number] 02/10/2023 Koffi Andrews Esophageal strictu re K22.2 ; Hiatal hernia K44.9 and Dysphagia R13.10 ASSESSMENTS Encounter Date Diagnosis Assessment Notes Treatment Notes Treatment Clinical Notes 02/10/2023 Esophageal stricture (ICD-10 - K22.2) 02/10/2023 Hiatal hernia (ICD-10 - K44.9) 02/10/2023 Dysphagia (ICD-10 - R13.10) PLAN OF TREATMENT No Information
== END 2024-08-13 08:00 | disposition home or self-care (01) ==
LOC: HO.PET 07:59
PROVIDERS: PCP Internal Medicine; Visit Provider Surgery
DX: Z13.89 Encounter for screening for other disorder (principal)

== ENCOUNTER 2024-09-17 07:58 | Day surgery (SDC) | payer OTHER, SELFPAY ==
[2024-09-13 11:02] VITALS: BMI 19.8
--- NOTE | 2024-09-16 12:14 | HO.ANESPROP2 ---
Documented by User: Teagan Hendrickson NP 09/16/24 12:36 HPI - Anesthesia Eval Consult details Narrative: 73yo F for Cystoscopy & Bladder Biopsy s/p same 01/2024 with GA-LMA 4 [place]s [facility] [place] COPD, lung nodules. Last office visit 07/2024, started on abx after +sputum culture Follows [facility] [place] for bladder ca: s/p cycle 6 of the pembrolizumab [facility] admit 04/09-04/2024. Discharge summary: 73-year-old woman initially having an day stay lung biopsy but developed a pneumothorax. She had a chest tube placed and in patient admission was requested. She had some complications throughout the hospital stay including placement issues where new chest tube had to be placed to the 5th intercostal space. This chest tube was placed on suction and then 04/15/2024 placed on water seal. Today she had repeat imaging which showed resolution of pneumothorax and chest tube was removed. Patient followed up with thoracic surgery in their office in 7 days. COPD. Secondary to tobacco use. Discussed the importance of smoking cessation. No COPD exacerbation during hospitalization. Continue home inhalers. Hemoptysis. Likely secondary to capillary rupture with increased thoracic pressure. Seen evaluated by pulmonology with no further recommendation for treatment. PMFSH Active Problems Active Problems: All Active Problems Pulmonary nodule (Acute) CIS (carcinoma in situ of bladder) (Acute) Leukocytes in urine (Acute) Dysuria (Acute) Urinary tract infection (Acute) Bladder cancer (Acute) Lesion of bladder (Acute) Pulmonary nodules (Acute) Centrilobular emphysema (Acute) Pneumothorax after biopsy (Acute) Multiple environmental allergies (Acute) Nicotine dependence, cigarettes, uncomplicated (Acute) Stress incontinence (Acute) Hx of bladder cancer (Acute ~2008) Primary insomnia (Acute) Surgical menopause (Acute) Osteoporosis (Acute ~2019) Tubular adenoma of colon (Acute ~2016) Hiatal hernia (Acute) Esophagitis determined by endoscopy (Acute) Past Medical History Medical History Pulmonary nodule Multiple environmental allergies Nicotine dependence, cigarettes, uncomplicated COPD (chronic obstructive pulmonary disease) Stress incontinence Hx of bladder cancer (~2008) Dysphagia History of COVID-19 Primary insomnia Surgical menopause Osteoporosis (~2019) Tubular adenoma of colon (~2016) Hiatal hernia Esophagitis determined by endoscopy History of esophageal stricture Family History Family History Father HTN (hypertension) Mesothelioma Mother Melanoma Brother No problems noted. Brother No problems noted. Sister No problems noted. Daughter Melanoma Son No problems noted. Son No problems noted. Son No problems noted. Sister Lung cancer Family history of problems with anesthesia: No Surgical History Surgical History Pneumothorax after biopsy History of cataract surgery History of esophageal dilatation History of bladder surgery History of hand surgery History of colonoscopy History of esophagogastroduodenoscopy (EGD) History of cystoscopy History of hysterectomy History of Problems with Anesthesia: No Social History Social History Household Members: Spouse Housing: House Are you a primary wound care center consultant to a significant other at home: No Do you presently have visiting nurse or other home services: No Patient Tobacco Use Status: Current everyday Tobacco user Tobacco use type: Cigarette Cigarette Packs Per Day: 5 Cigarettes Per Day: 100.0 e-Cigarette/Vaping Use: Never Used Second Hand Smoke Exposure: No Use of substances other than those prescribed or required for medical reasons: No Have you been hit, kicked, punched, or otherwise hurt by someone within the past year? If so, by whom?: No Are you DNR?: No Advance Directives: No Advance Directives Information Provided: Yes Recently lost weight without trying: No Nutrition Risks: Difficulty swallowing Patient : No service: No Current occupational status: employed Cognitive needs: No Hearing needs: No Vision needs: Yes Meds Allergies Allergy/AdvReac Type Severity Reaction Status Date / Time morphine AdvReac Intermediate Vomiting Verified 09/17/24 08:32 Home Medications ?Medication ?Instructions ?Recorded ?Confirmed ?Last Taken ?Type omeprazole 40 mg capsule,delayed 40 mg PO BID PRN Acid Reflux 03/13/23 09/17/24 09/17/24 History release nebulizers 08/10/23 06/17/24 Unknown History Exam Height,Weight and Vital Signs: Height 5 ft 1 in Weight 47.6 kg Pertinent Lab Results Pertinent Lab Results: Laboratory Tests 08/29/24 13:16 WBC 10.1 Hgb 13.8 Hct 40.9 Plt Count 221 Sodium 142 Potassium 4.5 Chloride 103 Carbon Dioxide 30 H BUN 18 H Creatinine 0.77 Narrative Narrative: EKG 03/2024 (pneumothorax) Vent. Rate : 137 BPM Atrial Rate : 137 BPM P-R Int : 136 ms QRS Dur : 058 ms QT Int : 290 ms P-R-T Axes : 083 079 074 degrees QTc Int : 437 ms Sinus tachycardia with Fusion complexes Right atrial enlargement Anterior infarct (cited on or before 28-AUG-2018) Abnormal ECG When compared with ECG of 28-AUG-2018 07:19, Fusion complexes are now Present Vent. rate has increased BY 45 BPM Assessment and Plan Assessment Anesthesia Assessment: Chart Reviewed Final Anesthetic Review Family History of Problems with Anesthesia: No History of Problems with Anesthesia: No Documented by User: Alban Powers MD 09/17/24 09:34 PENDING SALE TO [facility] Past Medical History Medical History Pulmonary nodule Multiple environmental allergies Nicotine dependence, cigarettes, uncomplicated COPD (chronic obstructive pulmonary disease) Stress incontinence Hx of bladder cancer (~2008) Dysphagia History of COVID-19 Primary insomnia Surgical menopause Osteoporosis (~2019) Tubular adenoma of colon (~2016) Hiatal hernia Esophagitis determined by endoscopy History of esophageal stricture Family History Family History Father HTN (hypertension) Mesothelioma Mother Melanoma Brother No problems noted. Brother No problems noted. Sister No problems noted. Daughter Melanoma Son No problems noted. Son No problems noted. Son No problems noted. Sister Lung cancer Surgical History Surgical History Pneumothorax after biopsy History of cataract surgery History of esophageal dilatation History of bladder surgery History of hand surgery History of colonoscopy History of esophagogastroduodenoscopy (EGD) History of cystoscopy History of hysterectomy Social History Social History Household Members: Spouse Housing: House Are you a primary wound care center consultant to a significant other at home: No Do you presently have visiting nurse or other home services: No Patient Tobacco Use Status: Current everyday Tobacco user Tobacco use type: Cigarette Cigarette Packs Per Day: 5 Cigarettes Per Day: 100.0 e-Cigarette/Vaping Use: Never Used Second Hand Smoke Exposure: No Use of substances other than those prescribed or required for medical reasons: No Have you been hit, kicked, punched, or otherwise hurt by someone within the past year? If so, by whom?: No Are you DNR?: No Advance Directives: No Advance Directives Information Provided: Yes Recently lost weight without trying: No Nutrition Risks: Difficulty swallowing Patient : No service: No Current occupational status: employed Cognitive needs: No Hearing needs: No Vision needs: Yes Meds Allergies Allergy/AdvReac Type Severity Reaction Status Date / Time morphine AdvReac Intermediate Vomiting Verified 09/17/24 08:32 Home Medications ?Medication ?Instructions ?Recorded ?Confirmed ?Last Taken ?Type omeprazole 40 mg capsule,delayed 40 mg PO BID PRN Acid Reflux 03/13/23 09/17/24 09/17/24 History release nebulizers 08/10/23 06/17/24 Unknown History Exam Airway Mallampati Class: II TM Dist: <=3cm Neck ROM: Full Denture: Upper and Lower Heart: ok Lungs: see above. Assessment and Plan Assessment Anesthesia Assessment: Anesthesia Plan Discussed Final Anesthetic Review NPO: Yes ASA Class: III and IV Final Preanesthetic Review: No Changes in Pt Med Stat, Meds/Allgs Chart Reviewed, Consent Obtained/Reviewed and Anes Risks/Benef Reviewed Patient Risk: High Procedure Risk: Low Anesthetic Plan Anesthetic Plan: GA and Agree w/ Assess. and Plan Disposition: Standard PACU
[2024-09-17 08:09] VITALS: BP 132/64; PULSE 94; RESP 16; TEMP 36.6; O2SAT 96; BMI 18.3
[2024-09-17] MEDS: Scopolamine 1.5 MG PATCH.TD.3 EAR-BEHIND (08:36)
[2024-09-17] MEDS: Lactated Ringers 1,000 ML 100 ML IVCONT (08:38)
--- NOTE | 2024-09-17 09:30 | P.OP_ITS ---
Operative Note Operative Note Date of Service: 09/17/24 Narrative: PREOP DIAGNOSIS: Bladder cancer, CIS, Com[place]bi[place] Nicotine dependence POSTOP DIAGNOSIS: Bladder cancer, CIS PROCEDURE: Cystoscopy transurethral resection of bladder lesion, fulguration, bladder biopsies Anesthesia: General Surgeon Dr. Sweta Spencer Findings: small bladder lesions, dome and right lateral wall, measuring together 1-2 cm Details of procedure: The patient was brought into the operating room placed on the OR table in supine position. Antibiotics confirmed. General anesthesia was administered. The patient was repositioned into lithotomy position, prepped and draped in the usual sterile fashion. Time-out was done per protocol. 2% urojet placed. A 22 Icelandic cystoscope was passed transurethrally into the bladder. Visualization of the bladder noted contracted bladder, with thickening of the bladder wall, with erythematous flat lesions, 2 at the dome and one lesion right lateral wall. Using the cold cup biopsy forceps, the bladder lesions were res ected. The base of the lesions were fulgarated. Random bladder biopsies were done at the posterior wall, right lateral wall and left lateral wall. The bovie was used for hemostasis. Once there was good hemostasis the cystoscope was removed. 2 % urojet placed. The patient was brought out of anesthesia and taken to recovery in stable condition. Complications: None EBL: minimal (<5 mL) Drains: none
--- NOTE | 2024-09-17 09:30 | MHC.SHP ---
Pre-Procedural Eval Section A - 24 Hr Update-Section A only Date of Service: 09/17/24 The patient is an INPATIENT: No The patient has been examined within 24 hours of the surgical procedure. The History & Physical has been completed within 30 days and I have reviewed it.: Yes Section B - Complete if H&P > 30 days Chief Complaint: Malignant neoplasm of bladder, unspecified Allergies: Allergies Allergy/AdvReac Type Severity Reaction Status Date / Time morphine AdvReac Intermediate Vomiting Verified 09/17/24 08:32 Plan Diagnosis/Plan: Unchanged I have reviewed the history and physical and performed a pertinent physical examination on my patient. No changes have occurred unless specified. Cystoscopy. Bladder biopsies. Discussed risks to include but not limited to, blood in the urine, burning with urination, urgency. Time Spent With Patient Time: Total time managing care of this patient today ____ minutes.
[2024-09-17 10:31] VITALS: BP 117/59; PULSE 83; RESP 22; TEMP 36.3; O2SAT 93
[2024-09-17 10:35] VITALS: BP 137/63; PULSE 82; RESP 22; O2SAT 94
[2024-09-17 10:40] VITALS: BP 142/67; PULSE 81; RESP 18; O2SAT 93
[2024-09-17 10:45] VITALS: BP 140/66; PULSE 86; RESP 18; O2SAT 93
[2024-09-17] MEDS: Phenazopyridine HCL 200 MG TABLET PO (10:54)
[2024-09-17 11:00] VITALS: BP 139/74; PULSE 97; RESP 18; TEMP 36.4; O2SAT 96
== END 2024-09-17 11:51 | disposition home or self-care (01) ==
PROVIDERS: PCP Internal Medicine; Visit Provider Urology
PROC: (CPT 52234; principal; 2024-09-17 09:50)
DX: D09.0 Carcinoma in situ of bladder (principal); N30.80 Other cystitis without hematuria; B96.89 Other specified bacterial agents as the cause of diseases classified elsewhere; Z85.51 Personal history of malignant neoplasm of bladder; N39.3 Stress incontinence (female) (male); R13.10 Dysphagia, unspecified; K20.80 Other esophagitis without bleeding; R91.1 Solitary pulmonary nodule; J44.9 Chronic obstructive pulmonary disease, unspecified; F17.210 Nicotine dependence, cigarettes, uncomplicated; M81.0 Age-related osteoporosis without current pathological fracture; Z79.51 Long term (current) use of inhaled steroids; Z79.899 Other long term (current) drug therapy; Z98.890 Other specified postprocedural states
CPT/HCPCS: 52234; 52204; 87086; 88305; 88342; J0690; J2003; J2704; J3010

== ENCOUNTER → 2024-09-17 07:58 | Outpatient (BNV) | payer OTHER, SELFPAY | PROVIDERS: PCP Internal Medicine; Visit Provider Urology | DX: C67.8 Malignant neoplasm of overlapping sites of bladder (principal) | CPT/HCPCS: 52235 ==

== ENCOUNTER 2024-09-27 14:33 | Outpatient (AMB) | payer OTHER, SELFPAY ==
--- NOTE | 2024-09-27 14:00 | MHC.OFFVIS ---
Intake Visit Reasons: Bladder biopsies results Intake Note: Patient is present for BLADDER BIOPSIES RESULTS Urology Medication:NONE Antibiotic Allergy:NONE Blood Thinner:NONE Minesweeping Officer Required: No Allergies morphine Adverse Reaction (Intermediate, Verified 09/27/24 14:34) Vomiting HPI Comments Details: 09/27/24--Ebony is a 73-year-old female presenting with bladder cancer follow-up. 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 Despite an unsuccessful response to gemcitabine bladder instillation therapy, she is currently being treated with pembrolizumab (Keytruda). Recent bladder biopsies showed improvement; only two showed carcinoma in situ, while others were primarily inflammatory or displayed focal atypia. This suggests a positive response to current therapy. The patient has a history of nicotine use, impacting disease management and requiring cessation as part of ongoing treatment. Of note: the patient and a lung biopsy and a PET CT 08/13/24--No abnormal FDG activity seen in the left upper lobe spiculated opacity seen on recent chest x-ray 06/05/2024. Patient had a known left upper lobe mass which was biopsied and likely treated in 2023. Rest of the whole body PET scan is unremarkable. 08/01/24--Ebony is a 73-year-old female who is being followed due to urothelial carcinoma of the bladder, and CIS of bladder. Last cysto/biopsy - 01/28/24- Significant for CIS bladder. She was referred to Oncology. Currently receiving Keytruda. Last cycle scheduled for 08/08/24. Plan repeat cystoscopy bladder biopsies. 05/17/24-- Ebony is a 73-year-old female who is being followed due to urothelial carcinoma of the bladder, and CIS of bladder. Last cysto/biopsy - 01/28/24- Significant for CIS bladder. She was referred to Oncology. Currently receiving Keytruda. Initially diagnosed by another urologist in 2008. She did not have follow-up for several years and was seen in December of 2022 and is status post TURBT 02/21/2023 noting high-grade noninvasive urothelial carcinoma right lateral wall followed by gemcitabine installations. Repeat bladder biopsies 08/15/2023 noted multifocal areas of carcinoma in Situ. The patient received bladder installations of mitomycin/cytarubine, last 1 12/08/2023. During the course of bladder installations she did have some fatigue. Plan--After completes Keytruda, will schedule out patient cysto bladder bx. 02/16/24--s/p post repeat bladder biopsies, 01/30/24- significant for CIS is all biopsies. The patient has failed chemotherapy bladder instillations. Plan refer to oncology for evaluation for Keytruda. She was prescribed gemtesa for LUTS for urinary frequency/urgency, insurance did not cover. She states she does not want another medication called in at this time. Patient agrees with plan. 01/05/24--Ebony is a 73-year-old female who is being followed due to urothelial carcinoma of the bladder, initially diagnosed by another urologist in 2008. She did not have follow-up for several years and was seen in December of 2022 and is status post TURBT 02/21/2023 noting high-grade noninvasive urothelial carcinoma right lateral wall followed by gemcitabine installations. Repeat bladder biopsies 08/15/2023 noted multifocal areas of carcinoma in Situ. The patient received bladder installations of mitomycin/cytarubine, last 1 12/08/2023. The patient states she has been doing well she denies dysuria. During the course of bladder installations she did have some fatigue. Consent today is obtained for repeat cystoscopy bladder biopsies. 09/01/23--S/P bladder bx post gemcitabine instillations. path 08/15/23--CIS - right lat wall, left lat wall, post wall, Discussed nicotine cessation. Discussed treatment recommendation for Bladder instillation of BCG immunotherapy, not readily available. I will investigate availablity. Otherwise bladder instillation with combination gemcitobine with docetaxel. 03/13/2023?Ebony is a 72-year-old female who presents today to the office for a follow-up s/p TURBT 02/21/23. I have reviewed the CT urogram results from 02/20/2023 revealed no radiopaque urolith, enhancing renal mass or hydroureteronephrosis. Unremarkable bladder. Mild constipation. 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 Urothelial carcinoma from the okay since he is seeing me for the 1st time, random dome. She reports burning after urination. She is still smoking cigarettes. 01/13/2023?The patient was last seen in the office on 01/13/23 by LAVON Masters. The patient denies gross hematuria. The patient has history of superficial bladder cancer, diagnosed in October of 2008. Past medical history significant for COPD and nicotine dependence, esophagitis with dysphagia. The patient is an active smoker and started smoking from the age of 17 years. In review of note from 11/07/22, VELIA Boyd documented pathology 10/2008? 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 The patient gives a history of cigarette use for over 55 years. She states that her last cystoscopy was about 3 years ago. The patient has history of hysterectomy about age 20 for menorrhagia. Urine cytology-- collected 11/07/22--? few atypical cells noted. Evaluation today UA-- Blood:200 Earle/uL, leukocytes: negative. Cystoscopy findings-- erythematous flat lesion on the posterior wall of the bladder which need further evaluation with biopsy. Plan:urine bladder/FISH cytology test, as outpatient, urine provided not sufficient to send for testing Cystoscopy TURBT discussed to be scheduled. CT urogram prior with contrast was ordered. PFSH Medical History Pulmonary nodule Multiple environmental allergies Nicotine dependence, cigarettes, uncomplicated COPD (chronic obstructive pulmonary disease) Stress incontinence Hx of bladder cancer (~2008) Dysphagia History of COVID-19 Primary insomnia Surgical menopause Osteoporosis (~2019) Tubular adenoma of colon (~2016) Hiatal hernia Esophagitis determined by endoscopy History of esophageal stricture Surgical History Pneumothorax after biopsy History of cataract surgery History of esophageal dilatation History of bladder surgery History of hand surgery History of colonoscopy History of esophagogastroduodenoscopy (EGD) History of cystoscopy History of hysterectomy Family History Father HTN (hypertension) Mesothelioma Mother Melanoma Brother No problems noted. Brother No problems noted. Sister No problems noted. Daughter Melanoma Son No problems noted. Son No problems noted. Son No problems noted. Sister Lung cancer Social History Household Members: Spouse Housing: House Are you a primary career development consultant to a significant other at home: No Do you presently have visiting nurse or other home services: No Patient Tobacco Use Status: Current everyday Tobacco user Tobacco use type: Cigarette Cigarette Packs Per Day: 5 Cigarettes Per Day: 100.0 e-Cigarette/Vaping Use: Never Used Second Hand Smoke Exposure: No service: No Current occupational status: employed Cognitive needs: No Hearing needs: No Vision needs: Yes Review of Systems Const All systems reviewed & are unremarkable except as noted in HPI and below Reports no additional complaints Eyes Reports no additional complaints ENT Reports no additional complaints Card Reports no additional complaints Resp Reports no additional complaints GI Reports no additional complaints Reports as per HPI Musc Reports no additional complaints Skin/Breast Reports system reviewed and no additional complaints, except as documented Neuro Reports no additional complaints Psych Reports no additional complaints Endo Reports no additional complaints Pranav/Lymph Reports no additional complaints Aller/Immun Reports no additional complaints Telehealth Telehealth Telehealth Platform: Telephone Location of provider rendering services: practice address Location of patient: address on file Patient Identification confirmed using: Name, : Yes Telehealth method: voice only Patient verbally consented to treatment: Yes Patient verbally consented to billing insurance company: Yes Patient informed of any privacy concerns related to visit: Yes Minutes spent on Phone/Video with Pt.: 13 Results Reviewed Results Reviewed: Date of Service: 08/13/24 FLUORINE-18 FDG PET/CT SCAN CLINICAL INFORMATION: Spiculated opacity left upper lobe. TECHNIQUE: 66 minutes following the intravenous administration of 15.9 mCi of fluorine 18 FDG, images from the skull base to proximal thighs were obtained using a combined PET/CT scanner with CT scan based attenuation correction. No oral or intravenous contrast was administered. Transverse, coronal, sagittal, and volume reconstruction projections were obtained. The patient's blood glucose as determined by a finger stick, was 91 mg/dL immediately prior to injection. The radiotracer was injected intravenously through left antecubital vein, without any complications. Total CT exam dose-length product 295 mGy-cm. * These CT images were obtained using dose optimization techniques as appropriate, variously including the following: Automated exposure control * Adjustment of mA and/or kV according to patient size (this includes techniques or standardized protocols for targeted exams where dose is matched to indication/reason for exam; i.e. extremities or head) * Use of iterative reconstruction technique COMPARISON: Chest x-ray 06/05/2024, 04/25/2024 FINDINGS: HEAD AND NECK: No abnormal radiotracer uptake. No large intracranial hemorrhage, acute territorial infarct or significant shift of midline structures. CHEST: Ports and Devices: None Lungs: There is no abnormal FDG uptake seen within the left upper lobe spiculated lesion seen on recent chest x-ray. Patient has been previously treated for left upper lobe consistent melanoma Pleura: No significant pleural effusion. Lymph Nodes: No tracer-avid mediastinal, hilar or internal mammary or axillary lymphadenopathy. Mediastinum: There is no significant pericardial effusion/thickening. Breasts/Chest Wall: No abnormal radiotracer uptake. ABDOMEN/PELVIS: Liver/Biliary System: No focal tracer-avid liver lesion. The gallbladder appears unremarkable. Pancreas: Normal. Spleen: No abnormal radiotracer uptake. No evidence of splenomegaly. Adrenal Glands: No abnormal radiotracer uptake. Kidneys: No hydronephrosis, hydroureter or renal calculi bilaterally. Bowel: There is moderate scattered stool seen throughout the colon without distention. The small bowel loops in the stomach is unremarkable. Lymph Nodes: No tracer avid retroperitoneal, mesenteric or pelvic and/or groin lymphadenopathy. Pelvic Organs: The urinary bladder is underdistended. MUSCULOSKELETAL: Nonspecific activity in bilateral shoulder joints and medial wrist joints likely DJD. No other abnormal FDG activity seen. No aggressive lytic or sclerotic process seen VASCULAR: The abdominal aorta is of normal caliber except for mild atherosclerosis IMPRESSION: No abnormal FDG activity seen in the left upper lobe spiculated opacity seen on recent chest x-ray 06/05/2024. Patient had a known left upper lobe mass which was biopsied and likely treated in 2023. Rest of the whole body PET scan is unremarkable. _ Collected: 09/17/24 Location: [facility] Received: 09/17/24 Diagnosis A. Bladder, dome, lesion #1, biopsy: -Urothelial carcinoma in situ, at least, with small papillations (cannot exclude early papillary urothelial carcinoma) and involving cystitis glandularis. -Minute focus suspicious for lamina propria invasion. -No muscularis propria present. B. 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 -No muscularis propria present. C. 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 -No muscularis propria present. D. Bladder, right lateral wall, biopsy: -Cystitis cystica et glandularis with focal atypia. -No muscularis propria present. E. Bladder, left lateral wall, biopsy: -Urothelial mucosa with rare atypical cells. -No muscularis propria present. F. Bladder, right lateral wall lesion, biopsy: -Predominantly denuded mucosa with cystitis cystica et glandularis with focal atypia. -No muscularis propria present. Comment: The atypical areas are suspicious for urothelial carcinoma in situ. Bladder, transurethral resection/biopsy Procedure: Biopsy Tumor site: Dome Histologic type: Urothelial carcinoma in situ Histologic grade: High grade Muscularis propria: Not identified Extent of invasion: Minute focus suspicious for lamina propria invasion. Lymphovascular invasion: Not identified Collected: 01/30/24 Location: [facility] Received: 01/30/24 Diagnosis A. Bladder, posterior wall #1, biopsy: Carcinoma in situ; no muscularis propria identified. B. Bladder, right lateral wall, biopsy: Carcinoma in situ; no muscularis propria identified. C. Bladder, left lateral wall, biopsy: Carcinoma in situ; no muscularis propria identified. D. Bladder, posterior wall #2, biopsy: Carcinoma in situ; no muscularis propria identified. Clinical History Malignant neoplasm of bladder, unspecified Microscopic Description A-D. Microscopic sections reviewed. Material Received A. Posterior bladder wall #1 B. Right lateral bladder wall C. Left lateral bladder wall D. Posterior bladder wall #2 Collected: 08/15/23 Location: [facility] Received: 08/15/23 Diagnosis A. Bladder, random posterior wall, biopsy: -Urothelial carcinoma in situ, involving cystitis glandularis; no invasion identified. -Muscularis propria present. B. Bladder, right lateral wall, biopsy: -Focal urothelial carcinoma in situ; no invasion identified. -Muscularis propria not identified. C. Bladder, left posterior wall lesion, biopsy: -Urothelial carcinoma in situ, focally involving cystitis glandularis; no invasion identified. -Encrusted cystitis with acute and chronic inflammation, and cystitis glandularis. -Muscularis propria not identified. D. Bladder, dome, biopsy: -Benign urothelium with mild chronic inflammation. -Muscularis propria present. Date of Service: 02/20/23 EXAMINATION: CT ABDOMEN AND PELVIS WITHOUT AND WITH CONTRAST? CLINICAL INFORMATION: Bladder disorder.? COMPARISON: None available.? ? FINDINGS: LUNG BASES: The visualized lung bases are unremarkable.? LIVER, GALLBLADDER, AND BILIARY TREE: The liver is normal in size, shape, and attenuation. No focal hepatic lesion or biliary ductal dilatation is present. The gallbladder is unremarkable with no evidence of radiopaque gallstones, gallbladder wall thickening, or obvious pericholecystic inflammatory changes.? PANCREAS: Unremarkable.? SPLEEN: Unremarkable.? ADRENAL GLANDS: Unremarkable.? KIDNEYS AND URETERS: There are no radiopaque renal calculi. Postcontrast, there are symmetrical bilateral kidney nephrograms with no focal lesion or enhancement seen. Left kidney measures 9.8 cm in length and right kidney measures 10.0 cm in length. There is opacification of bilateral kidney pelvises and ureters without any intraluminal filling defect or narrowing. BLADDER: There are no radiopaque bladder calculi. There is good opacification of bladder from excreted urinary contrast with no intraluminal filling defect. No bladder wall thickening.? GASTROINTESTINAL TRACT: There is scattered stool and gas seen throughout the colon without significant distention. The small bowel loops are normal caliber. Appendix is not visualized. No free air or free fluid seen.? ABDOMINAL WALL: No significant hernia is appreciated.? LYMPH NODES: Normal. VASCULAR: Unremarkable. PELVIC VISCERA: Unremarkable.? OSSEUS STRUCTURES: No aggressive lytic or sclerotic process seen.? IMPRESSION: 1.? No radiopaque urolith, enhancing renal mass or hydroureteronephrosis. 2.? Unremarkable bladder. 3.? Mild constipation. Collected: 02/21/23 Location: [facility] Received: 02/21/23 Diagnosis A. Bladder, right posterior wall, transurethral resection: - High-grade papillary urothelial carcinoma; non-invasive. - Muscularis propria present. B. Bladder, left lateral wall random, biopsy: Focal urothelial atypia worrisome for carcinoma in situ; background mild chronic cystitis; negative for carcinoma. C. Bladder, posterior wall random, biopsy: Chronic cystitis with reactive changes and focal foreign material; negative for carcinoma. The D. Bladder, right lateral wall random, biopsy: Mild chronic cystitis; muscularis propria within normal limits; negative for carcinoma. E. Bladder, random dome, biopsy: Urothelial carcinoma in situ; suspicious for microinvasion. Bladder, transurethral resection/biopsy Procedure: Transurethral resection; biopsies Tumor site: Right posterior wall; random left wall and random dome Histologic type: Papillary urothelial carcinoma; CIS in random biopsy (E) and suspicious for carcinoma in B Histologic grade: High grade Muscularis propria: Present Extent of invasion: Non-invasive Lymphovascular invasion: Not identified Clinical History Bladder disorder Microscopic Description A-E. Microscopic sections reviewed. CK20 immunostain supports the diagnosis in B and E Material Received A. Bladder tumor right posterior wall B. Left lateral wall random bladder biopsies C. Posterior wall random bladder biopsies D. Right lateral wall random bladder biopsies E. Random dome bladder biopsies Assessment & Plan Assessment & Plan (1) CIS (carcinoma in situ of bladder): Code(s): D09.0 - Carcinoma in situ of bladder Category: Medical (2) Bladder cancer: Code(s): C67.9 - Malignant neoplasm of bladder, unspecified Category: Medical (3) Cigarette smoker two packs a day or less: Code(s): F17.210 - Nicotine dependence, cigarettes, uncomplicated Category: Social Hx Plan Following with Oncology- receiving Keytruda immunotherapy Discussion Notes I discussed with the patient the improvements noted in the recent bladder biopsies compared to previous evaluations and the continuing response to pembrolizumab therapy. I emphasized the importance of nicotine cessation to minimize recurrence risk and enhance treatment effectiveness. Given the acceptable findings, I plan to conduct follow-up cystoscopy in the office in the next 3-4 months. Plan Continuing with pembrolizumab therapy for managing persistent carcinoma in situ has been advised, showing favorable response. An office-based cystoscopic evaluation will be conducted in three to four months, aligned with her Keytruda therapy. Considerable emphasis was placed on the cessation of nicotine use to aid in reducing recurrence risk. Consent was obtained for this plan, and its benefits were discussed with the patient. Patient Instructions: The patient had an opportunity to ask questions regarding treatment plan. The patient expressed understanding and agreement with the above treatment plan. The patient is aware they should contact our office by phone for worsening of their current condition or the appearance of new symptoms. Compliance is encouraged with any medications and followup testing that is ordered. It is a privilege to be allowed the opportunity to participate in the urologic care of your patient. If you have any questions or concerns regarding treatment for the above conditions please do not hesitate to contact me. The office telephone contact is [phone]. This note is constructed in part using voice recognition software. While every effort has been made to ensure accuracy metal trim erector errors may have been included. Yours sincerely, Sweta Spencer MD Scribe Plan - Not visible on output: Patient was informed and verbally consented to the use of an ambient scribe for clinic note documentation during this visit. Coding Level of Care Code Tele Est Pt Level 3 (17655) Complex EM visit Add On G2211 Diagnoses CIS (carcinoma in situ of bladder) D09.0 Bladder cancer C67.9 Cigarette smoker two packs a day or less F17.210
--- OUTSIDE RECORDS SUMMARY | 2024-09-27 16:06 | XMS_ITS | Patient Health Record ---
Author Organization [facility] Address [address] [place] [id number] Care Team Providers Care Auto Brake Technician Name Role Phone June CHINO, Arlin Primary Care Provider Koffi Ferguson Unavailable [phone] Allergies No Known Allergies Reason For Referral No Information Medications Medication SIG (Take, Route, Frequency, Duration) Notes [...] MOUTH EVERY DAY Inhalation for 30 Active Immunizations Vaccine Route Administration Date Status Comme nts Influenza Unknown 03/17/2019 Administered Influenza Unknown 03/17/2021 Administered Social History Tobacco Use: Social History Observation Description Date Details (start date - stop date) Current Smoker NA - NA Tobacco Use/Smoking Question Answer Notes Patient is a current smoker How many cigarettes a day do you smoke? 6-10 How soon after you wake up d o you smoke your first cigarette? after 60 minutes Are you interested in quitting? Thinking about q uitting Section Notes: Smoker 1/2 ppd; no sig alcoh ol Smoker 1/2 ppd; no sig alcoh ol Smoker 1/2 ppd; no sig alcoh ol Smoker 1/2 ppd; no sig alcoh ol Smoker 1/2 ppd; no sig alcoh ol Smoker 1/2 ppd; no sig alcoh ol Problems Problem Type SNOMED Code ICD Code Onset Dates Problem Status W/U Status Risk Notes Problem 859670287 Encounter for screening for malignant neoplasm of colon (Z12.11) Active confirmed Problem History of adenomatous polyp of colon (624652106) History of adenomatous polyp of colon (Z86.010) Active confirmed Problem Screening for malignant neoplasm of rectum (268188312) Encounter for screening for malignant neoplasm of rectum (Z12.12) Active confirmed Problem 89156833 Dysphagia (R13.10) Active confirmed Problem 44497454 Esophageal stricture (K22.2) Active confirmed Problem 34907241 Erosive esophagitis (K22.10) Active confirmed Problem Esophageal ring (70601211) Esophageal ring (K22.2) Active confirmed Problem 49149319 Esophageal dysphagia (R13.14) Active confirmed Problem 67181522 Esophageal dysphagia (R13.10) Active confirmed Problem Diverticulosis of colon (308131220) Diverticulosis of colon (K57.30) Active confirmed Problem 63554656 Esophageal dysphagia (R13.19) Active confirmed Plan Of Treatment Pending Test Test Name Order Date XR [...] Insured Coverage Start Date Coverage End Date [facility] [address] [place], [place] [phone] [id number] CALHOUN Self - patient is the insured Medical (General) History Medical History History ICD Code Bladder cancer--treated with cystoscopy COPD EGD in 2002--small hiatal he rnia and mild gastritis--biopsies were negative for H. pylori. Screening Colonoscopy in 2002--negative except for a hyperplastic polyp Denies ID,DM,CVA,renal disease Colonoscopy 08/2016--small tu bular adenomas, diverticulosis [...]
== END 2024-09-27 15:14 | disposition home or self-care (01) ==
LOC: HO.HUSH 14:33
PROVIDERS: PCP Internal Medicine; Visit Provider Urology
DX: D09.0 Carcinoma in situ of bladder (principal); C67.9 Malignant neoplasm of bladder, unspecified; F17.210 Nicotine dependence, cigarettes, uncomplicated
CPT/HCPCS: 98013

== ENCOUNTER 2024-11-28 14:21 | Outpatient (AMB) | payer OTHER, SELFPAY ==
[2024-11-28 14:23] VITALS: BP 110/60; PULSE 107; O2SAT 94; BMI 19.0
--- NOTE | 2024-11-28 14:23 | A.OFFVIS_ITS ---
Vital Signs 11/28/24 14:23 Height 5 ft 1 in Weight 100 lb 4.965 oz BMI 19.0 BP 110/60 Blood Pressure Location Lt brachial Position Sitting Pulse 107 H Pulse Source Pulse Oximeter Pulse Oximetry (%) 94 Oxygen Delivery Method Room Air Intake Visit Reasons: copd Recording Artist Required: No Accompanied by: Self / Same As Patient Allergies morphine Adverse Reaction (Intermediate, Verified 11/28/24 14:26) Vomiting HPI Comments Details: The patient is a 74 year woman the with tobacco dependency along with COPD presenting with worsening shortness of breath. She has minimal smoker all her life. The patient was having issues with shortness of breath and back in 2002 she did undergo pulmonary function studies here at [place]. It demonstrated that her FEV1 was down to 54% after bronchodilators consistent with moderate to severe COPD. She has been participating in the lung cancer screening program. Her last CT scan was a year to ago. She does have moderate degree of emphysema in the upper lung zones and has the ill-defined nodular density in the right hemithorax. Her next CT scan will be in the coming months. The patient has been taking Symbicort Spiriva now for some time. These inhalers appear to be working for her. She would like not to change them at this time. As far as smoking cessation she has quit many times but she has gone back to smoking. She has tried and failed multiple medications including Wellbutrin Chantix. She also tried hypnosis. She is willing to try the Nicotrol inhaler with hopes that she can start cutting down release alternating a real cigarette with day Nicotrol inhaler. With the hope that she continue decreasing. The patient will also have pulmonary function studies are will return in 4-6 weeks. The meantime will start azithromycin 2 treated for the chronic bronchitis related to her COPD. 10/03/2022 the patient is here for a pulmonary follow-up visit. Overall she is doing a little better. She is concerned because she did have her low-dose CT scan of the chest and she was found to have multiple nodules. She has a new 6 mm pulmonary nodule and it was recommended that she have a very repeat CT scan in 3 months time. I did reassure her. We did look at the CAT scan. She does have significant emphysema. Her new pulmonary nodules do not have concerning appearance is however I do agree that repeating the CT scan in 3 months time is to correct decision. She continues use her respiratory medicine with good effect. She still struggling with smoking. We did review her pulmonary function studies demonstrating very severe COPD. The patient also has significant air trapping. Her diffusing capacity is around 40% predicted. Explained to her that if it drops further down to the 30s then she will likely require oxygen supplementation. 08/10/2023 the patient is here for a pulmonary follow-up visit. She has a scheduled procedure with Urology. Apparently she was diagnosed with bladder cancer many years ago and then was lost to follow-up. Now she has been on therapy for with urology. Although she would like to stop the therapy. She needs to have a repeat cystoscopy at this point under anesthesia. She does have severe COPD. She has been medically optimized with both Symbicort Spiriva. She continues to smoke cigarettes. She does have a productive chronic cough. Ujxu-up-pbyodvsw severity. Typically worse in the morning. She is also part of the lung cancer screening program. Her next CT scan is going to be around November or December of 2023. Clinically from the pulmonary standpoint the patient may be able to proceed with anesthesia and surgical intervention. She does have increased risk for perioperative pulmonary complications which includes hypoxia, atelectasis, COPD exacerbation and pneumonia. At this point the patient is able to proceed with her procedure. Prior to the procedure she will start using her nebulizer more regularly to try a bronchodilator and try to clear secretions out of her lungs preemptively. 07/30/2024 the patient is here for pulmonary follow-up visit. Overall she is doing better now. Back in March she was found to have a worsening left upper lobe nodular density. She was sent for CT-guided biopsy. Was complicated by a pneumothorax and she was admitted to the hospital for several days. Initially she had a small bore chest tube that was not enough and then she had a surgically placed chest tube. After about 5 days her pneumothorax seal then she was able to be discharged. She is doing well. She continues to have a cough chest congestion. Moderate severity. She does use her inhalers with good effect. 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 Therefore, will have her get blood work including a T spot. We sent sputums today for both Gram stain culture and also AFB. She is going to follow-up with thoracic surgery and she is going to have a PET scan ordered in the coming months. In addition to that she does continue on chemo for her bladder cancer. The patient will follow-up in 3-4 months. If he has any issues prior to that she will call for an earlier assessment. 11/28/2024 the patient is here for pulmonary follow-up visit. Overall she is doing okay she does have increased chest congestion. Moderate severity. Also feels like her rescue inhalers not working. She has been on Symbicort and Spiriva. The Spiriva is reasonable but she has pain 50 dollars a month for the Symbicort. Will go ahead and Wixela that it will be a lot cheaper for her she continue the Spiriva. She will try that for now. Will go ahead and start her on the she is not better she will call. In the meantime she is following closely with oncology as she is getting immunotherapy for her bladder cancer. Again, she did have a necrotizing granuloma on biopsy. I did request blood work during the last visit but she has not had it which includes a T spot. Should get that as soon as possible. Will follow-up in 4-6 months if she has any issues prior to that she will call for an earlier assessment. [facility] Medical History Pulmonary nodule Multiple environmental allergies Nicotine dependence, cigarettes, uncomplicated COPD (chronic obstructive pulmonary disease) Stress incontinence Hx of bladder cancer (~2008) Dysphagia History of COVID-19 Primary insomnia Surgical menopause Osteoporosis (~2019) Tubular adenoma of colon (~2016) Hiatal hernia Esophagitis determined by endoscopy History of esophageal stricture Surgical History Pneumothorax after biopsy History of cataract surgery History of esophageal dilatation History of bladder surgery History of hand surgery History of colonoscopy History of esophagogastroduodenoscopy (EGD) History of cystoscopy History of hysterectomy Family History Father HTN (hypertension) Mesothelioma Mother Melanoma Brother No problems noted. Brother No problems noted. Sister No problems noted. Daughter Melanoma Son No problems noted. Son No problems noted. Son No problems noted. Sister Lung cancer Social History Household Members: Spouse Housing: House Are you a primary post anesthesia care unit nurse to a significant other at home: No Do you presently have visiting nurse or other home services: No Patient Tobacco Use Status: Current everyday Tobacco user Tobacco use type: Cigarette Cigarette Packs Per Day: 5 Cigarettes Per Day: 100.0 e-Cigarette/Vaping Use: Never Used Second Hand Smoke Exposure: No service: No Current occupational status: employed Cognitive needs: No Hearing needs: No Vision needs: Yes Review of Systems Const Denies chills, Denies fatigue, Denies fever(s), Denies weight gain and Denies weight loss Eyes Denies change in vision and Denies itchy eyes ENT Denies dizziness Card Denies chest pain, Denies leg edema, Denies lightheadedness, Denies palpitations, Reports dyspnea on exertion, Denies orthopnea and Denies other Resp Reports chest congestion, Reports cough, Reports dyspnea on exertion and Reports wheezing GI Denies hematochezia and Denies change in stool character Musc Denies abnormal gait, Denies muscle weakness, Denies numbness, Denies radiating pain into limb and Denies tingling Neuro Denies abnormal gait, Denies dizziness, Denies numbness and Denies tingling Endo Denies fatigue and Denies palpitations Pranav/Lymph Denies easy bruising Aller/Immun Denies itchy eyes, Denies seasonal rhinorrhea and Reports wheezing Physical Exam Vital Signs: Last Vital Signs Pulse 107 H 11/28/24 14:23 BP 110/60 11/28/24 14:23 Pulse Ox 94 11/28/24 14:23 Oxygen Delivery Method Room Air 11/28/24 14:23 BMI result Body Mass Index 19.0 Const General: comfortable Orientation/consciousness: patient oriented x3 Limitations: no limitations HEENT Head: Yes normal to inspection Eyes General: appearance normal, both eyes and all related structures Neck Neck: Yes normal visual inspection Chest Chest palpation & inspection: normal palpation of entire chest wall Resp Effort & Inspection: normal respiratory effort Auscultation: diminished lung sounds Cardio Rate: regular rate Rhythm: regular rhythm Heart sounds: S1 normal heart sound present and S2 normal heart sound present GI Auscultation: normal bowel sounds Neuro General: patient oriented x3 Extrem General: Yes no clubbing, cyanosis or edema Assessment & Plan Assessment & Plan (1) COPD (chronic obstructive pulmonary disease): Comment: ff'd by pulmonary clinic Code(s): J44.9 - Chronic obstructive pulmonary disease, unspecified Category: Medical Qualifiers: COPD type: chronic bronchitis Chronic bronchitis type: mixed simple and mucopurulent Qualified Code(s): J41.8 - Mixed simple and mucopurulent chronic bronchitis (2) Cigarette smoker two packs a day or less: Code(s): F17.210 - Nicotine dependence, cigarettes, uncomplicated Category: Social Hx (3) Hiatal hernia: Code(s): K44.9 - Diaphragmatic hernia without obstruction or gangrene Category: Medical (4) Pulmonary nodules: Code(s): R91.8 - Other nonspecific abnormal finding of lung field Category: Surgical Plan stop Symbocrt continue Spiriva start Wixela 500/50 start Doxycycline consider Daliresp KENDRICK as needed Duoneb as needed Tobacco cessation F/U 4-6 months Medications: New fluticasone propion-salmeterol 500-50 mcg/dose (Wixela Inhub) 1 inh inhalation BID 60 ea 5RF doxycycline monohydrate 100 mg PO BID 28 tabs 0RF 14 days Coding Level of Care Code Est Pt Level 4 (23780) Complex EM visit Add On G2211 Diagnoses Mixed simple and mucopurulent chronic bronchitis J41.8 COPD type: chronic bronchitis Chronic bronchitis type: mixed simple and mucopurulent Cigarette smoker two packs a day or less F17.210 Hiatal hernia K44.9 Pulmonary nodules R91.8 Time Spent (min) 17
--- OUTSIDE RECORDS SUMMARY | 2024-11-28 14:58 | XMS_ITS | Patient Health Record ---
Author Organization [facility] Address [address] [place] [id number] Care Team Providers Care Public Relations Supervisor Name Role Phone June CHINO, Arlin Primary Care Provider Koffi Ferguson Unavailable [phone] Allergies No Known Allergies Reason For Referral [...] Problem Status W/U Status Risk Notes Problem 167612135 Encounter for screening for malignant neoplasm of colon (Z12.11) Active confirmed Problem History of adenomatous polyp of colon (585429046) History of adenomatous polyp of colon (Z86.010) Active confirmed Problem Screening for malignant neoplasm of rectum (289881716) Encounter for screening for malignant neoplasm of rectum (Z12.12) Active confirmed Problem 02356812 Dysphagia (R13.10) Active confirmed Problem 14694720 Esophageal stricture (K22.2) Active confirmed Problem 77280096 Erosive esophagitis (K22.10) Active confirmed Problem Esophageal ring (K22.2) Active confirmed Problem 02540475 Esophageal dysphagia (R13.14) Active confirmed Problem 84411740 Esophageal dysphagia (R13.10) Active confirmed Problem Diverticulosis of colon (228427768) Diverticulosis of colon (K57.30) Active confirmed Problem 99232135 Esophageal dysphagia (R13.19) Active confirmed Plan Of [...] Insured Coverage Start Date Coverage End Date [facility] [address] [facility] [place] [phone] [id number] COBY QUEEN Self - patient is the insured Medical (General) History Medical History History ICD Code Bladder cancer--treated with cystoscopy COPD EGD in 2002--small hiatal he rnia and mild gastritis--biopsies were negative for H. pylori. Screening Colonoscopy in 2002--negative except for a hyperplastic polyp Denies SD,DM,CVA,renal disease Colonoscopy 08/2016--small tu bular adenomas, diverticulosis [...]
== END 2024-11-28 14:42 | disposition home or self-care (01) ==
LOC: HO.HPS 14:22
PROVIDERS: PCP Internal Medicine; Visit Provider Hospitalist
DX: J41.8 Mixed simple and mucopurulent chronic bronchitis (principal); F17.210 Nicotine dependence, cigarettes, uncomplicated; K44.9 Diaphragmatic hernia without obstruction or gangrene; R91.8 Other nonspecific abnormal finding of lung field
CPT/HCPCS: 99214

== ENCOUNTER → 2024-11-28 14:21 | Outpatient (BNVA) | payer OTHER, SELFPAY | PROVIDERS: PCP Internal Medicine; Visit Provider Hospitalist | DX: R91.1 Solitary pulmonary nodule (principal) ==

== ENCOUNTER 2025-01-11 10:35 | Outpatient (REF) | payer OTHER, SELFPAY ==
[2025-01-11 14:22] LABS: Anion Gap 14 (12-20); Blood Urea Nitrogen 15 mg/dL (9-16); Carbon Dioxide 28 mmol/L (22-29); Chloride 103 mmol/L (96-108); Cholesterol 187 mg/dL (<200); Estimated Glomerular Filt Rate > 60; Glucose Fasting 96 mg/dL (60-99); HDL Cholesterol 51 mg/dL (>40); LDL Cholesterol Calculated 112 mg/dL (<100); Potassium 3.7 mmol/L (3.3-5.1); Sodium 141 mmol/L (135-145); Triglycerides 121 mg/dL (<150)
[2025-01-11 14:36] LABS: Vitamin D 25-OH Total 25.7 ng/mL (>30)
== END 2025-01-11 10:36 | disposition home or self-care (01) ==
LOC: HO.HMGCLDS 10:35
PROVIDERS: PCP Internal Medicine; Visit Provider Internal Medicine
DX: M81.0 Age-related osteoporosis without current pathological fracture (principal); Z13.220 Encounter for screening for lipoid disorders
CPT/HCPCS: 36415; 80048; 80061; 82306

== ENCOUNTER 2025-01-14 11:20 | Outpatient (AMB) | payer OTHER, SELFPAY ==
--- NOTE | 2025-01-14 11:32 | MHC.PC.OV ---
Vital Signs 01/14/25 11:43 Height 5 ft 1 in Weight 98 lb BMI 18.5 BP 110/70 Blood Pressure Location Rt brachial Position Sitting Respiration 16 Pulse 88 Pulse Source Pulse Oximeter Temp 98.2 F Temp Source Oral Pulse Oximetry (%) 96 Oxygen Delivery Method Room Air Intake Visit Reasons: Annual PE Intake Note: Pt is here today for her PE: last mammogram 06/27/22, bone density scan 02/16/10, colonoscopy 01/31/22 Allergies morphine Adverse Reaction (Intermediate, Verified 01/20/25 00:08) Vomiting Medication List - Last Reconciled 01/14/25 by Arlin Watkins MD albuterol sulfate 90 mcg/actuation (Ventolin HFA) 2 puffs inhalation QID PRN 30 days cetirizine 10 mg PO DAILY fluticasone propion-salmeterol 500-50 mcg/dose (Wixela Inhub) 1 inh inhalation BID ipratropium-albuterol 0.5 mg-3 mg(2.5 mg base)/3 mL 3 mL inhalation DAILY PRN nebulizers As directed omeprazole 40 mg PO BID PRN tiotropium bromide 1.25 mcg/actuation (Spiriva Respimat) 1 puff PO DAILY zolpidem 10 mg PO BEDTIME PRN Tobacco use date assessed: 01/14/25 Fall risk assessment: No Falls in past year Last assessed Fall Risk: 01/14/25 Dental Screening Dental Screen Date: 01/14/25 Did you have a dental visit in the last 12 months?: No Did you have a dental problem in the last 6 months where you did not have access to dental care?: No Was dental information given to patient?: Patient declined HPI Annual PE HPI Details 74-year-old lady with 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 Overdue for her breast cancer screening, last done in 2021. Last bone density scan was done in 2019 which showed presence of osteoporosis, no history of fractures. Up-to-date with her colon cancer screening with last colonoscopy done 01/31/[address] Andrews, repeat due again in 2019 7 due to removal of a tubular adenoma on last colonoscopy PFSH Medical History (Updated 01/20/25 @ 00:19 by Arlin Watkins MD) Vitamin D deficiency Macular degeneration of left eye Pulmonary nodule Multiple environmental allergies Nicotine dependence, cigarettes, uncomplicated COPD (chronic obstructive pulmonary disease) Stress incontinence Hx of bladder cancer (~2008) Dysphagia History of COVID-19 Primary insomnia Surgical menopause Osteoporosis (~2019) Tubular adenoma of colon (~2016) Hiatal hernia Esophagitis determined by endoscopy History of esophageal stricture Surgical History Pneumothorax after biopsy History of cataract surgery History of esophageal dilatation History of bladder surgery History of hand surgery History of colonoscopy History of esophagogastroduodenoscopy (EGD) History of cystoscopy History of hysterectomy Family History Father HTN (hypertension) Mesothelioma Mother Melanoma Brother No problems noted. Brother No problems noted. Sister No problems noted. Daughter Melanoma Son No problems noted. Son No problems noted. Son No problems noted. Sister Lung cancer Social History Household Members: Spouse Housing: House Are you a primary acute care nurse practitioner to a significant other at home: No Do you presently have visiting nurse or other home services: No Patient Tobacco Use Status: Current everyday Tobacco user Tobacco use type: Cigarette Cigarette Packs Per Day: 5 Cigarettes Per Day: 100.0 e-Cigarette/Vaping Use: Never Used Second Hand Smoke Exposure: No service: No Current occupational status: employed Cognitive needs: No Hearing needs: No Vision needs: Yes Questionnaire PHQ-9 Over the last 2 weeks, how often have you been bothered by any of the following problems? 1. Little interest or pleasure in doing things: not at all 2. Feeling down, depressed, or hopeless: not at all 3. Trouble falling or staying asleep, or sleeping too much: nearly every day 4. Feeling tired or having little energy: nearly every day 5. Poor appetite or overeating: not at all 6. Feeling bad about yourself - or that you are a failure or have let yourself or your family down: not at all 7. Trouble concentrating on things, such as reading the newspaper or watching television: not at all 8. Moving or speaking so slowly that other people could have noticed. Or the opposite - being so fidgety or restless that you have been moving around a lot more than usual: not at all 9. Thoughts that you would be better off or of hurting yourself in some way: not at all Total score: 6 Depression Screening Interpretation: Negative Depression Screening Done: Yes 83559 - PHQ-9 Billing: Yes Source: Developed by Drs. Koffi Thao, Esperanza Prince, Yeison Jules and colleagues, with an educational onesimo from [employer]. Thrive Questionnaire Date Thrive assessed: 01/14/25 I am a: Patient What is your living situation today?: I have a steady place to live Within the past 12 months, did the food you bought not last and you didn't have the money to get more?: Never true Within the past 12 months, did you worry whether your food would run out before you got money to buy more?: Never true Do you have trouble paying for medicines?: No Do you have trouble getting transportation to medical appointments?: No Do you have trouble paying your heating and electricity bill?: No Do you have trouble taking care of your child, family member or friend?: No Do you have trouble with day-to-day activities such as bathing, preparing meals, shopping, managing finances, etc.?: No Are you currently unemployed and looking for a job?: No Are you interested in more education?: No Please select the resources that you would like help with: None Currently or been in a relationship where the following occur: No concerns reported THRIVE Score: 0 AUDIT C Alcohol Use Questionnaire (AUDIT-C) 1. How often do you have a drink containing alcohol?: Never Total Score: 0 AVERY-7 AMB Questionnaire AVERY-7 Date AVERY - 7 assessed: 01/14/25 Feeling nervous, anxious, or on edge: 0 = Not at all Not being able to stop or control worryin = Not at all Worrying too much about different things: 0 = Not at all Trouble relaxin = Not at all Being so restless that it is hard to sit still: 0 = Not at all Becoming easily annoyed or irritable: 0 = Not at all Feeling afraid as if something awful might happen: 0 = Not at all Total AVERY-7 score (0-4 normal; 5-9 mild; 10-14 moderate; 15-21 severe): 0 Source: Developed by Drs. Koffi Thao, Esperanza Prince, Yeison Jules and colleagues, with an educational onesimo from [employer]. AVERY-7 Assessment Billing AVERY-7 Assessment Tool: AVERY-7 Assessment 91186 Review of Systems Const Denies chills, Denies fatigue, Denies fever(s) and Reports weight loss Eyes Denies change in vision and Denies itchy eyes ENT Denies dizziness Card Denies chest pain, Denies leg edema, Denies lightheadedness, Denies palpitations, Reports dyspnea on exertion, Denies orthopnea and Denies other Resp Reports chest congestion, Reports cough, Reports dyspnea on exertion and Reports wheezing GI Denies hematochezia and Denies change in stool character Reports no additional complaints Musc Denies abnormal gait, Denies muscle weakness, Denies numbness, Denies radiating pain into limb and Denies tingling Skin/Breast Denies breast skin changes, Denies breast pain, Denies breast mass and Denies rash Neuro Denies abnormal gait, Denies dizziness, Denies numbness and Denies tingling Psych Reports no additional complaints Endo Denies fatigue and Denies palpitations Pranav/Lymph Denies easy bruising Aller/Immun Denies itchy eyes, Denies seasonal rhinorrhea and Reports wheezing Physical exam (Primary Care) Vital Signs: Last Vital Signs Temp 98.2 F 01/14/25 11:43 Pulse 88 01/14/25 11:43 Resp 16 01/14/25 11:43 BP 110/70 01/14/25 11:43 Pulse Ox 96 01/14/25 11:43 Oxygen Delivery Method Room Air 01/14/25 11:43 BMI result Body Mass Index 18.5 Tobacco/Smoking Status: Tobacco use Status Tobacco use date assessed 01/14/25 01/14/25 11:36 Patient Tobacco Use Status Current everyday Tobacco 01/14/25 11:32 Tobacco use type Cigarette 01/14/25 11:32 e-Cigarette/Vaping Use Never Used 01/14/25 11:32 Are you ready to quit: No PHQ-9: PHQ-9 Score PHQ-9: Total score 6 01/14/25 12:09 Depression Screening Interpretation: Negative Thrive Assessment: Date of Thrive Assessment Date Thrive assessed 01/14/25 01/14/25 11:52 Currently or been in a relationship where the following occur: No concerns reported Const General: cooperative, comfortable and no acute distress Nutritional Appearance: average body habitus Orientation/consciousness: patient oriented x3 HENMT Head: Yes normocephalic Ears: external ears normal, TM's normal bilaterally and EAC's normal General nose exam: Normal external nose present Face and sinus: Yes face symmetric Mouth: Normal oral and palatal mucosa present, oropharynx normal and moist mucous membranes Eyes General: appearance normal, both eyes and all related structures Neck Neck: Yes full ROM, Yes no lymphadenopathy, Yes no meningeal signs and Yes supple Thyroid: Thyroid normal Chest Breast/axilla palpation: normal palpation of the breasts Resp Effort & Inspection: normal respiratory effort and able to speak in complete sentences Auscultation: diminished lung sounds Cardio Rate: regular rate Rhythm: regular rhythm Heart sounds: S1 normal heart sound present and S2 normal heart sound present GI Palpation (GI): Soft to palpation, nontender, no guarding and no masses General: Yes no CVA tenderness Back/Spine/Pelvis Back: no CVA tenderness and No back tenderness Skin General skin exam: no rashes or lesions noted Neuro General: patient oriented x3, gait normal, moves all extremities, no meningeal signs, no focal motor deficits and CN's II-XI intact bilaterally Extrem General: Yes full ROM, Yes no joint enlargement, Yes no pedal edema and Yes normal gait Psych Appearance: grossly normal Mental Status: mental status grossly normal Speech and movement: Normal speech and movement present Affect: normal affect Attitude: cooperative Thought process: Normal thought process present Thought content: Normal thought content present Results Reviewed Results Reviewed: Name: Ebony Mendez Age/Sex: 74/F : 1950 Unit#: [id number] Attend Dr: Arlin Watkins MD Re01/11/25 Status: DEP [facility] Disch: SPEC : [id number] WOO: 01/11/25-1051 STATUS: COMP REQ : [id number] RECD: 01/11/25-[address]: Arlin Watkins MD COMP: 01/11/25-1436 ENTERED: 01/11/25-[address] [facility] [address]: ORDERED: Met Prof Fast, Lipid Panel, Vitamin D 25-OH Test Result Flag Reference Sodium 141 135-145 mmol/L Potassium 3.7 3.3-5.1 mmol/L CL 103 96-108 mmol/L CO2 28 22-29 mmol/L Gap 14 12-20 BUN 15 9-16 mg/dL Creat 0.85 0.5-1.4 mg/dL eGFR > 60 Chronic Kidney Disease: Estimated GFR < 60 mL/min/1.73m2 Severe Kidney Disease: Estimated GFR < 15 mL/min/1.73m2 FBS 96 60-99 mg/dL CA 9.0 8.4-10.2 mg/dL Triglyceride 121 <150 mg/dL Desirable Triglyceride: less than 150 mg/dL Borderline High Triglyceride 150-199 mg/dL High Triglyceride: 200-499 mg/dL Very High Triglyceride: greater than or equal to 5OO mg/dL Cholesterol 187 <200 mg/dL Desirable Cholesterol: less than 200 mg/dL Borderline High Cholesterol: 200-239 mg/dL High Cholesterol: greater than 239 mg/dL LDL Calculated 112 H <100 mg/dL Desirable LDL: less than 100 mg/dL Near Optimal/Above Optimal LDL: 110-129 mg/dL Borderline High LDL: 130-159 mg/dL High LDL: 160-189 mg/dL Very High LDL: greater than or equal to 190 mg/dL HDL 51 >40 mg/dL Desirable HDL: greater than 40 mg/dL Note: This HDL assay may give artificially low results in patients with liver disease. Vitamin D 25-OH 25.7 L >30 ng/mL Health Based Reference Values* < 20 ng/mL Deficient 20-30 ng/mL Insufficient > 30 ng/mL Sufficient pppppppppppppppppppppppppppppp Coding Level of Care Code Est Pt Prev Care >65y(64463) Diagnoses Annual visit for general adult medical examination with abnormal findings Z00.01 Age-related osteoporosis without current pathological fracture M81.0 Osteoporosis type: age-related Presence of current pathological fracture: without current pathological fracture Multiple environmental allergies Z91.09 Macular degeneration of left eye H35.30 CIS (carcinoma in situ of bladder) D09.0 Centrilobular emphysema J43.2 Primary insomnia F51.01 Additional Codes PHQ-9 - 34965 - PHQ-9 Billing: Yes ([id number]) AVERY-7 Assessment Billing - AVERY-7 Assessment Tool: AVERY-7 Assessment 23038 ([id number]) Assessment & Plan Assessment & Plan (1) Annual visit for general adult medical examination with abnormal findings: Code(s): Z00.01 - Encounter for general adult medical examination with abnormal findings Plan: Reviewed recent fasting lab results with patient.. Recommended dental visit every 6 months and regular eye exams, at least every 2 years. Take adequate calcium in diet and vitamin-D 3 supplement 36814 units per capsule to take once a week for the next 3 months prescribed today, advised to do weight-bearing exercises to help maintain good muscle tone and weight control. Instructed to do self-breast exam, and recommended to get yearly mammogram, ordered today together with a bone density scan.. Colonoscopy screening due again in 2026. Reminded to get yearly flu shot and COVID vaccine, up-to-date with RSV vaccine, pneumonia vaccine and tetanus diphtheria booster, has had 1 shingles vaccine, reminded to get 2nd dose (2) Osteoporosis: Onset Date: ~2019 Comment: (Osteopenia since 2001 - Osteoporosis 2020 - T-score -2.9 lumbar 02/17/20) Code(s): M81.0 - Age-related osteoporosis without current pathological fracture Category: Medical Qualifiers: Osteoporosis type: age-related Presence of current pathological fracture: without current pathological fracture Qualified Code(s): M81.0 - Age-related osteoporosis without current pathological fracture Plan: Will do the repeat DEXA scan. Reminded patient to start taking glju-cco-hxkuhbi vitamin-D 3 supplements at least 2000 units daily and take adequate calcium from dietary sources (3) Multiple environmental allergies: Code(s): Z91.09 - Other allergy status, other than to drugs and biological substances Category: Medical Plan: Takes cetirizine 10 mg daily (4) Macular degeneration of left eye: Comment: Followed [facility] Code(s): H35.30 - Unspecified macular degeneration Category: Medical Plan: Followed at the [facility], (5) CIS (carcinoma in situ of bladder): Code(s): D09.0 - Carcinoma in situ of bladder Category: Medical Plan: Currently followed by Oncology and Urology (6) Centrilobular emphysema: Code(s): J43.2 - Centrilobular emphysema Category: Medical Plan: On Wixela inhaler and Spiriva Respimat. Has DuoNeb via nebulizer to be used as needed for episodes of bronchospasm and wheezing, followed by Pulmonary (7) Primary insomnia: Code(s): F51.01 - Primary insomnia Category: Medical Plan: Takes zolpidem 10 mg 1 tablet at bedtime as needed Orders: Orders XR DEXA axial skeleton 01/14/25 M81.0 - Age-related osteoporosis without current pathological fracture, Z12.31 - Encounter for screening mammogram for malignant neoplasm of breast, Z78.0 - Asymptomatic menopausal state MM tomosynthesis screening BI 01/14/25 M81.0 - Age-related osteoporosis without current pathological fracture, Z12.31 - Encounter for screening mammogram for malignant neoplasm of breast, Z78.0 - Asymptomatic menopausal state Medications: New cholecalciferol (vitamin D3) 1,250 mcg PO QWEEK 13 caps 0RF 3 months E55.9 - Vitamin D deficiency, unspecified, M81.0 - Age-related osteoporosis without current pathological fracture Refilled zolpidem 10 mg PO BEDTIME PRN 30 tabs 0RF insomnia
[2025-01-14 11:43] VITALS: BP 110/70; PULSE 88; RESP 16; TEMP 36.8; O2SAT 96; BMI 18.5
--- OUTSIDE RECORDS SUMMARY | 2025-01-14 12:37 | XMS_ITS | Patient Health Record ---
Author Organization [facility] Address [address] [place] [address] Care Team Providers Care Licensed Customs Broker Name Role Phone June CHINO, Arlin Primary Care Provider Koffi Ferguson Unavailable [phone] Allergies No Known Allergies Reason For Referral [...] Problem Status W/U Status Risk Notes Problem 323852820 Encounter for screening for malignant neoplasm of colon (Z12.11) Active confirmed Problem History of adenomatous polyp of colon (641776146) History of adenomatous polyp of colon (Z86.010) Active confirmed Problem Screening for malignant neoplasm of rectum (620081509) Encounter for screening for malignant neoplasm of rectum (Z12.12) Active confirmed Problem 32584971 Dysphagia (R13.10) Active confirmed Problem 02989383 Esophageal stricture (K22.2) Active confirmed Problem 79951029 Erosive esophagitis (K22.10) Active confirmed Problem Esophageal ring (44659051) Esophageal ring (K22.2) Active confirmed Problem 75181821 Esophageal dysphagia (R13.14) Active confirmed Problem 46770486 Esophageal dysphagia (R13.10) Active confirmed Problem Diverticulosis of colon (578317627) Diverticulosis of colon (K57.30) Active confirmed Problem 47887228 Esophageal dysphagia (R13.19) Active confirmed Plan Of [...] Insured Coverage Start Date Coverage End Date [facility] [address] [place], [place] [phone] [id number] CALHOUN Self - patient is the insured Medical (General) History Medical History History ICD Code Bladder cancer--treated with cystoscopy COPD EGD in 2002--small hiatal he rnia and mild gastritis--biopsies were negative for H. pylori. Screening Colonoscopy in 2002--negative except for a hyperplastic polyp Denies UT,DM,CVA,renal disease Colonoscopy 08/2016--small tu bular adenomas, diverticulosis [...]
== END 2025-01-14 12:57 | disposition home or self-care (01) ==
LOC: HO.HMCC 11:21
PROVIDERS: PCP Internal Medicine; Visit Provider Internal Medicine
DX: Z00.01 Encounter for general adult medical examination with abnormal findings (principal); J43.2 Centrilobular emphysema; M81.0 Age-related osteoporosis without current pathological fracture; Z91.09 Other allergy status, other than to drugs and biological substances; H35.30 Unspecified macular degeneration; D09.0 Carcinoma in situ of bladder; F51.01 Primary insomnia

== ENCOUNTER → 2025-01-14 11:20 | Outpatient (BNVA) | payer OTHER, SELFPAY | PROVIDERS: PCP Internal Medicine; Visit Provider Internal Medicine | DX: Z00.01 Encounter for general adult medical examination with abnormal findings (principal); J43.2 Centrilobular emphysema; M81.0 Age-related osteoporosis without current pathological fracture; H35.30 Unspecified macular degeneration; D09.0 Carcinoma in situ of bladder; F51.01 Primary insomnia; E55.9 Vitamin D deficiency, unspecified; Z91.09 Other allergy status, other than to drugs and biological substances | CPT/HCPCS: 96127 ==

== ENCOUNTER 2025-02-18 10:51 | Day surgery (SDC) | payer OTHER, SELFPAY ==
--- OUTSIDE RECORDS SUMMARY | 2025-02-04 12:53 | XMS_ITS | Clinical Summary ---
Author Organization [facility] Address [address] [place] [address] [place] [phone] Phone Care Team Providers Care [facility] Corpsman Name Role Phone Pcp, Not Required Primary Care Provider Unavaila ble Allergies No known active allergies Medications cetirizine (ZYRTEC) 10 MG tablet Take 10 mg by mouth daily. 4 Active budesonide-form oterol 160-4.5 mcg/actuation inhaler Inhale 2 puffs into the lungs 2 (two) times a day. 4 Active tiotropium bromide 1.25 mcg/actuation Mist Inhale 1 puff into the lungs daily. 4 Active ipratropium-alb uteroL (DUONEB) 0.5-3 mg (2.5 mg base)/3 mL nebulizer solution Take 3 mL by nebulization daily as needed for shortness of breath/dyspnea. 4 Active zolpidem 10 mg Subl Take 10 mg by mouth nightly at bedtime. 4 Active albuterol (VENTOLIN HFA) 90 mcg/actuation inhaler Inhale 2 puffs into the lungs every 6 (six) hours as needed for shortness of breath/dyspnea. 4 Active omeprazole (PRILOSEC) 40 MG capsule Take 40 mg by mouth 2 (two) times a day as needed (acid reflux). 4 Active Social History Tobacco Use Types Packs/Day Years Used Date Smoking Tobacco: Never Assessed Home Health Assessment: Transportation Answer Date Recorded Lack of Transportation (Medical) No 05/23/2024 Lack of Transportation (Non-Medical) No 05/23/2024 Patient Unable or Declines to Respond No 05/23/2024 Education Answer Date Recorded Are you interested in more education? Not on rebeca e 04/16/2024 Are you concerned about learning? Not on file 04/16/2024 No 04/16/2024 No 04/16/2024 Digital Access Answer Date Recorded No 04/16/2024 No 04/16/2024 Reliable internet access at home? Not on file 04/16/2024 Device with a working camera? Not on file Comments Unknown Sex and Gender Information Value Date Recorded Sex Assigned at Not on file Legal Sex Female 2:02 PM EDT Gender Identity Not on file Sexual Orientation Not on file Last Filed Vital Signs Vital Sign Reading Time Taken Comments Blood Pressure 110/70 05/08/2024 9:50 AM EDT Pulse 107 05/08/2024 9:50 AM EDT Temperature 36.8 C (98.3 F) 05/08/2024 9:50 AM EDT Respiratory Rate 16 04/26/2024 10:51 AM EDT Oxygen Saturation 95% 05/08/2024 9:50 AM EDT Inhaled Oxygen Concentration - - Weight 47.6 kg (105 lb) 04/18/2024 12:11 PM EDT Height 154.9 cm (5' 1 ) 04/18/2024 12:11 PM EDT Body Mass Index 19.84 04/18/2024 12:11 PM EDT Plan of Treatment Not on file Medical Devices Not on file Insurance [facility] [place] [address] [address] [place] [address] [place] [address] HMO [facility] HMO [facility] [employer] Care Teams Hospital Corpsman Relationship Specialty Start Date End Date Pcp, Not Required [address] [place] [id number] PCP - General 05/11/24 Additional Source Comments The information contained in this document represents components of the legal health record. It is not the complete legal health record.[facility]
--- OUTSIDE RECORDS SUMMARY | 2025-02-04 12:53 | XMS_ITS | Patient Health Record ---
Author Organization [facility] Address [address] [place] [phone] Care Team Providers Care Unit Manager [employer] Name Role Phone June CHINO, Arlin Primary Care Provider Koffi Ferguson Unavailable [phone] Allergies No Known Allergies Reason For Referral [...] Problem Status W/U Status Risk Notes Problem 383496914 Encounter for screening for malignant neoplasm of colon (Z12.11) Active confirmed Problem History of adenomatous polyp of colon (267488879) History of adenomatous polyp of colon (Z86.010) Active confirmed Problem Screening for malignant neoplasm of rectum (210347595) Encounter for screening for malignant neoplasm of rectum (Z12.12) Active confirmed Problem 70254066 Dysphagia (R13.10) Active confirmed Problem 25583888 Esophageal stricture (K22.2) Active confirmed Problem 89104613 Erosive esophagitis (K22.10) Active confirmed Problem Esophageal ring (K22.2) Active confirmed Problem 93296073 Esophageal dysphagia (R13.14) Active confirmed Problem 98851657 Esophageal dysphagia (R13.10) Active confirmed Problem Diverticulosis of colon (105807780) Diverticulosis of colon (K57.30) Active confirmed Problem 96577367 Esophageal dysphagia (R13.19) Active confirmed Plan Of [...] Insured Coverage Start Date Coverage End Date [facility] [address] [facility] [place] [phone] [id number] COBY QUEEN Self - patient is the insured Medical (General) History Medical History History ICD Code Bladder cancer--treated with cystoscopy COPD EGD in 2002--small hiatal he rnia and mild gastritis--biopsies were negative for H. pylori. Screening Colonoscopy in 2002--negative except for a hyperplastic polyp Denies VT,DM,CVA,renal disease Colonoscopy 08/2016--small tu bular adenomas, diverticulosis [...]
[2025-02-14 12:52] VITALS: BMI 18.3
--- NOTE | 2025-02-17 09:12 | P.CONAN_ITS ---
Documented by User: Teagan Hendrickson NP 02/17/25 09:18 HPI - Anesthesia Eval Consult details Narrative: 73yo F for Cystoscopy & Bladder Biopsy s/p same 09/2024 with GA-LMA [address] [facility] pulmo for COPD, lung nodules. Last office visit 11/2024, inhalers changed d/t phillip, rx'd doxy for 14 days d/t chest congestion. Active smoker Follows [facility] oncology for bladder ca: s/p cycle 14 of the pembrolizumab 01/23/25 [facility] Active Problems Active Problems: All Active Problems Vitamin D deficiency (Acute) Macular degeneration of left eye (Acute) Pulmonary nodule (Acute) CIS (carcinoma in situ of bladder) (Acute) Leukocytes in urine (Acute) Dysuria (Acute) Urinary tract infection (Acute) Bladder cancer (Acute) Lesion of bladder (Acute) Pulmonary nodules (Acute) Centrilobular emphysema (Acute) Pneumothorax after biopsy (Acute) Multiple environmental allergies (Acute) Nicotine dependence, cigarettes, uncomplicated (Acute) Stress incontinence (Acute) Hx of bladder cancer (Acute ~2008) Primary insomnia (Acute) Surgical menopause (Acute) Osteoporosis (Acute ~2019) Tubular adenoma of colon (Acute ~2016) Hiatal hernia (Acute) Esophagitis determined by endoscopy (Acute) Past Medical History Medical History Vitamin D deficiency Macular degeneration of left eye Pulmonary nodule Multiple environmental allergies Nicotine dependence, cigarettes, uncomplicated COPD (chronic obstructive pulmonary disease) Stress incontinence Hx of bladder cancer (~2008) Dysphagia History of COVID-19 Primary insomnia Surgical menopause Osteoporosis (~2019) Tubular adenoma of colon (~2016) Hiatal hernia Esophagitis determined by endoscopy History of esophageal stricture Family History Family History Father HTN (hypertension) Mesothelioma Mother Melanoma Brother No problems noted. Brother No problems noted. Sister No problems noted. Daughter Melanoma Son No problems noted. Son No problems noted. Son No problems noted. Sister Lung cancer Family history of problems with anesthesia: No Surgical History Surgical History Pneumothorax after biopsy History of cataract surgery History of esophageal dilatation History of bladder surgery History of hand surgery History of colonoscopy History of esophagogastroduodenoscopy (EGD) History of cystoscopy History of hysterectomy History of Problems with Anesthesia: No Social History Social History Household Members: Spouse Housing: House Are you a primary managed care coordinator to a significant other at home: No Do you presently have visiting nurse or other home services: No Patient Tobacco Use Status: Current everyday Tobacco user Tobacco use type: Cigarette Cigarette Packs Per Day: 5 Cigarettes Per Day: 4 e-Cigarette/Vaping Use: Never Used Second Hand Smoke Exposure: No Use of substances other than those prescribed or required for medical reasons: No Have you been hit, kicked, punched, or otherwise hurt by someone within the past year? If so, by whom?: No Are you DNR?: No Advance Directives: No Advance Directives Information Provided: Yes Poor oral hygiene: Yes service: No Current occupational status: employed Cognitive needs: No Hearing needs: No Vision needs: Yes Meds Allergies Allergy/AdvReac Type Severity Reaction Status Date / Time morphine AdvReac Intermediate Vomiting Verified 02/18/25 11:28 Home Medications ?Medication ?Instructions ?Recorded ?Confirmed ?Last Taken ?Type omeprazole 40 mg capsule,delayed 40 mg PO BID PRN Acid Reflux 03/13/23 02/14/25 09/17/24 History release nebulizers 08/10/23 01/14/25 Unknown H istory Exam Height,Weight and Vital Signs: Height 5 ft 1 in Weight 44 kg Pertinent Lab Results Pertinent Lab Results: Laboratory Tests 02/13/25 13:29 WBC 9.1 Hgb 13.7 Hct 40.5 Plt Count 186 Sodium 142 Potassium 3.6 D Chloride 102 Carbon Dioxide 31 H BUN 13 Creatinine 0.80 Narrative Narrative: EKG 03/2024 (pneumothorax) Vent. Rate : 137 BPM Atrial Rate : 137 BPM P-R Int : 136 ms QRS Dur : 058 ms QT Int : 290 ms P-R-T Axes : 083 079 074 degrees QTc Int : 437 ms Sinus tachycardia with Fusion complexes Right atrial enlargement Anterior infarct (cited on or before 28-AUG-2018) Abnormal ECG When compared with ECG of 28-AUG-2018 07:19, Fusion complexes are now Present Vent. rate has increased BY 45 BPM Assessment and Plan Assessment Anesthesia Assessment: Chart Reviewed Final Anesthetic Review Family History of Problems with Anesthesia: No History of Problems with Anesthesia: No Documented by User: Vicky Rivas MD 02/18/25 13:05 [facility] Past Medical History Medical History Vitamin D deficiency Macular degeneration of left eye Pulmonary nodule Multiple environmental allergies Nicotine dependence, cigarettes, uncomplicated COPD (chronic obstructive pulmonary disease) Stress incontinence Hx of bladder cancer (~2008) Dysphagia History of COVID-19 Primary insomnia Surgical menopause Osteoporosis (~2019) Tubular adenoma of colon (~2016) Hiatal hernia Esophagitis determined by endoscopy History of esophageal stricture Family History Family History Father HTN (hypertension) Mesothelioma Mother Melanoma Brother No problems noted. Brother No problems noted. Sister No problems noted. Daughter Melanoma Son No problems noted. Son No problems noted. Son No problems noted. Sister Lung cancer Surgical History Surgical History Pneumothorax after biopsy History of cataract surgery History of esophageal dilatation History of bladder surgery History of hand surgery History of colonoscopy History of esophagogastroduodenoscopy (EGD) History of cystoscopy History of hysterectomy Social History Social History Household Members: Spouse Housing: House Are you a primary managed care coordinator to a significant other at home: No Do you presently have visiting nurse or other home services: No Patient Tobacco Use Status: Current everyday Tobacco user Tobacco use type: Cigarette Cigarette Packs Per Day: 5 Cigarettes Per Day: 4 e-Cigarette/Vaping Use: Never Used Second Hand Smoke Exposure: No Use of substances other than those prescribed or required for medical reasons: No Have you been hit, kicked, punched, or otherwise hurt by someone within the past year? If so, by whom?: No Are you DNR?: No Advance Directives: No Advance Directives Information Provided: Yes Poor oral hygiene: Yes service: No Current occupational status: employed Cognitive needs: No Hearing needs: No Vision needs: Yes Meds Allergies Allergy/AdvReac Type Severity Reaction Status Date / Time morphine AdvReac Intermediate Vomiting Verified 02/18/25 11:28 Home Medications ?Medication ?Instructions ?Recorded ?Confirmed ?Last Taken ?Type omeprazole 40 mg capsule,delayed 40 mg PO BID PRN Acid Reflux 03/13/23 02/14/25 09/17/24 History release nebulizers 08/10/23 01/14/25 Unknown H istory Exam Airway Mallampati Class: II TM Dist: <=3cm Neck ROM: Limited Heart: rrr Lungs: cta Assessment and Plan Assessment Anesthesia Assessment: Anesthesia Plan Discussed Final Anesthetic Review NPO: Yes ASA Class: III Final Preanesthetic Review: No Changes in Pt Med Stat, Meds/Allgs Chart Reviewed, Consent Obtained/Reviewed and Anes Risks/Benef Reviewed Patient Risk: Intermediate Procedure Risk: Low Anesthetic Plan Anesthetic Plan: GA Disposition: Standard PACU
[2025-02-18 11:29] VITALS: BMI 17.5
[2025-02-18 11:31] VITALS: BP 116/59; PULSE 95; RESP 14; TEMP 36.8; O2SAT 96
[2025-02-18] MEDS: Lactated Ringers 1,000 ML 100 ML IVCONT (11:41)
--- NOTE | 2025-02-18 12:59 | P.OP_ITS ---
Operative Note Operative Note Date of Service: 02/18/25 Narrative: PREOP DIAGNOSIS: Bladder cancer, CIS, Comorbiidity Nicotine dependence POSTOP DIAGNOSIS: Bladder cancer, CIS PROCEDURE: Cystoscopy transurethral resection of bladder lesion, fulguration, bladder biopsies Anesthesia: General Surgeon Dr. Sweta Spencer Details of procedure: The patient was brought into the operating room placed on the OR table in supine position. Antibiotics confirmed. General anesthesia was administered. The patient was repositioned into lithotomy position, prepped and draped in the usual sterile fashion. Time-out was done per protocol. 2% urojet placed. A 22 [place] cystoscope was passed transurethrally into the bladder. Visualization of the bladder noted contracted bladder, with thickening of the bladder wall. Using the cold cup biopsy forceps, the bladder biopsies, from the posterior wall and right lateral wall x 2. Hemostasis was obtained. The bovie was used for hemostasis. Once there was good hemostasis the cystoscope was removed. 2 % urojet placed. The patient was brought out of anesthesia and taken to recovery in stable condition. Complications: None EBL: minimal (<5 mL) Drains: none
--- NOTE | 2025-02-18 12:59 | MHC.SHP ---
Pre-Procedural Eval Section A - 24 Hr Update-Section A only Date of Service: 02/18/25 The patient is an INPATIENT: No The patient has been examined within 24 hours of the surgical procedure. The History & Physical has been completed within 30 days and I have reviewed it.: Yes Section B - Complete if H&P > 30 days Chief Complaint: Malignant neoplasm of bladder, unspecified Allergies: Allergies Allergy/AdvReac Type Severity Reaction Status Date / Time morphine AdvReac Intermediate Vomiting Verified 02/18/25 11:28 Plan Diagnosis/Plan: Unchanged I have reviewed the history and physical and performed a pertinent physical examination on my patient. No changes have occurred unless specified. Cystoscopy bladder biopsies. Time Spent With Patient Time: Total time managing care of this patient today ____ minutes.
[2025-02-18 13:54] VITALS: BP 116/44; PULSE 85; RESP 21; TEMP 36.3; O2SAT 94
[2025-02-18 13:59] VITALS: BP 117/49; PULSE 84; RESP 21; O2SAT 94
[2025-02-18 14:04] VITALS: BP 113/50; PULSE 84; RESP 22; O2SAT 95
[2025-02-18 14:09] VITALS: BP 109/47; PULSE 86; RESP 23; O2SAT 99
[2025-02-18 14:24] VITALS: BP 118/49; PULSE 79; RESP 16; TEMP 36.3; O2SAT 95
--- NOTE | 2025-02-18 15:24 | PC.NURSE ---
Pt declined ordered dose of Pyridium.
== END 2025-02-18 15:17 | disposition home or self-care (01) ==
PROVIDERS: PCP Internal Medicine; Visit Provider Urology
PROC: (CPT 52204; principal; 2025-02-18 12:30)
DX: D09.0 Carcinoma in situ of bladder (principal); Z85.51 Personal history of malignant neoplasm of bladder; N39.3 Stress incontinence (female) (male); J44.9 Chronic obstructive pulmonary disease, unspecified; R91.1 Solitary pulmonary nodule; F51.01 Primary insomnia; M81.0 Age-related osteoporosis without current pathological fracture; K20.80 Other esophagitis without bleeding; Z79.51 Long term (current) use of inhaled steroids; Z79.52 Long term (current) use of systemic steroids; Z79.899 Other long term (current) drug therapy; Z88.5 Allergy status to narcotic agent; F17.210 Nicotine dependence, cigarettes, uncomplicated; Z98.890 Other specified postprocedural states
CPT/HCPCS: 52204; 87086; 88305; 88341; 88342; J0131; J0690; J1100; J1885; J2405; J2704; J3010

== ENCOUNTER → 2025-02-18 10:51 | Outpatient (BNV) | payer OTHER, SELFPAY | PROVIDERS: PCP Internal Medicine; Visit Provider Urology | DX: C67.9 Malignant neoplasm of bladder, unspecified (principal) | CPT/HCPCS: 52204 ==

== ENCOUNTER 2025-02-25 18:41 | Inpatient (IN) | payer OTHER, SELFPAY ==
[2025-02-25] VITALS (10 sets, daily range): BP systolic 109–147; BP diastolic 42–88; PULSE 106–136; RESP 26–40; TEMP 36.9–37.2; O2SAT 84–100; BMI 16.7
--- NOTE | ~2025-02-25 | XR_ITS ---
CLINICAL HISTORY: SOB --- Additional Notes or Special Instructions: breathing treatment 1904 DG 1 view chest x-ray Comparison: Chest x-ray from 06/05/2024 Findings: No consolidation, pneumothorax, or pleural effusion. Mild bibasilar atelectasis. Improved aeration of the left upper lobe with mild persistent nonspecific opacities by radiographs. No interim CT available for review. Imaged mediastinum and imaged osseous structures are unchanged. IMPRESSION: No consolidation. Nonspecific opacity is minimal persisting in the left apex compared to 06/05/2024. Nonemergent CT may be informative, if not already achieved. This document has been electronically signed by: Toi Vlaencia MD on 02/25/2025 20:16:37
--- NOTE | ~2025-02-25 | XR_ITS ---
CLINICAL HISTORY: persistent hypoxia Chest Radiographs, AP Comparison: CT/SR - CT ANGIO CHEST PE PROTOCOL - 03/01/25 15:52 EDT CR - XR CHEST 1V - 02/25/25 19:33 EDT CR/MI/SR - XR CHEST 1V - 04/10/24 06:13 EDT Findings: No cardiomegaly. Normal mediastinal contours. Unchanged hyperinflation. No pneumothorax. No opacity. Unchanged lucencies/increased reticulation. No pleural effusion. Normal upper abdomen. No acute fracture. Impression: No acute findings. Chronic lung pathology. This document has been electronically signed by: Meghan Prasad MD on 03/03/2025 17:49:56
--- NOTE | ~2025-02-25 | CT_ITS ---
CLINICAL HISTORY: Continued hypoxia and tachycardia CT angiography chest with contrast. 3D Postprocessing. Comparison: CR - XR CHEST 1V - 02/25/25 19:33 EDT Findings: The heart size is normal. RV/LV ratio is normal. The thoracic aorta is normal caliber. No pulmonary artery filling defects. The visualized thyroid and mediastinum are unremarkable. No consolidation or effusion. Severe upper lobe predominant centrilobular emphysema. The upper abdomen is unremarkable. The bones are intact. IMPRESSION: 1. No pulmonary embolus. no acute aortic syndrome. 2. Severe upper lobe predominant centrilobular emphysema. This document has been electronically signed by: Varsha Kapadia MD on 03/01/2025 17:35:46
--- NOTE | 2025-02-25 18:44 | ED_ITS ---
HPI - General Adult General Chief complaint: Dyspnea Stated complaint: difficulty breathing Time Seen by Provider: 02/25/25 19:06 Limitations: physical limitation History of Present Illness ED Provider: fatemeh HPI narrative: 74 with COPD, severe CUADRA/wheeze worsening x 1 wk. Increased phlegm. No fever no chest pain. denies leg edema hx DVT/PE Related Data Home Medications ?Medication ?Instructions ?Recorded ?Confirmed omeprazole 40 mg capsule,delayed 40 mg PO BID@0630,163 0 03/13/23 02/26/25 release nebulizers 08/10/23 01/14/25 cholecalciferol (vitamin D3) 1,250 1,250 mcg PO MO 02/26/25 mcg (50,000 unit) capsule Previous Rx's ?Medication ?Instructions ?Recorded tiotropium bromide 1.25 1 puff PO DAILY #12 mL 03/04 mcg/actuation mist for inhalation (Spiriva Respimat) albuterol sulfate 90 mcg/actuation 2 puff inhalation Q ID PRN 04/19/24 aerosol inhaler (Ventolin HFA) shortness of breath or wheezing 30 days #18 grams ipratropium 0.5 mg-albuterol 3 mg 3 ml inhalation CHARLES Y PRN 04/19/24 (2.5 mg base)/3 mL nebulization Shortness Of Breath Or Wheezing soln #180 mL fluticasone 500 mcg-salmeterol 50 1 inh inhalation BID #60 ea 11/28/24 mcg/dose blistr powdr for inhalation (Wixela Inhub) cetirizine 10 mg tablet 10 mg PO DAILY #90 tabs 03/10 zolpidem 10 mg tablet 10 mg PO BEDTIME PRN insomni a #30 01/14/25 tabs Allergies Allergy/AdvReac Type Severity Reaction Status Date / Time morphine AdvReac Intermediate Vomiting Verified 02/25/25 18:49 [facility] Past Medical History Medical History Vitamin D deficiency Macular degeneration of left eye Pulmonary nodule Multiple environmental allergies Nicotine dependence, cigarettes, uncomplicated COPD (chronic obstructive pulmonary disease) Stress incontinence Hx of bladder cancer (~2008) Dysphagia History of COVID-19 Primary insomnia Surgical menopause Osteoporosis (~2019) Tubular adenoma of colon (~2017) Hiatal hernia Esophagitis determined by endoscopy History of esophageal stricture Surgical History Pneumothorax after biopsy History of cataract surgery History of esophageal dilatation History of bladder surgery History of hand surgery History of colonoscopy History of esophagogastroduodenoscopy (EGD) History of cystoscopy History of hysterectomy Family History Family History Father HTN (hypertension) Mesothelioma Mother Melanoma Brother No problems noted. Brother No problems noted. Sister No problems noted. Daughter Melanoma Son No problems noted. Son No problems noted. Son No problems noted. Sister Lung cancer Social History Social History Household Members: Spouse Housing: House Are you a primary manager critical care to a significant other at home: No Do you presently have visiting nurse or other home services: No Patient Tobacco Use Status: Current everyday Tobacco user Tobacco use type: Cigarette Cigarette Packs Per Day: 5 Cigarettes Per Day: 4 Smoked in Last 30 Days: Yes e-Cigarette/Vaping Use: Never Used Second Hand Smoke Exposure: No Advance Directives: No Advance Directives Information Provided: No Do you have a plan to hurt others: No Plan service: No Current occupational status: employed Cognitive needs: No Hearing needs: No Vision needs: Yes Physical Exam ED Exam Exam: EXAM: Gen: Alert, anxious severe resp distress, +access muscle use/tripoding Head: Atraumatic Eyes: Anicteric, Normal conjunctiva. ENT: Moist mucosa, no pallor. Neck: Supple. Respiratory: tachypnea, diff wheeze Cardiovascular: tachycardia and rhythm. No murmurs or rub. Well perfused periphery, warm extremities. No edema. Abdominal: Soft, no objective distension. No palpable masses or obvious organomegaly. No focal tenderness, no guarding, no rebound tenderness or other peritoneal findings. : No flank tenderness. Neuro: Alert. Gross movement of all extremities intact. Vital signs: See flowsheet Vital Signs: Vital Signs - 24 hr 02/25/25 18:46 02/25/25 18:49 02/25/25 19:06 Temperature 98.9 F Pulse Rate 122 H 106 H Respiratory Rate 26 H 30 H Blood Pressure 143/88 H Pulse Oximetry 84 L 91 L Oxygen Delivery Method Room Air Nasal Cannula Oxygen Flow Rate 3 02/25/25 19:26 02/25/25 19:33 02/25/25 19:55 Temperature Pulse Rate 136 H 131 H 128 H Respiratory Rate 40 H Blood Pressure 143/66 H 147/65 H 119/55 L Pulse Oximetry 99 Oxygen Delivery Method Nasal Cannula Oxygen Flow Rate 3 02/25/25 20:33 02/25/25 21:22 02/25/25 22:15 Temperature 98.5 F 98.4 F Pulse Rate 122 H 114 H 114 H Respiratory Rate 36 H 31 H 30 H Blood Pressure 115/49 L 109/42 L Pulse Oximetry 100 99 Oxygen Delivery Method Nasal Cannula Nasal Cannula Oxygen Flow Rate 3 2 BMI result Body Mass Index 16.7 Course Course Course Narrative: Rapid medical examination performed in triage by Camila Cotton PA-C. Patient is a 74 year old assigned female at presenting to the emergency department with shortness of breath. Detailed physical exam and review of systems are deferred to the help desk intern. Patient satting 85% - brought to the back. Medications Administered Generic Name Dose Route Start Last Admin Trade Name Freq PRN Reason Stop Dose Admin Albuterol/Ipratropium 3 ml 02/25/25 23:10 02/26/25 11:37 Albuterol/Iprat 2.5/0.5mg 3 Ml Ampul.Neb INHALE 3 ml RQ4H WHILE AWAKE KIRAN Administration Enoxaparin Sodium 40 mg 02/26/25 09:00 02/26/25 08:58 Enoxaparin Sodium 40 Mg/0.4 Ml Syringe SUBCUT 40 mg Q24H KIRAN Administration Azithromycin 500 mg/ Sodium 250 mls @ 125 mls/hr 02/26/25 09:00 02/26/25 11:04 Chloride IV Infused Q24H KIRAN Infusion Methylprednisolone Sodium Succinate 40 mg 02/26/25 03:00 02/26/25 02:48 Methylprednisolone Sod Succ 40 Mg/Ml Vial IVPUSH 40 mg Q12H KIRAN Administration Nicotine 21 mg 02/26/25 09:00 02/26/25 08:59 Nicotine 21 Mg Patch.Td24 TRANSDERMA Not Given DAILY KIRAN Sodium Chloride 3 ml 02/26/25 00:00 02/26/25 08:56 0.9 % Sodium Chloride Flush 3 Ml Syringe IVFLUSH 3 ml QSHIFT KIRAN Administration Discontinued Medications Generic Name Dose Route Start Last Admin Trade Name Artemio PRN Reason Stop Dose Admin Albuterol Sulfate 7.5 mg/ 10 mg 02/25/25 19:06 02/25/25 19:09 Albuterol Sulfate 2.5 mg INHALE 02/25/25 19:07 10 mg ONCE ONE Administration Albuterol/Ipratropium 3 ml 02/25/25 22:10 02/25/25 22:15 Albuterol/Iprat 2.5/0.5mg 3 Ml Ampul.Neb INHALE 02/25/25 22:11 3 ml ONCE ONE Administration Azithromycin 500 mg 02/25/25 22:09 02/25/25 22:15 Azithromycin 500 Mg Tablet PO 02/25/25 22:10 500 mg ONCE ONE Administration Sodium Chloride 1,000 mls @ 999 mls/hr 02/25/25 20:00 02/25/25 22:17 Ns IV 02/25/25 21:00 Infused .Q1H1M KIRAN Infusion Methylprednisolone Sodium Succinate 80 mg 02/25/25 19:07 02/25/25 19:18 Methylprednisolone Sod Succ 125 Mg/2 Ml Vial IVPUSH 02/25/25 19:08 80 mg ONCE ONE Administration Midazolam HCl 5 mg 02/25/25 19:44 02/25/25 19:18 Midazolam Hcl 5 Mg/Ml Vial IVPUSH 02/25/25 19:45 5 mg ONCE ONE Administration Medical Decision Making Medical Decision Making MDM Narrative: Medical Decision Makin-year-old female with severe COPD here with dyspnea worsening over the past week cough increased phlegm production. No fever. She is tachycardic and has increased work of breathing tachypnea. During the ED course the patient had midazolam for anxiety/work of breathing and had a transient episode of unresponsiveness. During that time she required sternal rub to arouse and we repositioned her did jaw thrust and got an ABG which showed mild respiratory acidosis. Patient quickly recovered after about 30 minutes to 1 hour. She never became hypoxic or obtunded and always was protecting her airway. Repeat ABG is improved. The patient has diffuse wheezing no focal infiltrate or fever. Empiric COPD exacerbation therapy steroid repeated DuoNeb. Admit to the hospital Impression: severe COPD exacerbation with hypoxic resp failure. transient CO2 retention, later improved Preliminary Favored Differential Diagnosis: COPD, pneumothorax, pleural effusion, CHF, among additional considered etiologies Testing Interpreted Independently: ECG: Sinus tachycardia P waves high voltage likely COPD atrial enlargement no ischemic changes rate 130s Radiology or Lab testing Results Reviewed: Not Applicable Consults: Not Applicable Independent Historians/External Chart Reviews: Not Applicable Social Determinants of Health Impacting MDM/Planning: Not Applicable Consult Healthcare Provider Management of the patient was discussed with: Hospitalist Lab Data MDM Lab Attestation statement: I reviewed the patient's lab results. 02/26/25 03:09 02/26/25 03:09 Labs: Lab Results 02/25/25 02/25/25 02/25/25 Range/Units 19:14 19:18 19:20 WBC 10.5 (4.8-10.8) X10*3/uL RBC 4.73 (4.20-5.50) X10*6/uL Hgb 15.0 (12.0-16.0) g/dl Hct 43.2 (37.0-47.0) % MCV 91.3 (80.0-98.0) fL MCH 31.7 (27.0-33.0) pg MCHC 34.7 (31.0-35.0) g/dl RDW 12.4 (11.0-16.0) % Plt Count 189 (160-400) X10*3/uL MPV 9.7 (9.4-12.3) fL Immature Gran % (Auto) 0.3 (0.0-0.4) % Neut % (Auto) 71.0 (45-73) % Lymph % (Auto) 13.8 L (20-40) % [place] % (Auto) 13.0 H (2-11) % Eos % (Auto) 1.5 (0-4) % Baso % (Auto) 0.4 (0-2) % Lymph # (Auto) 1.4 (1.2-4.9) X10*3/uL [place] # (Auto) 1.4 H (0.1-1.2) X10*3/uL Eos # (Auto) 0.2 (0.0-0.4) X10*3/uL Baso # (Auto) 0.0 (0.0-0.2) X10*3/uL Abs Immat Gran (auto) 0.03 (0.00-0.03) X10*3/uL Absolute Neuts (auto) 7.4 (2.0-8.3) x10*3/uL Absolute Nucleated RBC 0.000 (0.0-0.012) X10*3/uL Nucleated RBC % (auto) 0.0 (0.0-0.2) /100WBC PT 11.1 (10.9-12.4) SEC INR 1.0 (0.9-1.1) O2 Saturation % ABG pH at Pt Temp (7.35-7.45) ABG pCO2 at Pt Temp (32-45) mmHg ABG pO2 at Pt Temp (83-108) mmHg ABG HCO3 (22-26) mmol/L ABG Base Excess (Actual) mmol/L VBG pH 7.38 (7.32-7.43) VBG pCO2 53 mmHg VBG pO2 64 mmHg VBG HCO3 31 H (22-26) mmol/L VBG O2 Saturation 89.0 % VBG Base Excess 5.2 mmol/L Sodium 140 (135-145) mmol/L Potassium 4.5 D (3.3-5.1) mmol/L Chloride 100 (96-108) mmol/L Carbon Dioxide 26 (22-29) mmol/L Anion Gap 19 (12-20) BUN 17 H (9-16) mg/dL Creatinine 0.73 (0.5-1.4) mg/dL Estim Creat Clear Calc 42.8 Estimated GFR > 60 Random Glucose 111 (60-115) mg/dL Lactic Acid 1.4 (0.5-2.0) mmol/L Calcium 9.2 (8.4-10.2) mg/dL Magnesium 2.2 (1.6-2.6) mg/dL Total Bilirubin 0.8 (0.0-1.0) mg/dL AST 35 H (5-31) U/L ALT 7 (0-31) U/L Alkaline Phosphatase 110 (39-117) U/L Troponin I High Sens 4.3 (<3.5-17.0) ng/L Total Protein 7.8 (6.5-8.0) g/dL Albumin 4.3 (3.5-5.0) g/dL Influenza Type A (PCR) NEGATIVE (Negative) Influenza Type B (PCR) NEGATIVE (Negative) RSV RNA Qual (PCR) NEGATIVE (Negative) SARS-CoV-2 RNA (RT-PCR) NEGATIVE (Negative) 02/25/25 02/25/25 Range/Units 19:41 22:02 WBC (4.8-10.8) X10*3/uL RBC (4.20-5.50) X10*6/uL Hgb (12.0-16.0) g/dl Hct (37.0-47.0) % MCV (80.0-98.0) fL MCH (27.0-33.0) pg MCHC (31.0-35.0) g/dl RDW (11.0-16.0) % Plt Count (160-400) X10*3/uL MPV (9.4-12.3) fL Immature Gran % (Auto) (0.0-0.4) % Neut % (Auto) (45-73) % Lymph % (Auto) (20-40) % [place] % (Auto) (2-11) % Eos % (Auto) (0-4) % Baso % (Auto) (0-2) % Lymph # (Auto) (1.2-4.9) X10*3/uL [place] # (Auto) (0.1-1.2) X10*3/uL Eos # (Auto) (0.0-0.4) X10*3/uL Baso # (Auto) (0.0-0.2) X10*3/uL Abs Immat Gran (auto) (0.00-0.03) X10*3/uL Absolute Neuts (auto) (2.0-8.3) x10*3/uL Absolute Nucleated RBC (0.0-0.012) X10*3/uL Nucleated RBC % (auto) (0.0-0.2) /100WBC PT (10.9-12.4) SEC INR (0.9-1.1) O2 Saturation 100.0 99.0 % ABG pH at Pt Temp 7.25 L 7.30 L (7.35-7.45) ABG pCO2 at Pt Temp 65 H* 54 H (32-45) mmHg ABG pO2 at Pt Temp 133 H 133 H (83-108) mmHg ABG HCO3 29 H 27 H (22-26) mmol/L ABG Base Excess (Actual) 0.1 0.4 mmol/L VBG pH (7.32-7.43) VBG pCO2 mmHg VBG pO2 mmHg VBG HCO3 (22-26) mmol/L VBG O2 Saturation % VBG Base Excess mmol/L Sodium (135-145) mmol/L Potassium (3.3-5.1) mmol/L Chloride (96-108) mmol/L Carbon Dioxide (22-29) mmol/L Anion Gap (12-20) BUN (9-16) mg/dL Creatinine (0.5-1.4) mg/dL Estim Creat Clear Calc Estimated GFR Random Glucose (60-115) mg/dL Lactic Acid (0.5-2.0) mmol/L Calcium (8.4-10.2) mg/dL Magnesium (1.6-2.6) mg/dL Total Bilirubin (0.0-1.0) mg/dL AST (5-31) U/L ALT (0-31) U/L Alkaline Phosphatase (39-117) U/L Troponin I High Sens (<3.5-17.0) ng/L Total Protein (6.5-8.0) g/dL Albumin (3.5-5.0) g/dL Influenza Type A (PCR) (Negative) Influenza Type B (PCR) (Negative) RSV RNA Qual (PCR) (Negative) SARS-CoV-2 RNA (RT-PCR) (Negative) Critical Care Time Critical Care Time Critical Care Time: Yes Total Critical Care Time: 100 Attestation: ED Critical Care: Authorized and Performed by: Josue Emmanuel MD Total critical care time: Approximately { } Due to a high probability of clinically significant, life threatening deterioration, the patient required my highest level of preparedness to intervene emergently and I personally spent this critical care time directly and personally managing the patient. This critical care time included obtaining a history; examining the patient; pulse oximetry; ordering and review of studies; arranging urgent treatment with development of a management plan; evaluation of patient's response to treatment; frequent reassessment; and, discussions with other providers. This critical care time was performed to assess and manage the high probability of imminent, life-threatening deterioration that could result in multi-organ failure. It was exclusive of separately billable procedures and treating other patients and teaching time. Discharge Plan Discharge Patient Disposition: Admitted As Inpatient Interventions: Admission Worksheet (ED) Last Done: 02/26/25 05:23
--- NOTE | 2025-02-25 18:46 | ECG_ITS ---
Test Reason : TACHY Blood Pressure : */* mmHG Vent. Rate : 133 BPM Atrial Rate : 133 BPM P-R Int : 136 ms QRS Dur : 66 ms QT Int : 308 ms P-R-T Axes : 82 50 77 degrees QTcB Int : 458 ms Sinus tachycardia Right atrial enlargement Anterior infarct (cited on or before 28-Aug-2018) Abnormal ECG When compared with ECG of 09-Apr-2024 23:37, Fusion complexes are no longer Present Referred By: Camila Cotton Electronically Signed By: Jose Aguilar
[2025-02-25] MEDS: Albuterol Sulfate 7.5 MG, Albuterol Sulfate (0.083%) 2.5 MG 10 MG INHALE (19:09)
[2025-02-25 19:18] LABS: MANUAL DIFF FLAG NO
--- NOTE | 2025-02-25 19:18 | PC.NURSE ---
pt was medicated with 1ml Midazolam per provider Lula. 09 pt became unconscious and 02 went down to 89, Dr Cotton and respiratory at bedside, pt placed on non re breather and 1 L fluids started.
[2025-02-25 19:19] LABS: Hematocrit 43.2 % (37.0-47.0); Hemoglobin 15.0 g/dl (12.0-16.0); Imm Gran Abs Auto 0.03 X10*3/uL (0.00-0.03); Imm Gran Pct Auto 0.3 % (0.0-0.4); Lymphocytes Absolute Auto 1.4 X10*3/uL (1.2-4.9); Mean Corpuscular HGB Conc 34.7 g/dl (31.0-35.0); Mean Corpuscular Hemoglobin 31.7 pg (27.0-33.0); Mean Corpuscular Volume 91.3 fL (80.0-98.0); NRBC Abs Auto 0.000 X10*3/uL (0.0-0.012); NRBC Pct Auto 0.0 /100WBC (0.0-0.2); Platelet Count 189 X10*3/uL (160-400); Red Blood Count 4.73 X10*6/uL (4.20-5.50); White Blood Count 10.5 X10*3/uL (4.8-10.8)
[2025-02-25 19:22] LABS: VBG HCO3 31 mmol/L (22-26); VBG O2 % Saturation 89.0 %
[2025-02-25 19:24] LABS: INTERNATIONAL NORM RATIO 1.0 (0.9-1.1); Prothrombin Time 11.1 SEC (10.9-12.4); Venous Blood Gas Refer to POC result
[2025-02-25 19:38] LABS: Troponin-I High Sensitivity 4.3 ng/L (<3.5-17.0)
--- NOTE | 2025-02-25 19:38 | PC.NURSE ---
assume dcare of pt, medicated per MAR, provider Lula at bedside, respiratory at bedside.
[2025-02-25 19:39] LABS: Alanine Aminotransferase 7 U/L (0-31); Albumin Level 4.3 g/dL (3.5-5.0); Alkaline Phosphatase 110 U/L (39-117); Anion Gap 19 (12-20); Aspartate Amino Transferase 35 U/L (5-31); Blood Urea Nitrogen 17 mg/dL (9-16); Calcium 9.2 mg/dL (8.4-10.2); Carbon Dioxide 26 mmol/L (22-29); Chloride 100 mmol/L (96-108); Creatinine Clr Calc Pharmacy 42.8; Estimated Glomerular Filt Rate > 60; Magnesium 2.2 mg/dL (1.6-2.6); Potassium 4.5 mmol/L (3.3-5.1); Sodium 140 mmol/L (135-145); Total Protein 7.8 g/dL (6.5-8.0)
[2025-02-25 19:45] LABS: ABG HCO3 29 mmol/L (22-26); ABG O2 % Saturation 100.0 %
[2025-02-25 19:55] LABS: Resp Syncy Virus RNA Qual PCR NEGATIVE (Negative); SARS COV2 PCR INHOUSE NEGATIVE (Negative)
[2025-02-25 22:05] LABS: ABG HCO3 27 mmol/L (22-26); ABG O2 % Saturation 99.0 %
[2025-02-25 22:11] LABS: ABG Refer to POC result
[2025-02-25] MEDS: Albuterol/Iprat 2.5/0.5MG 3 ML AMPUL.NEB INHALE (22:15)
--- NOTE | 2025-02-25 22:23 | PC.NURSE ---
pt medicated per MAR, RT at bedside.
--- NOTE | 2025-02-25 22:46 | PC.NURSE ---
admitting provider states wanting SP02 at 90-91 as pt has hx of COPD and is retaining.
--- NOTE | 2025-02-25 23:10 | P.HPHOSP_ITS ---
History of Present Illness Date of Service: 02/25/25 Attending physician on admission: Sneha Lara Chief Complaint: Shortness on breath Ebony Mendez is a 74 years old woman with past medical history significant for COPD -no home O2 and bladder CA presents to the emergency department complaining of 3 days' history of shortness on breath associated with productive cough of clear sputum and wheezing. She denied any fever or chills. She denied chest pain, palpitations, dizziness or headache. She tried home nebulizers without improvement of symptoms. She denied any acute gastrointestinal genitourinary symptoms. She denied marijuana smoking or alcohol abuse. She smoked tobacco for more than 50 years -2 PPD. In the ED, she was found to have tachycardia, tachypnea and hypoxia with oxygen saturation of 84 over room air. She is currently requiring 2 L/min supplemental O2 via nasal cannula. Blood workup showed normal CBC. There is no lactic acidosis. INR is 1.0. ABGs showing respiratory acidosis that is improving. Last pH is 7.3 and pCO2 54. PO2 is 133 HCO3 27. There are no electrolyte imbalances. BUN is 17 and creatinine 0.73. Serologies negative for COVID-19, influenza and RSV. CXR showed no consolidations, pneumothorax or pleural effusions. There is a nonspecific opacity that is minimally persisting in the left apex compared to May 2024. ECG showed sinus tachycardia, 137 bpm and no ischemic changes. ED tx: DuoNeb 3 mL, albuterol 10 mg, NS 1 L bolus, azithromycin 500 mg p.o., Solu-Medrol 80 mg IV, Versed 5 mg IV Review of Systems 2 Review of Systems: All 12 systems were reviewed and normal except as noted in HPI. [facility] Medical History Vitamin D deficiency Macular degeneration of left eye Pulmonary nodule Multiple environmental allergies Nicotine dependence, cigarettes, uncomplicated COPD (chronic obstructive pulmonary disease) Stress incontinence Hx of bladder cancer (~2008) Dysphagia History of COVID-19 Primary insomnia Surgical menopause Osteoporosis (~2019) Tubular adenoma of colon (~2016) Hiatal hernia Esophagitis determined by endoscopy History of esophageal stricture Family History Father HTN (hypertension) Mesothelioma Mother Melanoma Brother No problems noted. Brother No problems noted. Sister No problems noted. Daughter Melanoma Son No problems noted. Son No problems noted. Son No problems noted. Sister Lung cancer Surgical History Pneumothorax after biopsy History of cataract surgery History of esophageal dilatation History of bladder surgery History of hand surgery History of colonoscopy History of esophagogastroduodenoscopy (EGD) History of cystoscopy History of hysterectomy Social History Household Members: Spouse Housing: House Are you a primary health care technician to a significant other at home: No Do you presently have visiting nurse or other home services: No Patient Tobacco Use Status: Current everyday Tobacco user Tobacco use type: Cigarette Cigarette Packs Per Day: 5 Cigarettes Per Day: 4 Smoked in Last 30 Days: Yes e-Cigarette/Vaping Use: Never Used Second Hand Smoke Exposure: No Advance Directives: No Advance Directives Information Provided: No Do you have a plan to hurt others: No Plan service: No Current occupational status: employed Cognitive needs: No Hearing needs: No Vision needs: Yes Meds Allergies Allergy/AdvReac Type Severity Reaction Status Date / Time morphine AdvReac Intermediate Vomiting Verified 02/25/25 18:49 Active Medications: Current Medications Acetaminophen (Acetaminophen 325 Mg Tablet) 975 mg PO Q6H PRN PRN Reason: Pain, Mild 1-3,fever,headache Albuterol Sulfate (Albuterol Sulfate (0.083%) 2.5 Mg/3 Ml Vial.Neb) 2.5 mg INHALE Q2H PRN PRN Reason: Shortness of Breath/Wheezing Albuterol/Ipratropium (Albuterol/Iprat 2.5/0.5mg 3 Ml Ampul.Neb) 3 ml INHALE RQ4H WHILE AWAKE KIRAN Enoxaparin Sodium (Enoxaparin Sodium 40 Mg/0.4 Ml Syringe) 40 mg SUBCUT Q24H KIRAN Azithromycin 500 mg/ Sodium (Chloride) 250 mls @ 125 mls/hr IV Q24H KIRAN Melatonin (Melatonin 3 Mg Tablet) 6 mg PO BEDTIME PRN PRN Reason: Insomnia Sodium Chloride (0.9 % Sodium Chloride Flush 3 Ml Syringe) 3 ml IVFLUSH QSHIFT KIRAN Home Medications ?Medication ?Instructions ?Recorded ?Confirmed ?Last Taken ?Type omeprazole 40 mg capsule,delayed 40 mg PO BID PRN Acid Reflux 03/13/23 02/14/25 09/17/24 History release nebulizers 08/10/23 01/14/25 Unknown H istory Physical Exam 2 Vital Signs and Narrative: Vital Signs: Last Vital Signs Temp 98.4 F 02/25/25 21:22 Pulse 114 H 02/25/25 22:15 Resp 30 H 02/25/25 22:15 BP 109/42 L 02/25/25 21:22 Pulse Ox 99 02/25/25 21:22 O2 Del Method Nasal Cannula 02/25/25 21:22 O2 Flow Rate 2 02/25/25 21:22 BMI result Body Mass Index 16.7 Constitutional - Awake and Alert, No apparent distress HEENT - PER, EOMI Heart - S1S2, RRR, No edema Lungs - Normal lung expansion, Normal respiratory effort, No respiratory distress, CTA bilaterally Abdomen - NT / ND; +BS; No rebound or guarding Extremities - No calf tenderness bilaterally, no swelling Musculoskeletal - Generalized atrophy. Skin - Warm/Dry Neurological - Alert & oriented x3. Moving all extremities spontaneously. Normal speech. Psychological - Appropriate affect Results Labs 02/25/25 19:14 02/25/25 19:14 Labs: Laboratory Results - last 24 hr 02/25/25 02/25/25 02/25/25 19:14 19:18 19:20 MCV 91.3 MCH 31.7 MCHC 34.7 RDW 12.4 Plt Count 189 MPV 9.7 Immature Gran % (Auto) 0.3 Neut % (Auto) 71.0 Lymph % (Auto) 13.8 L [place] % (Auto) 13.0 H Eos % (Auto) 1.5 Baso % (Auto) 0.4 Lymph # (Auto) 1.4 [place] # (Auto) 1.4 H Eos # (Auto) 0.2 Baso # (Auto) 0.0 Abs Immat Gran (auto) 0.03 Absolute Neuts (auto) 7.4 Absolute Nucleated RBC 0.000 Nucleated RBC % (auto) 0.0 PT 11.1 INR 1.0 O2 Saturation ABG pH at Pt Temp ABG pCO2 at Pt Temp ABG pO2 at Pt Temp ABG HCO3 ABG Base Excess (Actual) VBG pH 7.38 VBG pCO2 53 VBG pO2 64 VBG HCO3 31 H VBG O2 Saturation 89.0 VBG Base Excess 5.2 Anion Gap 19 Estim Creat Clear Calc 42.8 Estimated GFR > 60 Random Glucose 111 Lactic Acid 1.4 Calcium 9.2 Magnesium 2.2 Total Bilirubin 0.8 AST 35 H ALT 7 Alkaline Phosphatase 110 Total Protein 7.8 Albumin 4.3 Influenza Type A (PCR) NEGATIVE Influenza Type B (PCR) NEGATIVE RSV RNA Qual (PCR) NEGATIVE SARS-CoV-2 RNA (RT-PCR) NEGATIVE 02/25/25 02/25/25 19:41 22:02 MCV MCH MCHC RDW Plt Count MPV Immature Gran % (Auto) Neut % (Auto) Lymph % (Auto) [place] % (Auto) Eos % (Auto) Baso % (Auto) Lymph # (Auto) [place] # (Auto) Eos # (Auto) Baso # (Auto) Abs Immat Gran (auto) Absolute Neuts (auto) Absolute Nucleated RBC Nucleated RBC % (auto) PT INR O2 Saturation 100.0 99.0 ABG pH at Pt Temp 7.25 L 7.30 L ABG pCO2 at Pt Temp 65 H* 54 H ABG pO2 at Pt Temp 133 H 133 H ABG HCO3 29 H 27 H ABG Base Excess (Actual) 0.1 0.4 VBG pH VBG pCO2 VBG pO2 VBG HCO3 VBG O2 Saturation VBG Base Excess Anion Gap Estim Creat Clear Calc Estimated GFR Random Glucose Lactic Acid Calcium Magnesium Total Bilirubin AST ALT Alkaline Phosphatase Total Protein Albumin Influenza Type A (PCR) Influenza Type B (PCR) RSV RNA Qual (PCR) SARS-CoV-2 RNA (RT-PCR) Assessment and Plan (1) Acute hypoxic on chronic hypercapnic respiratory failure: Status: Acute (2) Acute exacerbation of chronic obstructive pulmonary disease (COPD): Status: Acute Plan Ebony Mendez is a 74 y/o woman presents with: Acute hypoxic and hypercapnic respiratory failure secondary to acute COPD exacerbation. Telemetry. Pulse oximetry. Continue supplemental O2 to keep O2 sats 89-90%. Continue IV steroids, bronchodilator therapy and empiric IV antibiotics. Repeat VBG. Tobacco dependence. Tobacco cessation education. Nicotine patch. History of left upper lobe nodules. Status post CT-guided biopsy complicated with pneumothorax. F/U with Dr. Simmons. Biopsy (Mar 2024) showed benign inflamed bronchial alveolar tissue with focal necrotizing granulomatous inflammation; negative for malignancy and microorganisms. GERD. Continue PPI. 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 F/U with Dr. Leonila Ulloa. Protein calorie malnutrition. BMI 16.7 kg/m2. Dietary consult. DVT prophylaxis: Lovenox Code status: Full Patient will need hospitalization for at least 2 midnights for acute hypoxic and hypercapnic respiratory failure treatment with bronchodilator therapy, supplemental oxygen, IV steroids and IV antibiotics. Quality Stroke Does the patient have a stroke diagnosis?: No VTE Prior VTE?: No VTE Risk Level:: Medical - moderate - high VTE Device Contraindication: Treatment Not Indicated VTE Drug Contraindication: N/A - Med Ordered
--- NOTE | 2025-02-25 23:48 | PC.NURSE ---
order for duoneb Q4 hours, last received by RT at 2200.
[2025-02-26] VITALS (9 sets, daily range): BP systolic 99–137; BP diastolic 44–68; PULSE 105–120; RESP 18–33; TEMP 36.1–37.2; O2SAT 92–96; BMI 16.7
[2025-02-26] MEDS: 0.9 % Sodium Chloride Flush 3 ML SYRINGE IVFLUSH ×3 (01:50→15:47)
[2025-02-26 01:57] LABS: Venous Blood Gas Refer to POC result
[2025-02-26 02:00] LABS: VBG HCO3 24 mmol/L (22-26); VBG O2 % Saturation 99.0 %
--- NOTE | 2025-02-26 04:57 | PC.NURSE ---
called pt Mert, explained pt will be admitted and he states he will call in a few hours to see if she is in a room and come in to be with her.
[2025-02-26 05:08] LABS: Hematocrit 40.0 % (37.0-47.0); Hemoglobin 13.3 g/dl (12.0-16.0); Imm Gran Abs Auto 0.03 X10*3/uL (0.00-0.03); Imm Gran Pct Auto 0.4 % (0.0-0.4); Lymphocytes Absolute Auto 0.3 X10*3/uL (1.2-4.9); MANUAL DIFF FLAG SCAN; Mean Corpuscular HGB Conc 33.3 g/dl (31.0-35.0); Mean Corpuscular Hemoglobin 31.1 pg (27.0-33.0); Mean Corpuscular Volume 93.7 fL (80.0-98.0); NRBC Abs Auto 0.000 X10*3/uL (0.0-0.012); NRBC Pct Auto 0.0 /100WBC (0.0-0.2); Platelet Count 170 X10*3/uL (160-400); Red Blood Count 4.27 X10*6/uL (4.20-5.50); SCAN SMEAR FLAG 1; White Blood Count 7.3 X10*3/uL (4.8-10.8)
[2025-02-26 05:28] LABS: Anion Gap 17 (12-20); Blood Urea Nitrogen 17 mg/dL (9-16); Calcium 8.3 mg/dL (8.4-10.2); Carbon Dioxide 22 mmol/L (22-29); Chloride 105 mmol/L (96-108); Creatinine Clr Calc Pharmacy 49.6; Estimated Glomerular Filt Rate > 60; Magnesium 2.1 mg/dL (1.6-2.6); Potassium 3.7 mmol/L (3.3-5.1); Sodium 140 mmol/L (135-145)
[2025-02-26] MEDS: Albuterol/Iprat 2.5/0.5MG 3 ML AMPUL.NEB INHALE ×3 (08:01→15:28)
--- NOTE | 2025-02-26 09:37 | PHA.MEDREC ---
Addendum entered by Dante Lawson, PharmD 02/26/25 12:29: MED REC CEHCKED BY [facility] Original Note: Pharmacy Consult ? Medication Reconciliation Pharmacy has completed the medication reconciliation. Spoke with pt and she confirmed her medications. Pt confirmed her Vitamin D3 once a week on Mondays and believes she took it this past Monday.
--- NOTE | 2025-02-26 09:55 | PC.NURSE ---
ESPERANZA Ayala at bedside meeting with Pt.
--- NOTE | 2025-02-26 11:02 | PM.CNPUL ---
History of Present Illness History of Present Illness Consult date: 02/26/25 Chief complaint: hypoxic and hypercapnic respiratory failure Narrative: 74-year-old lady with underlying COPD followed by Dr. Simmons admitted on 02/25/2025 with dyspnea secondary to COPD exacerbation. Patient was started on systemic glucocorticoids and nebulized bronchodilators with slow improvements. She denies hemoptysis or productive cough. Review of Systems Constitutional: Constitutional: Denies daytime sleepiness, Denies excessive sweating, Denies fatigue, Denies fever(s), Denies lethargy, Denies malaise, Denies night sweats, Denies snoring and Denies weight loss Eyes: Eyes: Denies blurry vision and Denies itchy eyes ENT: Denies nasal congestion, Denies post nasal drip, Denies sinus pain, Denies sinus pressure and Denies other ( Thrush) Cardiovascular: Cardiovascular: Denies chest pain, Denies pedal edema, Reports dyspnea, Denies orthopnea and Denies paroxysmal nocturnal dyspnea Respiratory: Respiratory: Denies cough, Denies hemoptysis, Denies excessive phlegm production, Reports dyspnea, Denies snoring and Reports wheezing Gastrointestinal: Gastrointestinal: Denies abdominal pain and Denies heartburn Musculoskeletal: Musculoskeletal: Denies myalgias, Denies arthralgias and Denies joint swelling Integumentary/Breasts: Skin/Breast: Denies rash Neurologic: Denies memory loss and Denies seizure-like activity Psychiatric: Psychiatric: Denies abnormal sleep pattern, Denies anxiety and Denies memory loss Endocrine: Endocrine: Denies excessive sweating, Denies fatigue and Denies heat intolerance Hematologic/Lymphatic: Hematologic/Lymphatic: Denies easy bruising Allergic/Immunologic: Allergic/Immunologic: Denies itchy eyes, Denies seasonal rhinorrhea and Reports wheezing PMFSH Past Medical History Medical History Vitamin D deficiency Macular degeneration of left eye Pulmonary nodule Multiple environmental allergies Nicotine dependence, cigarettes, uncomplicated COPD (chronic obstructive pulmonary disease) Stress incontinence Hx of bladder cancer (~2008) Dysphagia History of COVID-19 Primary insomnia Surgical menopause Osteoporosis (~2019) Tubular adenoma of colon (~2016) Hiatal hernia Esophagitis determined by endoscopy History of esophageal stricture Family History Family History Father HTN (hypertension) Mesothelioma Mother Melanoma Brother No problems noted. Brother No problems noted. Sister No problems noted. Daughter Melanoma Son No problems noted. Son No problems noted. Son No problems noted. Sister Lung cancer Surgical History Surgical History Pneumothorax after biopsy History of cataract surgery History of esophageal dilatation History of bladder surgery History of hand surgery History of colonoscopy History of esophagogastroduodenoscopy (EGD) History of cystoscopy History of hysterectomy Social History Social History Household Members: Spouse Housing: House Are you a primary behavioral health care coordinator to a significant other at home: No Do you presently have visiting nurse or other home services: No Patient Tobacco Use Status: Current everyday Tobacco user Tobacco use type: Cigarette Cigarette Packs Per Day: 5 Cigarettes Per Day: 4 Smoked in Last 30 Days: Yes e-Cigarette/Vaping Use: Never Used Second Hand Smoke Exposure: No Advance Directives: No Advance Directives Information Provided: No Do you have a plan to hurt others: No Plan service: No Current occupational status: employed Cognitive needs: No Hearing needs: No Vision needs: Yes Meds Allergies Allergy/AdvReac Type Severity Reaction Status Date / Time morphine AdvReac Intermediate Vomiting Verified 02/25/25 18:49 Active Medications: Current Medications Acetaminophen (Acetaminophen 325 Mg Tablet) 975 mg PO Q6H PRN PRN Reason: Pain, Mild 1-3,fever,headache Albuterol Sulfate (Albuterol Sulfate (0.083%) 2.5 Mg/3 Ml Vial.Neb) 2.5 mg INHALE Q2H PRN PRN Reason: Shortness of Breath/Wheezing Albuterol/Ipratropium (Albuterol/Iprat 2.5/0.5mg 3 Ml Ampul.Neb) 3 ml INHALE RQ4H WHILE AWAKE KIRAN Last Admin: 02/26/25 08:01 Dose: 3 ml Enoxaparin Sodium (Enoxaparin Sodium 40 Mg/0.4 Ml Syringe) 40 mg SUBCUT Q24H KIRAN Last Admin: 02/26/25 08:58 Dose: 40 mg Azithromycin 500 mg/ Sodium (Chloride) 250 mls @ 125 mls/hr IV Q24H REPLACED BY [facility] Last Admin: 02/26/25 08:57 Dose: 125 mls/hr Melatonin (Melatonin 3 Mg Tablet) 6 mg PO BEDTIME PRN PRN Reason: Insomnia Methylprednisolone Sodium Succinate (Methylprednisolone Sod Succ 40 Mg/Ml Vial) 40 mg IVPUSH Q12H REPLACED BY [facility] Last Admin: 02/26/25 02:48 Dose: 40 mg Nicotine (Nicotine 21 Mg Patch.Td24) 21 mg TRANSDERMA DAILY REPLACED BY [facility] Last Admin: 02/26/25 08:59 Dose: Not Given Sodium Chloride (0.9 % Sodium Chloride Flush 3 Ml Syringe) 3 ml IVFLUSH QSHIFT REPLACED BY [facility] Last Admin: 02/26/25 08:56 Dose: 3 ml Home Medications ?Medication ?Instructions ?Recorded ?Confirmed ?Last Taken ?Type omeprazole 40 mg capsule,delayed 40 mg PO BID@0630,1630 03/13/23 02/26/25 02/25/25 History release nebulizers 08/10/23 01/14/25 Unknown History cholecalciferol (vitamin D3) 1,250 1,250 mcg PO MO 02/26/25 02/26/25 02/24/25 History mcg (50,000 unit) capsule Physical Exam Vital Signs: Vital Signs: Last Vital Signs Temp 97.5 F 02/26/25 05:34 Pulse 116 H 02/26/25 08:04 Resp 25 H 02/26/25 08:04 BP 123/63 02/26/25 05:34 Pulse Ox 96 02/26/25 05:34 O2 Del Method Nasal Cannula 02/26/25 05:34 O2 Flow Rate 2 02/26/25 05:34 BMI result Body Mass Index 16.7 Const: General: no acute distress and alert Nutritional Appearance: not obese Orientation/consciousness: Other orientation findings ( oriented) HEENT: Head: Yes atraumatic Eyes: General: appearance normal, both eyes and all related structures Sclerae: sclerae normal EOM: EOMs intact bilaterally Neck: Neck: Yes supple Lymphatic: no lymphadenopathy noted Resp: Effort & Inspection: normal respiratory effort and no use of accessory muscles Auscultation: other (Poor bilateral air movement) Cardio: Rate: regular rate Rhythm: regular rhythm Heart sounds: no gallops, no murmurs and no rubs Skin: General skin exam: other ( warm) Extrem: General: No clubbing, No cyanosis and No edema Results Laboratory Findings 02/26/25 03:09 02/26/25 03:09 ABG, PT/INR, D-dimer: PT/INR, D-dimer PT 11.1 SEC (10.9-12.4) 02/25/25 19:14 INR 1.0 (0.9-1.1) 02/25/25 19:14 Abnormal lab findings: Abnormal Labs 02/25/25 02/25/25 02/25/25 19:14 19:18 19:41 Neut % (Auto) Lymph % (Auto) 13.8 L [place] % (Auto) 13.0 H Lymph # (Auto) [place] # (Auto) 1.4 H ABG pH at Pt Temp 7.25 L ABG pCO2 at Pt Temp 65 H* ABG pO2 at Pt Temp 133 H ABG HCO3 29 H VBG HCO3 31 H BUN 17 H Random Glucose Calcium AST 35 H 02/25/25 02/26/25 22:02 03:09 Neut % (Auto) 93.8 H Lymph % (Auto) 4.7 L [place] % (Auto) 1.0 L Lymph # (Auto) 0.3 L [place] # (Auto) ABG pH at Pt Temp 7.30 L ABG pCO2 at Pt Temp 54 H ABG pO2 at Pt Temp 133 H ABG HCO3 27 H VBG HCO3 BUN 17 H Random Glucose 163 H Calcium 8.3 L D AST Assessment and Plan (1) Acute exacerbation of chronic obstructive pulmonary disease (COPD): Status: Acute Plan Impression: 74-year-old lady with underlying advanced COPD admitted with COPD exacerbation, improving slowly. Recommendations: Agree with current therapeutic regimen including systemic glucocorticoids and nebulized bronchodilators. Procedures Date of Service Date of Service: 02/26/25
--- NOTE | 2025-02-26 11:10 | MHC.CM.PN ---
CM met with Patient at bedside, in the ED. Patient lives in a house with her Partner/HCP/Mert, who will transport Patient to home at time of dc. 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 PCP is Dr. Arlin Watkins.
--- NOTE | 2025-02-26 12:54 | MHC.EDTECH ---
tray given...pt refused the meal but gave her 2 ice creams
--- NOTE | 2025-02-26 13:52 | PC.NURSE ---
This RN to bedside as Pt noted to have a desat to 88% Pt requests to have O2 changed back to NC. Oxymask initiated by RT at time of neb treatment earlier this morning. Pt reports she feels she is having a harder time breathing with the oxymask and cannot feel the benefits from O2. Oxymask changed out for NC O2 sat recovers to 92% quickly and Pt reports feeling much better.
--- NOTE | 2025-02-26 15:48 | MHC.CLN ---
CONSULT DIET=REGULAR. DOES NOT WANT ENSURE SUPPLEMENT OR MAGIC CUP. LIKES ICE CREAM AND CHOCOLATE MILK. DINING SERVICES AWARE OF PREFERENCE. SIGNIFICANT UNPLANNED WEIGHT LOSS X 3 MONTHS -11.9% AND X 6 MONTHS -13.6%. QUALIFIES MODERATELY MALNOURISHED IN THE CONTEXT OF CHRONIC ILLNESS. FOLLOW FOR DIET TOLERANCE AND PO INTAKE. SEE CLINICAL NUTRITION ASSESSMENT 02/26/25.
--- NOTE | 2025-02-26 18:25 | HO.PM.IMPN ---
Subjective Subjective Date of Service: 02/26/25 Interval History: copd execerebation Review of Systems sob seems slightly improving no cough Review of Systems: Yes all other systems are reviewed and are negative Physical Exam Exam: Exam: Appearance: Alert.? Oriented X3. cvs: rrr, [id number]. res: air entry diminshed ,has exp wheezing abd: no rebound or guarding ,nt, bs present. ext pulses present , no cyanosis. neuro: axo3 , nonfocal. Vital Signs: Vital Signs: Last Vital Signs Temp 97.6 F 02/26/25 13:55 Pulse 116 H 02/26/25 15:29 Resp 26 H 02/26/25 15:29 BP 137/68 02/26/25 13:55 Pulse Ox 94 02/26/25 13:55 O2 Del Method Nasal Cannula 02/26/25 13:55 O2 Flow Rate 3 02/26/25 13:55 BMI result Body Mass Index 16.7 Objective Data Active Medications Acetaminophen (Acetaminophen 325 Mg Tablet) 975 mg PO Q6H PRN PRN Reason: Pain, Mild 1-3,fever,headache Albuterol Sulfate (Albuterol Sulfate (0.083%) 2.5 Mg/3 Ml Vial.Neb) 2.5 mg INHALE Q2H PRN PRN Reason: Shortness of Breath/Wheezing Enoxaparin Sodium (Enoxaparin Sodium 40 Mg/0.4 Ml Syringe) 40 mg SUBCUT Q24H [facility] Last Admin: 02/26/25 08:58 Dose: 40 mg Documented By: JON Azithromycin 500 mg/ Sodium (Chloride) 250 mls @ 125 mls/hr IV Q24H [facility] Last Infusion: 02/26/25 11:04 Dose: Infused Documented By: JON Levalbuterol HCl (Levalbuterol Hcl 1.25 Mg/3 Ml Vial.Neb) 1.25 mg INHALE Q4H [facility] Levalbuterol HCl (Levalbuterol Hcl 1.25 Mg/3 Ml Vial.Neb) 1.25 mg INHALE Q3H PRN PRN Reason: sob Melatonin (Melatonin 3 Mg Tablet) 6 mg PO BEDTIME PRN PRN Reason: Insomnia Methylprednisolone Sodium Succinate (Methylprednisolone Sod Succ 40 Mg/Ml Vial) 40 mg IVPUSH Q12H [facility] Last Admin: 02/26/25 15:47 Dose: 40 mg Documented By: BRANT Nicotine (Nicotine 21 Mg Patch.Td24) 21 mg TRANSDERMA DAILY [facility] Last Admin: 02/26/25 08:59 Dose: Not Given Documented By: JON Non-Admin Reason: Patient Refused Omeprazole (Omeprazole 40 Mg Capsule.Dr) 40 mg PO BID@0630,1630 [facility] Last Admin: 02/26/25 15:51 Dose: 40 mg Documented By: BRANT Sodium Chloride (0.9 % Sodium Chloride Flush 3 Ml Syringe) 3 ml IVFLUSH QSHIFT [facility] Last Admin: 02/26/25 15:47 Dose: 3 ml Documented By: BRANT Zolpidem Tartrate (Zolpidem Tartrate 5 Mg Tablet) 10 mg PO BEDTIME PRN PRN Reason: Insomnia Labs 02/26/25 03:09 02/26/25 03:09 Labs: Laboratory Results - last 24 hr 02/25/25 02/25/25 02/25/25 19:14 19:18 19:20 MCV 91.3 MCH 31.7 MCHC 34.7 RDW 12.4 Plt Count 189 MPV 9.7 Immature Gran % (Auto) 0.3 Neut % (Auto) 71.0 Lymph % (Auto) 13.8 L [place] % (Auto) 13.0 H Eos % (Auto) 1.5 Baso % (Auto) 0.4 Lymph # (Auto) 1.4 [place] # (Auto) 1.4 H Eos # (Auto) 0.2 Baso # (Auto) 0.0 Abs Immat Gran (auto) 0.03 Absolute Neuts (auto) 7.4 Absolute Nucleated RBC 0.000 Nucleated RBC % (auto) 0.0 Smear Tech's Comments PT 11.1 INR 1.0 O2 Saturation ABG pH at Pt Temp ABG pCO2 at Pt Temp ABG pO2 at Pt Temp ABG HCO3 ABG Base Excess (Actual) VBG pH 7.38 VBG pCO2 53 VBG pO2 64 VBG HCO3 31 H VBG O2 Saturation 89.0 VBG Base Excess 5.2 Anion Gap 19 Estim Creat Clear Calc 42.8 Estimated GFR > 60 Random Glucose 111 Lactic Acid 1.4 Calcium 9.2 Magnesium 2.2 Total Bilirubin 0.8 AST 35 H ALT 7 Alkaline Phosphatase 110 Total Protein 7.8 Albumin 4.3 Influenza Type A (PCR) NEGATIVE Influenza Type B (PCR) NEGATIVE RSV RNA Qual (PCR) NEGATIVE SARS-CoV-2 RNA (RT-PCR) NEGATIVE 02/25/25 02/25/25 02/26/25 19:41 22:02 01:56 MCV MCH MCHC RDW Plt Count MPV Immature Gran % (Auto) Neut % (Auto) Lymph % (Auto) Louisa % (Auto) Eos % (Auto) Baso % (Auto) Lymph # (Auto) Louisa # (Auto) Eos # (Auto) Baso # (Auto) Abs Immat Gran (auto) Absolute Neuts (auto) Absolute Nucleated RBC Nucleated RBC % (auto) Smear Tech's Comments PT INR O2 Saturation 100.0 99.0 ABG pH at Pt Temp 7.25 L 7.30 L ABG pCO2 at Pt Temp 65 H* 54 H ABG pO2 at Pt Temp 133 H 133 H ABG HCO3 29 H 27 H ABG Base Excess (Actual) 0.1 0.4 VBG pH 7.34 VBG pCO2 44 VBG pO2 122 VBG HCO3 24 VBG O2 Saturation 99.0 VBG Base Excess -1.1 Anion Gap Estim Creat Clear Calc Estimated GFR Random Glucose Lactic Acid Calcium Magnesium Total Bilirubin AST ALT Alkaline Phosphatase Total Protein Albumin Influenza Type A (PCR) Influenza Type B (PCR) RSV RNA Qual (PCR) SARS-CoV-2 RNA (RT-PCR) 02/26/25 03:09 MCV 93.7 MCH 31.1 MCHC 33.3 RDW 12.5 Plt Count 170 MPV 10.6 Immature Gran % (Auto) 0.4 Neut % (Auto) 93.8 H Lymph % (Auto) 4.7 L [place] % (Auto) 1.0 L Eos % (Auto) 0.0 Baso % (Auto) 0.1 Lymph # (Auto) 0.3 L [place] # (Auto) 0.1 Eos # (Auto) 0.0 Baso # (Auto) 0.0 Abs Immat Gran (auto) 0.03 Absolute Neuts (auto) 6.8 Absolute Nucleated RBC 0.000 Nucleated RBC % (auto) 0.0 Smear Tech's Comments VERIFIED PT INR O2 Saturation ABG pH at Pt Temp ABG pCO2 at Pt Temp ABG pO2 at Pt Temp ABG HCO3 ABG Base Excess (Actual) VBG pH VBG pCO2 VBG pO2 VBG HCO3 VBG O2 Saturation VBG Base Excess Anion Gap 17 Estim Creat Clear Calc 49.6 Estimated GFR > 60 Random Glucose 163 H Lactic Acid Calcium 8.3 L D Magnesium 2.1 Total Bilirubin AST ALT Alkaline Phosphatase Total Protein Albumin Influenza Type A (PCR) Influenza Type B (PCR) RSV RNA Qual (PCR) SARS-CoV-2 RNA (RT-PCR) Assessment and Plan (1) Acute exacerbation of chronic obstructive pulmonary disease (COPD): Status: Acute Plan 74 y/o woman presents with: Acute hypoxic and hypercapnic respiratory failure secondary to acute COPD exacerbation. abg reassuring Telemetry. Pulse oximetry. Continue supplemental O2 to keep O2 sats 89-90%. Continue IV steroids, bronchodilator therapy and empiric IV antibiotics. pulm:Agree with current therapeutic regimen including systemic glucocorticoids and nebulized bronchodilators. DuoNeb-as per patient's staff causing some tachycardia, so change nebs to Xopenex. Tobacco dependence. Tobacco cessation education. Nicotine patch. History of left upper lobe nodules. Status post CT-guided biopsy complicated with pneumothorax. F/U with Dr. Simmons. Biopsy (Mar 2024) showed benign inflamed bronchial alveolar tissue with focal necrotizing granulomatous inflammation; negative for malignancy and microorganisms. GERD. Continue PPI. 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 F/U with Dr. Spencer. Protein calorie malnutrition. BMI 16.7 kg/m2. Dietary consult. DVT prophylaxis: Lovenox Code status: Full ongoing hospitalization need for acute hypoxic and hypercapnic respiratory failure treatment with bronchodilator therapy, supplemental oxygen, IV steroids and IV antibiotics. Quality Stroke Does the patient have a stroke diagnosis?: No VTE Prior VTE?: No VTE Risk Level:: Medical - moderate - high VTE Device Contraindication: Treatment Not Indicated VTE Drug Contraindication: N/A - Med Ordered
--- NOTE | 2025-02-26 19:13 | PC.NURSE ---
Assumed care of pt. Currently in NAD, speaking in clear full sentences while at rest. Slight wheeze audible in LL. SPO2 96-97% on 2L. Removed O2 for now to trial. Pt denies any pain. Able to make needs known, aware of plan for admission.
--- NOTE | 2025-02-26 19:41 | PC.NURSE ---
Pt unable to tolerate RA, dipped down to 83%. Placed back on 2L.
[2025-02-27] VITALS (7 sets, daily range): BP systolic 105–145; BP diastolic 60–66; PULSE 103–117; RESP 18–25; TEMP 36–36.5; O2SAT 93–100
[2025-02-27] MEDS: 0.9 % Sodium Chloride Flush 3 ML SYRINGE IVFLUSH ×4 (03:41→22:51)
--- NOTE | 2025-02-27 17:44 | HO.PM.IMPN ---
Subjective Subjective Date of Service: 02/27/25 Interval History: Still with SOB, difficultly breathing Increased anxiety Feels breathing treatments are not helping her Physical Exam Exam: Exam: General: AOx3, appears uncomfortable Resp: Diffuse wheezing bilaterally CVS: S1, S2, RRR GI: +BS, NT, no distention Skin: Warm, dry Neuro: Cranial nerves II-XII grossly intact bilaterally. Motor grossly intact bilaterally Extremities: No edema Psych: Anxious Vital Signs: Vital Signs: Last Vital Signs Temp 96.9 F 02/27/25 15:06 Pulse 110 H 02/27/25 15:15 Resp 24 H 02/27/25 15:15 BP 142/65 H 02/27/25 15:06 Pulse Ox 99 02/27/25 15:06 O2 Del Method Nasal Cannula 02/27/25 15:06 O2 Flow Rate 2 02/27/25 15:06 BMI result Body Mass Index 16.7 Objective Data Active Medications Acetaminophen (Acetaminophen 325 Mg Tablet) 975 mg PO Q6H PRN PRN Reason: Pain, Mild 1-3,fever,headache Albuterol Sulfate (Albuterol Sulfate (0.083%) 2.5 Mg/3 Ml Vial.Neb) 2.5 mg INHALE Q2H PRN PRN Reason: Shortness of Breath/Wheezing Enoxaparin Sodium (Enoxaparin Sodium 40 Mg/0.4 Ml Syringe) 40 mg SUBCUT Q24H [facility] Last Admin: 02/27/25 08:24 Dose: 40 mg Documented By: VIRGEN Azithromycin 500 mg/ Sodium (Chloride) 250 mls @ 125 mls/hr IV Q24H [facility] Last Infusion: 02/27/25 10:26 Dose: Infused Documented By: VIRGEN Levalbuterol HCl (Levalbuterol Hcl 1.25 Mg/3 Ml Vial.Neb) 1.25 mg INHALE Q4H [facility] Last Admin: 02/27/25 15:12 Dose: 1.25 mg Documented By: JOSE J Levalbuterol HCl (Levalbuterol Hcl 1.25 Mg/3 Ml Vial.Neb) 1.25 mg INHALE Q3H PRN PRN Reason: sob Lorazepam (Lorazepam 0.5 Mg Tablet) 0.5 mg PO Q6H PRN PRN Reason: Dyspnea, anxiety Last Admin: 02/27/25 14:30 Dose: 0.5 mg Documented By: VIRGEN Melatonin (Melatonin 3 Mg Tablet) 6 mg PO BEDTIME PRN PRN Reason: Insomnia Methylprednisolone Sodium Succinate (Methylprednisolone Sod Succ 40 Mg/Ml Vial) 40 mg IVPUSH Q12H [facility] Last Admin: 02/27/25 14:30 Dose: 40 mg Documented By: VIRGEN Nicotine (Nicotine 21 Mg Patch.Td24) 21 mg TRANSDERMA DAILY [facility] Last Admin: 02/27/25 08:25 Dose: Not Given Documented By: VIRGEN Non-Admin Reason: Patient Refused Omeprazole (Omeprazole 40 Mg Capsule.) 40 mg PO BID@0630,1630 [facility] Last Admin: 02/27/25 16:59 Dose: Not Given Documented By: VIRGEN Non-Admin Reason: Patient Refused Ondansetron HCl (Ondansetron Hcl 4 Mg/2 Ml Vial) 4 mg IVPUSH Q8H PRN PRN Reason: Nausea and Vomiting Sodium Chloride (0.9 % Sodium Chloride Flush 3 Ml Syringe) 3 ml IVFLUSH QSHIFT [facility] Last Admin: 02/27/25 14:31 Dose: 3 ml Documented By: VIRGEN Zolpidem Tartrate (Zolpidem Tartrate 5 Mg Tablet) 10 mg PO BEDTIME PRN PRN Reason: Insomnia Labs 02/26/25 03:09 02/26/25 03:09 Microbiology Microbiology Results: Microbiology 02/25/25 20:03 Blood Culture - Preliminary Blood - Venous No growth after 24 hours. 02/25/25 19:36 Blood Culture - Preliminary Blood - Venous No growth after 24 hours. Assessment and Plan (1) Acute exacerbation of chronic obstructive pulmonary disease (COPD): Status: Acute Plan 74 y/o woman presents with: Acute hypoxic and hypercapnic respiratory failure secondary to acute COPD exacerbation. Still with SOB and CUADRA Telemetry. Pulse oximetry. Continue supplemental O2 to keep O2 sats 89-90%. abg reassuring; Continue IV steroids, bronchodilator therapy and empiric IV antibiotics. pulm: Agree with current therapeutic regimen including systemic glucocorticoids and nebulized bronchodilators. DuoNeb-as per patient's staff causing some tachycardia, so change nebs to Xopenex. Anxiety ativan prn Tobacco dependence. Tobacco cessation education. Nicotine patch. History of left upper lobe nodules. Status post CT-guided biopsy complicated with pneumothorax. F/U with Dr. Simmons. Biopsy (Mar 2024) showed benign inflamed bronchial alveolar tissue with focal necrotizing granulomatous inflammation; negative for malignancy and microorganisms. GERD. Continue PPI. 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 F/U with Dr. Spencer. Protein calorie malnutrition. BMI 16.7 kg/m2. Dietary consult. DVT prophylaxis: Lovenox Code status: Full ongoing hospitalization need for acute hypoxic and hypercapnic respiratory failure treatment with bronchodilator therapy, supplemental oxygen, IV steroids and IV antibiotics. Quality Stroke Does the patient have a stroke diagnosis?: No VTE Prior VTE?: No VTE Risk Level:: Medical - moderate - high VTE Device Contraindication: Treatment Not Indicated VTE Drug Contraindication: N/A - Med Ordered
[2025-02-28] VITALS (8 sets, daily range): BP systolic 121–164; BP diastolic 58–89; PULSE 93–108; RESP 16–24; TEMP 36.2–36.6; O2SAT 92–100
[2025-02-28] MEDS: 0.9 % Sodium Chloride Flush 3 ML SYRINGE IVFLUSH ×3 (08:31→21:07)
--- NOTE | 2025-02-28 10:15 | MHC.CM.PN ---
Per MD rounds patient is not clear to dc today. She continues with SOB and Wheezing. DP to home selfcare and private transport provided by [facility].
--- NOTE | 2025-02-28 11:42 | MHC.CLN ---
F/U PT QUALIFIES MODERATELY MALNOURISHED IN THE CONTEXT OF CHRONIC ILLNESS PT WITH SIGNIFICANT UNPLANNED WEIGHT LOSS X 3 MONTHS -11.9% AND X 6 MONTHS -13.6% PO INTAKE 25% X3 MEALS DIET RX: REGULAR PT DOES NOT WANT ENSURE SUPPLEMENT OR MAGIC CUP LIKES ICE CREAM, PANCAKES AND CHOCOLATE MILK-DINING SERVICES AWARE OF PREFERENCE FOLLOW FOR DIET TOLERANCE AND PO INTAKE
--- NOTE | 2025-02-28 15:06 | P.PNIM_ITS ---
Subjective Subjective Date of Service: 02/28/25 Interval History: Some improvement with breathing Was able to sleep last night Has been intermittently refusing breathing treatments Reports HR chronically in the 90s-100s Review of Systems Review of Systems: Yes all other systems are reviewed and are negative Physical Exam 2 Exam: Exam: General: AOx3, frail, ill-appearing Resp: Diffuse wheezing throughout CVS: S1, S2, RRR GI: +BS, NT, no distention Skin: Warm, dry Neuro: Cranial nerves II-XII grossly intact bilaterally. Motor grossly intact bilaterally Extremities: No edema Psych: Anxious Vital Signs: Vital Signs: Last Vital Signs Temp 97.2 F 02/28/25 11:41 Pulse 104 H 02/28/25 11:41 Resp 18 02/28/25 11:41 BP 121/58 L 02/28/25 11:41 Pulse Ox 95 02/28/25 11:41 O2 Del Method Nasal Cannula 02/28/25 11:41 O2 Flow Rate 2 02/28/25 11:41 BMI result Body Mass Index 16.7 Objective Data Active Medications Acetaminophen (Acetaminophen 325 Mg Tablet) 975 mg PO Q6H PRN PRN Reason: Pain, Mild 1-3,fever,headache Albuterol Sulfate (Albuterol Sulfate (0.083%) 2.5 Mg/3 Ml Vial.Neb) 2.5 mg INHALE Q2H PRN PRN Reason: Shortness of Breath/Wheezing Enoxaparin Sodium (Enoxaparin Sodium 40 Mg/0.4 Ml Syringe) 40 mg SUBCUT Q24H [facility] Last Admin: 02/28/25 08:31 Dose: 40 mg Documented By: ERIN Azithromycin 500 mg/ Sodium (Chloride) 250 mls @ 125 mls/hr IV Q24H [facility] Last Infusion: 02/28/25 10:30 Dose: Infused Documented By: ERIN Levalbuterol HCl (Levalbuterol Hcl 1.25 Mg/3 Ml Vial.Neb) 1.25 mg INHALE Q4H [facility] Last Admin: 02/28/25 11:30 Dose: Not Given Documented By: GANESH Non-Admin Reason: Patient Refused Levalbuterol HCl (Levalbuterol Hcl 1.25 Mg/3 Ml Vial.Neb) 1.25 mg INHALE Q3H PRN PRN Reason: sob Lorazepam (Lorazepam 0.5 Mg Tablet) 0.5 mg PO Q6H PRN PRN Reason: Dyspnea, anxiety Last Admin: 02/28/25 09:08 Dose: 0.5 mg Documented By: ERIN Melatonin (Melatonin 3 Mg Tablet) 6 mg PO BEDTIME PRN PRN Reason: Insomnia Methylprednisolone Sodium Succinate (Methylprednisolone Sod Succ 40 Mg/Ml Vial) 40 mg IVPUSH TID [facility] Nicotine (Nicotine 21 Mg Patch.Td24) 21 mg TRANSDERMA DAILY [facility] Last Admin: 02/28/25 08:24 Dose: Not Given Documented By: ERIN Non-Admin Reason: Patient Refused Omeprazole (Omeprazole 40 Mg Capsule.) 40 mg PO BID@0630,1630 [facility] Last Admin: 02/28/25 06:11 Dose: 40 mg Documented By: EMILY Ondansetron HCl (Ondansetron Hcl 4 Mg/2 Ml Vial) 4 mg IVPUSH Q8H PRN PRN Reason: Nausea and Vomiting Last Admin: 02/28/25 09:10 Dose: 4 mg Documented By: ERIN Sodium Chloride (0.9 % Sodium Chloride Flush 3 Ml Syringe) 3 ml IVFLUSH QSHIFT [facility] Last Admin: 02/28/25 08:31 Dose: 3 ml Documented By: ERIN Zolpidem Tartrate (Zolpidem Tartrate 5 Mg Tablet) 10 mg PO BEDTIME PRN PRN Reason: Insomnia Labs 02/26/25 03:09 02/26/25 03:09 Microbiology Microbiology Results: Microbiology 02/25/25 20:03 Blood Culture - Preliminary Blood - Venous No growth after 48 hours. 02/25/25 19:36 Blood Culture - Preliminary Blood - Venous No growth after 48 hours. Assessment and Plan (1) Acute exacerbation of chronic obstructive pulmonary disease (COPD): Status: Acute Plan 74 y/o woman presents with: Acute hypoxic and hypercapnic respiratory failure secondary to acute COPD exacerbation. Still with SOB and CUADRA, mildly improved from yesterday abg reassuring; Continue IV steroids, bronchodilator therapy and empiric IV antibiotics. pulm: Agree with current therapeutic regimen including systemic glucocorticoids and nebulized bronchodilators. DuoNeb-as per patient's staff causing some tachycardia, so change nebs to Xopenex. Given slow improvement, will increase Solu-Medrol to 40mg tid Continue supplemental O2 to keep O2 sats 89-90%. Telemetry. Pulse oximetry. Anxiety ativan prn Tobacco dependence. Tobacco cessation education. Nicotine patch. History of left upper lobe nodules. Status post CT-guided biopsy complicated with pneumothorax. F/U with Dr. Simmons. Biopsy (Mar 2024) showed benign inflamed bronchial alveolar tissue with focal necrotizing granulomatous inflammation; negative for malignancy and microorganisms. GERD. Continue PPI. 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 F/U with Dr. Leonila Ulloa. Protein calorie malnutrition. BMI 16.7 kg/m2. Dietary consult. DVT prophylaxis: Lovenox Code status: Full ongoing hospitalization need for acute hypoxic and hypercapnic respiratory failure treatment with bronchodilator therapy, supplemental oxygen, IV steroids and IV antibiotics. Quality Stroke Does the patient have a stroke diagnosis?: No VTE Prior VTE?: No VTE Risk Level:: Medical - moderate - high VTE Device Contraindication: Treatment Not Indicated VTE Drug Contraindication: N/A - Med Ordered
[2025-03-01] VITALS (17 sets, daily range): BP systolic 139–172; BP diastolic 65–82; PULSE 102–130; RESP 16–38; TEMP 36.3–36.8; O2SAT 88–98
[2025-03-01] MEDS: 0.9 % Sodium Chloride Flush 3 ML SYRINGE IVFLUSH ×3 (08:03→20:05)
[2025-03-01 08:22] LABS: Venous Blood Gas Refer to POC result
[2025-03-01 08:23] LABS: VBG HCO3 37 mmol/L (22-26); VBG O2 % Saturation 99.0 %
--- NOTE | 2025-03-01 15:11 | P.PNIM_ITS ---
Subjective Subjective Date of Service: 03/01/25 Interval History: Continues to intermittently refuse breathing treatments Nursing report intermittent confusion, seeing people in the room Pt reports some improvement in breathing Continues to be tachycardic Review of Systems No chest pain or pressure Denies fever, chills No nausea, vomiting, abdominal pain Physical Exam 2 Exam: Exam: General: AOx3, frail, ill-appearing Resp: Diffuse wheezing throughout CVS: S1, S2, RRR GI: +BS, NT, no distention Skin: Warm, dry Neuro: Cranial nerves II-XII grossly intact bilaterally. Motor grossly intact bilaterally Extremities: No edema Psych: Anxious Vital Signs: Vital Signs: Last Vital Signs Temp 98.0 F 03/01/25 11:49 Pulse 112 H 03/01/25 15:09 Resp 20 03/01/25 15:09 BP 155/65 H 03/01/25 11:49 Pulse Ox 92 03/01/25 11:49 O2 Del Method Nasal Cannula 03/01/25 11:49 O2 Flow Rate 2 03/01/25 11:49 BMI result Body Mass Index 16.7 Objective Data Active Medications Acetaminophen (Acetaminophen 325 Mg Tablet) 975 mg PO Q6H PRN PRN Reason: Pain, Mild 1-3,fever,headache Albuterol Sulfate (Albuterol Sulfate (0.083%) 2.5 Mg/3 Ml Vial.Neb) 2.5 mg INHALE Q2H PRN PRN Reason: Shortness of Breath/Wheezing Enoxaparin Sodium (Enoxaparin Sodium 40 Mg/0.4 Ml Syringe) 40 mg SUBCUT Q24H [facility] Last Admin: 03/01/25 08:02 Dose: 40 mg Documented By: ERIN Azithromycin 500 mg/ Sodium (Chloride) 250 mls @ 125 mls/hr IV Q24H [facility] Last Infusion: 03/01/25 10:01 Dose: Infused Documented By: ERIN Levalbuterol HCl (Levalbuterol Hcl 1.25 Mg/3 Ml Vial.Neb) 1.25 mg INHALE Q4H [facility] Last Admin: 03/01/25 15:07 Dose: 1.25 mg Documented By: MANAN Levalbuterol HCl (Levalbuterol Hcl 1.25 Mg/3 Ml Vial.Neb) 1.25 mg INHALE Q3H PRN PRN Reason: sob Last Admin: 03/01/25 02:49 Dose: 1.25 mg Documented By: PRIMITIVO Lorazepam (Lorazepam 0.5 Mg Tablet) 0.5 mg PO Q6H PRN PRN Reason: Dyspnea, anxiety Last Admin: 03/01/25 03:21 Dose: 0.5 mg Melatonin (Melatonin 3 Mg Tablet) 6 mg PO BEDTIME PRN PRN Reason: Insomnia Methylprednisolone Sodium Succinate (Methylprednisolone Sod Succ 40 Mg/Ml Vial) 40 mg IVPUSH TID [facility] Last Admin: 03/01/25 14:34 Dose: 40 mg Documented By: ERIN Nicotine (Nicotine 21 Mg Patch.Td24) 21 mg TRANSDERMA DAILY [facility] Last Admin: 03/01/25 08:15 Dose: Not Given Documented By: ERIN Non-Admin Reason: Patient Refused Omeprazole (Omeprazole 40 Mg Capsule.) 40 mg PO BID@0630,1630 [facility] Last Admin: 03/01/25 07:00 Dose: 40 mg Documented By: ORLIN Ondansetron HCl (Ondansetron Hcl 4 Mg/2 Ml Vial) 4 mg IVPUSH Q8H PRN PRN Reason: Nausea and Vomiting Last Admin: 02/28/25 09:10 Dose: 4 mg Documented By: ERIN Sodium Chloride (0.9 % Sodium Chloride Flush 3 Ml Syringe) 3 ml IVFLUSH QSHIFT [facility] Last Admin: 03/01/25 14:34 Dose: 3 ml Documented By: ERIN Zolpidem Tartrate (Zolpidem Tartrate 5 Mg Tablet) 10 mg PO BEDTIME PRN PRN Reason: Insomnia Labs 02/26/25 03:09 02/26/25 03:09 Labs: Laboratory Results - last 24 hr 03/01/25 08:17 VBG pH 7.45 H VBG pCO2 54 VBG pO2 114 VBG HCO3 37 H VBG O2 Saturation 99.0 VBG Base Excess 11.4 Assessment and Plan (1) Acute exacerbation of chronic obstructive pulmonary disease (COPD): Status: Acute Plan 74 y/o woman presents with: Acute hypoxic and hypercapnic respiratory failure secondary to acute COPD exacerbation. Still with SOB and CUADRA, mildly improved from yesterday repeat abg reassuring; Continue IV steroids, bronchodilator therapy and empiric IV antibiotics. pulm: Agree with current therapeutic regimen including systemic glucocorticoids and nebulized bronchodilators. DuoNeb-as per patient's staff causing some tachycardia, so change nebs to Xopenex. Given slow improvement, Solu-Medrol increased on 02/28 to 40 mg tid Continue supplemental O2 to keep O2 sats 89-90%; has been removing O2 and desatting into the 70s Will check CTA of chest to r/o PE Telemetry. Pulse oximetry. Question of acute encephalopathy Nursing report pt has been speaking to people who were not in the room and claiming she was just with the baby Will check ammonia, CBC, CMP, and UA Monitor mentation Anxiety ativan prn Tobacco dependence. Tobacco cessation education. Nicotine patch. History of left upper lobe nodules. Status post CT-guided biopsy complicated with pneumothorax. F/U with Dr. Simmons. Biopsy (Mar 2024) showed benign inflamed bronchial alveolar tissue with focal necrotizing granulomatous inflammation; negative for malignancy and microorganisms. GERD. Continue PPI. 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 F/U with Dr. Leonila Ulloa. Protein calorie malnutrition. BMI 16.7 kg/m2. Dietary consult. DVT prophylaxis: Lovenox Code status: Full ongoing hospitalization need for acute hypoxic and hypercapnic respiratory failure treatment with bronchodilator therapy, supplemental oxygen, IV steroids and IV antibiotics. Quality Stroke Does the patient have a stroke diagnosis?: No VTE Prior VTE?: No VTE Risk Level:: Medical - moderate - high VTE Device Contraindication: Treatment Not Indicated VTE Drug Contraindication: N/A - Med Ordered
[2025-03-01 15:45] LABS: Hematocrit 45.3 % (37.0-47.0); Hemoglobin 14.9 g/dl (12.0-16.0); Mean Corpuscular HGB Conc 32.9 g/dl (31.0-35.0); Mean Corpuscular Hemoglobin 30.8 pg (27.0-33.0); Mean Corpuscular Volume 93.8 fL (80.0-98.0); NRBC Abs Auto 0.000 X10*3/uL (0.0-0.012); NRBC Pct Auto 0.0 /100WBC (0.0-0.2); Platelet Count 224 X10*3/uL (160-400); Red Blood Count 4.83 X10*6/uL (4.20-5.50); White Blood Count 17.8 X10*3/uL (4.8-10.8)
[2025-03-01 15:55] LABS: Ammonia 40 umol/L (13-55)
[2025-03-01 16:01] LABS: Alanine Aminotransferase 16 U/L (0-31); Albumin Level 4.3 g/dL (3.5-5.0); Alkaline Phosphatase 77 U/L (39-117); Anion Gap 17 (12-20); Aspartate Amino Transferase 33 U/L (5-31); Blood Urea Nitrogen 35 mg/dL (9-16); Calcium 9.0 mg/dL (8.4-10.2); Carbon Dioxide 33 mmol/L (22-29); Chloride 100 mmol/L (96-108); Creatinine Clr Calc Pharmacy 45.9; Estimated Glomerular Filt Rate > 60; Potassium 4.4 mmol/L (3.3-5.1); Sodium 146 mmol/L (135-145); Total Protein 7.4 g/dL (6.5-8.0)
[2025-03-01] MEDS: iohexoL 350 MG/ML 100 ML INFUS..BTL 85 ML IV (16:06)
[2025-03-01] MEDS: iohexoL 350 MG/ML 100 ML INFUS..BTL IV (16:14)
--- NOTE | 2025-03-01 16:16 | PC.RT ---
called to bedside for patient with low spo2, inc wob. Upon arrival, patient with SpO2 of 86% with no change in increase of fio2. patient tachypnic in 30's, tachyardic, tripoding, using accessory muscles to breathe. Provider at bedside. patient placed on bipap and brought to CTScan.
--- NOTE | 2025-03-01 16:21 | PC.NURSE ---
0730 pt having increased confsuuin, HR 110s-120s overnight and this morning, audibkle wheeze, increasded o2 demand from pervious shift, 2-4L needed overnight, unable to wean down d/t desat mid 80s. VBG obtaiend, duoneb given by RT per SEP 1429 pt removing NC, hypic on RA. once o2 placed back on pt, pt slow to recover and increased demand of o2. pt needing 5L NC, sating at 90% with tachypnea, tripoding, HR remaining 110s-120s ST. provided notified. CTA ordered, RT at bedside. 1500 pt stated where is my baby? and looked over to speak with niece . Niece not present during conversation. This RN notified Kassy EWING of new visual hallucinations and increased confusion. no n
--- NOTE | 2025-03-01 16:29 | PC.NURSE ---
0730 pt having increased confusion, HR 110s-120s overnight and this morning, audible wheeze, increased o2 demand from pervious shift, 2-4L needed overnight, unable to wean down d/t desat mid 80s. VBG obtaiend, duoneb given by RT per SEP. Ike EWING at bedside. 1430 pt removing NC, hypoxic 69% on RA. once o2 placed back on pt, pt slow to recover and requiring increased demand of o2. pt on 5L NC, sating at 90% with tachypnea, tripoding, HR remaining 110s-120s ST on monitor. provided notified. CTA ordered, RT and provider at bedside 1500 pt stated where is my baby? and looked over to speak with niece . Niece not present during conversation. This RN notified provider of new visual hallucinations and increased confusion. UA and labs ordered. provider came to beside. 1528 Pt decompensating, desat to low 70s on 5L NC. pt requiring increased o2 demand, now on 6L NC o2 at 85%. pt tachypnic, tripoding, tachycardic HR 130s. RT at bedside, placed pt on bipap. provider made aware and at bedside. pt brought to CT with director geophysical laboratory and RT.
[2025-03-02] VITALS (16 sets, daily range): BP systolic 128–178; BP diastolic 67–90; PULSE 90–123; RESP 18–35; TEMP 36.5–37.2; O2SAT 90–100
[2025-03-02] MEDS: 0.9 % Sodium Chloride Flush 3 ML SYRINGE IVFLUSH ×3 (07:35→20:29)
[2025-03-02] MEDS: diazePAM 10 MG/2 ML CARTRIDGE 5 MG IVPUSH (08:36)
[2025-03-02 08:41] LABS: ABG HCO3 43 mmol/L (22-26); ABG O2 % Saturation 94.0 %
--- NOTE | 2025-03-02 10:22 | HO.PM.IMPN ---
Subjective Subjective Date of Service: 03/02/25 Interval History: Not sleeping overnight, continue a taking off oxygen Appears anxious, tripoding, rocking back and forth Obtained VBG which showed CO2 67, but compensated with pH 7.41 and bicarb 43 Gave pt diazepam 5 mg IV and placed on CPAP which pt tolerated for 15-20 minutes before waking and removing Pt then placed on high-flow, which she has also been intermittently removing Pt desatting into the 70s once removes oxygen Is AOx3 Review of Systems Review of Systems: Yes all other systems are reviewed and are negative Physical Exam Exam: Exam: General: AOx3, tripodding, rocking back and forth Resp: CTA bilaterally though diminished throughout CVS: S1, S2, RR, tachycardic GI: +BS, NT, no distention Skin: Warm, dry Neuro: Cranial nerves II-XII grossly intact bilaterally. Motor grossly intact bilaterally Extremities: No edema Psych: Anxious, rocking back and forth in bed Vital Signs: Vital Signs: Last Vital Signs Temp 97.7 F 03/02/25 03:06 Pulse 120 H 03/02/25 05:14 Resp 30 H 03/02/25 09:38 BP 146/90 H 03/02/25 03:06 Pulse Ox 94 03/02/25 03:06 O2 Del Method Nasal Cannula 03/02/25 03:06 O2 Flow Rate 6 03/02/25 03:06 BMI result Body Mass Index 16.7 Objective Data Active Medications Acetaminophen (Acetaminophen 325 Mg Tablet) 975 mg PO Q6H PRN PRN Reason: Pain, Mild 1-3,fever,headache Albuterol Sulfate (Albuterol Sulfate (0.083%) 2.5 Mg/3 Ml Vial.Neb) 2.5 mg INHALE Q2H PRN PRN Reason: Shortness of Breath/Wheezing Diazepam (Diazepam 10 Mg/2 Ml Cartridge) 5 mg IVPUSH ONCE PRN PRN Reason: Agitation/difficulty breathing Last Admin: 03/02/25 08:36 Dose: 5 mg Documented By: ERIN Enoxaparin Sodium (Enoxaparin Sodium 40 Mg/0.4 Ml Syringe) 40 mg SUBCUT Q24H [facility] Last Admin: 03/02/25 07:35 Dose: 40 mg Documented By: ERIN Azithromycin 500 mg/ Sodium (Chloride) 250 mls @ 125 mls/hr IV Q24H [facility] Last Infusion: 03/02/25 09:45 Dose: Infused Documented By: ERIN Levalbuterol HCl (Levalbuterol Hcl 1.25 Mg/3 Ml Vial.Neb) 1.25 mg INHALE Q4H [facility] Last Admin: 03/02/25 09:26 Dose: 1.25 mg Documented By: JOSE J Levalbuterol HCl (Levalbuterol Hcl 1.25 Mg/3 Ml Vial.Neb) 1.25 mg INHALE Q3H PRN PRN Reason: sob Last Admin: 03/01/25 16:40 Dose: 1.25 mg Documented By: MANAN Lorazepam (Lorazepam 0.5 Mg Tablet) 0.5 mg PO Q6H PRN PRN Reason: Dyspnea, anxiety Last Admin: 03/02/25 03:08 Dose: 0.5 mg Documented By: RAMON Melatonin (Melatonin 3 Mg Tablet) 6 mg PO BEDTIME PRN PRN Reason: Insomnia Methylprednisolone Sodium Succinate (Methylprednisolone Sod Succ 40 Mg/Ml Vial) 40 mg IVPUSH TID [facility] Last Admin: 03/02/25 07:36 Dose: 40 mg Documented By: ERIN Nicotine (Nicotine 21 Mg Patch.Td24) 21 mg TRANSDERMA DAILY [facility] Last Admin: 03/02/25 07:36 Dose: Not Given Documented By: ERIN Non-Admin Reason: Patient Refused Omeprazole (Omeprazole 40 Mg Capsule.) 40 mg PO BID@0630,1630 [facility] Last Admin: 03/02/25 05:46 Dose: Not Given Documented By: RAMON Non-Admin Reason: Patient Refused Ondansetron HCl (Ondansetron Hcl 4 Mg/2 Ml Vial) 4 mg IVPUSH Q8H PRN PRN Reason: Nausea and Vomiting Last Admin: 02/28/25 09:10 Dose: 4 mg Documented By: ERIN Sodium Chloride (0.9 % Sodium Chloride Flush 3 Ml Syringe) 3 ml IVFLUSH QSHIFT [facility] Last Admin: 03/02/25 07:35 Dose: 3 ml Documented By: ERIN Zolpidem Tartrate (Zolpidem Tartrate 5 Mg Tablet) 10 mg PO BEDTIME PRN PRN Reason: Insomnia Last Admin: 03/01/25 20:07 Dose: 10 mg Documented By: RAMON Labs 03/01/25 15:37 03/01/25 15:37 Labs: Laboratory Results - last 24 hr 03/01/25 03/02/25 15:37 08:35 MCV 93.8 MCH 30.8 MCHC 32.9 RDW 12.1 Plt Count 224 D MPV 10.4 Absolute Nucleated RBC 0.000 Nucleated RBC % (auto) 0.0 O2 Saturation 94.0 ABG pH at Pt Temp 7.41 ABG pCO2 at Pt Temp 67 H* ABG pO2 at Pt Temp 78 L ABG HCO3 43 H ABG Base Excess (Actual) 14.7 Anion Gap 17 Estim Creat Clear Calc 45.9 Estimated GFR > 60 Random Glucose 131 H Calcium 9.0 D Total Bilirubin 0.6 AST 33 H ALT 16 Alkaline Phosphatase 77 Ammonia 40 Total Protein 7.4 Albumin 4.3 Assessment and Plan (1) Acute hypoxic on chronic hypercapnic respiratory failure: Status: Acute (2) Acute exacerbation of chronic obstructive pulmonary disease (COPD): Status: Acute Plan 74 y/o woman presents with: Acute hypoxic and hypercapnic respiratory failure secondary to acute COPD exacerbation. Repeat abg today showing compensated respiratory acidosis Given slow improvement, Solu-Medrol increased on 02/28 to 40 mg tid Continue IV steroids, bronchodilator therapy and empiric IV antibiotics. Pulm: Agree with current therapeutic regimen including systemic glucocorticoids and nebulized bronchodilators. Continue supplemental O2 to keep O2 sats 89-90%; has been removing O2 and desatting into the 70s; have tried BiPAP, CPAP, High-flow, NC: pt removing all of them CTA of chest negative for PE, showing severe COPD Still with SOB and CUADRA, no improvement since yesterday due to non compliance with therapies Pt anxious, tripodding and rocking back and forth on the bed; little response to anxiolytics Question of acute encephalopathy Nursing report pt has been speaking to people who were not in the room and claiming she was just with the baby Currently AOx3, ABG reassuring; currently AOx3 Monitor mentation Anxiety ativan prn, diazepam IV p.r.n. for extreme anxiety Tobacco dependence. Tobacco cessation education. Nicotine patch. History of left upper lobe nodules. Status post CT-guided biopsy complicated with pneumothorax. F/U with Dr. Simmons. Biopsy (Mar 2024) showed benign inflamed bronchial alveolar tissue with focal necrotizing granulomatous inflammation; negative for malignancy and microorganisms. GERD. Continue PPI. 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 F/U with Dr. Spencer. Protein calorie malnutrition. BMI 16.7 kg/m2. Dietary consult. DVT prophylaxis: Lovenox Code status: Full ongoing hospitalization need for acute hypoxic and hypercapnic respiratory failure treatment with bronchodilator therapy, supplemental oxygen, IV steroids and IV antibiotics. Quality Stroke Does the patient have a stroke diagnosis?: No VTE Prior VTE?: No VTE Risk Level:: Medical - moderate - high VTE Device Contraindication: Treatment Not Indicated VTE Drug Contraindication: N/A - Med Ordered
--- NOTE | 2025-03-02 11:54 | PC.RT ---
Pt was told multiple times the importance of keeping her BiPAP on. Pt refused to use BiPAP mahine. Pt was given valium to lower anxiety. Pt was placed on CPAP per PA provider. Pt was tolerating CPAP until she woke up and immediately took the CPAP mask off. RN and RT placed the Pt back on CPAP but Pt again refused and took the mask off. RT placed the Pt on HFNC to assist with her respirations but Pt again refused the therapy and took the HFNC off. Pt was placed back on regular NC by RN at 2L. Pt is now requesting to leave the facility.
[2025-03-03] VITALS (12 sets, daily range): BP systolic 150–180; BP diastolic 68–90; PULSE 82–120; RESP 17–20; TEMP 36.2–36.8; O2SAT 90–97
[2025-03-03] MEDS: 0.9 % Sodium Chloride Flush 3 ML SYRINGE IVFLUSH (08:46)
--- NOTE | 2025-03-03 10:45 | MHC.CM.PN ---
Patient has not yet been medically cleared for dc. Patient may benefit from a PT Eval to assist with disposition. CM will continue to follow.
--- NOTE | 2025-03-03 11:36 | MHC.CLN ---
F/U PT QUALIFIES MODERATELY MALNOURISHED IN THE CONTEXT OF CHRONIC ILLNESS SEE ASSESSMENT DATED 02/26/25 PO INTAKE VARIABLE DIET RX: REGULAR PT DOES NOT WANT ENSURE SUPPLEMENT OR MAGIC CUP LIKES ICE CREAM, PANCAKES AND CHOCOLATE MILK-DINING SERVICES AWARE OF PREFERENCE FOLLOW FOR DIET TOLERANCE AND PO INTAKE
--- NOTE | 2025-03-03 16:51 | P.PNIM_ITS ---
Subjective Subjective Date of Service: 03/03/25 Interval History: Pt seen this am, appears very anxious, able to answer questions but appears tachypneic and refusing to sit back stating it worsens her breathing, switched to PO prednisone, given no imprvement in her breathing, will consult pulm again for their input. Review of Systems -ve except as stated above Physical Exam 2 Vital Signs: Vital Signs: Last Vital Signs Temp 97.8 F 03/03/25 16:00 Pulse 110 H 03/03/25 16:00 Resp 20 03/03/25 16:00 BP 165/80 H 03/03/25 16:00 Pulse Ox 92 03/03/25 16:00 O2 Del Method Nasal Cannula 03/03/25 16:00 O2 Flow Rate 4 03/03/25 16:00 BMI result Body Mass Index 16.7 General: AOx3, tripodding, rocking back and forth, anxious Resp: CTA bilaterally though diminished throughout, 4 l nc CVS: S1, S2, RR, tachycardia GI: +BS, NT, no distention Skin: Warm, dry Neuro: Cranial nerves II-XII grossly intact bilaterally. Motor grossly intact bilaterally Extremities: No edema Psych: Anxious, rocking back and forth in bed Objective Data Active Medications Acetaminophen (Acetaminophen 325 Mg Tablet) 975 mg PO Q6H PRN PRN Reason: Pain, Mild 1-3,fever,headache Albuterol Sulfate (Albuterol Sulfate (0.083%) 2.5 Mg/3 Ml Vial.Neb) 2.5 mg INHALE Q2H PRN PRN Reason: Shortness of Breath/Wheezing Enoxaparin Sodium (Enoxaparin Sodium 40 Mg/0.4 Ml Syringe) 40 mg SUBCUT Q24H [facility] Last Admin: 03/03/25 08:46 Dose: 40 mg Documented By: NAOMI Fluticasone/Vilanterol (Fluticasone/Vilanterol 200/25 Blst.W.Dev) 1 puff INHALE RDAILY [facility] Hydroxyzine HCl (Hydroxyzine Hcl 25 Mg Tablet) 25 mg PO Q8H PRN PRN Reason: anxiety/restlessness Last Admin: 03/03/25 12:45 Dose: 25 mg Documented By: NAOMI Levalbuterol HCl (Levalbuterol Hcl 1.25 Mg/3 Ml Vial.Neb) 1.25 mg INHALE Q3H PRN PRN Reason: sob Last Admin: 03/01/25 16:40 Dose: 1.25 mg Documented By: MANAN Levalbuterol HCl (Levalbuterol Hcl 1.25 Mg/3 Ml Vial.Neb) 1.25 mg INHALE RQ4H [facility] Last Admin: 03/03/25 15:30 Dose: 1.25 mg Documented By: YURY Lorazepam (Lorazepam 1 Mg Tablet) 1 mg PO Q6H PRN PRN Reason: Dyspnea, anxiety Last Admin: 03/03/25 15:33 Dose: 1 mg Documented By: NAOMI Melatonin (Melatonin 3 Mg Tablet) 6 mg PO BEDTIME PRN PRN Reason: Insomnia Nicotine (Nicotine 21 Mg Patch.Td24) 21 mg TRANSDERMA DAILY [facility] Last Admin: 03/03/25 08:50 Dose: Not Given Documented By: NAOMI Non-Admin Reason: Patient Refused Omeprazole (Omeprazole 40 Mg Capsule.) 40 mg PO BID@0630,1630 [facility] Last Admin: 03/03/25 15:39 Dose: Not Given Documented By: NAOMI Non-Admin Reason: Patient Refused Ondansetron HCl (Ondansetron Hcl 4 Mg/2 Ml Vial) 4 mg IVPUSH Q8H PRN PRN Reason: Nausea and Vomiting Last Admin: 02/28/25 09:10 Dose: 4 mg Documented By: ERIN Prednisone (Prednisone 20 Mg Tablet) 40 mg PO DAILY [facility] Sodium Chloride (0.9 % Sodium Chloride Flush 3 Ml Syringe) 3 ml IVFLUSH QSHIFT [facility] Last Admin: 03/03/25 15:39 Dose: Not Given Documented By: NAOMI Non-Admin Reason: Previously Administered Tiotropium [place] (Tiotropium [place] 2.5 Mcg 1 Puff/2.5 Mcg Mist.Inhal) 2 puff INHALE RDAILY [facility] Zolpidem Tartrate (Zolpidem Tartrate 5 Mg Tablet) 10 mg PO BEDTIME PRN PRN Reason: Insomnia Last Admin: 03/02/25 20:28 Dose: 10 mg Documented By: MAYNORISHA Labs 03/01/25 15:37 03/01/25 15:37 Microbiology Microbiology Results: Microbiology 02/25/25 20:03 Blood Culture - Final Blood - Venous No growth after 5 days. 02/25/25 19:36 Blood Culture - Final Blood - Venous No growth after 5 days. Assessment and Plan (1) Acute exacerbation of chronic obstructive pulmonary disease (COPD): Status: Acute (2) Acute hypoxic on chronic hypercapnic respiratory failure: Status: Acute Plan 74 y/o woman presents with: Acute hypoxic and hypercapnic respiratory failure secondary to acute COPD exacerbation. given no improvement, pulm was consulted on rec cont steroids and bronchodilators, CTA -ve for pna and PE have tried BiPAP, CPAP, High-flow, NC: pt removing all of them, def a component of non compliance Repeat abg yesterday showing compensated respiratory acidosis switched to PO prednisone 40 mg daily had received 6 days of azithromycin , will dc start breo ellipta and spiriva cont with xopenex agata and prn repeat CXR today on 4 l nc reconsult pulm today she does have component of anxiety, , cont Ativan , will add hydroxyzine, Question of acute encephalopathy Nursing report pt has been speaking to people who were not in the room and claiming she was just with the baby Currently AOx3, ABG reassuring; currently AOx3 Monitor mentation may need psych consult Anxiety ativan prn, hydroxyzine added HTN: not on any meds at home, could be due to anxiety labetalol q8 hrs prn Tobacco dependence. Tobacco cessation education. Nicotine patch. History of left upper lobe nodules. Status post CT-guided biopsy complicated with pneumothorax. F/U with Dr. Simmons. Biopsy (Mar 2024) showed benign inflamed bronchial alveolar tissue with focal necrotizing granulomatous inflammation; negative for malignancy and microorganisms. GERD. Continue PPI. 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 F/U with Dr. Leonila Ulloa. Protein calorie malnutrition. BMI 16.7 kg/m2. Dietary consult. DVT prophylaxis: Lovenox Code status: Full ongoing hospitalization need for acute hypoxic and hypercapnic respiratory failure treatment with bronchodilator therapy, supplemental oxygen, Quality Stroke Does the patient have a stroke diagnosis?: No VTE Prior VTE?: No VTE Risk Level:: Medical - moderate - high VTE Device Contraindication: Treatment Not Indicated VTE Drug Contraindication: N/A - Med Ordered
[2025-03-04] VITALS (20 sets, daily range): BP systolic 102–167; BP diastolic 58–79; PULSE 85–121; RESP 16–30; TEMP 36.2–36.9; O2SAT 88–100
[2025-03-04] MEDS: 0.9 % Sodium Chloride Flush 3 ML SYRINGE IVFLUSH ×3 (01:26→15:54)
[2025-03-04 08:16] LABS: Hematocrit 49.3 % (37.0-47.0); Hemoglobin 16.3 g/dl (12.0-16.0); Mean Corpuscular HGB Conc 33.1 g/dl (31.0-35.0); Mean Corpuscular Hemoglobin 31.0 pg (27.0-33.0); Mean Corpuscular Volume 93.7 fL (80.0-98.0); NRBC Abs Auto 0.000 X10*3/uL (0.0-0.012); NRBC Pct Auto 0.0 /100WBC (0.0-0.2); Platelet Count 188 X10*3/uL (160-400); Red Blood Count 5.26 X10*6/uL (4.20-5.50); White Blood Count 21.0 X10*3/uL (4.8-10.8)
[2025-03-04 08:29] LABS: Alanine Aminotransferase 16 U/L (0-31); Albumin Level 4.3 g/dL (3.5-5.0); Alkaline Phosphatase 67 U/L (39-117); Anion Gap 18 (12-20); Aspartate Amino Transferase 30 U/L (5-31); Blood Urea Nitrogen 44 mg/dL (9-16); Calcium 9.5 mg/dL (8.4-10.2); Carbon Dioxide 39 mmol/L (22-29); Chloride 97 mmol/L (96-108); Creatinine Clr Calc Pharmacy 51.2; Estimated Glomerular Filt Rate > 60; Potassium 3.9 mmol/L (3.3-5.1); Sodium 150 mmol/L (135-145); Total Protein 7.3 g/dL (6.5-8.0)
--- NOTE | 2025-03-04 09:07 | P.PNPL_ITS ---
Subjective Subjective Date of Service: 03/04/25 Interval history: The patient was seen on exam. She is sitting up in a tripod position using her accessory muscles. Very minimal breath sounds. Seems to be more lethargic. Blood gas yesterday demonstrated worsening hypercapnia. The patient may be tiring. I did talk to respiratory to place her on the BiPAP. She probably will tolerate it better now that she is somewhat drowsy. If not she may benefit from a small dose of fentanyl while on the BiPAP to be able to tolerate it. I briefly spoke to the patient about her code status. But, the patient did not want to speak about it. Unfortunately, the patient does have advanced respiratory failure with significant chachexia and muscle atrophy. She carries a poor prognosis. Objective Data Labs 03/04/25 07:34 03/04/25 07:34 Labs: Laboratory Results - last 24 hr 03/04/25 07:34 WBC 21.0 H RBC 5.26 Hgb 16.3 H Hct 49.3 H MCV 93.7 MCH 31.0 MCHC 33.1 RDW 11.8 Plt Count 188 MPV 10.8 Absolute Nucleated RBC 0.000 Nucleated RBC % (auto) 0.0 Sodium 150 H Potassium 3.9 Chloride 97 Carbon Dioxide 39 H Anion Gap 18 BUN 44 H Creatinine 0.61 Estim Creat Clear Calc 51.2 Estimated GFR > 60 Random Glucose 103 Calcium 9.5 Total Bilirubin 0.8 AST 30 ALT 16 Alkaline Phosphatase 67 Total Protein 7.3 Albumin 4.3 Microbiology Microbiology Results: Microbiology 02/25/25 20:03 Blood - Venous Blood Culture - Final No growth after 5 days. 02/25/25 19:36 Blood - Venous Blood Culture - Final No growth after 5 days. Review of Systems Review of Systems Yes Unobtainable due to mental condition Physical Exam 2 Vital Signs: Vital Signs: Last Vital Signs Temp 98.1 F 03/04/25 07:53 Pulse 102 H 03/04/25 07:53 Resp 19 03/04/25 07:53 BP 102/65 03/04/25 07:53 Pulse Ox 95 03/04/25 07:53 O2 Del Method Nasal Cannula 03/04/25 07:53 O2 Flow Rate 2 03/04/25 07:53 BMI result Body Mass Index 16.7 Const: General: in distress, ill appearing, lethargic and tired appearing O rientation/consciousness: lethargic Limitations: other limitations (tripod position) HEENT: Head: Yes normocephalic Neck: Neck: Yes trachea midline Chest: Chest palpation & inspection: normal inspection of the chest Resp: Effort & Inspection: respiratory distress, retractions, tachypneic, tripod positioning, uses accessory muscles and prolonged expiratory phase A uscultation: diminished lung sounds Cardio: Heart sounds: S1 normal heart sound present and S2 normal heart sound present GI: Palpation (GI): Soft to palpation Extrem: General: Yes clubbing and Yes cyanosis Procedures Date of Service Date of Service: 03/04/25 Assessment and Plan Assessment and plan (1) Centrilobular emphysema: Status: Acute (2) Acute hypoxic on chronic hypercapnic respiratory failure: Status: Acute (3) Acute exacerbation of chronic obstructive pulmonary disease (COPD): Status: Acute Plan change to IV solumedrol levalbuterol 5mg x 1 ABG now Needs to go on BIPAP, if she does not tolerate it, may benefit from small dose of Fentanyl Goals of care, poor prognisis, gaurded condition. Would benefit from pallative care consultation. Currently, she is a Full code and if her condition worsens she may need ICU level of care Time Spent With Patient Time: Total time managing care of this patient today ____ minutes. Progress Note: Quality Stroke Does the patient have a stroke diagnosis?: No
[2025-03-04 10:00] LABS: ABG HCO3 46 mmol/L (22-26); ABG O2 % Saturation 100.0 %
[2025-03-04 10:41] LABS: ABG Refer to POC result
--- NOTE | 2025-03-04 11:06 | PC.RT ---
Pt seen by RT multiple times this morning for increased WOB. Pt was given scheduled neb as well as one time order per MD. ABG was drawn. Pt had increased WOB with accessory muscle usage, RT placed pt on bipap per MD orders. WOB decreased on bipap, however pt ripped it of x3 in 10 minutes. Pt then unwilling to allow RT to place bipap back off after 3rd attempt. Pt placed back on 2L NC. Pt returned to tripoding position. RN at bedside administering Labetalol for high HR. Scheduled neb not given due to high HR. RN messaged and made MD aware of situation.
--- NOTE | 2025-03-04 11:07 | HO.PM.IMPN ---
Subjective Subjective Date of Service: 03/04/25 Interval History: Pt seen this am, remains hypoxic on high flow and tachypeneic, tripoding, appears restless and SOB. pt's son and grand daughter at bedside. They state that pt's boyfriend is her hcp. They also show interest in hospice eval. pt her does not want to discuss goc, she barely answers any questions Review of Systems -ve except as stated above Physical Exam Vital Signs: Vital Signs: Last Vital Signs Temp 98.1 F 03/04/25 07:53 Pulse 121 H 03/04/25 10:54 Resp 30 H 03/04/25 10:35 BP 162/74 H 03/04/25 10:54 Pulse Ox 95 03/04/25 07:53 O2 Del Method Nasal Cannula 03/04/25 07:53 O2 Flow Rate 2 03/04/25 07:53 BMI result Body Mass Index 16.7 General: AOx3, tripodding, rocking back and forth, anxious Resp: CTA bilaterally though diminished throughout, 4 l nc CVS: S1, S2, RR, tachycardia GI: +BS, NT, no distention Skin: Warm, dry Neuro: Cranial nerves II-XII grossly intact bilaterally. Motor grossly intact bilaterally Extremities: No edema Objective Data Active Medications Acetaminophen (Acetaminophen 325 Mg Tablet) 975 mg PO Q6H PRN PRN Reason: Pain, Mild 1-3,fever,headache Albuterol Sulfate (Albuterol Sulfate (0.083%) 2.5 Mg/3 Ml Vial.Neb) 2.5 mg INHALE Q2H PRN PRN Reason: Shortness of Breath/Wheezing Enoxaparin Sodium (Enoxaparin Sodium 40 Mg/0.4 Ml Syringe) 40 mg SUBCUT Q24H [facility] Last Admin: 03/04/25 09:32 Dose: 40 mg Documented By: SHELBY Fluticasone/Vilanterol (Fluticasone/Vilanterol 200/25 Blst.W.Dev) 1 puff INHALE RDAILY [facility] Last Admin: 03/04/25 07:18 Dose: Not Given Documented By: SYLVIA Non-Admin Reason: pt unable to follow commands Hydroxyzine HCl (Hydroxyzine Hcl 25 Mg Tablet) 25 mg PO Q8H PRN PRN Reason: anxiety/restlessness Last Admin: 03/03/25 12:45 Dose: 25 mg Documented By: NAOMI Labetalol HCl (Labetalol Hcl 100 Mg/20 Ml Vial) 10 mg IVPUSH RQ8H PRN PRN Reason: htn Last Admin: 03/04/25 10:54 Dose: 10 mg Documented By: SHELBY Levalbuterol HCl (Levalbuterol Hcl 1.25 Mg/3 Ml Vial.Neb) 1.25 mg INHALE Q3H PRN PRN Reason: sob Last Admin: 03/01/25 16:40 Dose: 1.25 mg Documented By: MANAN Levalbuterol HCl (Levalbuterol Hcl 1.25 Mg/3 Ml Vial.Neb) 1.25 mg INHALE RQ4H [facility] Last Admin: 03/04/25 11:06 Dose: Not Given Documented By: SYLVIA Non-Admin Reason: Elevated Heart Rate Lorazepam (Lorazepam 1 Mg Tablet) 1 mg PO Q6H PRN PRN Reason: Dyspnea, anxiety Last Admin: 03/03/25 15:33 Dose: 1 mg Documented By: NAOMI Melatonin (Melatonin 3 Mg Tablet) 6 mg PO BEDTIME PRN PRN Reason: Insomnia Methylprednisolone Sodium Succinate (Methylprednisolone Sod Succ 125 Mg/2 Ml Vial) 60 mg IVPUSH Q8H [facility] Last Admin: 03/04/25 09:32 Dose: 60 mg Documented By: SHELBY Morphine Sulfate (Morphine Sulfate 2 Mg/Ml Cartridge) 0.5 mg IVPUSH ONCE ONE; Protocol Stop: 03/04/25 11:05 Nicotine (Nicotine 21 Mg Patch.Td24) 21 mg TRANSDERMA DAILY [facility] Last Admin: 03/04/25 10:12 Dose: Not Given Documented By: SHELBY Non-Admin Reason: Patient Refused Omeprazole (Omeprazole 40 Mg Capsule.) 40 mg PO BID@0630,1630 [facility] Last Admin: 03/04/25 05:44 Dose: 40 mg Documented By: MARIE Ondansetron HCl (Ondansetron Hcl 4 Mg/2 Ml Vial) 4 mg IVPUSH Q8H PRN PRN Reason: Nausea and Vomiting Last Admin: 02/28/25 09:10 Dose: 4 mg Documented By: ERIN Sodium Chloride (0.9 % Sodium Chloride Flush 3 Ml Syringe) 3 ml IVFLUSH QSHIFT [facility] Last Admin: 03/04/25 09:32 Dose: 3 ml Documented By: SHELBY Tiotropium [place] (Tiotropium [place] 2.5 Mcg 1 Puff/2.5 Mcg Mist.Inhal) 2 puff INHALE RDAILY [facility] Last Admin: 03/04/25 07:18 Dose: Not Given Documented By: SYLVIA Non-Admin Reason: pt unable to follow commands Zolpidem Tartrate (Zolpidem Tartrate 5 Mg Tablet) 10 mg PO BEDTIME PRN PRN Reason: Insomnia Last Admin: 03/02/25 20:28 Dose: 10 mg Documented By: RAFA Labs 03/04/25 07:34 03/04/25 07:34 Labs: Laboratory Results - last 24 hr 03/04/25 03/04/25 07:34 09:57 MCV 93.7 MCH 31.0 MCHC 33.1 RDW 11.8 Plt Count 188 MPV 10.8 Absolute Nucleated RBC 0.000 Nucleated RBC % (auto) 0.0 O2 Saturation 100.0 ABG pH at Pt Temp 7.40 ABG pCO2 at Pt Temp 74 H* ABG pO2 at Pt Temp 234 H ABG HCO3 46 H ABG Base Excess (Actual) 16.8 Anion Gap 18 Estim Creat Clear Calc 51.2 Estimated GFR > 60 Random Glucose 103 Calcium 9.5 Total Bilirubin 0.8 AST 30 ALT 16 Alkaline Phosphatase 67 Total Protein 7.3 Albumin 4.3 Assessment and Plan (1) Centrilobular emphysema: Status: Acute (2) Acute hypoxic on chronic hypercapnic respiratory failure: Status: Acute (3) Acute exacerbation of chronic obstructive pulmonary disease (COPD): Status: Acute Plan 74 y/o woman presents with: Acute hypoxic and hypercapnic respiratory failure secondary to acute COPD exacerbation. given no improvement, pulm was consulted on cont steroids and bronchodilators, CTA -ve for pna and PE have tried BiPAP, CPAP, High-flow, NC: pt removing all of them, def a component of non compliance Repeat abg today showing compensated respiratory acidosis Pulm consulted again today, repeat cxr no acute pathology, iv steroids had received 6 days of azithromycin , will dc breo ellipta and spiriva cont with xopenex agata and prn on 4 l nc pulm reccs bipap which pt is refusing, per them given advance lung disease, prognosis remains poor, goc discussion recommended, x1 morphine ordered today Question of acute encephalopathy Nursing report pt has been speaking to people who were not in the room and claiming she was just with the baby Currently AOx3, ABG reassuring; currently AOx3 Monitor mentation psych consult Anxiety ativan prn, hydroxyzine added HTN: not on any meds at home, could be due to anxiety labetalol q8 hrs prn Tobacco dependence. Tobacco cessation education. Nicotine patch. History of left upper lobe nodules. Status post CT-guided biopsy complicated with pneumothorax. F/U with Dr. Simmons. Biopsy (Mar 2024) showed benign inflamed bronchial alveolar tissue with focal necrotizing granulomatous inflammation; negative for malignancy and microorganisms. GERD. Continue PPI. 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 F/U with Dr. Spencer. Protein calorie malnutrition. BMI 16.7 kg/m2. Dietary consult. regular diet reccs DVT prophylaxis: Lovenox Code status: Full ongoing hospitalization need for acute hypoxic and hypercapnic respiratory failure treatment with bronchodilator therapy, supplemental oxygen, goc discussion Quality Stroke Does the patient have a stroke diagnosis?: No VTE Prior VTE?: No VTE Risk Level:: Medical - moderate - high VTE Device Contraindication: Treatment Not Indicated VTE Drug Contraindication: N/A - Med Ordered
[2025-03-04] MEDS: Dextrose 5 % and Lactated Ring 1,000 ML 80 ML IVCONT (11:46)
[2025-03-04] MEDS: diazePAM 10 MG/2 ML CARTRIDGE 5 MG IVPUSH (22:49)
[2025-03-05] VITALS (16 sets, daily range): BP systolic 137–155; BP diastolic 57–69; PULSE 90–118; RESP 12–24; TEMP 36.6–36.9; O2SAT 89–98
[2025-03-05] MEDS: Dextrose 5 % and Lactated Ring 1,000 ML 80 ML IVCONT (00:42)
[2025-03-05] MEDS: 0.9 % Sodium Chloride Flush 3 ML SYRINGE IVFLUSH ×3 (00:54→17:47)
[2025-03-05 08:18] LABS: Alanine Aminotransferase 17 U/L (0-31); Albumin Level 3.9 g/dL (3.5-5.0); Alkaline Phosphatase 56 U/L (39-117); Anion Gap 16 (12-20); Aspartate Amino Transferase 23 U/L (5-31); Blood Urea Nitrogen 38 mg/dL (9-16); Calcium 8.8 mg/dL (8.4-10.2); Carbon Dioxide 38 mmol/L (22-29); Chloride 101 mmol/L (96-108); Creatinine Clr Calc Pharmacy 50.3; Estimated Glomerular Filt Rate > 60; Potassium 3.7 mmol/L (3.3-5.1); Sodium 151 mmol/L (135-145); Total Protein 6.3 g/dL (6.5-8.0)
--- NOTE | 2025-03-05 08:35 | P.PNPL_ITS ---
Subjective Subjective Date of Service: 03/05/25 Interval history: The patient was seen on exam. Did have the BiPAP this morning took it off and now again with increased work of breathing tripod position air trapping with worsening dynamic inspiratory capacity. I did offer to put the BiPAP back on and the patient say acquired. He continues to have a poor prognosis as her condition is progressive. She continues to be a full code. Will continue with the current respiratory regimen and will add aminophylline. Objective Data Labs 03/04/25 07:34 03/05/25 07:11 Labs: Laboratory Results - last 24 hr 03/04/25 03/05/25 09:57 07:11 Hold Purple Top SEE NOTE O2 Saturation 100.0 ABG pH at Pt Temp 7.40 ABG pCO2 at Pt Temp 74 H* ABG pO2 at Pt Temp 234 H ABG HCO3 46 H ABG Base Excess (Actual) 16.8 Sodium 151 H Potassium 3.7 Chloride 101 Carbon Dioxide 38 H Anion Gap 16 BUN 38 H Creatinine 0.62 Estim Creat Clear Calc 50.3 Estimated GFR > 60 Random Glucose 186 H Calcium 8.8 D Total Bilirubin 0.7 AST 23 ALT 17 Alkaline Phosphatase 56 Total Protein 6.3 L Albumin 3.9 Microbiology Microbiology Results: Microbiology 02/25/25 20:03 Blood - Venous Blood Culture - Final No growth after 5 days. 02/25/25 19:36 Blood - Venous Blood Culture - Final No growth after 5 days. Review of Systems Constitutional: Denies daytime sleepiness, Denies excessive sweating, Denies fatigue, Denies fever(s), Denies lethargy, Denies malaise, Denies night sweats, Denies snoring and Denies weight loss Eyes: Denies blurry vision and Denies itchy eyes Denies nasal congestion, Denies post nasal drip, Denies sinus pain, Denies sinus pressure and Denies other ( Thrush) Cardiovascular: Denies chest pain, Denies pedal edema, Reports dyspnea, Denies orthopnea and Denies paroxysmal nocturnal dyspnea Respiratory: Denies cough, Denies hemoptysis, Denies excessive phlegm production, Reports dyspnea, Denies snoring and Reports wheezing Gastrointestinal: Denies abdominal pain and Denies heartburn Musculoskeletal: Denies myalgias, Denies arthralgias and Denies joint swelling Skin/Breast: Denies rash Denies memory loss and Denies seizure-like activity Psychiatric: Denies abnormal sleep pattern, Denies anxiety and Denies memory loss Endocrine: Denies excessive sweating, Denies fatigue and Denies heat intolerance Hematologic/Lymphatic: Denies easy bruising Allergic/Immunologic: Denies itchy eyes, Denies seasonal rhinorrhea and Reports wheezing Physical Exam 2 Vital Signs: Vital Signs: Last Vital Signs Temp 98.2 F 03/05/25 08:00 Pulse 97 03/05/25 08:00 Resp 20 03/05/25 08:00 BP 155/64 H 03/05/25 08:00 Pulse Ox 98 03/05/25 08:00 O2 Del Method Nasal Cannula 03/05/25 08:00 O2 Flow Rate 2 03/05/25 08:00 BMI result Body Mass Index 16.7 Const: General: in distress, ill appearing, lethargic and tired appearing O rientation/consciousness: lethargic Limitations: other limitations (tripod position) HEENT: Head: Yes normocephalic Neck: Neck: Yes trachea midline Chest: Chest palpation & inspection: normal inspection of the chest Resp: Effort & Inspection: respiratory distress, retractions, tachypneic, tripod positioning, uses accessory muscles and prolonged expiratory phase A uscultation: diminished lung sounds Cardio: Heart sounds: S1 normal heart sound present and S2 normal heart sound present GI: Palpation (GI): Soft to palpation Extrem: General: Yes clubbing and Yes cyanosis Procedures Date of Service Date of Service: 03/05/25 Assessment and Plan Assessment and plan (1) Centrilobular emphysema: Status: Acute (2) Acute hypoxic on chronic hypercapnic respiratory failure: Status: Acute (3) Acute exacerbation of chronic obstructive pulmonary disease (COPD): Status: Acute Plan IV solumedrol Nebs Needs to go on BIPAP, if she does not tolerate it, may benefit from small dose of Fentanyl start Theophylline, monitor levels Goals of care, poor prognisis, gaurded condition. Would benefit from pallative care consultation. Currently, she is a Full code and if her condition worsens she may need ICU level of care Time Spent With Patient Time: Total time managing care of this patient today ____ minutes. Progress Note: Quality Stroke Does the patient have a stroke diagnosis?: No
[2025-03-05 08:39] LABS: Chlamydia pneumoniae PCR Not Detected (Not Detect.); Coronavirus 229E PCR Not Detected (Not Detect.); Coronavirus HKU1 PCR Not Detected (Not Detect.); Coronavirus NL63 PCR Not Detected (Not Detect.); Coronavirus OC43 PCR Not Detected (Not Detect.); RSV PCR Not Detected (Not Detect.); Rhino/Enterovirus PCR Detected (Not Detect.)
[2025-03-05 08:50] LABS: Influenza A H1 PCR Not Detected (Not Detect.); Influenza A H1-2009 PCR Not Detected (Not Detect.); Influenza A H3 PCR Not Detected (Not Detect.); SARS-CoV-2 PCR Not Detected (Not Detect.)
[2025-03-05] MEDS: Dextrose 5 % and 0.45 % NaCl 1,000 ML 80 ML IVCONT ×2 (10:23→21:34)
--- NOTE | 2025-03-05 10:44 | MHC.CM.PN ---
Per ROUNDS discussion, Patient is not yet medically cleared for dc (? transfer to ICU for sedation to help tolerate Bipap);CM will continue to follow.
--- NOTE | 2025-03-05 11:42 | MHC.CLN ---
F/U PT QUALIFIES MODERATELY MALNOURISHED IN THE CONTEXT OF CHRONIC ILLNESS PO INTAKE VERY POOR AND PT REFUSES TO TAKE NUTRITION SUPPLEMENTS NOTED D5LR IVF R/T HYPERNATREMIA DIET RX: REGULAR PT DOES NOT WANT ENSURE SUPPLEMENT OR MAGIC CUP LIKES ICE CREAM, PANCAKES AND CHOCOLATE MILK-DINING SERVICES AWARE OF PREFERENCE FAMILY CONSIDERING HOSPICE EVAL IF ALTERNATIVE NUTRITION DESIRED PLEASE CONSULT RD FOR POSSIBLE PPN
--- NOTE | 2025-03-05 17:07 | P.PNIM_ITS ---
Subjective Subjective Date of Service: 03/05/25 Interval History: Breathing mildly better Still tripodding and breathing with accessory muscles Has been intermittently confused, refusing p.o. meds Continues to not respond well to therapies Prognosis guarded Spoke to HCP who wishes to make pt DNR/DNI Review of Systems Review of Systems: Yes all other systems are reviewed and are negative Physical Exam 2 Exam: Exam: General: AOx3, tripodding, frail and cachectic Resp: CTA bilaterally though diminished throughout. Increased work of breathing with accessory muscle use CVS: S1, S2, RR, tachycardic GI: +BS, NT, no distention Skin: Warm, dry Neuro: Cranial nerves II-XII grossly intact bilaterally. Motor grossly intact bilaterally Extremities: No edema Psych: Anxious Vital Signs: Vital Signs: Last Vital Signs Temp 98.5 F 03/05/25 16:00 Pulse 110 H 03/05/25 16:00 Resp 20 03/05/25 16:00 BP 152/66 H 03/05/25 16:00 Pulse Ox 98 03/05/25 16:00 O2 Del Method Room Air 03/05/25 16:00 O2 Flow Rate 2 03/05/25 08:00 BMI result Body Mass Index 16.7 Objective Data Active Medications Acetaminophen (Acetaminophen 325 Mg Tablet) 975 mg PO Q6H PRN PRN Reason: Pain, Mild 1-3,fever,headache Albuterol Sulfate (Albuterol Sulfate (0.083%) 2.5 Mg/3 Ml Vial.Neb) 2.5 mg INHALE Q2H PRN PRN Reason: Shortness of Breath/Wheezing Enoxaparin Sodium (Enoxaparin Sodium 40 Mg/0.4 Ml Syringe) 40 mg SUBCUT Q24H [facility] Last Admin: 03/05/25 08:41 Dose: 40 mg Documented By: SHELBY Fluticasone/Vilanterol (Fluticasone/Vilanterol 200/25 Blst.W.Dev) 1 puff INHALE RDAILY [facility] Last Admin: 03/05/25 07:33 Dose: Not Given Documented By: GANESH Non-Admin Reason: unable to ollow commands Hydroxyzine HCl (Hydroxyzine Hcl 25 Mg Tablet) 25 mg PO Q8H PRN PRN Reason: anxiety/restlessness Last Admin: 03/03/25 12:45 Dose: 25 mg Documented By: NAOMI Dextrose/Sodium Chloride (D51/2ns) 1,000 mls @ 80 mls/hr IVCONT .[id number] [facility] Last Admin: 03/05/25 10:23 Dose: 80 mls/hr Documented By: SHELBY Labetalol HCl (Labetalol Hcl 100 Mg/20 Ml Vial) 10 mg IVPUSH RQ8H PRN PRN Reason: htn Last Admin: 03/04/25 10:54 Dose: 10 mg Documented By: SHELBY Levalbuterol HCl (Levalbuterol Hcl 1.25 Mg/3 Ml Vial.Neb) 1.25 mg INHALE Q3H PRN PRN Reason: sob Last Admin: 03/01/25 16:40 Dose: 1.25 mg Documented By: MANAN Levalbuterol HCl (Levalbuterol Hcl 1.25 Mg/3 Ml Vial.Neb) 1.25 mg INHALE RQ4H [facility] Last Admin: 03/05/25 15:42 Dose: 1.25 mg Documented By: GANESH Lorazepam (Lorazepam 1 Mg Tablet) 1 mg PO Q6H PRN PRN Reason: Dyspnea, anxiety Last Admin: 03/03/25 15:33 Dose: 1 mg Documented By: NAOMI Melatonin (Melatonin 3 Mg Tablet) 6 mg PO BEDTIME PRN PRN Reason: Insomnia Methylprednisolone Sodium Succinate (Methylprednisolone Sod Succ 125 Mg/2 Ml Vial) 60 mg IVPUSH Q8H [facility] Last Admin: 03/05/25 08:42 Dose: 60 mg Documented By: SHELBY Morphine Sulfate (Morphine Sulfate 2 Mg/Ml Cartridge) 0.5 mg IVPUSH Q6H PRN; Protocol PRN Reason: Dyspnea Last Admin: 03/05/25 06:41 Dose: 0.5 mg Documented By: DALIA Nicotine (Nicotine 21 Mg Patch.Td24) 21 mg TRANSDERMA DAILY [facility] Last Admin: 03/05/25 08:42 Dose: Not Given Documented By: SHELBY Non-Admin Reason: Patient Refused Omeprazole (Omeprazole 40 Mg Capsule.) 40 mg PO BID@0630,1630 [facility] Last Admin: 03/05/25 06:13 Dose: Not Given Documented By: MARIE Non-Admin Reason: patient not taking p.o, refusing Ondansetron HCl (Ondansetron Hcl 4 Mg/2 Ml Vial) 4 mg IVPUSH Q8H PRN PRN Reason: Nausea and Vomiting Last Admin: 02/28/25 09:10 Dose: 4 mg Documented By: ERIN Sodium Chloride (0.9 % Sodium Chloride Flush 3 Ml Syringe) 3 ml IVFLUSH QSHIFT [facility] Last Admin: 03/05/25 08:42 Dose: 3 ml Documented By: SHELBY Theophylline (Theophylline Anhydrous Er 300 Mg Tab.Er.12h) 300 mg PO BID [facility] Last Admin: 03/05/25 10:28 Dose: Not Given Documented By: SHELBY Non-Admin Reason: Patient Refused Tiotropium [place] (Tiotropium [place] 2.5 Mcg 1 Puff/2.5 Mcg Mist.Inhal) 2 puff INHALE RDAILY [facility] Last Admin: 03/05/25 07:34 Dose: Not Given Documented By: GANESH Non-Admin Reason: unable to follow commands Zolpidem Tartrate (Zolpidem Tartrate 5 Mg Tablet) 10 mg PO BEDTIME PRN PRN Reason: Insomnia Last Admin: 03/02/25 20:28 Dose: 10 mg Documented By: MAYNORISHA Labs 03/04/25 07:34 03/05/25 07:11 Labs: Laboratory Results - last 24 hr 03/04/25 03/05/25 20:33 07:11 Hold Purple Top SEE NOTE Anion Gap 16 Estim Creat Clear Calc 50.3 Estimated GFR > 60 Random Glucose 186 H Calcium 8.8 D Total Bilirubin 0.7 AST 23 ALT 17 Alkaline Phosphatase 56 Total Protein 6.3 L Albumin 3.9 Respiratory Panel Castillo See Note Adenovirus (Rapid PCR) Not Detected B.pert (TEM-PCR) Not Detected B.parapertussis DNA PCR Not Detected C. pneumoniae DNA (PCR) Not Detected Coronavirus OC43 (PCR) Not Detected Coronavirus HKU1 (PCR) Not Detected Coronavirus 229E (PCR) Not Detected Coronavirus NL63 (PCR) Not Detected Human Metapneumovir PCR Not Detected Influenza A (RT-PCR) Not Detected Influenza A (H1) PCR Not Detected Influ A (H1/09) PCR Not Detected Influenza A (H3) PCR Not Detected Influenza B (RT-PCR) Not Detected M. pneumoniae (PCR) Not Detected Parainfluenza 1 (PCR) Not Detected Parainfluenza 2 (PCR) Not Detected Parainfluenza 3 (PCR) Not Detected Parainfluenza 4 (PCR) Not Detected RSV (PCR) Not Detected Entero/Rhino (PCR) Detected A SARS-CoV-2 RNA (RT-PCR) Not Detected Assessment and Plan (1) Acute hypoxic on chronic hypercapnic respiratory failure: Status: Acute (2) Acute exacerbation of chronic obstructive pulmonary disease (COPD): Status: Acute Assessment and Plan: 74 y/o woman presents with: Acute hypoxic and hypercapnic respiratory failure secondary to acute COPD exacerbation. Given no improvement, pulm was consulted on reccs cont iv steroids and bronchodilators, CTA -ve for pna and PE; no sepsis have tried BiPAP, CPAP, High-flow, NC: pt removing all of them, def a component of non compliance Repeat abg yesterday showing compensated respiratory acidosis Pulm consulted again, repeat cxr no acute pathology had received 6 days of azithromycin , will dc breo ellipta and spiriva cont with xopenex agata and prn on 4 l nc pulm reccs bipap which pt is refusing, per them given advance lung disease, prognosis remains poor, goc discussion recommended, x1 morphine ordered today Question of acute encephalopathy Nursing report pt has been speaking to people who were not in the room and claiming she was just with the baby Currently AOx3, ABG reassuring; currently AOx3 Monitor mentation psych consult Anxiety ativan prn, hydroxyzine added HTN: not on any meds at home, could be due to anxiety labetalol q8 hrs prn Tobacco dependence. Tobacco cessation education. Nicotine patch. History of left upper lobe nodules. Status post CT-guided biopsy complicated with pneumothorax. F/U with Dr. Simmons. Biopsy (Mar 2024) showed benign inflamed bronchial alveolar tissue with focal necrotizing granulomatous inflammation; negative for malignancy and microorganisms. GERD. Continue PPI. 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 F/U with Dr. Leonila Ulloa. Protein calorie malnutrition. BMI 16.7 kg/m2. Dietary consult. regular diet reccs DVT prophylaxis: Lovenox Code status: DNR/DNI ongoing hospitalization need for acute hypoxic and hypercapnic respiratory failure treatment with bronchodilator therapy, supplemental oxygen, goc discussion Quality Stroke Does the patient have a stroke diagnosis?: No VTE Prior VTE?: No VTE Risk Level:: Medical - moderate - high VTE Device Contraindication: Treatment Not Indicated VTE Drug Contraindication: N/A - Med Ordered
[2025-03-05 18:49] LABS: Anion Gap 12 (12-20); Blood Urea Nitrogen 33 mg/dL (9-16); Calcium 8.5 mg/dL (8.4-10.2); Carbon Dioxide 38 mmol/L (22-29); Chloride 101 mmol/L (96-108); Creatinine Clr Calc Pharmacy 47.3; Estimated Glomerular Filt Rate > 60; Potassium 3.6 mmol/L (3.3-5.1); Sodium 147 mmol/L (135-145)
[2025-03-05] MEDS: Theophylline Anhydrous ER 300 MG TAB.ER.12H PO (21:26)
[2025-03-06] VITALS (11 sets, daily range): BP systolic 107–167; BP diastolic 53–74; PULSE 95–113; RESP 12–22; TEMP 36.4–37; O2SAT 89–95
[2025-03-06] MEDS: 0.9 % Sodium Chloride Flush 3 ML SYRINGE IVFLUSH ×4 (00:53→23:17)
[2025-03-06] MEDS: Fluticasone/Vilanterol 200/25 BLST.W.DEV 1 PUFF INHALE (07:43)
[2025-03-06] MEDS: Tiotropium Bromide 2.5 mcg 1 PUFF/2.5 MCG MIST.INHAL 2 PUFF INHALE (07:43)
--- NOTE | 2025-03-06 07:50 | HO.PM.IMPN ---
Subjective Subjective Date of Service: 03/06/25 Interval History: Tested positive for rhino virus Started on theophylline by respiratory yesterday Appears much better today Breathing better, no tripodding, laughing and joking No confusion No acute events overnight Review of Systems Review of Systems: Yes all other systems are reviewed and are negative Physical Exam Exam: Exam: General: AOx3, no acute distress. Frail, weak, cachectic Resp: CTA bilaterally. Breathing better, no accessory muscle use. No tripoding. CVS: S1, S2, regular rate, tachycardic GI: Soft, NT, no distention Skin: Warm, dry Neuro: Cranial nerves II-XII grossly intact bilaterally. Motor grossly intact bilaterally Extremities: No edema Psych: Appropriate affect Vital Signs: Vital Signs: Last Vital Signs Temp 97.6 F 03/06/25 07:43 Pulse 95 03/06/25 07:47 Resp 22 H 03/06/25 07:47 BP 167/64 H 03/06/25 07:43 Pulse Ox 90 L 03/06/25 07:43 O2 Del Method Nasal Cannula 03/06/25 07:43 O2 Flow Rate 1.5 03/06/25 07:43 FiO2 40 03/05/25 19:37 BMI result Body Mass Index 16.7 Objective Data Active Medications Acetaminophen (Acetaminophen 325 Mg Tablet) 975 mg PO Q6H PRN PRN Reason: Pain, Mild 1-3,fever,headache Albuterol Sulfate (Albuterol Sulfate (0.083%) 2.5 Mg/3 Ml Vial.Neb) 2.5 mg INHALE Q2H PRN PRN Reason: Shortness of Breath/Wheezing Enoxaparin Sodium (Enoxaparin Sodium 40 Mg/0.4 Ml Syringe) 40 mg SUBCUT Q24H [facility] Last Admin: 03/05/25 08:41 Dose: 40 mg Documented By: SHELBY Fluticasone/Vilanterol (Fluticasone/Vilanterol 200/25 Blst.W.Dev) 1 puff INHALE RDAILY [facility] Last Admin: 03/06/25 07:43 Dose: 1 puff Documented By: MANAN Hydroxyzine HCl (Hydroxyzine Hcl 25 Mg Tablet) 25 mg PO Q8H PRN PRN Reason: anxiety/restlessness Last Admin: 03/03/25 12:45 Dose: 25 mg Documented By: NAOMI Dextrose/Sodium Chloride (D51/2ns) 1,000 mls @ 80 mls/hr IVCONT .[id number] [facility] Last Admin: 03/05/25 21:34 Dose: 80 mls/hr Documented By: MARIE Labetalol HCl (Labetalol Hcl 100 Mg/20 Ml Vial) 10 mg IVPUSH RQ8H PRN PRN Reason: htn Last Admin: 03/04/25 10:54 Dose: 10 mg Documented By: SHELBY Levalbuterol HCl (Levalbuterol Hcl 1.25 Mg/3 Ml Vial.Neb) 1.25 mg INHALE RQ4H [facility] Last Admin: 03/06/25 07:43 Dose: 1.25 mg Documented By: MANAN Lorazepam (Lorazepam 1 Mg Tablet) 1 mg PO Q6H PRN PRN Reason: Dyspnea, anxiety Last Admin: 03/03/25 15:33 Dose: 1 mg Documented By: NAOMI Melatonin (Melatonin 3 Mg Tablet) 6 mg PO BEDTIME PRN PRN Reason: Insomnia Methylprednisolone Sodium Succinate (Methylprednisolone Sod Succ 125 Mg/2 Ml Vial) 60 mg IVPUSH Q8H [facility] Last Admin: 03/06/25 00:53 Dose: 60 mg Documented By: MARIE Morphine Sulfate (Morphine Sulfate 2 Mg/Ml Cartridge) 0.5 mg IVPUSH Q6H PRN; Protocol PRN Reason: Dyspnea Last Admin: 03/05/25 06:41 Dose: 0.5 mg Documented By: DALIA Nicotine (Nicotine 21 Mg Patch.Td24) 21 mg TRANSDERMA DAILY [facility] Last Admin: 03/05/25 08:42 Dose: Not Given Documented By: SHELBY Non-Admin Reason: Patient Refused Omeprazole (Omeprazole 40 Mg Capsule.) 40 mg PO BID@0630,1630 [facility] Last Admin: 03/06/25 05:44 Dose: 40 mg Documented By: MARIE Ondansetron HCl (Ondansetron Hcl 4 Mg/2 Ml Vial) 4 mg IVPUSH Q8H PRN PRN Reason: Nausea and Vomiting Last Admin: 02/28/25 09:10 Dose: 4 mg Documented By: ERIN Sodium Chloride (0.9 % Sodium Chloride Flush 3 Ml Syringe) 3 ml IVFLUSH QSHIFT [facility] Last Admin: 03/06/25 00:53 Dose: 3 ml Documented By: MARIE Theophylline (Theophylline Anhydrous Er 300 Mg Tab.Er.12h) 300 mg PO BID [facility] Last Admin: 03/05/25 21:26 Dose: 300 mg Documented By: MARIE Tiotropium Alexander (Tiotropium Alexander 2.5 Mcg 1 Puff/2.5 Mcg Mist.Inhal) 2 puff INHALE RDAILY [facility] Last Admin: 03/06/25 07:43 Dose: 2 puff Documented By: MANAN Zolpidem Tartrate (Zolpidem Tartrate 5 Mg Tablet) 10 mg PO BEDTIME PRN PRN Reason: Insomnia Last Admin: 03/02/25 20:28 Dose: 10 mg Documented By: VALARIEA Labs 03/04/25 07:34 03/06/25 09:19 Labs: Laboratory Results - last 24 hr 03/04/25 03/05/25 03/05/25 20:33 07:11 18:03 Hold Purple Top SEE NOTE Anion Gap 16 12 Estim Creat Clear Calc 50.3 47.3 Estimated GFR > 60 > 60 Random Glucose 186 H 200 H Calcium 8.8 D 8.5 Total Bilirubin 0.7 AST 23 ALT 17 Alkaline Phosphatase 56 Total Protein 6.3 L Albumin 3.9 Respiratory Panel Castillo See Note Adenovirus (Rapid PCR) Not Detected B.pert (TEM-PCR) Not Detected B.parapertussis DNA PCR Not Detected C. pneumoniae DNA (PCR) Not Detected Coronavirus OC43 (PCR) Not Detected Coronavirus HKU1 (PCR) Not Detected Coronavirus 229E (PCR) Not Detected Coronavirus NL63 (PCR) Not Detected Human Metapneumovir PCR Not Detected Influenza A (RT-PCR) Not Detected Influenza A (H1) PCR Not Detected Influ A (H1/09) PCR Not Detected Influenza A (H3) PCR Not Detected Influenza B (RT-PCR) Not Detected M. pneumoniae (PCR) Not Detected Parainfluenza 1 (PCR) Not Detected Parainfluenza 2 (PCR) Not Detected Parainfluenza 3 (PCR) Not Detected Parainfluenza 4 (PCR) Not Detected RSV (PCR) Not Detected Entero/Rhino (PCR) Detected A SARS-CoV-2 RNA (RT-PCR) Not Detected Assessment and Plan (1) Acute hypoxic on chronic hypercapnic respiratory failure: Status: Acute (2) Acute exacerbation of chronic obstructive pulmonary disease (COPD): Status: Acute Plan 74 y/o woman presents with: Acute hypoxic and hypercapnic respiratory failure secondary to acute COPD exacerbation. Given no improvement, pulm was consulted on reccs cont iv steroids and bronchodilators, CTA -ve for pna and PE; no sepsis have tried BiPAP, CPAP, High-flow, NC: pt removing all of them, def a component of non compliance Repeat vbg yesterday showing compensated respiratory acidosis Pulm consulted again, repeat cxr no acute pathology; did test positive for rhinovirus had received 6 days of azithromycin , now dc breo ellipta and spiriva cont with xopenex agata and prn on 4 l nc pulm reccs bipap which pt is refusing, per them given advance lung disease, prognosis remains poor, goc discussion recommended, Started on theophylline; monitor levels Switch IV steroids to po prednisone Hypernatremia, resolved Sodium as high as 151, now 143 after D5 1/2NS In the setting of reduced p.o. intake Monitor Question of acute encephalopathy Nursing report pt has been speaking to people who were not in the room and claiming she was just with the baby Currently AOx3, VBG reassuring Monitor mentation psych consult Anxiety ativan prn, hydroxyzine added HTN: not on any meds at home, could be due to anxiety labetalol q8 hrs prn Tobacco dependence. Tobacco cessation education. Nicotine patch. History of left upper lobe nodules. Status post CT-guided biopsy complicated with pneumothorax. F/U with Dr. Simmons. Biopsy (Mar 2024) showed benign inflamed bronchial alveolar tissue with focal necrotizing granulomatous inflammation; negative for malignancy and microorganisms. GERD. Continue PPI. 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 F/U with Dr. Spencer. Protein calorie malnutrition. BMI 16.7 kg/m2. Dietary consult. regular diet reccs DVT prophylaxis: Lovenox Code status: DNR/DNI ongoing hospitalization need for acute hypoxic and hypercapnic respiratory failure treatment with bronchodilator therapy, supplemental oxygen. Pt will need PT evaluation for likely STR with pulmonary rehab placement. Quality Stroke Does the patient have a stroke diagnosis?: No VTE Prior VTE?: No VTE Risk Level:: Medical - moderate - high VTE Device Contraindication: Treatment Not Indicated VTE Drug Contraindication: N/A - Med Ordered
[2025-03-06] MEDS: Theophylline Anhydrous ER 300 MG TAB.ER.12H PO ×2 (08:47→20:14)
[2025-03-06] MEDS: Dextrose 5 % and 0.45 % NaCl 1,000 ML 80 ML IVCONT (08:53)
[2025-03-06 09:29] LABS: Venous Blood Gas Refer to POC result
[2025-03-06 09:29] LABS: VBG HCO3 46 mmol/L (22-26); VBG O2 % Saturation 61.0 %
[2025-03-06 09:39] LABS: Anion Gap 13 (12-20); Blood Urea Nitrogen 25 mg/dL (9-16); Calcium 8.7 mg/dL (8.4-10.2); Carbon Dioxide 37 mmol/L (22-29); Chloride 96 mmol/L (96-108); Creatinine Clr Calc Pharmacy 49.6; Estimated Glomerular Filt Rate > 60; Potassium 3.4 mmol/L (3.3-5.1); Sodium 143 mmol/L (135-145)
--- NOTE | 2025-03-06 11:51 | MHC.CM.PN ---
PT is recommending STR; CM will follow.
--- NOTE | 2025-03-06 13:00 | P.PNPL_ITS ---
Subjective Subjective Date of Service: 03/06/25 Interval history: The patient was seen on exam. Seems to be doing better this morning. She is more awake and alert. Last blood gas demonstrating interval improvement of the CO2 which is reassuring. Seems to be tolerating the BiPAP at nighttime. The patient did start theophylline. Seems to be tolerating the theophylline. Need to monitor her levels. This point we can decrease her steroids. The patient continues to be frail. Objective Data Labs 03/04/25 07:34 03/06/25 09:19 Labs: Laboratory Results - last 24 hr 03/05/25 03/06/25 03/06/25 18:03 09:19 09:25 VBG pH 7.48 H VBG pCO2 61 VBG pO2 45 VBG HCO3 46 H VBG O2 Saturation 61.0 VBG Base Excess 18.6 Sodium 147 H 143 Potassium 3.6 3.4 Chloride 101 96 Carbon Dioxide 38 H 37 H Anion Gap 12 13 BUN 33 H 25 H Creatinine 0.66 0.63 Estim Creat Clear Calc 47.3 49.6 Estimated GFR > 60 > 60 Random Glucose 200 H 159 H Calcium 8.5 8.7 Microbiology Microbiology Results: Microbiology 02/25/25 20:03 Blood - Venous Blood Culture - Final No growth after 5 days. 02/25/25 19:36 Blood - Venous Blood Culture - Final No growth after 5 days. Review of Systems Constitutional: Denies daytime sleepiness, Denies excessive sweating, Reports fatigue, Denies fever(s), Denies lethargy, Denies malaise, Denies night sweats and Denies snoring Eyes: Denies blurry vision and Denies itchy eyes Denies nasal congestion, Denies post nasal drip, Denies sinus pain, Denies sinus pressure and Denies other ( Thrush) Cardiovascular: Denies chest pain, Denies pedal edema, Reports dyspnea, Denies orthopnea and Denies paroxysmal nocturnal dyspnea Respiratory: Denies cough, Denies hemoptysis, Denies excessive phlegm production, Reports dyspnea, Denies snoring and Reports wheezing Gastrointestinal: Denies abdominal pain and Denies heartburn Musculoskeletal: Denies myalgias, Denies arthralgias and Denies joint swelling Skin/Breast: Denies rash Denies memory loss and Denies seizure-like activity Psychiatric: Denies abnormal sleep pattern, Denies anxiety and Denies memory loss Endocrine: Denies excessive sweating, Reports fatigue and Denies heat intolerance Hematologic/Lymphatic: Denies easy bruising Allergic/Immunologic: Denies itchy eyes, Denies seasonal rhinorrhea and Reports wheezing Physical Exam 2 Vital Signs: Vital Signs: Last Vital Signs Temp 98.6 F 03/06/25 11:42 Pulse 113 H 03/06/25 11:42 Resp 18 03/06/25 11:42 BP 148/74 H 03/06/25 11:42 Pulse Ox 92 03/06/25 11:42 O2 Del Method Nasal Cannula 03/06/25 11:42 O2 Flow Rate 1 03/06/25 11:42 FiO2 40 03/05/25 19:37 BMI result Body Mass Index 16.7 Const: General: tired appearing HEENT: Head: Yes normocephalic Neck: Neck: Yes trachea midline Chest: Chest palpation & inspection: normal inspection of the chest Resp: Effort & Inspection: prolonged expiratory phase Auscultation: d iminished lung sounds Cardio: Heart sounds: S1 normal heart sound present and S2 normal heart sound present GI: Palpation (GI): Soft to palpation Extrem: General: Yes clubbing and Yes cyanosis Procedures Date of Service Date of Service: 03/06/25 Assessment and Plan Assessment and plan (1) Centrilobular emphysema: Status: Acute (2) Acute hypoxic on chronic hypercapnic respiratory failure: Status: Acute (3) Acute exacerbation of chronic obstructive pulmonary disease (COPD): Status: Acute Plan IV solumedrol-->ok to change to PO prednisone Nebs BIPAP continue Theophylline, please monitor levels would benefit from a non invasive ventilator to help her with her work of breathing and gas exchange. It would improve her prognosis and decrease hospitalizations Time Spent With Patient Time: Total time managing care of this patient today ____ minutes. Progress Note: Quality Stroke Does the patient have a stroke diagnosis?: No
[2025-03-07] VITALS (10 sets, daily range): BP systolic 116–160; BP diastolic 58–76; PULSE 91–119; RESP 16–22; TEMP 36.4–37; O2SAT 91–99
[2025-03-07 07:09] LABS: Theophylline 8.4
[2025-03-07 07:13] LABS: Anion Gap 15 (12-20); Blood Urea Nitrogen 26 mg/dL (9-16); Calcium 8.9 mg/dL (8.4-10.2); Carbon Dioxide 37 mmol/L (22-29); Chloride 95 mmol/L (96-108); Creatinine Clr Calc Pharmacy 46.6; Estimated Glomerular Filt Rate > 60; Potassium 3.7 mmol/L (3.3-5.1); Sodium 143 mmol/L (135-145)
[2025-03-07] MEDS: Fluticasone/Vilanterol 200/25 BLST.W.DEV 1 PUFF INHALE (07:39)
[2025-03-07] MEDS: Tiotropium Bromide 2.5 mcg 1 PUFF/2.5 MCG MIST.INHAL 2 PUFF INHALE (07:39)
[2025-03-07] MEDS: Theophylline Anhydrous ER 300 MG TAB.ER.12H PO (08:34)
[2025-03-07] MEDS: 0.9 % Sodium Chloride Flush 3 ML SYRINGE IVFLUSH ×3 (08:38→22:05)
--- NOTE | 2025-03-07 10:58 | MHC.CM.PN ---
This CM met with pt and her family present at bedside to discuss STR bed offers, pt has accepted a bed offer at [facility] [place], this CM requested the facility go for insurance auth.
--- NOTE | 2025-03-07 11:27 | MHC.CLN ---
F/U PO INTAKE SLIGHTLY IMPROVED CONSUMING 50% AVG PT REFUSES TO TAKE NUTRITION SUPPLEMENTS DIET RX: REGULAR MONITOR PO INTAKE CLOSELY
[2025-03-07 12:07] LABS: Theophylline 18.8
--- NOTE | 2025-03-07 14:16 | HO.PM.IMPN ---
Subjective Subjective Date of Service: 03/07/25 Interval History: breathing improved nonproductive cough Review of Systems Review of Systems: Yes all other systems are reviewed and are negative Physical Exam Vital Signs: Vital Signs: Last Vital Signs Temp 98.1 F 03/07/25 11:33 Pulse 118 H 03/07/25 11:51 Resp 19 03/07/25 11:33 BP 160/67 H 03/07/25 11:51 Pulse Ox 99 03/07/25 11:51 O2 Del Method Nasal Cannula 03/07/25 11:33 O2 Flow Rate 1 03/07/25 11:33 FiO2 40 03/05/25 19:37 BMI result Body Mass Index 16.7 Gen: in no acute distress HEENT: sclera anicteric, moist mucus membranes Neck: supple Lungs: diminished Heart: regular, tachycardic, no murmurs Abd: soft, non-tender, non-distended Ext: no edema Skin: warm/well-perfused Neuro: alert and oriented x3, no focal findings Psych: appropriate affect Objective Data Active Medications Acetaminophen (Acetaminophen 325 Mg Tablet) 975 mg PO Q6H PRN PRN Reason: Pain, Mild 1-3,fever,headache Albuterol Sulfate (Albuterol Sulfate (0.083%) 2.5 Mg/3 Ml Vial.Neb) 2.5 mg INHALE Q2H PRN PRN Reason: Shortness of Breath/Wheezing Enoxaparin Sodium (Enoxaparin Sodium 40 Mg/0.4 Ml Syringe) 40 mg SUBCUT Q24H [facility] Last Admin: 03/07/25 08:38 Dose: 40 mg Documented By: LESSARL Fluticasone/Vilanterol (Fluticasone/Vilanterol 200/25 Blst.W.Dev) 1 puff INHALE RDAILY [facility] Last Admin: 03/07/25 07:39 Dose: 1 puff Documented By: BRESTALYA Hydroxyzine HCl (Hydroxyzine Hcl 25 Mg Tablet) 25 mg PO Q8H PRN PRN Reason: anxiety/restlessness Last Admin: 03/03/25 12:45 Dose: 25 mg Documented By: NAOMI Labetalol HCl (Labetalol Hcl 100 Mg/20 Ml Vial) 10 mg IVPUSH RQ8H PRN PRN Reason: htn Last Admin: 03/04/25 10:54 Dose: 10 mg Documented By: SHELBY Levalbuterol HCl (Levalbuterol Hcl 1.25 Mg/3 Ml Vial.Neb) 1.25 mg INHALE RQ4H [facility] Last Admin: 03/07/25 11:04 Dose: 1.25 mg Documented By: MANAN Lorazepam (Lorazepam 1 Mg Tablet) 1 mg PO Q6H PRN PRN Reason: Dyspnea, anxiety Last Admin: 03/03/25 15:33 Dose: 1 mg Documented By: NAOMI Melatonin (Melatonin 3 Mg Tablet) 6 mg PO BEDTIME PRN PRN Reason: Insomnia Morphine Sulfate (Morphine Sulfate 2 Mg/Ml Cartridge) 0.5 mg IVPUSH Q6H PRN; Protocol PRN Reason: Dyspnea Last Admin: 03/05/25 06:41 Dose: 0.5 mg Documented By: DALIA Nicotine (Nicotine 21 Mg Patch.Td24) 21 mg TRANSDERMA DAILY [facility] Last Admin: 03/07/25 08:38 Dose: Not Given Documented By: ARTEMIO Non-Admin Reason: Patient Refused Omeprazole (Omeprazole 40 Mg Capsule.) 40 mg PO BID@0630,1630 [facility] Last Admin: 03/07/25 05:27 Dose: 40 mg Documented By: RAFA Ondansetron HCl (Ondansetron Hcl 4 Mg/2 Ml Vial) 4 mg IVPUSH Q8H PRN PRN Reason: Nausea and Vomiting Last Admin: 02/28/25 09:10 Dose: 4 mg Documented By: ERIN Prednisone (Prednisone 20 Mg Tablet) 40 mg PO DAILY [facility] Last Admin: 03/07/25 10:34 Dose: Not Given Documented By: ARTEMIO Non-Admin Reason: Hold dose per Dr. Mckee Sodium Chloride (0.9 % Sodium Chloride Flush 3 Ml Syringe) 3 ml IVFLUSH QSHIFT [facility] Last Admin: 03/07/25 08:38 Dose: 3 ml Documented By: ARTEMIO Theophylline (Theophylline Anhydrous Er 300 Mg Tab.Er.12h) 300 mg PO BID [facility] Last Admin: 03/07/25 08:34 Dose: 300 mg Documented By: ARTEMIO Tiotropium Bonesteel (Tiotropium Bonesteel 2.5 Mcg 1 Puff/2.5 Mcg Mist.Inhal) 2 puff INHALE RDAILY [facility] Last Admin: 03/07/25 07:39 Dose: 2 puff Documented By: MANAN Zolpidem Tartrate (Zolpidem Tartrate 5 Mg Tablet) 10 mg PO BEDTIME PRN PRN Reason: Insomnia Last Admin: 03/02/25 20:28 Dose: 10 mg Documented By: RAFA Labs 03/04/25 07:34 03/07/25 06:11 Labs: Laboratory Results - last 24 hr 03/06/25 03/07/25 09:19 06:11 Hold Purple Top SEE NOTE Anion Gap 15 Estim Creat Clear Calc 46.6 Estimated GFR > 60 Random Glucose 130 H Calcium 8.9 Theophylline 8.4 18.8 Assessment and Plan (1) Acute hypoxic on chronic hypercapnic respiratory failure: Status: Acute (2) Acute exacerbation of chronic obstructive pulmonary disease (COPD): Status: Acute Plan d11, 74yo F with COPD not on home O2 admitted for acute hypoxia + hypercapnia due to COPD exacerbation acute hypoxic and hypercapnic respiratory failure secondary to acute COPD exacerbation, rhinovirus infection - on pneumonia or PE; slow improvement but now definitely improved - Pulm consulted, change IV to PO steroids, completed 6d of azithromycin - non-compliant with BiPAP, CPAP, and HFNC; now currently on NC 1L - continue Breo + Spiriva, Xopenex, theophylline [check level in 2 wk and follow up with Pulm as outpt] hyperNa - resolved after free water repleted IV acute metabolic encephalopathy - resolved, cancel psychiatry consult anxiety - prn lorazepam, prn hydroxyzine HTN - not on home meds, prn labetalol tobacco dependence - NRT hx MANUEL lung nodules - s/p CT-guided biopsy complciated by PTX Mar 2024; showed benign inflamed bronchial alveolar tissue with focal necrotizing granulomatous inflammation; negative for malignancy and microorganisms. GERD - PPI hx bladder CA - outpt Uro follow-up moderate protein-calorie malnutrition - supplements VTE ppx - enoxaparin dispo - STR/IPR In my clinical judgment, the patient requires continued inpatient hospitalization for the following reasons: placement Total time managing care of this patient today: 45 minutes. Quality Stroke Does the patient have a stroke diagnosis?: No VTE Prior VTE?: No VTE Risk Level:: Medical - moderate - high VTE Device Contraindication: Treatment Not Indicated VTE Drug Contraindication: N/A - Med Ordered
[2025-03-08] VITALS: PULSE 99; RESP 16; O2SAT 93
[2025-03-08 03:48] VITALS: BP 135/64; PULSE 92; RESP 16; TEMP 36.5; O2SAT 92
[2025-03-08] MEDS: Tiotropium Bromide 2.5 mcg 1 PUFF/2.5 MCG MIST.INHAL 2 PUFF INHALE (07:24)
[2025-03-08] MEDS: Fluticasone/Vilanterol 200/25 BLST.W.DEV 1 PUFF INHALE (07:24)
[2025-03-08 07:27] VITALS: PULSE 91; RESP 18; O2SAT 93
[2025-03-08 07:35] VITALS: BP 117/56; PULSE 71; RESP 18; TEMP 36.6; O2SAT 90
[2025-03-08] MEDS: 0.9 % Sodium Chloride Flush 3 ML SYRINGE IVFLUSH (08:49)
--- NOTE | 2025-03-08 10:16 | MHC.CM.PN ---
Per MD, Patient is medically cleared for dc today to SNF/STR. Patient will dc to [facility] today at 1PM, via [facility]. CM left a voice message for Partner/Mert @ [phone], informing him of the dc plan. Patient is aware of and in agreement with the dc plan.
[2025-03-08 11:45] VITALS: BP 123/55; PULSE 103; RESP 18; TEMP 36.9; O2SAT 93
--- NOTE | 2025-03-08 12:18 | PM.DS ---
DS: Providers Provider Date of Service: 03/08/25 Date of admission: 02/25/25 22:32 Date of discharge: 03/08/25 Primary care physician: Arlin Watkins MD Consults: 02/26/25 08:44 Consult to Pulmonology Routine Consulting Provider: [facility] Reason for consultation: Copd excerebation 03/02/25 16:44 Consult for Sitter Routine Reason for consultation: Pt agitated, anxious; keeps taking O2 off and desatting into 70s 03/03/25 16:39 Consult to Pulmonology Routine Consulting Provider: [facility] Pul[facility] Reason for consultation: remains hypoxic, imaging -ve for infection or fluid overload, DS: Diagnosis Discharge Diagnosis (1) Acute hypoxic on chronic hypercapnic respiratory failure: Status: Acute (2) Acute exacerbation of chronic obstructive pulmonary disease (COPD): Status: Acute (3) Rhinovirus infection: Status: Acute DS: Summary Hospital Course Hospital Course: From the history and physical by the admitting hospitalist, Sneha Lara MD, 02/25/25: Ebony Mendez is a 74 years old woman with past medical history significant for COPD -no home O2 and bladder CA presents to the emergency department complaining of 3 days' history of shortness on breath associated with productive cough of clear sputum and wheezing. She denied any fever or chills. She denied chest pain, palpitations, dizziness or headache. She tried home nebulizers without improvement of symptoms. She denied any acute gastrointestinal genitourinary symptoms. She denied marijuana smoking or alcohol abuse. She smoked tobacco for more than 50 years -2 PPD. In the ED, she was found to have tachycardia, tachypnea and hypoxia with oxygen saturation of 84 over room air. She is currently requiring 2 L/min supplemental O2 via nasal cannula. Blood workup showed normal CBC. There is no lactic acidosis. INR is 1.0. ABGs showing respiratory acidosis that is improving. Last pH is 7.3 and pCO2 54. PO2 is 133 HCO3 27. There are no electrolyte imbalances. BUN is 17 and creatinine 0.73. Serologies negative for COVID-19, influenza and RSV. CXR showed no consolidations, pneumothorax or pleural effusions. There is a nonspecific opacity that is minimally persisting in the left apex compared to May 2024. ECG showed sinus tachycardia, 137 bpm and no ischemic changes. ED tx: DuoNeb 3 mL, albuterol 10 mg, NS 1 L bolus, azithromycin 500 mg p.o., Solu-Medrol 80 mg IV, Versed 5 mg IV 74yo F with COPD not on home O2 admitted to the telemetry unit for acute hypoxia + hypercapnia due to COPD exacerbation ultimately due to rhinovirus infection. No evidence of pneumonia or pulmonary embolism. Pulmonolgoy was consulted and she was treated with 6 days of azithromycin and a slow IV methylprednisolone taper. She was placed on BiPAP, CPAP, and HFNC but was noncompliant with all 3 modalities. Fortunately, she improved to the point where she was managed with just oxygen via nasal cannula; goal SaO2 90-92% given CO2 retention. She was started on theophylline and should have a level checked in 2 weeks. She was seen by PT and discharged to short-term rehabilitation on a prednisone taper. Smoking cessation was counseled and NRT started. Notably, she has a history of MANUEL lung nodules and is s/p CT-guided biopsy complicated by PTX Mar 2024; this showed benign inflamed bronchial alveolar tissue with focal necrotizing granulomatous inflammation; negative for malignancy and microorganisms. She should see her processing assistant in 1-2 weeks. Time Attestation Discharge Coordination Time (in mins): 45 Quality: Safe Use of Opioids Does Pt have an Active Cancer Diagnosis on the Problem List?: No Quality: Stroke Does the patient have a stroke diagnosis?: No Physical Exam Vital Signs: Vital Signs: Last Vital Signs Temp 98.5 F 03/08/25 11:45 Pulse 103 H 03/08/25 11:45 Resp 18 03/08/25 11:45 BP 123/55 L 03/08/25 11:45 Pulse Ox 93 03/08/25 11:45 O2 Del Method Nasal Cannula 03/08/25 11:45 O2 Flow Rate 1 03/08/25 11:45 FiO2 40 03/05/25 19:37 BMI result Body Mass Index 16.7 Gen: in no acute distress HEENT: sclera anicteric, moist mucus membranes Neck: supple Lungs: diminished Heart: regular, no murmurs Abd: soft, non-tender, non-distended Ext: no edema Skin: warm/well-perfused Neuro: alert and oriented x3, no focal findings Psych: appropriate affect DS: Data Data Completed and Pending Completed studies during hospitalization [Text1]: Laboratory Results WBC 21.0 X10*3/uL (4.8-10.8) H 03/04/25 07:34 RBC 5.26 X10*6/uL (4.20-5.50) 03/04/25 07:34 Hgb 16.3 g/dl (12.0-16.0) H 03/04/25 07:34 Hct 49.3 % (37.0-47.0) H 03/04/25 07:34 MCV 93.7 fL (80.0-98.0) 03/04/25 07:34 MCH 31.0 pg (27.0-33.0) 03/04/25 07:34 MCHC 33.1 g/dl (31.0-35.0) 03/04/25 07:34 RDW 11.8 % (11.0-16.0) 03/04/25 07:34 Plt Count 188 X10*3/uL (160-400) 03/04/25 07:34 MPV 10.8 fL (9.4-12.3) 03/04/25 07:34 Immature Gran % (Auto) 0.4 % (0.0-0.4) 02/26/25 03:09 Neut % (Auto) 93.8 % (45-73) H 02/26/25 03:09 Lymph % (Auto) 4.7 % (20-40) L 02/26/25 03:09 [place] % (Auto) 1.0 % (2-11) L 02/26/25 03:09 Eos % (Auto) 0.0 % (0-4) 02/26/25 03:09 Baso % (Auto) 0.1 % (0-2) 02/26/25 03:09 Lymph # (Auto) 0.3 X10*3/uL (1.2-4.9) L 02/26/25 03:09 [place] # (Auto) 0.1 X10*3/uL (0.1-1.2) 02/26/25 03:09 Eos # (Auto) 0.0 X10*3/uL (0.0-0.4) 02/26/25 03:09 Baso # (Auto) 0.0 X10*3/uL (0.0-0.2) 02/26/25 03:09 Abs Immat Gran (auto) 0.03 X10*3/uL (0.00-0.03) 02/26/25 03:09 Absolute Neuts (auto) 6.8 x10*3/uL (2.0-8.3) 02/26/25 03:09 Absolute Nucleated RBC 0.000 X10*3/uL (0.0-0.012) 03/04/25 07:34 Nucleated RBC % (auto) 0.0 /100WBC (0.0-0.2) 03/04/25 07:34 Smear Tech's Comments VERIFIED 02/26/25 03:09 Hold Purple Top SEE NOTE 03/07/25 06:11 PT 11.1 SEC (10.9-12.4) 02/25/25 19:14 INR 1.0 (0.9-1.1) 02/25/25 19:14 O2 Saturation 100.0 % 03/04/25 09:57 ABG pH at Pt Temp 7.40 (7.35-7.45) 03/04/25 09:57 ABG pCO2 at Pt Temp 74 mmHg (32-45) H* 03/04/25 09:57 ABG pO2 at Pt Temp 234 mmHg (83-108) H 03/04/25 09:57 ABG HCO3 46 mmol/L (22-26) H 03/04/25 09:57 ABG Base Excess (Actual) 16.8 mmol/L 03/04/25 09:57 VBG pH 7.48 (7.32-7.43) H 03/06/25 09:25 VBG pCO2 61 mmHg 03/06/25 09:25 VBG pO2 45 mmHg 03/06/25 09:25 VBG HCO3 46 mmol/L (22-26) H 03/06/25 09:25 VBG O2 Saturation 61.0 % 03/06/25 09:25 VBG Base Excess 18.6 mmol/L 03/06/25 09:25 Sodium 143 mmol/L (135-145) 03/07/25 06:11 Potassium 3.7 mmol/L (3.3-5.1) 03/07/25 06:11 Chloride 95 mmol/L (96-108) L 03/07/25 06:11 Carbon Dioxide 37 mmol/L (22-29) H 03/07/25 06:11 Anion Gap 15 (12-20) 03/07/25 06:11 BUN 26 mg/dL (9-16) H 03/07/25 06:11 Creatinine 0.67 mg/dL (0.5-1.4) 03/07/25 06:11 Estim Creat Clear Calc 46.6 03/07/25 06:11 Estimated GFR > 60 03/07/25 06:11 Random Glucose 130 mg/dL (60-115) H 03/07/25 06:11 Lactic Acid 1.4 mmol/L (0.5-2.0) 02/25/25 19:20 Calcium 8.9 mg/dL (8.4-10.2) 03/07/25 06:11 Magnesium 2.1 mg/dL (1.6-2.6) 02/26/25 03:09 Total Bilirubin 0.7 mg/dL (0.0-1.0) 03/05/25 07:11 AST 23 U/L (5-31) 03/05/25 07:11 ALT 17 U/L (0-31) 03/05/25 07:11 Alkaline Phosphatase 56 U/L (39-117) 03/05/25 07:11 Ammonia 40 umol/L (13-55) 03/01/25 15:37 Troponin I High Sens 4.3 ng/L (<3.5-17.0) 02/25/25 19:14 Total Protein 6.3 g/dL (6.5-8.0) L 03/05/25 07:11 Albumin 3.9 g/dL (3.5-5.0) 03/05/25 07:11 Theophylline 18.8 03/07/25 06:11 Respiratory Panel Castillo See Note 03/04/25 20:33 Adenovirus (Rapid PCR) Not Detected (Not Detect.) 03/04/25 20:33 B.pert (TEM-PCR) Not Detected (Not Detect.) 03/04/25 20:33 B.parapertussis DNA PCR Not Detected (Not Detect.) 03/04/25 20:33 C. pneumoniae DNA (PCR) Not Detected (Not Detect.) 03/04/25 20:33 Coronavirus OC43 (PCR) Not Detected (Not Detect.) 03/04/25 20:33 Coronavirus HKU1 (PCR) Not Detected (Not Detect.) 03/04/25 20:33 Coronavirus 229E (PCR) Not Detected (Not Detect.) 03/04/25 20: Coronavirus NL63 (PCR) Not Detected (Not Detect.) 03/04/25 20: Human Metapneumovir PCR Not Detected (Not Detect.) 03/04/25 20:33 Influenza A (RT-PCR) Not Detected (Not Detect.) 03/04/25 20: Influenza A (H1) PCR Not Detected (Not Detect.) 03/04/25 20:33 Influ A (H1/09) PCR Not Detected (Not Detect.) 03/04/25 20:33 Influenza A (H3) PCR Not Detected (Not Detect.) 03/04/25 20:33 Influenza Type A (PCR) NEGATIVE (Negative) 02/25/25 19:14 Influenza B (RT-PCR) Not Detected (Not Detect.) 03/04/25 20: Influenza Type B (PCR) NEGATIVE (Negative) 02/25/25 19:14 M. pneumoniae (PCR) Not Detected (Not Detect.) 03/04/25 20:33 Parainfluenza 1 (PCR) Not Detected (Not Detect.) 03/04/25 20:33 Parainfluenza 2 (PCR) Not Detected (Not Detect.) 03/04/25 20:33 Parainfluenza 3 (PCR) Not Detected (Not Detect.) 03/04/25 20:33 Parainfluenza 4 (PCR) Not Detected (Not Detect.) 03/04/25 20:33 RSV (PCR) Not Detected (Not Detect.) 03/04/25 20:33 RSV RNA Qual (PCR) NEGATIVE (Negative) 02/25/25 19:14 Entero/Rhino (PCR) Detected (Not Detect.) A 03/04/25 20: SARS-CoV-2 RNA (RT-PCR) Not Detected (Not Detect.) 03/04/25: Discharge Plan Discharge Anticipated Discharge Date/Time: 03/08/25 12:09 Patient Disposition: [facility] Discharge Diagnosis: COPD exacerbation, hypoxia, hypercarbia Referrals: [facility] [Outside] - 1 Week Arlin Watkins MD [Primary Care Provider, Internal Medicine] - 1 Week Balwinder Simmons MD [Physician, Pulmonology] - 1 Week Discharge Medications: New albuterol sulfate 2.5 mg /3 mL (0.083 %) Solution For Nebulization 2.5 mg inhalation Q2H PRN (Reason: Shortness Of Breath/Wheezing) Qty: 1 0RF nicotine 21 mg/24 hr Patch 24 Hour 21 mg transdermal DAILY Qty: 30 0RF theophylline 80 mg/15 mL Elixir 200 mg PO Q8H Qty: 1 0RF prednisone 10 mg tablet See Rx Instructions .ROUTE .COMPLEX Qty: 12 0RF Rx Instructions: 30 mg daily x 2 days, then 20 mg daily x 2 days, then 10 mg daily x 2 days, then stop Continued Spiriva Respimat 1.25 mcg/actuation mist 1 puff PO DAILY Qty: 12 1RF albuterol sulfate [Ventolin HFA] 90 mcg/actuation HFA aerosol inhaler 2 puff inhalation QID PRN (Reason: shortness of breath or wheezing) 30 Days Qty: 18 11RF ipratropium-albuterol 0.5 mg-3 mg(2.5 mg base)/3 mL solution for nebulization 3 ml inhalation DAILY PRN (Reason: Shortness Of Breath Or Wheezing) Qty: 180 11RF Rx Instructions: Medicare B cetirizine 10 mg tablet 10 mg PO DAILY Qty: 90 1RF cholecalciferol (vitamin D3) 1,250 mcg (50,000 unit) capsule 1,250 mcg PO MO omeprazole 40 mg capsule,delayed release(DR/EC) 40 mg PO BID@0630,1630 (DME) nebulizers [facility] See Rx Instructions .Route Rx Instructions: As directed fluticasone propion-salmeterol [Wixela Inhub] 500-50 mcg/dose blister with device 1 inh inhalation BID Qty: 60 5RF zolpidem 10 mg tablet 10 mg PO BEDTIME PRN (Reason: insomnia) Qty: 30 0RF Discharge Orders: Discharge Order (Routine); Ordered 03/08/25 Ordered By: Joseph Mckee Diet: Advance to usual diet Activity on Discharge: As tolerated Stand Alone Forms: Patient Portal Discharge page Print Language: Ivorian Other Ambulatory Orders: Theophylline (Routine) Timeframe: 2 Weeks Facility: [facility] - Location: Laboratory Ordered By: Joseph Mckee Care Plan Goals: pulmonary health Health Concerns: COPD exacerbation, hypoxia, hypercarbia Plan of Treatment: to short-term rehabilitation; anticipated length of stay less than 30 days home oxygen evaluation prior to discharge home theophylline suspension 200 mg 3x a day; check level in 2 weeks prednisone taper: 30 mg daily x 2 days, then 20 mg daily x 2 days, then 10 mg daily x 2 days quit smoking; use nicotine patch to quit follow up with Dr Simmons from [facility] Pulmonology in 1-2 weeks Please follow up with your primary care doctor within 1 week of discharge from rehabilitation. Return to the hospital if you experience recurrent or worsening symptoms. Assessment: See Discharge Summary.
--- NOTE | 2025-03-11 07:14 | P.CDIM_ITS ---
PROVIDER RESPONSE TEXT: To clarify, the appropriate diagnosis supported by the clinical indicators: Metabolic QUERY TEXT: PHYSICIAN'S DOCUMENTATION REQUEST Date of Query: 03/06/2025 10:59 AM EDT Patient Name: Ebony Mendez Admit Date: 02/26/2025 Dear Ike EWING, A review of the medical record indicates additional documentation may be needed. Please review below and update the documentation accordingly. Clinical Indicators: per Hospitalist progress note 03/05/25: question of acute encephalopathy, speaking to people not in the room and claiming she was just with the baby Based on the above, please further specify, in the Progress Notes, the known or suspected type of the documented encephalopathy: Metabolic Septic Toxic Toxic metabolic Hypertensive Anoxic Alcoholic Hepatic (reported as hepatic failure and needs further specificity as to acute, subacute, or chronic) Due to a specified condition (such as UTI, hyponatremia, CVA, etc.) Other (explain) Clinically unable to determine (explain) Thank you, Linsey Panchal RN Use of terms such as suspected, likely, concern for, or probable (associated with a specific diagnosis that is being evaluated, monitored, or treated as if it exists) are acceptable and can be coded in the inpatient setting, when documented at the time of discharge. Please use your independent medical judgment in providing your response. THIS QUERY IS PART OF THE PERMANENT MEDICAL RECORD
== END 2025-03-08 12:42 | disposition skilled nursing facility (03) | DRG 140 ==
LOC: HO.ED 19:46 → HO.EDOVER 22:35 → HO.IMC 02-26 19:25
PROVIDERS: Emergency Medicine; Hospitalist; Physician Assistant Medical; Student in an Organized Health Care Education/Training Program; Admitting Provider Internal Medicine; Emergency Provider Emergency Medicine; PCP Internal Medicine; Visit Provider Family Medicine
DX: J44.1 Chronic obstructive pulmonary disease with (acute) exacerbation (principal); G93.41 Metabolic encephalopathy; J96.02 Acute respiratory failure with hypercapnia; J96.01 Acute respiratory failure with hypoxia; E44.0 Moderate protein-calorie malnutrition; I10 Essential (primary) hypertension; B97.89 Other viral agents as the cause of diseases classified elsewhere; K21.9 Gastro-esophageal reflux disease without esophagitis; E87.0 Hyperosmolality and hypernatremia; F41.9 Anxiety disorder, unspecified; F17.210 Nicotine dependence, cigarettes, uncomplicated; Z71.6 Tobacco abuse counseling; Z68.1 Body mass index [BMI] 19.9 or less, adult; Z20.822 Contact with and (suspected) exposure to COVID-19; Z79.51 Long term (current) use of inhaled steroids; Z79.899 Other long term (current) drug therapy
CPT/HCPCS: 36415; 36600; 71045; 71275; 80048; 80053; 80198; 82140; 82803; 83605; 83735; 84484; 85025; 85027; 85610; 87040; 87633; 87637; 93005; 94640; 94660; 97110; 97162; 99285; J0456; J1171; J1650; J1920; J2250; J2270; J2405; J2919; J3360; Q9967

== ENCOUNTER → 2025-02-25 18:46 | Outpatient (BNV) | payer OTHER, SELFPAY | PROVIDERS: Emergency Provider Emergency Medicine; PCP Internal Medicine; Visit Provider Radiology Neuroradiology | DX: R91.8 Other nonspecific abnormal finding of lung field (principal); R06.02 Shortness of breath | CPT/HCPCS: 71045 ==

== ENCOUNTER → 2025-02-25 18:46 | Outpatient (BNV) | payer OTHER, SELFPAY | PROVIDERS: Admitting Provider Internal Medicine; Emergency Provider Emergency Medicine; PCP Internal Medicine; Visit Provider Internal Medicine Cardiovascular Disease | DX: I25.2 Old myocardial infarction (principal); I51.7 Cardiomegaly; R00.0 Tachycardia, unspecified | CPT/HCPCS: 93010 ==

== ENCOUNTER 2025-02-25 22:32 | Outpatient (BNV) | payer OTHER, SELFPAY | END 2025-03-01 14:52 | PROVIDERS: Admitting Provider Internal Medicine; Emergency Provider Emergency Medicine; PCP Internal Medicine; Visit Provider Student in an Organized Health Care Education/Training Program | DX: J43.2 Centrilobular emphysema (principal) | CPT/HCPCS: 71275 ==

== ENCOUNTER 2025-02-25 22:32 | Outpatient (BNV) | payer OTHER, SELFPAY | END 2025-03-03 16:10 | PROVIDERS: Admitting Provider Internal Medicine; Emergency Provider Emergency Medicine; PCP Internal Medicine; Visit Provider Radiology Diagnostic Radiology | DX: R09.02 Hypoxemia (principal) | CPT/HCPCS: 71045 ==

== ENCOUNTER → 2025-02-25 22:32 | Outpatient (BNV) | payer OTHER, SELFPAY | PROVIDERS: Admitting Provider Internal Medicine; Emergency Provider Emergency Medicine; PCP Internal Medicine; Visit Provider Internal Medicine Pulmonary Disease | DX: J44.1 Chronic obstructive pulmonary disease with (acute) exacerbation (principal) | CPT/HCPCS: 99222 ==

== ENCOUNTER → 2025-02-25 22:32 | Outpatient (BNV) | payer OTHER, SELFPAY | PROVIDERS: Admitting Provider Internal Medicine; Emergency Provider Emergency Medicine; PCP Internal Medicine; Visit Provider Internal Medicine | DX: J96.01 Acute respiratory failure with hypoxia (principal); J96.12 Chronic respiratory failure with hypercapnia; J44.1 Chronic obstructive pulmonary disease with (acute) exacerbation | CPT/HCPCS: 99223; 99232; 99233 ==

== ENCOUNTER 2025-03-14 10:23 | Outpatient (AMB) | payer OTHER, SELFPAY ==
--- OUTSIDE RECORDS SUMMARY | 2025-03-10 08:04 | XMS_ITS | Encounter Summary ---
Author Organization [facility] Address [address] [place] [address] [place] [phone] Phone Care Team Providers Care Suction Roller Name Role Phone Pcp, Not Required Primary Care Provider Unavaila ble Encounter Details Date Type Department Care Team (Latest Contact Info) Description 03/10/2025 8:04 AM EDT - 03/10/2025 11:59 PM EDT Hospital Encounter [facility] [address] [place] [phone] Teagan Palacio MD [address] [place] [phone] [email or web address] Discharge Disposition: Home or Self Care Social History Tobacco Use Types Packs/Day Years [...] on file Sexual Orientation Not on file documented as of this encounter Medications at Time of Discharge albuterol (VENTOLIN HFA) 90 mcg/actuation inhaler Inhale 2 puffs into the lungs every 6 (six) hours as needed for shortness of breath/dyspnea. 04/18/2024 budesonide-formo terol 160-4.5 mcg/actuation inhaler Inhale 2 puffs into the lungs 2 (two) times a day. 04/18/2024 cetirizine (ZYRTEC) 10 MG tablet Take 10 mg by mouth daily. 04/18/2024 ipratropium-albu teroL (DUONEB) 0.5-3 mg (2.5 mg base)/3 mL nebulizer solution Take 3 mL by nebulization daily as needed for shortness of breath/dyspnea. 04/18/2024 omeprazole (PRILOSEC) 40 MG capsule Take 40 mg by mouth 2 (two) times a day as needed (acid reflux). 04/18/2024 tiotropium bromide 1.25 mcg/actuation Mist Inhale 1 puff into the lungs daily. 04/18/2024 zolpidem 10 mg Subl Take 10 mg by mouth nightly at bedtime. 04/18/2024 documented as of this encounter Plan of Treatment Not on file documented as of this encounter Visit Diagnoses Diagnosis Tachycardia Unspecified tachycardia documented in this encounter Care Teams Suction Roller Relationship Specialty Start Date End Date Pcp, Not Required [address] [place] [phone] PCP - General 05/11/24 03/12/25 documented as of this encounter Additional Source Comments The information contained in this document represents components of the legal health record. It is not the complete legal health record.[facility]
--- OUTSIDE RECORDS SUMMARY | 2025-03-11 10:27 | XMS_ITS | Encounter Summary ---
Author Organization [facility] Address [address] [place] [address] [place] [phone] Phone Care Team Providers Care Catastrophe Claims Supervisor Name Role Phone Pcp, Not Required Primary Care Provider Unavaila ble Encounter Details Date Type Department Care Team (Latest Contact Info) Description 03/11/2025 10:27 AM EDT - 03/11/2025 11:59 PM EDT Hospital Encounter [facility] [address] [place] [phone] Teagan Palacio MD [address] [place] [phone] [email or web address] Discharge Disposition: Home or Self Care Social [...] on file documented as of this encounter Procedures Procedure Name Priority Date/Time Associated Diagnosis Comments COMPREHENSIVE METABOLIC PANEL Routine 03/11/2025 10:27 AM EDT Illness, unspecified documented in this encounter Results * (ABNORMAL) Comprehensive metabolic panel (03/11/2025 10:27 AM EDT) SODIUM 141 133 - 146 mmol/L [facility] POTASSIUM 3.3 3.3 - 5.1 mmol/L [facility] CHLORIDE 95(L) 96 - 108 mmol/L [facility] CO2 35 21 - 35 mmol/L [facility] BUN 19 6 - 19 mg/dL [facility] CREATININE 0.60 0.5 - 1.5 mg/dL [facility] GLUCOSE 93 70 - 99 mg/dL [facility] ALBUMIN 3.6(L) 3.9 - 4.8 g/dL [facility] TOTAL PROTEIN 5.9(L) 6.5 - 8.0 g/dL [facility] CALCIUM 8.3(L) 8.4 - 10.3 mg/dL [facility] ALKALINE PHOSPHATASE 73 39 - 117 U/L [facility] TOTAL BILIRUBIN 0.8 0.0 - 1.2 mg/dL [facility] AST 25 0 - 37 U/L [facility] ALT 27 0 - 40 U/L [facility] GLOBULIN 2.3 1 - 4.8 g/dL [facility] EGFR 94 >59 mL/min/1.7 3m2 [facility] Comment:Estimated glomerular filtration rate calculated using the CKD-EPI refit equation. ANION GAP 14 10 - 20 mmol/L [facility] Blood 03/11/2025 10:2 7 AM EDT 03/11/2025 10:29 AM EDT us Teagan Palacio MD LAB BLOOD ORDERABLES Final Res ult [facility] [address] [place] [address] documented in this encounter Visit Diagnoses Diagnosis Illness, unspecified- Primary documented in this encounter Care Teams Catastrophe Claims Supervisor Relationship Specialty Start Date End Date Pcp, Not Required [address] [place] [id number] PCP - General 05/11/24 03/12/25 documented as of this encounter Additional Source Comments The information contained in this document represents components of the legal health record. It is not the complete legal health record.[facility]
--- OUTSIDE RECORDS SUMMARY | 2025-03-14 05:58 | XMS_ITS | Encounter Summary ---
Author Organization [facility] Address [address] [place] [address] [place] [address] Phone Care Team Providers Care Elementary Art Teacher Name Role Phone Arlin Watkins MD Primary Care Provider Encounter Details Date Type Department Care Team (Late st Contact Info) Description 03/14/2025 5:58 AM EDT Hospital Encounter [facility] [address] [place] [address] Phong Griffin MD [address] [facility], [address], [address] [place] [address] [email or web address] Social History Tobacco Use Types Packs/Day Years [...] on file documented as of this encounter Plan of Treatment Not on file documented as of this encounter Procedures Procedure Name Priority Date/Time Associated Diagnosis Comments CBC Routine 03/14/2025 5:45 AM EDT Illness documented in this encounter Results * CBC (03/14/2025 5:45 AM EDT) WBC 9.21 4.00 - 11.00 K/uL [facility] RBC 4.48 4.00 - 5.20 M/uL [facility] HGB 13.8 12.0 - 16.0 g/dL [facility] HCT 41.3 36.0 - 46.0 % [facility] PLT 247 150 - 450 K/uL [facility] MCV 92.2 80.0 - 100.0 fL [facility] MCH 30.8 27.0 - 31.0 pg [facility] MCHC 33.4 32.0 - 36.0 g/dL [facility] RDW 12.2 11.5 - 14.5 % [facility] MPV 11.1 8.4 - 12.0 fL [facility] NRBC 0.00 0.00 /100 WBCs [facility] ABSOLUTE NRBC 0.00 0.00 K/uL [facility] Blood 03/14/2025 5:45 AM EDT 03/14/2025 6:13 AM EDT us Phong Griffin MD LAB BLOOD ORDERABLES Final Resul t Performing Organization Address City/State/[facility] Co de Phone Number [address] [address] documented in this encounter Visit Diagnoses Diagnosis Illness Other unknown and unspecified cause of morbidity or mortality documented in this encounter Care Teams Elementary Art Teacher Relationship Specialty Start Date End Date Arlin Watkins MD [address] [place] [address] PCP - General Internal Medicine 03/13/25 documented as of this encounter Additional Source Comments The information contained in this document represents components of the legal health record. It is not the complete legal health record.[facility]
[2025-03-14 10:55] VITALS: BP 104/70; PULSE 112; O2SAT 95; BMI 15.2
--- NOTE | 2025-03-14 10:55 | MHC.OFFVIS ---
Vital Signs 03/14/25 10:55 Height 5 ft 1 in Weight 80 lb 7.5 oz BMI 15.2 BP 104/70 Blood Pressure Location Lt brachial Position Sitting Pulse 112 H Pulse Source Pulse Oximeter Pulse Oximetry (%) 95 Oxygen Delivery Method Room Air Intake Visit Reasons: COPD exacerbation/Hypoxia/Hypercarbia Microwave Supervisor Required: No Allergies morphine Adverse Reaction (Intermediate, Verified 03/14/25 10:59) Vomiting HPI Comments Details: The patient is a 74 year woman the with tobacco dependency along with COPD presenting with worsening shortness of breath. She has minimal smoker all her life. The patient was having issues with shortness of breath and back in 2002 she did undergo pulmonary function studies here at [facility]. It demonstrated that her FEV1 was down to 54% after bronchodilators consistent with moderate to severe COPD. She has been participating in the lung cancer screening program. Her last CT scan was a year to ago. She does have moderate degree of emphysema in the upper lung zones and has the ill-defined nodular density in the right hemithorax. Her next CT scan will be in the coming months. The patient has been taking Symbicort Spiriva now for some time. These inhalers appear to be working for her. She would like not to change them at this time. As far as smoking cessation she has quit many times but she has gone back to smoking. She has tried and failed multiple medications including Wellbutrin Chantix. She also tried hypnosis. She is willing to try the Nicotrol inhaler with hopes that she can start cutting down release alternating a real cigarette with day Nicotrol inhaler. With the hope that she continue decreasing. The patient will also have pulmonary function studies are will return in 4-6 weeks. The meantime will start azithromycin 2 treated for the chronic bronchitis related to her COPD. 10/03/2022 the patient is here for a pulmonary follow-up visit. Overall she is doing a little better. She is concerned because she did have her low-dose CT scan of the chest and she was found to have multiple nodules. She has a new 6 mm pulmonary nodule and it was recommended that she have a very repeat CT scan in 3 months time. I did reassure her. We did look at the CAT scan. She does have significant emphysema. Her new pulmonary nodules do not have concerning appearance is however I do agree that repeating the CT scan in 3 months time is to correct decision. She continues use her respiratory medicine with good effect. She still struggling with smoking. We did review her pulmonary function studies demonstrating very severe COPD. The patient also has significant air trapping. Her diffusing capacity is around 40% predicted. Explained to her that if it drops further down to the 30s then she will likely require oxygen supplementation. 08/10/2023 the patient is here for a pulmonary follow-up visit. She has a scheduled procedure with Urology. Apparently she was diagnosed with bladder cancer many years ago and then was lost to follow-up. Now she has been on therapy for with urology. Although she would like to stop the therapy. She needs to have a repeat cystoscopy at this point under anesthesia. She does have severe COPD. She has been medically optimized with both Symbicort Spiriva. She continues to smoke cigarettes. She does have a productive chronic cough. Mqjv-so-aifvwdwt severity. Typically worse in the morning. She is also part of the lung cancer screening program. Her next CT scan is going to be around November or December of 2023. Clinically from the pulmonary standpoint the patient may be able to proceed with anesthesia and surgical intervention. She does have increased risk for perioperative pulmonary complications which includes hypoxia, atelectasis, COPD exacerbation and pneumonia. At this point the patient is able to proceed with her procedure. Prior to the procedure she will start using her nebulizer more regularly to try a bronchodilator and try to clear secretions out of her lungs preemptively. 07/30/2024 the patient is here for pulmonary follow-up visit. Overall she is doing better now. Back in March she was found to have a worsening left upper lobe nodular density. She was sent for CT-guided biopsy. Was complicated by a pneumothorax and she was admitted to the hospital for several days. Initially she had a small bore chest tube that was not enough and then she had a surgically placed chest tube. After about 5 days her pneumothorax seal then she was able to be discharged. She is doing well. She continues to have a cough chest congestion. Moderate severity. She does use her inhalers with good effect. 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 Therefore, will have her get blood work including a T spot. We sent sputums today for both Gram stain culture and also AFB. She is going to follow-up with thoracic surgery and she is going to have a PET scan ordered in the coming months. In addition to that she does continue on chemo for her bladder cancer. The patient will follow-up in 3-4 months. If he has any issues prior to that she will call for an earlier assessment. 11/28/2024 the patient is here for pulmonary follow-up visit. Overall she is doing okay she does have increased chest congestion. Moderate severity. Also feels like her rescue inhalers not working. She has been on Symbicort and Spiriva. The Spiriva is reasonable but she has pain 50 dollars a month for the Symbicort. Will go ahead and Wixela that it will be a lot cheaper for her she continue the Spiriva. She will try that for now. Will go ahead and start her on the she is not better she will call. In the meantime she is following closely with oncology as she is getting immunotherapy for her bladder cancer. Again, she did have a necrotizing granuloma on biopsy. I did request blood work during the last visit but she has not had it which includes a T spot. Should get that as soon as possible. Will follow-up in 4-6 months if she has any issues prior to that she will call for an earlier assessment. 03/14/2025 the patient is here for pulmonary follow-up visit. She was in the hospital with enterovirus in a COPD exacerbation. She developed acute on chronic hypercarbic respiratory failure was very confused. She required BiPAP. Even after the BiPAP her ABG continues to be abnormal with a pCO2 of 74 mmHg even with the stable PH. Therefore her hypercarbic respiratory failure is due to her COPD. The patient is a poor prognosis and high risk for rehospitalization. Therefore, will provide her with a noninvasive ventilator to treat her COPD and respiratory failure. By doing this we can improve her prognosis decrease hospitalizations and improve her gas exchange. The patient will uses ventilator at nighttime and also as needed approximately 8 hours a day. The patient does not have any evidence of any obstructive sleep apnea this time. She will continue with the current respiratory therapy. The patient will follow-up in 2 to 3 months to assess her progress. Will set her up with a local [facility] [employer] company at this time for the noninvasive ventilator, astral. Also to note we had placed her on theophylline while she was in the hospital. She did respond well to it. But now is causing it to be nauseous and she does not like taking it. So therefore will go ahead and hold off on it for now since she is doing better from a pulmonary aspect. We did review her vaccines. She needs to get her pneumonia vaccine up-to-date, Prevnar 21. She also has a Tdap vaccine. All the other respiratory vaccines she is up-to-date with. [facility] Medical History (Updated 03/17/25 @ 22:15 by Balwinder Simmons MD) Chronic respiratory failure with hypoxia and hypercapnia Vitamin D deficiency Macular degeneration of left eye Pulmonary nodule Multiple environmental allergies Nicotine dependence, cigarettes, uncomplicated COPD (chronic obstructive pulmonary disease) Stress incontinence Hx of bladder cancer (~2008) Dysphagia History of COVID-19 Primary insomnia Surgical menopause Osteoporosis (~2019) Tubular adenoma of colon (~2016) Hiatal hernia Esophagitis determined by endoscopy History of esophageal stricture Surgical History (Updated 03/16/25 @ 00:00 by Airam Olivera) Pneumothorax after biopsy History of cataract surgery History of esophageal dilatation History of bladder surgery History of hand surgery History of colonoscopy History of esophagogastroduodenoscopy (EGD) History of cystoscopy History of hysterectomy Family History Father HTN (hypertension) Mesothelioma Mother Melanoma Brother No problems noted. Brother No problems noted. Sister No problems noted. Daughter Melanoma Son No problems noted. Son No problems noted. Son No problems noted. Sister Lung cancer Social History (Updated 03/14/25 @ 11:02 by Araceli Sawyer CMA) Household Members: Significant Other Housing: House Are you a primary animal care assistant to a significant other at home: No Do you presently have visiting nurse or other home services: No Comment: 1:1 Patient Tobacco Use Status: Former Tobacco user Tobacco use type: Cigarette Cigarette Packs Per Day: 1 Cigarettes Per Day: 20.0 Years Smoked: 60 e-Cigarette/Vaping Use: Never Used Second Hand Smoke Exposure: No service: No Current occupational status: employed Cognitive needs: No Hearing needs: No Vision needs: Yes Review of Systems Const Denies chills, Denies fatigue, Denies fever(s), Denies weight gain and Denies weight loss Eyes Denies change in vision and Denies itchy eyes ENT Denies dizziness Card Denies chest pain, Denies leg edema, Denies lightheadedness, Denies palpitations, Reports dyspnea on exertion, Denies orthopnea and Denies other Resp Reports cough, Reports dyspnea on exertion and Reports wheezing GI Denies hematochezia and Denies change in stool character Musc Denies abnormal gait, Denies muscle weakness, Denies numbness, Denies radiating pain into limb and Denies tingling Neuro Denies abnormal gait, Denies dizziness, Denies numbness and Denies tingling Endo Denies fatigue and Denies palpitations Pranav/Lymph Denies easy bruising Aller/Immun Denies itchy eyes, Denies seasonal rhinorrhea and Reports wheezing Physical Exam Vital Signs: Last Vital Signs Pulse 112 H 03/14/25 10:55 BP 104/70 03/14/25 10:55 Pulse Ox 95 03/14/25 10:55 Oxygen Delivery Method Room Air 03/14/25 10:55 BMI result Body Mass Index 15.2 Const General: comfortable Orientation/consciousness: patient oriented x3 Limitations: no limitations HEENT Head: Yes normal to inspection Eyes General: appearance normal, both eyes and all related structures Neck Neck: Yes normal visual inspection Chest Chest palpation & inspection: normal palpation of entire chest wall Resp Effort & Inspection: normal respiratory effort Auscultation: diminished lung sounds Cardio Rate: regular rate Rhythm: regular rhythm Heart sounds: S1 normal heart sound present and S2 normal heart sound present GI Auscultation: normal bowel sounds Neuro General: patient oriented x3 Extrem General: Yes no clubbing, cyanosis or edema Results Reviewed Results Reviewed: personally reviewed CTA with exetensive emphysema Assessment & Plan Assessment & Plan (1) COPD (chronic obstructive pulmonary disease): Comment: ff'd by pulmonary clinic Code(s): J44.9 - Chronic obstructive pulmonary disease, unspecified Category: Medical Qualifiers: COPD type: chronic bronchitis Chronic bronchitis type: mixed simple and mucopurulent Qualified Code(s): J41.8 - Mixed simple and mucopurulent chronic bronchitis (2) Cigarette smoker two packs a day or less: Code(s): F17.210 - Nicotine dependence, cigarettes, uncomplicated Category: Social Hx (3) Hiatal hernia: Code(s): K44.9 - Diaphragmatic hernia without obstruction or gangrene Category: Medical (4) Pulmonary nodules: Code(s): R91.8 - Other nonspecific abnormal finding of lung field Category: Surgical (5) Chronic respiratory failure with hypoxia and hypercapnia: Code(s): J96.11 - Chronic respiratory failure with hypoxia; J96.12 - Chronic respiratory failure with hypercapnia Category: Medical Plan The patient has 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 She carries apoor prognosis and high risk for re-hospitalization. Needs to start start non invasive ventilator (NIV) to improve gas exchange, improve prognosis and decrease hospitalizations. continue Spiriva continue Wixela 500/50 KENDRICK as needed Duoneb as needed Tobacco cessation F/U 4-6 months Coding Level of Care Code Est Pt Level 5 (66417) Complex EM visit Add On G2211 Diagnoses Mixed simple and mucopurulent chronic bronchitis J41.8 COPD type: chronic bronchitis Chronic bronchitis type: mixed simple and mucopurulent Cigarette smoker two packs a day or less F17.210 Hiatal hernia K44.9 Pulmonary nodules R91.8 Chronic respiratory failure with hypoxia and hypercapnia J96.11; J96.12 Time Spent (min) 40
--- OUTSIDE RECORDS SUMMARY | 2025-03-14 11:04 | XMS_ITS | Encounter Summary ---
Author Organization [facility] Address [address] [place] [address] [place] [address] Phone Care Team Providers Care Lower In Supervisor Name Role Phone Arlin Watkins MD Primary Care Provider Encounter Details Date Type Department Care Team ([facility] st Contact Info) Description 03/14/2025 Transcribe Orders [facility] Specimen Processing [address] [place] [address] Phong Griffin MD [address] [facility], [address], [address] [place] [address] [email or web address] Illness (Primary Dx) Social History Tobacco Use Types Packs/Day Years [...] on file documented as of this encounter Results * CBC (03/14/2025 5:45 AM EDT) WBC 9.21 4.00 - 11.00 K/uL [facility] RBC 4.48 4.00 - 5.20 M/uL [facility] HGB 13.8 12.0 - 16.0 g/dL [facility] HCT 41.3 36.0 - 46.0 % [facility] PLT 247 150 - 450 K/uL [facility] MCV 92.2 80.0 - 100.0 fL [facility] MCH 30.8 27.0 - 31.0 pg [facility] MCHC 33.4 32.0 - 36.0 g/dL [facility] RDW 12.2 11.5 - 14.5 % [facility] MPV 11.1 8.4 - 12.0 [facility] NRBC 0.00 0.00 /100 WBCs [facility] ABSOLUTE NRBC 0.00 0.00 K/uL [facility] Blood 03/14/2025 5:45 AM EDT 03/14/2025 6:13 AM EDT us Phong Griffin MD LAB BLOOD ORDERABLES Final Resul t Performing Organization Address City/State/[facility] Co de Phone Number [address] [address] documented in this encounter Visit Diagnoses Diagnosis Illness- Primary Other unknown and unspecified cause of morbidity or mortality documented in this encounter Care Teams Lower In Supervisor Relationship Specialty Start Date End Date Arlin Watkins MD [facility] [place] [address] PCP - General Internal Medicine 03/13/25 documented as of this encounter Additional Source Comments The information contained in this document represents components of the legal health record. It is not the complete legal health record.[facility]
--- OUTSIDE RECORDS SUMMARY | 2025-03-14 11:04 | XMS_ITS | Encounter Summary ---
Author Organization [facility] Address [address] [place] [address] [place] [address] Phone Care Team Providers Care Duco Polisher Name Role Phone Pcp, Not Required Primary Care Provider Unavaila ble Reason for Referral * Home Health Care - New Request Specialty Diagnoses / Procedures Referred By Jaye moulton Referred To Contact Home Health Services Teagan Palacio MD [address] [place], [place] Phone: tel: fax: [email or web address] [address] [place], [place] Phone: tel: fax: Referral ID Status Reason Start Date Expiration Date V isits Requested Visits Authorized [id number] New Request 03/12/2025 03/12/2026 1 1 Encounter Details Date Type Department Care Team (Late st Contact Info) Description 03/12/2025 Orders Only [facility] [address] [place], [place] [phone] Tl Thomas MD [address] [place] [id number] Social History Tobacco Use Types Packs/Day Years [...] as of this encounter Plan of Treatment Scheduled Referrals Name Type Priority Associated Diagnoses Orde r Schedule 4NEXT REFERRAL TO HOME HEALTH Outpatient Referral Routine Ordered: 03/12/2025 documented as of this encounter Visit Diagnoses Not on filedocumented in this encounter Care Teams Duco Polisher Relationship Specialty Start Date End Date Pcp, Not Required [address] [place] [address] PCP - General 05/11/24 03/12/25 documented as of this encounter Additional Source Comments The information contained in this document represents components of the legal health record. It is not the complete legal health record.[facility]
--- OUTSIDE RECORDS SUMMARY | 2025-03-14 11:04 | XMS_ITS | Clinical Summary ---
Author Organization [facility] Address [address] [place] [address] Phone Care Team Providers Care Lab Manager Name Role Phone Arlin Watkins MD Primary Care Provider Allergies No known active allergies Medications cetirizine [...] day as needed (acid reflux). 4 Active Encounters Date Type Department Care Team Description 03/14/2025 5:58 AM EDT Hospital Encounter [facility] [address] [place] [address] Phong Griffin MD 03/14/2025 Transcribe Orders [facility] Specimen Processing [address] [place] [address] Phong Griffin MD Illness (Primary Dx) 03/12/2025 Orders Only [facility] [address] [place] [address] Homehealth, Tl Correa MD 03/11/2025 10:27 AM EDT - 03/11/2025 11:59 PM EDT Hospital Encounter [facility] Laboratory [address] [place] [address] Teagan Palacio MD Discharge Disposition: Home or Self Care 03/10/2025 8:04 AM EDT - 03/10/2025 11:59 PM EDT Hospital Encounter [facility] Laboratory [address] [place] [address] Teagan Palacio MD Discharge Disposition: Home or Self Care 03/10/2025 Transcribe Orders [facility] Specimen Processing [address] [place] [address] Teagan Palacio MD Tachycardia (Primary Dx) from Last 3 Months Social History Tobacco Use Types Packs/Day Years [...] on file Medical Devices Not on file Procedures Procedure Name Priority Date/Time Associated Diagnosis Comments CBC Routine 03/14/2025 5:45 AM EDT Illness COMPREHENSIVE METABOLIC PANEL Routine 03/11/2025 10:27 AM EDT Illness, unspecified from Last 3 Months Results * CBC (03/14/2025 5:45 AM EDT) WBC 9.21 4.00 - 11.00 K/uL [facility] RBC 4.48 4.00 - 5.20 M/uL [facility] HGB 13.8 12.0 - 16.0 g/dL [facility] HCT 41.3 36.0 - 46.0 % [facility] PLT 247 150 - 450 K/uL [facility] MCV 92.2 80.0 - 100.0 fL [facility] MCH 30.8 27.0 - 31.0 pg [facility] MCHC 33.4 32.0 - 36.0 g/dL [facility] RDW 12.2 11.5 - 14.5 % [facility] MPV 11.1 8.4 - 12.0 fL [facility] NRBC 0.00 0.00 /100 WBCs [facility] ABSOLUTE NRBC 0.00 0.00 K/uL [facility] Blood 03/14/2025 5:45 AM EDT 03/14/2025 6:13 AM EDT us Phong Griffin MD LAB BLOOD ORDERABLES Final Resul t [address] [address] * (ABNORMAL) Comprehensive metabolic panel (03/11/2025 10:27 AM EDT) SODIUM 141 133 - 146 mmol/L [facility] POTASSIUM 3.3 3.3 - 5.1 mmol/L [facility] CHLORIDE 95(L) 96 - 108 mmol/L [facility] CO2 35 21 - 35 mmol/L [facility] BUN 19 6 - 19 mg/dL [facility] CREATININE 0.60 0.5 - 1.5 mg/dL [facility] GLUCOSE 93 70 - 99 mg/dL [facility] ALBUMIN 3.6(L) 3.9 - 4.8 g/dL [facility] TOTAL PROTEIN 5.9(L) 6.5 - 8.0 g/dL [facility] CALCIUM 8.3(L) 8.4 - 10.3 mg/dL [facility] ALKALINE PHOSPHATASE 73 39 - 117 U/L [facility] TOTAL BILIRUBIN 0.8 0.0 - 1.2 mg/dL [facility] AST 25 0 - 37 U/L [facility] ALT 27 0 - 40 U/L [facility] GLOBULIN 2.3 1 - 4.8 g/dL [facility] EGFR 94 >59 mL/min/1.7 3m2 [facility] Comment:Estimated glomerular filtration rate calculated using the CKD-EPI refit equation. ANION GAP 14 10 - 20 mmol/L [facility] Blood 03/11/2025 10:2 7 AM EDT 03/11/2025 10:29 AM EDT us Teagan Palacio MD LAB BLOOD ORDERABLES Final Res ult [address] [address] from Last [address] [place] [address] [place] [address] [place] [place] [address] [place] [address] [place] [address] H[facility] [place] [place] [address] HMO [employer] Care Teams Lab Manager Relationship Specialty Start Date End Date Arlin Watkins MD [facility] [place] [address] PCP - General Internal Medicine 03/13/25 Additional Source Comments The information contained in this document represents components of the legal health record. It is not the complete legal health record.[facility]
--- OUTSIDE RECORDS SUMMARY | 2025-03-14 11:04 | XMS_ITS ---
Author Organization [facility] on Care Team Providers Care Chief Fundraising Officer Name Role Phone Teagan Palacio Unavailable Unavailable Jordy Myers Unavailable Unavailable Emely Richard Unavailable Unavailable Allergies and adverse reactions Code CodeSystem Substance Reaction Severity StartDate Concern Status 7052 RXNORM Morphine Unknown 03/08/2025 active Care Team Name Role Address Phone Organization Dates Teagan Palacio PCP [address] [place] [address], [phone], [place] (Office): : [facility] 03/08/2025 - 03/14/2025 Jordy Myers [address] [place], [address], [place] (Office): [facility] 03/08/2025 - 03/14/2025 Emely Richard [address] [place] [address], [phone], [place] (Office): : [facility] 03/08/2025 - 03/14/2025 Goals Section Goals Description Status Target Date Advanced Directives will be honored and reevalua saul as needed Active 06/06/2025 Minimize risk for falls Active 06/06/20 25 Minimize risk for injury related to falls Active 06/06/2025 Skin will remain free of flor akdown within limits of disease process Active 06/06/2025 Will be clean, dressed and w ell groomed daily to promote dignity and psychosocial well-being Active 06/06/2025 Will be discharged to home w hen clinical and rehabilitation goals are met Active 06/06/2025 Will consume appropriate osiris unts of food and fluids to maintain nutritional status Active 06/06/2025 Will decrease/minimize skin breakdown risks Acti ve 06/06/2025 Will explore the patient/pat ient human resources hr representative goal of discharge to the community Active 06/06/2025 Will express that pain management is within acce ptable limits Active 06/06/2025 Will identify remaining stre ngths/positive aspects of current situation Active 06/06/2025 Will maintain existing ADL self performance Acti ve 06/06/2025 Will maintain weight > 84# through next review A ctive 06/06/2025 Will not develop complications related to decrea sed mobility Active 06/06/2025 Will receive assistance necessary to meet ADL ne eds Active 06/06/2025 Will reduce episodes of util ization of breakthrough pain medication Active 06/06/2025 Will tolerate diet, texture and fluid consistency without signs and symptoms of aspiration Active 06/06/2025 Will verbalize feelings related to terminal diag nosis and loss Active 06/06/2025 Immunizations Immunization Status Vaccine Details Vaccine Code CodeSystem Date Notes Influenza cancelled Influenza, split virus, trivalent, injectable, contains preservative 141 CVX created date: 03/11/2025 consent date: 03/11/2025 Pneumococcal Polysaccharide Vaccine (PPSV23) completed pneumococcal polysaccharide vaccine, 23 valent 33 CVX created date: 03/10/2025 administer ed date: 08/26/2018 Verified in [facility] Prevnar 20 Pneumococcal conjugate (PCV20) cancelled Pneumococcal conjugate vaccine 20-valent (PCV20), polysaccharide [id number] conjugate, adjuvant, preservative free 216 CVX created date: 03/11/2025 consent date: 03/11/2025 RSV, recombinant, protein subunit RSVpreF, adjuvant rec completed Respiratory syncytial virus (RSV), vaccine, recombinant, protein subunit RSV prefusion F, adjuvant reconstituted, 0.5 mL, preservative free 303 CVX created date: 03/10/2025 administer ed date: 07/28/2023 Verified in [facility] RSV, bivalent, protein subunit RSVpreF, diluent rec cancelled Respiratory syncytial virus (RSV), vaccine, bivalent, protein subunit RSV prefusion F, diluent reconstituted, 0.5 mL, preservative free 305 CVX created date: 03/11/2025 consent date: 03/11/2025 SARS-COV-2 (COVID-19) vaccine, UNSPECIFIED completed SARS-COV-2 (COVID-19) vaccine, UNSPECIFIED Mfg: Skigit #2 213 CVX created date: 03/10/2025 administer ed date: 10/24/2020 Verified in [facility] SARS-COV-2 (COVID-19) vaccine, UNSPECIFIED completed SARS-COV-2 (COVID-19) vaccine, UNSPECIFIED Mfg: Skigit #1 213 CVX created date: 03/10/2025 administer ed date: 10/03/2020 Verified in [facility] COVID-19, mRNA, LNP-S, PF, 50 mcg/0.5 mL cancelled SARS-COV-2 (COVID-19) vaccine, mRNA, spike protein, LNP, preservative free, 50 mcg/0.5 mL dose 312 CVX created date: 03/11/2025 consent date: 03/11/2025 COVID-19, mRNA, LNP-S, PF, 50 mcg/0.5 mL completed SARS-COV-2 (COVID-19) vaccine, mRNA, spike protein, LNP, preservative free, 50 mcg/0.5 mL dose Mfg: Skigit Booster # 2 312 CVX created date: 03/10/2025 administer ed date: 12/14/2021 Verified in [facility] COVID-19, mRNA, LNP-S, PF, 50 mcg/0.5 mL completed SARS-COV-2 (COVID-19) vaccine, mRNA, spike protein, LNP, preservative free, 50 mcg/0.5 mL dose Mfg: Skigit Booster # 2 312 CVX created date: 03/10/2025 administer ed date: 04/19/2021 Verified in [facility] Medications Section Medication Name Status Code CodeSystem Dose Route Frequency Admin Type Sig Text Start Date End Date Acetaminophen Tablet 325 MG active 063163 RXNORM 2 tablet Oral as needed PRN Give 2 tablet by mouth every 6 hours as needed for Pain Do not exceed 3 grams in 24 hours. T otal 650 mg AND Give 2 tablet by mouth every 6 hours as needed for Elevat ed Temper ature > 99 Do not exceed 3 grams in 24 hours. T otal 650mg 2024 - 002061 RXNORM 2 tablet Oral as needed PRN Give 2 tablet by mouth every 6 hours as needed for Pain Do not exceed 3 grams in 24 hours. T otal 650 mg AND Give 2 tablet by mouth every 6 hours as needed for Elevat ed Temper ature > 99 Do not exceed 3 grams in 24 hours. T otal 650mg 2024 - Albuterol Sulfate Inhalation Nebulization Solution (2.5 MG/3ML) 0.083% active 209550 RXNORM 1 vial Inhalat ion as needed PRN 1 vial inhale orally via nebuli zer every 2 hours as needed for Shortn ess of Breath /Wheez e 2024 - Nicotine Transdermal Patch 24 Hour 21 MG/24HR aborted RXNORM 1 patch Transde rmal one time a day Routine Apply 1 patch transd ermall y one time a day for Nicoti ne Replac ement Therap y and remove per schedu le 03/10 predniSONE Oral Tablet 10 MG active 271175 RXNORM 3 tablet Oral one time a day Routine Give 3 tablet by mouth one time a day for Respir atory Failur e for 2 Days AND Give 2 tablet by mouth one time a day for Respir atory Failur e for 2 Days AND Give 1 tablet by mouth one time a day for Respir atory Failur e for 2 Days 03/1145 RXNORM 2 tablet Oral one time a day Routine Give 3 tablet by mouth one time a day for Respir atory Failur e for 2 Days AND Give 2 tablet by mouth one time a day for Respir atory Failur e for 2 Days AND Give 1 tablet by mouth one time a day for Respir atory Failur e for 2 Days 03/1345 RXNORM 1 tablet Oral one time a day Routine Give 3 tablet by mouth one time a day for Respir atory Failur e for 2 Days AND Give 2 tablet by mouth one time a day for Respir atory Failur e for 2 Days AND Give 1 tablet by mouth one time a day for Respir atory Failur e for 2 Days 03/15 Theophylline Oral Elixir 80 MG/15ML aborted 937888 RXNORM 37.5 ml Oral every 8 hours Routine Give 37.5 ml by mouth every 8 hours for COPD 03/10 Bisacodyl Suppository 10 MG aborted 564375 RXNORM 1 suppos itory Rectal as needed PRN Insert 1 suppos itory rectal ly every 24 hours as needed for consti pation Use if Senna is Ineffe ctive 03/13 Senna Tablet 8.6 MG active 235360 RXNORM 1 tablet Oral as needed PRN Give 1 tablet by mouth every 24 hours as needed for Consti pation 2024 - Fleet Saline Enema aborted 133 ml Rectal as needed PRN Insert 133 ml rectal ly every 24 hours as needed for Consti pation if bisaco dyl suppos itory not effect nancy. If no BM after Fleet Enema Call MD Diaz oncent ration : Dibasi c sodium Phosph ate 7g/Mon obasic Sodium Phosph ate 19g 03/13 Spiriva Respimat Inhalation Aerosol Solution 1.25 MCG/ACT active 803077 2 RXNORM 1 puff Inhalat ion one time a day Routine 1 puff inhale orally one time a day for COPD 2024 - Zolpidem Tartrate Oral Tablet 10 MG aborted 545621 RXNORM 1 tablet Oral as needed PRN Give 1 tablet by mouth every 24 hours as needed for Insomn ia until 2024 23:59 03/10 Ventolin HFA Inhalation Aerosol Solution 108 (90 Base) MCG/ACT active 580389 RXNORM 2 puff Inhalat ion as needed PRN 2 puff inhale orally every 6 hours as needed for Shortn ess of Breath /Wheez e 2024 - Wixela Inhub Inhalation Aerosol Powder Breath Activated 500-50 MCG/ACT active 314451 6 RXNORM 1 inhala tion Inhalat ion two times a day Routine 1 inhala tion inhale orally two times a day for COPD 2024 - Omeprazole Oral Capsule Delayed Release 40 MG active 180109 RXNORM 1 capsul e Oral two times a day Routine Give 1 capsul e by mouth two times a day for GERD 2024 - Vitamin D3 Capsule 1.25 MG (65111 UT) active 652095 RXNORM 1 tablet Oral one time a day Routine Give 1 tablet by mouth one time a day every Mon for Supple mentat ion 2024 - Cetirizine HCl Oral Tablet 10 MG active 845979 8 RXNORM 1 tablet Oral one time a day Routine Give 1 tablet by mouth one time a day for Allerg ies 2024 - Ipratropium-A lbuterol Inhalation Solution 0.5-2.5 (3) MG/3ML active 378328 2 RXNORM 1 vial Inhalat ion as needed PRN 1 vial inhale orally every 24 hours as needed for Shortn ess of Breath 2024 - Theophylline ER Oral Tablet Extended Release 12 Hour 300 MG active 111468 RXNORM 1 tablet Oral two times a day Routine Give 1 tablet by mouth two times a day for COPD 2024 - Problems Problem # Description Date of onset Resolved Date Code CodeSystem Concern Status 1 ACUTE RESPIRATORY FAILURE WITH HYPOXIA 03/08/[address] active 2 CHRONIC OBSTRUCTIVE PULMONARY DISEASE WITH (ACUTE) EXACERBATION 03/08/[address] active 3 CHRONIC RESPIRATORY FAILURE WITH HYPERCAPNIA 03/08/[address] active 4 HYPOTENSION, UNSPECIFIED 03/08/[address] active 5 MALIGNANT NEOPLASM OF BLADDER, UNSPECIFIED 03/08/[address] active 6 UNSPECIFIED PROTEIN-CALORIE MALNUTRITION 03/08/[address] active Reason for Referral No Reasons for Referral Entered Social History Social History Observation Description Start Date End Date Code Code System Current Smoking Status Tobacco smoking consumption unknown 530203809 SNOMED CT Sex Assigned At Female 1950 41554-0 [facility] Gender Identity Vital Signs Code Code System Vitals Name Values and Units Timing Information 13753-4 [facility] Pain Level Value=0.0 03/14/2025 9279-1 [facility] Respiratory Rate Value=18.0 Units=/m in 03/14/2025 8462-4 [facility] Blood Pressure-Diastolic Value=65 Un its=mmHg 03/14/2025 8480-6 [facility] Blood Pressure-Systolic Dtnad=755 Un its=mmHg 03/14/2025 8310-5 [facility] Body Temperature Value=98.0 Units= F 03/14/2025 8867-4 [facility] Heart rate Value=97.0 Units=/min 11251-2 [facility] O2 % BldC Oximetry Value=97.0 Units= % 03/14/2025 78750-7 [facility] Weight Value=84.0 Units=Lbs 02/15 8302-2 [facility] Height Value=60.0 Units=Inches 03/09/2025
--- OUTSIDE RECORDS SUMMARY | 2025-03-14 11:04 | XMS_ITS | Patient Health Record ---
Author Organization [facility] Address [address] [place] [phone] Care Team Providers Care Building Cleaner Name Role Phone June CHINO, Arlin Primary Care Provider Koffi Ferguson Unavailable [phone] Allergies No Known Allergies Reason For Referral [...] Problem Status W/U Status Risk Notes Problem 896400078 Encounter for screening for malignant neoplasm of colon (Z12.11) Active confirmed Problem History of adenomatous polyp of colon (534657299) History of adenomatous polyp of colon (Z86.010) Active confirmed Problem Screening for malignant neoplasm of rectum (642214519) Encounter for screening for malignant neoplasm of rectum (Z12.12) Active confirmed Problem 09344440 Dysphagia (R13.10) Active confirmed Problem 29926493 Esophageal stricture (K22.2) Active confirmed Problem 28729216 Erosive esophagitis (K22.10) Active confirmed Problem Esophageal ring (K22.2) Active confirmed Problem 08369024 Esophageal dysphagia (R13.14) Active confirmed Problem 37506460 Esophageal dysphagia (R13.10) Active confirmed Problem Diverticulosis of colon (699932550) Diverticulosis of colon (K57.30) Active confirmed Problem 58188770 Esophageal dysphagia (R13.19) Active confirmed Plan Of [...] Insured Coverage Start Date Coverage End Date [facility] [address] [facility] [place]RNANDEZ [phone] [id number] COBY QUEEN Self - patient is the [...]
--- OUTSIDE RECORDS SUMMARY | 2025-03-14 11:04 | XMS_ITS | Encounter Summary ---
Author Organization [facility] Address [address] [place] [address] [place] [address] Phone Care Team Providers Care Armature [employer] Name Role Phone Pcp, Not Required Primary Care Provider Unavaila ble Encounter Details Date Type Department Care Team (Latest Contact Info) Description 03/10/2025 Transcribe Orders [facility] Specimen Processing [address] [place] [address] Teagan Palacio MD [address] [place] [address] [phone] [email or web address] Tachycardia (Primary Dx) Social History Tobacco Use Types [...] as of this encounter Visit Diagnoses Diagnosis Tachycardia- Primary Unspecified tachycardia documented in this encounter Care Teams [employer] Relationship Specialty Start Date End Date Pcp, Not Required [address] [place] [id number] PCP - General 05/11/24 03/12/25 documented as of this encounter Additional Source Comments The information contained in this document represents components of the legal health record. It is not the complete legal health record.[facility]
== END 2025-03-14 11:34 | disposition home or self-care (01) ==
LOC: HO.HPS 10:24
PROVIDERS: PCP Internal Medicine; Visit Provider Hospitalist
DX: J41.8 Mixed simple and mucopurulent chronic bronchitis (principal); F17.210 Nicotine dependence, cigarettes, uncomplicated; K44.9 Diaphragmatic hernia without obstruction or gangrene; R91.8 Other nonspecific abnormal finding of lung field; J96.11 Chronic respiratory failure with hypoxia; J96.12 Chronic respiratory failure with hypercapnia
CPT/HCPCS: 99215; G2211

== ENCOUNTER 2025-03-19 07:47 | Outpatient (AMB) | payer OTHER, SELFPAY ==
--- OUTSIDE RECORDS SUMMARY | 2025-03-14 05:58 | XMS_ITS | Encounter Summary ---
Author Organization [facility] Address [address] [place] [address] [place] [address] Phone Care Team Providers Care Drama Professor Name Role Phone Arlin Watkins MD Primary Care Provider Encounter Details Date Type Department Care Team (Latest Contact Info) Description 03/14/2025 5:58 AM EDT - 03/14/2025 11:59 PM EDT Hospital Encounter [facility] [address] [place] [address] Phong Griffin MD [address] [facility] [address], [address] [place] [address] [email or web address] Discharge Disposition: Home or Self Care Social [...] 10 mg by mouth nightly at bedtime. takes 5mg 04/18/2024 documented as of this encounter Plan of Treatment Upcoming Encounters Date Type Department Care Team (Late st Contact Info) Description 03/21/2025 2:00 AM EDT Home Care Visit [facility] [address] [place] [phone] Shanta Dunham RN [address] [place] [address] 03/27/2025 12:30 AM EDT Home Care Visit [facility] [address] [place] [phone] Shanta Dunham RN [address] [place] [address] 04/03/2025 12:30 AM EDT [facility] Visit [facility] [address] [place] [phone] Shanta Dunham, ANNE-MARIE [address] [place] [address] 04/10/2025 12:30 AM EDT Home [facility] Visit [facility] [address] [place] [phone] Shanta Dunham RN [address] [place] [address] 04/17/2025 1:00 AM EDT Home Care Visit [facility] [address] [place] [phone] Shanta Dunham RN [address] [place] [address] 04/24/2025 12:30 AM EDT Home Care Visit [facility] [address] [place] [phone] Shanta Dunham, ANNE-MARIE [address] [place] [address] 05/01/2025 12:30 AM EDT Home Care Visit [facility] [address] [place] [phone] Shanta Dunham, ANNE-MARIE [address] [place] [address] 05/08/2025 Home Care Visit [facility] [address] [place] [phone] Shanta Dunham, ANNE-MARIE [address] [place] [address] 05/15/2025 Appointment [facility] [address] [place] [phone] Shanta Dunham, ANNE-MARIE [address] [place] [address] documented as of this encounter Procedures Procedure Name Priority Date/Time Associated Diagnosis Comments CBC Routine 03/14/2025 5:45 AM EDT Illness documented in this encounter Results * CBC (03/14/2025 5:45 AM EDT) WBC 9.21 4.00 - 11.00 K/uL [facility] RBC 4.48 4.00 - 5.20 M/uL [facility] HGB 13.8 12.0 - 16.0 g/dL [facility] HCT 41.3 36.0 - 46.0 % [facility] PLT 247 150 - 450 K/uL [facility] MCV 92.2 80.0 - 100.0 fL [facility] MCH 30.8 27.0 - 31.0 pg [facility] MCHC 33.4 32.0 - 36.0 g/dL [facility] RDW 12.2 11.5 - 14.5 % [facility] MPV 11.1 8.4 - 12.0 fL [facility] NRBC 0.00 0.00 /100 WBCs [facility] ABSOLUTE NRBC 0.00 0.00 K/uL [facility] Blood 03/14/2025 5:45 AM EDT 03/14/2025 6:13 AM EDT us Phong Griffin MD LAB BLOOD ORDERABLES Final Resul t Performing Organization Address City/State/[facility] Co de Phone Number [address] [phone] documented in this encounter Visit Diagnoses Diagnosis Illness Other unknown and unspecified cause of morbidity or mortality documented in this encounter Care Teams Drama Professor Relationship Specialty Start Date End Date Arlin Watkins MD [address] [facility] [place] [address] PCP - General Internal Medicine 03/13/25 documented as of this encounter Additional Source Comments The information contained in this document represents components of the legal health record. It is not the complete legal health record.[facility]
--- OUTSIDE RECORDS SUMMARY | 2025-03-18 12:30 | XMS_ITS | Encounter Summary ---
Author Organization [facility] Address [address] [place] [phone] Phone Care Team Providers Care Bulk Sealer Operator Name Role Phone Arlin Watkins MD Primary Care Provider Reason for Visit * Auth/Cert (Routine) Specialty Diagnoses / Procedures Referred By Jaye moulton Referred To Contact Referral ID Status Reason Start Date Expiration Date Visits Re quested Visits Authorized [id number] 1 1 Encounter Details Date Type Department Care Team (Late st Contact Info) Description 03/18/2025 12:30 PM EDT Home Care Visit [facility] [address] [place] [address] Shanta Dunham, ANNE-MARIE [address] [place] [address] [email or web address] SN OASIS START OF CARE (SOC) Social History Tobacco Use Types Packs/Day Years [...] on file documented as of this encounter Last Filed Vital Signs Vital Sign Reading Time Taken Comments Blood Pressure 100/55 03/18/2025 1:05 PM EDT Pulse 86 03/18/2025 1:05 PM EDT Temperature 36.7 C (98 F) 03/18/2025 1:05 PM EDT Respiratory Rate - - Oxygen Saturation 96% 03/18/2025 1:05 PM EDT Inhaled Oxygen Concentration - - Weight - - Height - - Body Mass Index - - documented in this encounter Plan of Treatment Upcoming Encounters Date Type Department Care Team (Late st Contact Info) Description 03/21/2025 2:00 AM EDT Home Care Visit [facility] [address] [place] [phone] Shanta Dunham RN [address] [place] [address] [email or web address] 03/27/2025 12:30 AM EDT Home [facility] Visit [facility] [address] [place] [phone] Shanta Dunham RN [address] [place] [address] [email or web address] 04/03/2025 12:30 AM EDT Home Care Visit [facility] [address] [place] [phone] Shanta Dunham RN [address] [place] [address] [email or web address] 04/10/2025 12:30 AM EDT Home Care Visit [facility] [address] [place] [phone] Shanta Dunham RN [address] [place] [address] [email or web address] 04/17/2025 1:00 AM EDT Home Care Visit [facility] [address] [place] [phone] Shanta Dunham RN [address] [place] [address] [email or web address] 04/24/2025 12:30 AM EDT Home [facility] Visit [facility] [address] [place] [phone] Shanta Dunham RN [address] [place] [address] 05/01/2025 12:30 AM EDT Home Care Visit [facility] [address] [place] [phone] Shanta Dunham RN [address] [place] [address] [email or web address] 05/08/2025 Home Care Visit [facility] [address] [place] [phone] Shanta Dunham RN [address] [place] [address] [email or web address] 05/15/2025 Appointment [facility] [address] [place] [phone] Shanta Dunham RN [address] [place] [address] documented as of this encounter Visit Diagnoses Not on filedocumented in this encounter Home Health Visit - Care Plan Visit Details Visit Type -SN OASIS START O F CARE (SOC) Discipline -Jail Problems Problem Description Start Date Status Goals Interve ntions HH - Telehealth/Virtua l Care Disciplines: All Active Home Health Disciplines 03/18/2025 Active 1 goal linked to scheduled/document ed intervention 1 goal intervention scheduled/document ed in this visit HH - Medication Management Disciplines: All Active Home Health Disciplines 03/18/2025 Active 1 goal linked to scheduled/document ed intervention 2 goal interventions scheduled/document ed in this visit HH - Focus of Care and Teaching Disciplines: All Active Home Health Disciplines w/RD 03/18/2025 Active 1 goal linked to scheduled/document ed intervention 1 goal intervention scheduled/document ed in this visit HH - Emergency Planning - Knowledge of Disciplines: All Active Home Health Disciplines 03/18/2025 Active 1 goal linked to scheduled/document ed intervention 2 goal interventions scheduled/document ed in this visit HH - Standard of Care Disciplines: All Active Home Health Disciplines 03/18/2025 Active 1 goal linked to scheduled/document ed intervention 2 goal interventions scheduled/document ed in this visit Goals Goal Associated Problem Outcome Goal Met? Visit Notes HH - Telehealth visits along with in-person home visits will be utilized when appropriate to achieve optimal wellness and home safety HH - Telehealth/Virtual Care No HH - Safe medication management, avoid unnecessary harm related to medication errors and/or interactions HH - Medication Management No HH - Communication and collaboration to achieve patient goals HH - Focus of Care and Teaching No HH - Knowledge of options for managing care in the event of an emergency related situation. HH - Emergency Planning - Knowledge of No HH - Achieve care management for a safe to home/community discharge from homecare HH - Standard of Care No Interventions Intervention Associated Problem/Goal Status Variance Visit Notes HH - Assess the patient's access/technology, monitoring device availability, cognitive, mental, physical ability, and willingness to effectively participate in telehealth care Problem:HH - Telehealth/Virtual Care Goal:HH - Telehealth visits along with in-person home visits will be utilized when appropriate to achieve optimal wellness and home safety Scheduled HH - I/E medication management: administration, purpose, dosages, preparation, setup, scheduling, side effects, food/drug interactions, and potential complications as indicated Description: Update patient's copy of medication list as needed. Problem:HH - Medication Management Goal:HH - Safe medication management, avoid unnecessary harm related to medication errors and/or interactions Scheduled HH - Complete medication review every visit and medication reconciliation as indicated. Pharmacy information: Description: [address] Problem:HH - Medication Management Goal:HH - Safe medication management, avoid unnecessary harm related to medication errors and/or interactions Scheduled HH - Focus of care, teaching completed and plan for next visit Problem:HH - Focus of Care and Teaching Goal:HH - Communication and collaboration to achieve patient goals Scheduled HH - I/E management of care in an urgent or emergency (ER) situation: When to call your Home Care Team/[facility], ER plans, supplies, evacuation, when to contact local ER officials and how to stay informed Problem:HH - Emergency Planning - Knowledge of Goal:HH - Knowledge of options for managing care in the event of an emergency related situation. Scheduled HH - Emergency planning assessment: the emergency plan, supplies needed, emergency contact numbers and an evacuation plan were reviewed Description: Patient is/are knowledgeable of emergency plans. Problem:HH - Emergency Planning - Knowledge of Goal:HH - Knowledge of options for managing care in the event of an emergency related situation. Scheduled HH - Assess vital signs, pulse oximetry, pain, and as indicated, orthostatic vital signs Description: use agency-specific parameters Problem:HH - Standard of Care Goal:HH - Achieve care management for a safe to home/community discharge from homecare Scheduled HH - Assess skin integrity Problem:HH - Standard of Care Goal:HH - Achieve care management for a safe to home/community discharge from homecare Scheduled documented in this encounter Care Teams Bulk Sealer Operator Relationship Specialty Start Date End Date Arlin Watkins MD [address] [place] [address] [place] [address] PCP - General Internal Medicine 03/13/25 documented as of this encounter Additional Source Comments The information contained in this document represents components of the legal health record. It is not the complete legal health record.[facility]
--- NOTE | 2025-03-19 07:52 | MHC.PC.OV ---
Vital Signs 03/19/25 08:07 Height 5 ft 1 in Weight 87 lb BMI 16.4 BP 100/60 Blood Pressure Location Lt brachial Position Sitting Respiration 17 Pulse 99 Pulse Source Pulse Oximeter Temp 97.8 F Temp Source Oral Pulse Oximetry (%) 97 Oxygen Delivery Method Room Air Intake Visit Reasons: [facility]ap [facility] Intake Note: Pt is here today for her [facility]F rehap at [facility] Allergies morphine Adverse Reaction (Intermediate, Verified 03/19/25 11:45) Vomiting Tobacco use date assessed: 03/19/25 Fall risk assessment: 2 + Falls in past year Last assessed Fall Risk: 03/19/25 Dental Screening Dental Screen Date: 03/19/25 Did you have a dental visit in the last 12 months?: No Did you have a dental problem in the last 6 months where you did not have access to dental care?: No Was dental information given to patient?: Patient has dentist HPI [facility] HPI Details 74-year-old lady with 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 She required BiPAP., switched to a noninvasive ventilator to treat her COPD and respiratory failure, to be used at nighttime and also as needed approximately 8 hours a day. She has an appointment at the pulmonary clinic for follow-up in 2-3 months she was also placed on theophylline , with good response. She is due to get a Prevnar 21 vaccine and reminded to get her yearly flu shot. She is feeling much better, breathing at present time, and has stopped smoking [facility] Medical History (Updated 03/20/25 @ 15:25 by Francisco Ding MD) Chronic respiratory failure with hypoxia and hypercapnia Vitamin D deficiency Macular degeneration of left eye Pulmonary nodule Multiple environmental allergies Nicotine dependence, cigarettes, uncomplicated COPD (chronic obstructive pulmonary disease) Stress incontinence Hx of bladder cancer (~2008) Dysphagia History of COVID-19 Primary insomnia Surgical menopause Osteoporosis (~2019) Tubular adenoma of colon (~2016) Hiatal hernia Esophagitis determined by endoscopy History of esophageal stricture Surgical History Pneumothorax after biopsy History of cataract surgery History of esophageal dilatation History of bladder surgery History of hand surgery History of colonoscopy History of esophagogastroduodenoscopy (EGD) History of cystoscopy History of hysterectomy Family History Father HTN (hypertension) Mesothelioma Mother Melanoma Brother No problems noted. Brother No problems noted. Sister No problems noted. Daughter Melanoma Son No problems noted. Son No problems noted. Son No problems noted. Sister Lung cancer Social History Household Members: Significant Other Housing: House Are you a primary career resource specialist to a significant other at home: No Do you presently have visiting nurse or other home services: No Comment: 1:1 Patient Tobacco Use Status: Former Tobacco user Tobacco use type: Cigarette Cigarette Packs Per Day: 1 Cigarettes Per Day: 20.0 Years Smoked: 60 e-Cigarette/Vaping Use: Never Used Second Hand Smoke Exposure: No Use of substances other than those prescribed or required for medical reasons: No Have you been hit, kicked, punched, or otherwise hurt by someone within the past year? If so, by whom?: No Do you feel safe in your current relationship?: Yes Do you have thoughts of harming others: None Do you have a plan to hurt others: No Plan Patient : No service: No Current occupational status: employed Cognitive needs: No Hearing needs: No Vision needs: Yes Questionnaire Thrive Questionnaire Date Thrive assessed: 01/14/25 I am a: Patient What is your living situation today?: I have a steady place to live Within the past 12 months, did the food you bought not last and you didn't have the money to get more?: Never true Within the past 12 months, did you worry whether your food would run out before you got money to buy more?: Never true Do you have trouble paying for medicines?: No Do you have trouble getting transportation to medical appointments?: No Do you have trouble paying your heating and electricity bill?: No Do you have trouble taking care of your child, family member or friend?: No Do you have trouble with day-to-day activities such as bathing, preparing meals, shopping, managing finances, etc.?: No Are you currently unemployed and looking for a job?: No Are you interested in more education?: No Please select the resources that you would like help with: None Currently or been in a relationship where the following occur: No concerns reported THRIVE Score: 0 AVERY-7 AMB Questionnaire AVERY-7 Date AVERY - 7 assessed: 01/14/25 Source: Developed by Drs. Koffi Thao, Esperanza Prince, Yeison Jules and colleagues, with an educational onesimo from [employer]. Review of Systems Const Denies chills, Denies difficulty sleeping, Denies fatigue, Denies fever(s) and Denies weakness Eyes Reports no additional complaints ENT Reports no additional complaints Card Denies chest pain, Denies irregular heart rhythm, Denies leg edema, Denies lightheadedness, Denies palpitations and Denies dyspnea Resp Denies cough and Denies dyspnea GI Reports no additional complaints Reports no additional complaints Musc Denies abnormal gait and Denies muscle weakness Neuro Denies abnormal gait and Denies weakness Psych Reports no additional complaints Endo Denies fatigue and Denies palpitations Pranav/Lymph Denies easy bruising Aller/Immun Denies seasonal rhinorrhea Physical exam (Primary Care) Vital Signs: Last Vital Signs Temp 97.8 F 03/19/25 08:07 Pulse 99 03/19/25 08:07 Resp 17 03/19/25 08:07 BP 100/60 03/19/25 08:07 Pulse Ox 97 03/19/25 08:07 Oxygen Delivery Method Room Air 03/19/25 08:07 BMI result Body Mass Index 16.4 Tobacco/Smoking Status: Tobacco use Status Tobacco use date assessed 03/19/25 03/19/25 07:54 Patient Tobacco Use Status Former Tobacco user 03/19/25 07:54 Tobacco use type Cigarette 03/19/25 07:54 e-Cigarette/Vaping Use Never Used 03/19/25 07:54 Thrive Assessment: Date of Thrive Assessment Date Thrive assessed 01/14/25 03/19/25 07:54 Currently or been in a relationship where the following occur: No concerns reported Const General: no acute distress Nutritional Appearance: average body habitus Orientation/consciousness: patient oriented x3 HENMT Head: Yes normocephalic Ears: external ears normal, TM's normal bilaterally and EAC's normal General nose exam: Normal external nose present Face and sinus: Yes face symmetric Mouth: Normal oral and palatal mucosa present, oropharynx normal and moist mucous membranes Eyes General: appearance normal, both eyes and all related structures Neck Neck: Yes full ROM, Yes no lymphadenopathy, Yes no meningeal signs and Yes supple Resp Effort & Inspection: normal respiratory effort and able to speak in complete sentences Auscultation: diminished lung sounds Cardio Rate: regular rate Rhythm: regular rhythm Heart sounds: S1 normal heart sound present and S2 normal heart sound present GI Palpation (GI): Soft to palpation, nontender, no guarding and no masses General: Yes no CVA tenderness Back/Spine/Pelvis Back: no CVA tenderness and No back tenderness Skin General skin exam: no rashes or lesions noted Neuro General: patient oriented x3, gait normal, moves all extremities, no meningeal signs, no focal motor deficits and CN's II-XI intact bilaterally Extrem General: Yes full ROM, Yes no joint enlargement, Yes no pedal edema and Yes normal gait Psych Appearance: grossly normal Mental Status: mental status grossly normal Speech and movement: Normal speech and movement present Affect: normal affect Coding Level of Care Code Est Pt Level 4 (53780) Complex EM visit Add On G2211 Diagnoses Centrilobular emphysema J43.2 Age-related osteoporosis without current pathological fracture M81.0 Osteoporosis type: age-related Presence of current pathological fracture: without current pathological fracture Bladder cancer C67.9 Nicotine dependence, cigarettes, uncomplicated F17.210 Assessment & Plan Assessment & Plan (1) Centrilobular emphysema: Code(s): J43.2 - Centrilobular emphysema Category: Medical Plan: Continue with Wix[facility] in [facility], and nebulizer treatment with DuoNeb as directed, finish prescription for theophylline ER, which she states has been helping. Continue Spiriva (2) Osteoporosis: Onset Date: ~2019 Comment: (Osteopenia since 2001 - Osteoporosis 2020 - T-score -2.9 lumbar 02/17/20) Code(s): M81.0 - Age-related osteoporosis without current pathological fracture Category: Medical Qualifiers: Osteoporosis type: age-related Presence of current pathological fracture: without current pathological fracture Qualified Code(s): M81.0 - Age-related osteoporosis without current pathological fracture Plan: Patient does not want to start any treatment at this time, reinforced importance of taking adequate calcium from dietary sources and continue taking vitamin-D 3 supplementation. (3) Bladder cancer: Code(s): C67.9 - Malignant neoplasm of bladder, unspecified Category: Medical Plan: Followed by oncology (4) Nicotine dependence, cigarettes, uncomplicated: Comment: (current smoker - onset 15yo, x 56yrs, max 1ppd, now 1/2ppd - 40pyh) Code(s): F17.210 - Nicotine dependence, cigarettes, uncomplicated Category: Medical Plan: Discussed ways to help with rolling cravings for nicotine, started on varenicline starter pack, to take as directed. Discussed possible side effects of medication which may include vivid dreams, nausea you will see her back for follow-up in 4 weeks after starting varenicline Medications: New varenicline tartrate PO PER PKG DIR 53 ea 0RF
--- OUTSIDE RECORDS SUMMARY | 2025-03-19 07:56 | XMS_ITS | Encounter Summary ---
Author Organization [facility] Address [address] [facility] [address] [place] [phone] Phone Care Team Providers Care Seconds Handler Name Role Phone Arlin Watkins MD Primary Care Provider Encounter Details Date Type Department Care Team (Late st Contact Info) Description 03/16/2025 Home Care Visit [facility] [address] [place] [phone] Vera Bell, RN [address] [place] [address] [email or web address] CASE COMMUNICATION Social History Tobacco Use Types Packs/Day Years [...] 2:00 AM EDT Home Care Visit [facility] [address] [facility] [place] [phone] Shanta Dunham, ANNE-MARIE [address] [place] [address] [email or web address] 03/27/2025 12:30 AM EDT Home Care Visit [facility] [address] [place] [phone] Shanta Dunham RN [address] [place] [address] 04/03/2025 12:30 AM EDT Home Care Visit [facility] [address] [place] [phone] Shanta Dunham RN [address] [place] [address] [email or web address] 04/10/2025 12:30 AM EDT Home Care Visit [facility] [address] [place] [phone] Shanta Dunham RN [address] [place] [address] [email or web address] 04/17/2025 1:00 AM EDT Home Care Visit [facility] [address] [place] [phone] Shanta Dunham RN [address] [place] [address] [email or web address] 04/24/2025 12:30 AM EDT Home Care Visit [facility] [address] [place] [phone] Shanta Dunham RN [address] [place] [address] 05/01/2025 12:30 AM EDT Home Care Visit [facility] [address] [place] [phone] Shanta Dunham RN [address] [place] [address] 05/08/2025 Home Care Visit [facility] [address] [place], [place] [phone] Shanta Dunham RN [address] [place] [address] 05/15/2025 Appointment [facility] [address] [place], [place] [phone] Shanta Dunham RN [address] [place] [address] [email or web address] documented as of this encounter Visit Diagnoses Not on filedocumented in this encounter Care Teams Seconds Handler Relationship Specialty Start Date End Date Arlin Watkins MD [address] [place] [address] PCP - General Internal Medicine 03/13/25 documented as of this encounter Additional Source Comments The information contained in this document represents components of the legal health record. It is not the complete legal health record.[facility]
--- OUTSIDE RECORDS SUMMARY | 2025-03-19 07:56 | XMS_ITS | Encounter Summary ---
Author Organization [facility] Address [address] [place] [address] [place] [phone] Phone Care Team Providers Care Lug Breaker And Wire Puller Name Role Phone Arlin Watkins MD Primary Care Provider Encounter Details Date Type Department Care Team (Late Contact Info) Description 03/14/2025 Transcribe Orders [facility] Specimen Processing [address] [place] [address] Phong Griffin MD [address] [facility], [address], [address] [place] [address] [email or web address] Illness (Primary Dx) Social History Tobacco Use [...] Encounters Date Type Department Care Team (Late Contact Info) Description 03/21/2025 2:00 AM EDT Home [facility] Visit [facility] [address] [place] [phone] Shanta Dunham, ANNE-MARIE [address] [place] [address] [email or web address] 03/27/2025 12:30 AM EDT Home [facility] [address] [place] [phone] Shanta Dunham RN [address] [place] [address] [email or web address] 04/03/2025 12:30 AM EDT Home Care Visit [facility] [address] [place] [phone] Shanta Dunham RN [address] [place] [address] [email or web address] 04/10/2025 12:30 AM EDT Home Care Visit [facility] [address] [place] [phone] Shanta Dunham, ANNE-MARIE [address] [place] [address] [email or web address] 04/17/2025 1:00 AM EDT Home Care Visit [facility] [address] [place] [phone] Shanta Dunham, ANNE-MARIE [address] [place] [address] [email or web address] 04/24/2025 12:30 AM EDT Home Care Visit [facility] [address] [place] [phone] Shanta Dunham, ANNE-MARIE [address] [place] [address] [email or web address] 05/01/2025 12:30 AM EDT Home Care Visit [facility] [address] [place], [place] [phone] Shanta Dunham RN [address] [place] [address] 05/08/2025 Home Care Visit [facility] [address] [place], [place] [phone] Shanta Dunham RN [address] [place] [address] [email or web address] 05/15/2025 Appointment [facility] [address] [place], [place] [phone] Shanta Dunham RN [address] [place], [place] [phone] documented as of this encounter Results * CBC (03/14/2025 5:45 AM EDT) [facility] Signature WBC 9.21 4.00 - 11.00 K/uL [facility] RBC 4.48 4.00 - 5.20 M/uL [facility] HGB 13.8 12.0 - 16.0 g/dL [facility] HCT 41.3 36.0 - 46.0 % [facility] PLT 247 150 - 450 K/uL [facility] MCV 92.2 80.0 - 100.0 fL [facility] MCH 30.8 27.0 - 31.0 pg [facility] MCHC 33.4 32.0 - 36.0 g/dL [facility] RDW 12.2 11.5 - 14.5 % [facility] MPV 11.1 8.4 - 12.0 fL [facility] NRBC 0.00 0.00 /100 WBCs [facility] ABSOLUTE NRBC 0.00 0.00 K/uL [facility] Blood 03/14/2025 5:45 AM EDT 03/14/2025 6:13 AM EDT us Phong Griffin MD LAB BLOOD ORDERABLES Final Resul t [facility] [address] [place] [address] documented in this encounter Visit Diagnoses Diagnosis Illness- Primary Other unknown and unspecified cause of morbidity or mortality documented in this encounter Care Teams Lug Breaker And Wire Puller Relationship Specialty Start Date End Date Arlin Watkins MD [address] [place] [address] PCP - General Internal Medicine 03/13/25 documented as of this encounter Additional Source Comments The information contained in this document represents components of the legal health record. It is not the complete legal health record.[facility]
--- OUTSIDE RECORDS SUMMARY | 2025-03-19 07:57 | XMS_ITS | Patient Health Record ---
Author Organization [facility] Address [address] [place] [phone] Care Team Providers Care Electronics Processor Name Role Phone June CHINO, Arlin Primary Care Provider Koffi Ferguson Unavailable [phone] Allergies No Known Allergies Reason For Referral [...] Problem Status W/U Status Risk Notes Problem [id number] Encounter for screening for malignant neoplasm of colon (Z12.11) Active confirmed Problem History of adenomatous polyp of colon (471343938) History of adenomatous polyp of colon (Z86.010) Active confirmed Problem Screening for malignant neoplasm of rectum (557270486) Encounter for screening for malignant neoplasm of rectum (Z12.12) Active confirmed Problem 67135713 Dysphagia (R13.10) Active confirmed Problem 29405889 Esophageal stricture (K22.2) Active confirmed Problem 34611514 Erosive esophagitis (K22.10) Active confirmed Problem Esophageal ring (K22.2) Active confirmed Problem 47558140 Esophageal dysphagia (R13.14) Active confirmed Problem 82985138 Esophageal dysphagia (R13.10) Active confirmed Problem Diverticulosis of colon (167970344) Diverticulosis of colon (K57.30) Active confirmed Problem 68531244 Esophageal dysphagia (R13.19) Active confirmed Plan Of [...] Insured Coverage Start Date Coverage End Date [facility] [address] [facility] [place]DEZ [phone] [id number] COBY QUEEN Self - patient is the insured Medical (General) History Medical History History ICD Code Bladder cancer--treated with cystoscopy COPD EGD in 2002--small hiatal he rnia and mild gastritis--biopsies were negative for H. pylori. Screening Colonoscopy in 2002--negative except for a hyperplastic polyp Denies ME,DM,CVA,renal disease Colonoscopy 08/2016--small tu bular adenomas, diverticulosis [...]
--- OUTSIDE RECORDS SUMMARY | 2025-03-19 07:57 | XMS_ITS | Encounter Summary ---
Author Organization [facility] Address [address] [facility] [address] [place] [address] Phone Care Team Providers Care Projects Manager Name Role Phone Arlin Watkins MD Primary Care Provider Encounter Details Date Type Department Care Team (Late st Contact Info) Description 03/18/2025 Plan of Care Documentation [facility] [address] [place] [phone] Social History Tobacco Use Types Packs/Day Years [...] 2:00 AM EDT Home Care Visit [facility] [address] [place] [phone] Shanta Dunham RN [address] [place] [address] 03/27/2025 12:30 AM EDT Home [facility] Visit [facility] [address] [place] [phone] Shanta Dunham RN [address] [place] [address] 04/03/2025 12:30 AM EDT Home Care Visit [facility] [address] [place] [phone] Shanta Dunham RN [address] [place] [address] 04/10/2025 12:30 AM EDT Home [facility] Visit [facility] [address] [place] [phone] Shanta Dunham RN [address] [place] [address] 04/17/2025 1:00 AM EDT Home Care Visit [facility] [address] [place] [phone] Shanta Dunham, ANNE-MARIE [address] [place] [address] 04/24/2025 12:30 AM EDT Home Care Visit [facility] [address] [place] [phone] Shanta Dunham, ANNE-MARIE [address] [place] [address] 05/01/2025 12:30 AM EDT Home Care Visit [facility] [address] [place] [phone] Shanta Dunham, ANNE-MARIE [address] [place] [address] 05/08/2025 Home Care Visit [facility] [address] [place], [place] [phone] Shanta Dunham RN [address] [place] [address] 05/15/2025 Appointment [facility] [address] [place], [place] [phone] Shanta Dunham RN [address] [place] [address] documented as of this encounter Visit Diagnoses Not on filedocumented in this encounter Care Teams Projects Manager Relationship Specialty Start Date End Date Arlin Watkins MD [address] [facility] [place] [address] PCP - General Internal Medicine 03/13/25 documented as of this encounter Additional Source Comments The information contained in this document represents components of the legal health record. It is not the complete legal health record.[facility]
--- OUTSIDE RECORDS SUMMARY | 2025-03-19 07:57 | XMS_ITS | Clinical Summary ---
Author Organization [facility] Address [address] [place] [phone] Phone Care Team Providers Care Vehicle Operator Technician Name Role Phone Arlin Watkins MD Primary [...] by mouth nightly at bedtime. takes 5mg 4 Active albuterol (VENTOLIN HFA) 90 mcg/actuation inhaler Inhale 2 puffs into the lungs every 6 (six) hours as needed for shortness of breath/dyspnea. 4 Active omeprazole (PRILOSEC) 40 MG capsule Take 40 mg by mouth 2 (two) times a day as needed (acid reflux). 4 Active fluticasone propion-salmete roL (ADVAIR DISKUS) 250-50 mcg/dose DISKUS Inhale 250 mcg/actuation of fluticasone into the lungs 2 (two) times a day. 09/02/202 5 Active Encounters Date Type Department Care Team Description 03/18/2025 12:30 PM EDT Home Care Visit [facility] [address] [place] [phone] Shanta Dunham, ANNE-MARIE SN OASIS START OF CARE (SOC) 03/18/2025 Plan of Care Documentation [facility] [address] [place] [phone] 03/16/2025 Home Care Visit [facility] [address] [place] [phone] Vera Bell, ANNE-MARIE CASE COMMUNICATION 03/14/2025 5:58 AM EDT - 03/14/2025 11:59 PM EDT Hospital Encounter [facility] [address] [place] [address] Phong Griffin MD Discharge Disposition: Home or Self Care 03/14/2025 Transcribe Orders [facility] Specimen Processing [address] [place] [address] Phong Griffin MD Illness (Primary Dx) 03/12/2025 Orders Only [facility] [address] [place] [phone] Homehealth, Interface MD Madeline 03/11/2025 10:27 AM EDT - 03/11/2025 11:59 PM EDT Hospital Encounter [facility] [address] [place] [address] Teagan Palacio MD Discharge Disposition: Home or Self Care 03/10/2025 8:04 AM EDT - 03/10/2025 11:59 PM EDT Hospital Encounter [facility] [address] [place] [address] Teagan Palacio MD Discharge Disposition: Home or Self Care 03/10/2025 Transcribe Orders [facility] Specimen Processing [address] [place] [address] Teagan Palacio MD Tachycardia (Primary Dx) from [...] F) 03/18/2025 1:05 PM EDT Respiratory Rate 16 04/26/2024 10:51 AM EDT Oxygen Saturation 96% 03/18/2025 1:05 PM EDT Inhaled Oxygen Concentration - - Weight 47.6 kg (105 lb) 04/18/2024 12:11 PM EDT Height 154.9 cm (5' 1 ) 04/18/2024 12:11 PM EDT Body Mass Index 19.84 04/18/2024 12:11 PM EDT Plan of Treatment Upcoming Encounters Date Type Department Care Team (Late st Contact Info) Description 03/21/2025 2:00 AM EDT Home Care Visit [facility] [address] [place], [place] [phone] Shanta Dunham RN [address] [place] [address] 03/27/2025 12:30 AM EDT Home Care Visit [facility] [address] [place], [place] [phone] Shanta Dunham RN [address] [place] [address] 04/03/2025 12:30 AM EDT Home Care Visit [facility] [address] [place] [phone] Shanta Dunham RN [address] [place] [address] 04/10/2025 12:30 AM EDT Home Care Visit [facility] [address] [place] [phone] Shanta Dunham RN [address] [place] [address] 04/17/2025 1:00 AM EDT Home Care Visit [facility] [address] [place] [phone] Shanta Dunham RN [address] [place] [address] 04/24/2025 12:30 AM EDT Home Care Visit [facility] [address] [place] [phone] Shanta Dunham, ANNE-MARIE [address] [place] [address] 05/01/2025 12:30 AM EDT Home Care Visit [facility] [address] [place] [phone] Shanta Dunham, ANNE-MARIE [address] [place] [address] 05/08/2025 Home Care Visit [facility] [address] [place] [phone] Shanta Dunham, ANNE-MARIE [address] [place] [address] 05/15/2025 Appointment [facility] [address] [place], [place] [phone] Shanta Dunham, ANNE-MARIE [address] [place] [address] [email or web address] Not on file Procedures Procedure Name Priority Date/Time Associated Diagnosis Comments CBC Routine 03/14/2025 5:45 AM EDT Illness COMPREHENSIVE METABOLIC PANEL Routine 03/11/2025 10:27 AM EDT Illness, unspecified from Last 3 Months Results * CBC (03/14/2025 5:45 AM EDT) WBC 9.21 4.00 - 11.00 K/uL [facility] RBC 4.48 4.00 - 5.20 M/uL [facility] HGB 13.8 12.0 - 16.0 g/dL [facility] HCT 41.3 36.0 - 46.0 % [facility] PLT 247 150 - 450 K/uL [facility] MCV 92.2 80.0 - 100.0 fL [facility] MCH 30.8 27.0 - 31.0 pg [facility] MCHC 33.4 32.0 - 36.0 g/dL [facility] RDW 12.2 11.5 - 14.5 % [facility] MPV 11.1 8.4 - 12.0 fL [facility] NRBC 0.00 0.00 /100 WBCs [facility] ABSOLUTE NRBC 0.00 0.00 K/uL [facility] Blood 03/14/2025 5:45 AM EDT 03/14/2025 6:13 AM EDT us Phong Griffin MD LAB BLOOD ORDERABLES Final Resul t [facility] [address] [place] [address] * (ABNORMAL) Comprehensive metabolic panel (03/11/2025 10:27 AM EDT) SODIUM 141 133 - 146 mmol/L [facility] POTASSIUM 3.3 3.3 - 5.1 mmol/L [facility] CHLORIDE 95(L) 96 - 108 mmol/L [facility] CO2 35 21 - 35 mmol/L [facility] BUN 19 6 - 19 mg/dL [facility] CREATININE 0.60 0.5 - 1.5 mg/dL [facility] GLUCOSE 93 70 - 99 mg/dL [facility] ALBUMIN 3.6(L) 3.9 - 4.8 g/dL [facility] TOTAL PROTEIN 5.9(L) 6.5 - 8.0 g/dL [facility] CALCIUM 8.3(L) 8.4 - 10.3 mg/dL [facility] ALKALINE PHOSPHATASE 73 39 - 117 U/L [facility] TOTAL BILIRUBIN 0.8 0.0 - 1.2 mg/dL [facility] AST 25 0 - 37 U/L [facility] ALT 27 0 - 40 U/L [facility] GLOBULIN 2.3 1 - 4.8 g/dL [facility] EGFR 94 >59 mL/min/1.7 3m2 [facility] Comment:Estimated glomerular filtration rate calculated using the CKD-EPI refit equation. ANION GAP 14 10 - 20 mmol/L [facility] Blood 03/11/2025 10:2 7 AM EDT 03/11/2025 10:29 AM EDT us Teagan Palacio MD LAB BLOOD ORDERABLES Final Res ult [facility] [address] [place] [address] from Last 3 Months Insurance [facility] [place] [address] [address] [place] [address] [place] [id number] [place] [address] [place] [address] [place] [address] HMO HMO [employer] Care Teams Vehicle Operator Technician Relationship Specialty Start Date End Date Arlin Watkins MD [address] [place] [address] PCP - General Internal Medicine 03/13/25 Additional Source Comments The information contained in this document represents components of the legal health record. It is not the complete legal health record.[facility]
[2025-03-19 08:07] VITALS: BP 100/60; PULSE 99; RESP 17; TEMP 36.6; O2SAT 97; BMI 16.4
== END 2025-03-19 09:08 | disposition home or self-care (01) ==
LOC: HO.HMCC 07:49
PROVIDERS: PCP Internal Medicine; Visit Provider Internal Medicine
DX: J43.2 Centrilobular emphysema (principal); M81.0 Age-related osteoporosis without current pathological fracture; C67.9 Malignant neoplasm of bladder, unspecified; F17.210 Nicotine dependence, cigarettes, uncomplicated

== ENCOUNTER 2025-04-04 15:25 | Outpatient (AMB) | payer OTHER, SELFPAY ==
--- OUTSIDE RECORDS SUMMARY | 2025-04-02 11:30 | XMS_ITS | Encounter Summary ---
Author Organization [facility] Address [address] [facility] [address] [place] [phone] Phone Care Team Providers Care [employer] Officer Name Role Phone Arlin Watkins MD Primary Care Provider Reason for Visit * Auth/Cert (Routine) Specialty Diagnoses / Procedures Referred By Jaye moulton Referred To Contact Referral ID Status Reason Start Date Expiration Date Visits Re quested Visits Authorized [id number] 1 1 Encounter Details Date Type Department Care Team (Late st Contact Info) Description 04/02/2025 11:30 AM EDT Home Care Visit [facility] [address] [place] [phone] Shanta Dunham, ANNE-MARIE [address] [place] [address] [email or web address] SN OASIS DISCHARGE VISIT Social History Tobacco Use Types Packs/Day Years Used Date Smoking Tobacco: Never Assessed Home Health Assessment: Transportation Answer Date Recorded Lack of Transportation (Medical) No 04/02/2025 Lack of Transportation (Non-Medical) No 04/02/2025 Patient Unable or Declines to Respond No 04/02/2025 Education Answer Date Recorded Are you interested [...] Sign Reading Time Taken Comments Blood Pressure 98/60 04/02/2025 11:55 AM EDT Pulse 100 04/02/2025 11:55 AM EDT Temperature 36.7 C (98 F) 04/02/2025 11:55 AM EDT Respiratory Rate - - Oxygen Saturation 96% 04/02/2025 11:55 AM EDT Inhaled Oxygen Concentration - - Weight - - Height - - Body Mass Index - - documented in this encounter Plan of Treatment Not on file documented as of this encounter Visit Diagnoses Not on filedocumented in this encounter Home Health Visit - Care Plan Visit Details Visit Type -SN OASIS DISCHAR GE VISIT Discipline -[facility] Problems Problem Description Start Date Status Goals [...] teaching completed and plan for next visit Problem: - Focus of Care and Teaching Goal: - Communication and collaboration to achieve patient goals Scheduled HH - I/E management of care in an urgent or emergency (ER) situation: When to call your Home Care Team/911, ER plans, supplies, evacuation, when to contact local ER officials and how to stay informed Problem: - Emergency Planning - Knowledge of Goal:HH - Knowledge of options for managing care in the event of an emergency related situation. Scheduled - Emergency planning assessment: the emergency plan, supplies needed, emergency contact numbers and an evacuation plan were reviewed Description: Patient is/are knowledgeable of emergency plans. Problem: - Emergency Planning - Knowledge of Goal:HH [...] homecare Scheduled HH - Assess skin integrity Problem: - Standard of Care Goal:HH - Achieve care management for a safe to home/community discharge from homecare Scheduled documented in this encounter Care Teams [employer] Officer Relationship Specialty Start Date End Date Arlin Watkins MD [facility] [place] [address] PCP - General Internal Medicine 03/13/25 documented as of this encounter Additional Source Comments The information contained in this document represents components of the legal health record. It is not the complete legal health record.[facility]
--- NOTE | 2025-04-04 15:25 | MHC.OFFVIS ---
Intake Visit Reasons: biopsy results Intake Note: Patient is present via telehealth for BLADDER BIOPSY RESULTS Urology Medication:NONE Antibiotic Allergy:NONE Blood Thinner:NONE Allergies morphine Adverse Reaction (Intermediate, Verified 04/04/25 15:27) Vomiting Medication List - Last Reconciled 04/04/25 by Sweta Spencer MD albuterol sulfate 2.5 mg (3 mL) inhalation Q2H PRN albuterol sulfate 90 mcg/actuation (Ventolin HFA) 2 puffs inhalation QID PRN 30 days cetirizine 10 mg PO DAILY cholecalciferol (vitamin D3) 1,250 mcg PO QWEEK 30 days fluticasone propion-salmeterol 500-50 mcg/dose (Wixela Inhub) 1 inh inhalation BID ipratropium-albuterol 0.5 mg-3 mg(2.5 mg base)/3 mL 3 mL inhalation DAILY PRN nebulizers As directed omeprazole 40 mg PO BID@0630,1630 theophylline ER 300 mg PO Q12H tiotropium bromide 1.25 mcg/actuation (Spiriva Respimat) 1 puff PO DAILY varenicline tartrate PO PER PKG DIR zolpidem 10 mg PO BEDTIME PRN HPI Comments Details: 04/04/25--Ebony is a 74-year-old female 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 She had failed previous bladder installations. Recent cystoscopy bladder biopsy was still notable for carcinoma in Situ even though overall the bladder grossly looked improved. I want to trial combination of the Keytruda and bladder installation. History of Present Illness The patient is a 74-year-old female presenting with urothelial carcinoma and carcinoma in situ of the bladder. She is currently undergoing immunotherapy with Keytruda due to a history of urothelial carcinoma and carcinoma in situ of the bladder. A recent cystoscopy and bladder biopsy indicated persistent carcinoma in situ, despite an overall improvement in the bladder's appearance. The patient was hospitalized for two weeks following a severe illness that began with a cold. She spent four days in the emergency room and was in critical condition, necessitating discussions about resuscitation. She is currently experiencing significant weakness as a result of this hospitalization. The patient is actively working on smoking cessation, utilizing Scicasts to assist in this effort. She has successfully refrained from smoking for nearly three weeks, which is anticipated to benefit her health. Results - Cystoscopy and bladder biopsy: Persistent carcinoma in situ noted, with overall bladder improvement Plan 1. Urothelial Carcinoma - Continue immunotherapy with Keytruda. - Schedule follow-up cystoscopy post-treatment to assess bladder condition. 2. Carcinoma In Situ Of The Bladder - Combination therapy with Keytruda and bladder installations planned. - Follow-up with oncology for ongoing management. 3. Preventative Care: Smoking Cessation - Continue use of Chantix to aid in smoking cessation. - Monitor progress and encourage continued abstinence from smoking. 09/27/24--Ebony is a 73-year-old female presenting with bladder cancer follow-up. 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 Despite an unsuccessful response to gemcitabine bladder instillation therapy, she is currently being treated with pembrolizumab (Keytruda). Recent bladder biopsies showed improvement; only two showed carcinoma in situ, while others were primarily inflammatory or displayed focal atypia. This suggests a positive response to current therapy. The patient has a history of nicotine use, impacting disease management and requiring cessation as part of ongoing treatment. Of note: the patient and a lung biopsy and a PET CT 08/13/24--No abnormal FDG activity seen in the left upper lobe spiculated opacity seen on recent chest x-ray 06/05/2024. Patient had a known left upper lobe mass which was biopsied and likely treated in 2023. Rest of the whole body PET scan is unremarkable. 08/01/24--Ebony is a 73-year-old female who is being followed due to urothelial carcinoma of the bladder, and CIS of bladder. Last cysto/biopsy - 01/28/24- Significant for CIS bladder. She was referred to Oncology. Currently receiving Keytruda. Last cycle scheduled for 08/08/24. Plan repeat cystoscopy bladder biopsies. 05/17/24-- Ebony is a 73-year-old female who is being followed due to urothelial carcinoma of the bladder, and CIS of bladder. Last cysto/biopsy - 01/28/24- Significant for CIS bladder. She was referred to Oncology. Currently receiving Keytruda. Initially diagnosed by another urologist in 2008. She did not have follow-up for several years and was seen in December of 2022 and is status post TURBT 02/21/2023 noting high-grade noninvasive urothelial carcinoma right lateral wall followed by gemcitabine installations. Repeat bladder biopsies 08/15/2023 noted multifocal areas of carcinoma in Situ. The patient received bladder installations of mitomycin/cytarubine, last 12/08/2023. During the course of bladder installations she did have some fatigue. Plan--After completes Keytruda, will schedule out patient cysto bladder bx. 02/16/24--s/p post repeat bladder biopsies, 01/30/24- significant for CIS is all biopsies. The patient has failed chemotherapy bladder instillations. Plan refer to oncology for evaluation for Keytruda. She was prescribed gemtesa for LUTS for urinary frequency/urgency, insurance did not cover. She states she does not want another medication called in at this time. Patient agrees with plan. 01/05/24--Ebony is a 73-year-old female who is being followed due to urothelial carcinoma of the bladder, initially diagnosed by another urologist in 2008. She did not have follow-up for several years and was seen in December of 2022 and is status post TURBT 02/21/2023 noting high-grade noninvasive urothelial carcinoma right lateral wall followed by gemcitabine installations. Repeat bladder biopsies 08/15/2023 noted multifocal areas of carcinoma in Situ. The patient received bladder installations of mitomycin/cytarubine, last 12/08/2023. The patient states she has been doing well she denies dysuria. During the course of bladder installations she did have some fatigue. Consent today is obtained for repeat cystoscopy bladder biopsies. 09/01/23--S/P bladder bx post gemcitabine instillations. path 08/15/23--CIS - right lat wall, left lat wall, post wall, Discussed nicotine cessation. Discussed treatment recommendation for Bladder instillation of BCG immunotherapy, not readily available. I will investigate availablity. Otherwise bladder instillation with combination gemcitobine with docetaxel. 03/13/2023?Ebony is a 72-year-old female who presents today to the office for a follow-up s/p TURBT 02/21/23. I have reviewed the CT urogram results from 02/20/2023 revealed no radiopaque urolith, enhancing renal mass or hydroureteronephrosis. Unremarkable bladder. Mild constipation. 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 Urothelial carcinoma from the okay since he is seeing me for the 1st time, rachel cotton. She reports burning after urination. She is still smoking cigarettes. 01/13/2023?The patient was last seen in the office on 01/13/23 by LAVON Masters. The patient denies gross hematuria. The patient has history of superficial bladder cancer, diagnosed in October of 2008. Past medical history significant for COPD and nicotine dependence, esophagitis with dysphagia. The patient is an active smoker and started smoking from the age of 17 years. In review of note from 11/07/22, VELIA Boyd documented pathology 10/2008? 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 The patient gives a history of cigarette use for over 55 years. She states that her last cystoscopy was about 3 years ago. The patient has history of hysterectomy about age 20 for menorrhagia. Urine cytology-- collected 11/07/22--? few atypical cells noted. Evaluation today UA-- Blood:200 Earle/uL, leukocytes: negative. Cystoscopy findings-- erythematous flat lesion on the posterior wall of the bladder which need further evaluation with biopsy. Plan:urine bladder/FISH cytology test, as outpatient, urine provided not sufficient to send for testing Cystoscopy TURBT discussed to be scheduled. CT urogram prior with contrast was ordered. PFSH Medical History Chronic respiratory failure with hypoxia and hypercapnia Vitamin D deficiency Macular degeneration of left eye Pulmonary nodule Multiple environmental allergies Nicotine dependence, cigarettes, uncomplicated COPD (chronic obstructive pulmonary disease) Stress incontinence Hx of bladder cancer (~2008) Dysphagia History of COVID-19 Primary insomnia Surgical menopause Osteoporosis (~2019) Tubular adenoma of colon (~2016) Hiatal hernia Esophagitis determined by endoscopy History of esophageal stricture Surgical History Pneumothorax after biopsy History of cataract surgery History of esophageal dilatation History of bladder surgery History of hand surgery History of colonoscopy History of esophagogastroduodenoscopy (EGD) History of cystoscopy History of hysterectomy Family History Father HTN (hypertension) Mesothelioma Mother Melanoma Brother No problems noted. Brother No problems noted. Sister No problems noted. Daughter Melanoma Son No problems noted. Son No problems noted. Son No problems noted. Sister Lung cancer Social History Household Members: Significant Other Housing: House Are you a primary intensive care nurse to a significant other at home: No Do you presently have visiting nurse or other home services: No Comment: 1:1 Patient Tobacco Use Status: Former Tobacco user Tobacco use type: Cigarette Cigarette Packs Per Day: 1 Cigarettes Per Day: 20.0 Years Smoked: 60 e-Cigarette/Vaping Use: Never Used Second Hand Smoke Exposure: No service: No Current occupational status: employed Cognitive needs: No Hearing needs: No Vision needs: Yes Review of Systems Const All systems reviewed & are unremarkable except as noted in HPI and below Reports no additional complaints Eyes Reports no additional complaints ENT Reports no additional complaints Card Reports no additional complaints Resp Reports no additional complaints GI Reports no additional complaints Reports as per HPI Musc Reports no additional complaints Skin/Breast Reports system reviewed and no additional complaints, except as documented Neuro Reports no additional complaints Psych Reports no additional complaints Endo Reports no additional complaints Pranav/Lymph Reports no additional complaints Aller/Immun Reports no additional complaints Telehealth Telehealth Telehealth Platform: [facility] Location of provider rendering services: practice address Location of patient: address on file Patient Identification confirmed using: Name, : Yes Telehealth method: video Patient verbally consented to treatment: Yes Patient verbally consented to billing insurance company: Yes Patient informed of any privacy concerns related to visit: Yes Assessment & Plan Assessment & Plan (1) CIS (carcinoma in situ of bladder): Code(s): D09.0 - Carcinoma in situ of bladder Category: Medical (2) Bladder cancer: Code(s): C67.9 - Malignant neoplasm of bladder, unspecified Category: Medical (3) History of nicotine dependence: Code(s): Z87.891 - Personal history of nicotine dependence Category: Medical Plan Plan 1. Urothelial Carcinoma - Continue immunotherapy with Keytruda. - Schedule follow-up cystoscopy post-treatment to assess bladder condition. 2. Carcinoma In Situ Of The Bladder - Combination therapy with Keytruda and bladder installations planned. - Follow-up with oncology for ongoing management. 3. Preventative Care: Smoking Cessation - Continue use of Chantix to aid in smoking cessation. - Monitor progress and encourage continued abstinence from smoking. Scribe Plan - Not visible on output: Patient was informed and verbally consented to the use of an ambient scribe for clinic note documentation during this visit. Coding Level of Care Code Tele Est Pt Level 4 (04279) Complex EM visit Add On G2211 Diagnoses CIS (carcinoma in situ of bladder) D09.0 Bladder cancer C67.9 History of nicotine dependence Z87.896
--- OUTSIDE RECORDS SUMMARY | 2025-04-04 15:27 | XMS_ITS | Encounter Summary ---
Author Organization [facility] Address [address] [place] [phone] Phone Care Team Providers Care Inclusion Manager Name Role Phone Arlin Watkins MD Primary Care Provider Reason for Visit * Auth/Cert (Routine) Specialty Diagnoses / Procedures Referred By Jaye moulton Referred To Contact Referral ID Status Reason Start Date Expiration Date Visits Re quested Visits Authorized [id number] 1 1 Encounter Details Date Type Department Care Team (Late st Contact Info) Description 04/03/2025 Home Care Visit [facility] [address] [place] [phone] Judith Bullock, PT [address] [place] [address] [email or web address] TELEPHONE ENCOUNTER Social History Tobacco Use Types Packs/Day Years [...] on filedocumented in this encounter Care Teams Inclusion Manager Relationship Specialty Start Date End Date Arlin Watkins MD [address] [facility] [place] [address] PCP - General Internal Medicine 03/13/25 documented as of this encounter Additional Source Comments The information contained in this document represents components of the legal health record. It is not the complete legal health record.[facility]
--- OUTSIDE RECORDS SUMMARY | 2025-04-04 15:28 | XMS_ITS | Clinical Summary ---
Author Organization [facility] Address [address] [place] [address] Phone Care Team Providers Care Machine Heel Seat Laster Name Role Phone Arlin Watkins MD Primary [...] the lungs 2 (two) times a day. 5 Active mv-mn/iron/foli c acid/herb 190 (VITAMIN D3 COMPLETE ORAL) Take 50,000 Units by mouth once a week. 5 Active mv-min/FA/vit K/lutein/zeaxan t (PRESERVISION AREDS 2 PLUS MV ORAL) Take 1 capsule by mouth 2 (two) times a day. 5 Active Encounters Date Type Department Care Team Description 04/03/2025 Home Care Visit [facility] [address] [place] [phone] Judith Bullock, PT TELEPHONE ENCOUNTER 04/02/2025 11:30 AM EDT Home Care Visit [facility] [address] [place] [phone] Shanta Dunham, RN SN OASIS DISCHARGE VISIT 03/28/2025 1:30 PM EDT Home Care Visit [facility] [address] [place] [phone] Denys Gutierrez, OT OT EVALUATION 03/27/2025 10:30 AM EDT Home Care Visit [facility] [address] [place] [phone] Shanta Dunham RN SN HOME VISIT 03/26/2025 Home Care Visit [facility] [address] [place] [phone] Kiera Cox, OT TELEPHONE ENCOUNTER 03/25/2025 Episode Documentation Update [facility] [address] [place] [phone] Denys Brunson 03/22/2025 Home Care Visit [facility] [address] [place] [phone] Gayathri Peter, PT TELEPHONE ENCOUNTER 03/21/2025 12:00 PM EDT Home Care Visit [facility] [address] [place] [phone] Shanta Dunham, ANNE-MARIE SN HOME VISIT 03/19/2025 Episode Documentation Update [facility] [address] [place] [phone] 03/18/2025 12:30 PM EDT Home Care Visit [facility] [address] [place], [place] [phone] Shanta Dunham, ANNE-MARIE SN OASIS START OF CARE (SOC) 03/18/2025 Plan of Care Documentation [facility] [address] [place], [place] [phone] 03/16/2025 Home Care Visit [facility] [address] [place], [place] [phone] Vera Bell RN CASE COMMUNICATION 03/14/2025 5:58 AM EDT - 03/14/2025 11:59 PM EDT Hospital Encounter [facility] [address] [place] [address] Phong Griffin MD Discharge Disposition: Home or Self Care 03/14/2025 Transcribe Orders [facility] Specimen Processing [address] [place] [address] Phong Griffin MD Illness (Primary Dx) 03/12/2025 Orders Only [facility] [address] [place] [phone] Home[facility] MD 03/11/2025 10:27 AM EDT - 03/11/2025 11:59 PM EDT Hospital Encounter [facility] [address] [place] [address] Teagan Palacio MD Discharge Disposition: Home or Self Care 03/10/2025 8:04 AM EDT - 03/10/2025 11:59 PM EDT Hospital Encounter [facility] [address] [place] [address] Teagan Palacio MD Discharge Disposition: Home or Self Care 03/10/2025 Transcribe Orders [facility] Specimen Processing [address] [place] [address] Teagan Palacio MD Tachycardia (Primary Dx) from [...] F) 04/02/2025 11:55 AM EDT Respiratory Rate 20 03/28/2025 1:21 PM EDT Oxygen Saturation 96% 04/02/2025 11:55 AM EDT [...] EDT) WBC 9.21 4.00 - 11.00 K/uL [facility] RBC 4.48 4.00 - 5.20 M/uL [facility] HGB 13.8 12.0 - 16.0 g/dL [facility] HCT 41.3 36.0 - 46.0 % [facility] PLT 247 150 - 450 K/uL [facility] MCV 92.2 80.0 - 100.0 fL [facility] MCH 30.8 27.0 - 31.0 pg [facility] MCHC 33.4 32.0 - 36.0 g/dL [facility] RDW 12.2 11.5 - 14.5 % [facility] MPV 11.1 8.4 - 12.0 fL [facility] NRBC 0.00 0.00 /100 WBCs [facility] ABSOLUTE NRBC 0.00 0.00 K/uL [facility] Blood 03/14/2025 5:45 AM EDT 03/14/2025 6:13 AM EDT us Phong Griffin MD LAB BLOOD ORDERABLES Final Resul t [facility] [address] [place], [place] [phone] * (ABNORMAL) Comprehensive metabolic panel (03/11/2025 10:27 AM EDT) SODIUM 141 133 - 146 mmol/L [facility] POTASSIUM 3.3 3.3 - 5.1 mmol/L [facility] CHLORIDE 95(L) 96 - 108 mmol/L [facility] CO2 35 21 - 35 mmol/L [facility] BUN 19 6 - 19 mg/dL [facility] CREATININE 0.60 0.5 - 1.5 mg/dL [facility] GLUCOSE 93 70 - 99 mg/dL [facility] ALBUMIN 3.6(L) 3.9 - 4.8 g/dL [facility] TOTAL PROTEIN 5.9(L) 6.5 - 8.0 g/dL [facility] CALCIUM 8.3(L) 8.4 - 10.3 mg/dL [facility] ALKALINE PHOSPHATASE 73 39 - 117 U/L [facility] TOTAL BILIRUBIN 0.8 0.0 - 1.2 mg/dL [facility] AST 25 0 - 37 U/L [facility] ALT 27 0 - 40 U/L [facility] GLOBULIN 2.3 1 - 4.8 g/dL [facility] EGFR 94 >59 mL/min/1.7 3m2 [facility] Comment:Estimated glomerular filtration rate calculated using the CKD-EPI refit equation. ANION GAP 14 10 - 20 mmol/L [facility] Blood 03/11/2025 10:2 7 AM EDT 03/11/2025 10:29 AM EDT us Teagan Palacio MD LAB BLOOD ORDERABLES Final Res ult [address] [address] from Last [address] [place] [address] [address] [place] [place] [address] [address] [place] [place] [address] HMO [employer] Care Teams Machine Heel Seat Laster Relationship Specialty Start Date End Date Arlin Watkins MD [address] [facility] [place] [address] PCP - General Internal Medicine 03/13/25 Additional Source Comments The information contained in this document represents components of the legal health record. It is not the complete legal health record.[facility]
== END 2025-04-04 16:40 | disposition home or self-care (01) ==
LOC: HO.HUSH 15:25
PROVIDERS: PCP Internal Medicine; Visit Provider Urology
DX: D09.0 Carcinoma in situ of bladder (principal); C67.9 Malignant neoplasm of bladder, unspecified; Z87.891 Personal history of nicotine dependence
CPT/HCPCS: 99214; G2211

== ENCOUNTER 2025-05-23 09:02 | Outpatient (REF) | payer OTHER, SELFPAY ==
--- NOTE | ~2025-05-23 | XR_ITS ---
EXAMINATION: XR CHEST CLINICAL INFORMATION: R06.00 - Dyspnea, unspecified COMPARISON: March 03, 2025 TECHNIQUE: 2 views of the chest were obtained. FINDINGS: Lungs are hyperexpanded with coarse lung markings and apical blebs. Heart size is within normal limits. There is no sizable pleural effusion. No new airspace opacities are identified. XR/XR chest 2V IMPRESSION: Emphysema with hyperexpansion, no acute disease Electronically signed by: Carter Franklin MD 05/23/2025 09:42 AM EST
[2025-05-23 11:28] LABS: Resp Syncy Virus RNA Qual PCR NEGATIVE (Negative); SARS COV2 PCR INHOUSE NEGATIVE (Negative)
== END 2025-05-23 09:03 | disposition home or self-care (01) ==
LOC: HO.HMGCX 09:02
PROVIDERS: PCP Internal Medicine; Visit Provider Physician Assistant
DX: R06.02 Shortness of breath (principal); J06.9 Acute upper respiratory infection, unspecified; Z87.891 Personal history of nicotine dependence
CPT/HCPCS: 71046; 87637; 94640

== ENCOUNTER 2025-05-23 09:02 | Outpatient (AMB) | payer OTHER, SELFPAY ==
--- NOTE | 2025-05-23 09:10 | AM.OFFWIN_ITS ---
Intake Vital Signs 05/23/25 09:11 Height 5 ft 1 in BP 136/78 Blood Pressure Location Lt brachial Position Sitting Respiration 28 H Pulse 118 H Pulse Source Pulse Oximeter Temp 98.2 F Temp Source Oral Pulse Oximetry (%) 91 L Oxygen Delivery Method Room Air Intake Visit Reasons: ep hard time breathing Intake Note: Triaged and escorted to Room 9. Verbal update given to GILDARDO Han. DIONICIO león. Patient Tobacco Use Status: Former Tobacco user Allergies morphine Adverse Reaction (Intermediate, Verified 05/23/25 09:15) Vomiting Do you need a note to return to daycare/school/sports/work: No HPI HPI Comments History of Present Illness Details This is a 74-year-old female with a past medical history of bladder cancer and COPD not currently oxygen dependent presenting for evaluation of worsening dyspnea. Patient states for the four days she had worsening shortness of breath. Patient denies having any fevers, chills, recent sick contacts, productive cough, hemoptysis, chest pain or lower extremity edema. Patient has been using her nebulizer, and most recently this morning without significant relief. Patient's last dose of prednisone was approximately 3 weeks ago. [facility] Medical History (Updated 05/23/25 @ 10:14 by Emely Meneses PA-C) COPD (chronic obstructive pulmonary disease) Chronic respiratory failure with hypoxia and hypercapnia Vitamin D deficiency Macular degeneration of left eye Pulmonary nodule Multiple environmental allergies Nicotine dependence, cigarettes, uncomplicated Stress incontinence Hx of bladder cancer (~2008) Dysphagia History of COVID-19 Primary insomnia Surgical menopause Osteoporosis (~2019) Tubular adenoma of colon (~2016) Hiatal hernia Esophagitis determined by endoscopy History of esophageal stricture Surgical History Pneumothorax after biopsy History of cataract surgery History of esophageal dilatation History of bladder surgery History of hand surgery History of colonoscopy History of esophagogastroduodenoscopy (EGD) History of cystoscopy History of hysterectomy Family History Father HTN (hypertension) Mesothelioma Mother Melanoma Brother No problems noted. Brother No problems noted. Sister No problems noted. Daughter Melanoma Son No problems noted. Son No problems noted. Son No problems noted. Sister Lung cancer Social History Household Members: Significant Other Housing: House Are you a primary child care assistant to a significant other at home: No Do you presently have visiting nurse or other home services: No Comment: 1:1 Patient Tobacco Use Status: Former Tobacco user Tobacco use type: Cigarette Cigarette Packs Per Day: 1 Cigarettes Per Day: 20.0 Years Smoked: 60 e-Cigarette/Vaping Use: Never Used Second Hand Smoke Exposure: No service: No Current occupational status: employed Cognitive needs: No Hearing needs: No Vision needs: Yes Review of Systems Const All systems reviewed & are unremarkable except as noted in HPI and below Reports no additional complaints, Denies body aches, Denies chills and Denies fever(s) Eyes Reports no additional complaints ENT Reports no additional complaints Card Reports no additional complaints, Denies chest pain, Denies pedal edema, Denies edema and Reports dyspnea Resp Denies change in phlegm color, Denies cough, Denies hemoptysis, Denies pain with cough and Reports dyspnea GI Denies abdominal pain Skin/Breast Reports system reviewed and no additional complaints, except as documented Neuro Reports no additional complaints Endo Reports no additional complaints Pranav/Lymph Reports no additional complaints Aller/Immun Reports no additional complaints Physical Exam Vital Signs: Last Vital Signs Temp 98.2 F 05/23/25 09:11 Pulse 118 H 05/23/25 09:11 Resp 28 H 05/23/25 09:11 BP 136/78 05/23/25 09:11 Pulse Ox 91 L 05/23/25 09:11 Oxygen Delivery Method Room Air 05/23/25 09:11 Patient is afebrile, tachypneic and hypoxic Const General: cooperative, no acute distress, well developed, alert, awake, Physically active and other (Tachypneic); No lethargic Nutritional Appearance: thin Orientation/consciousness: patient oriented x3 and No lethargic Limitations: no limitations HEENT Head: Yes normal to inspection and Yes normocephalic Ears: hearing grossly normal bilaterally, TM's normal bilaterally and EAC's normal General nose exam: Normal external nose present Face and sinus: Yes normal facial exam and Yes sinuses nontender Mouth: Normal oral and palatal mucosa present, oropharynx normal and moist mucous membranes Throat: Yes posterior oropharynx normal Eyes General: appearance normal, both eyes and all related structures Neck Lymphatic: no lymphadenopathy noted Resp Effort & Inspection: able to speak in complete sentences, no audible wheezes, no cough, no grunting, not labored, pursed lip breathing and tachypneic Auscultation: wheezes and diminished lung sounds Cardio Rate: regular rate Rhythm: regular rhythm Neuro General: patient oriented x3 Psych Appearance: grossly normal Mental Status: mental status grossly normal Insight: Good insight present (Psych) Judgement: Good judgement present (Psych) Office Procedures Nebulizer Treatment Nebulizer Treatment 79266-Mhpvvkyeq/MDI RX initial, or Nebulizer Subsequent Treatment Office Meds ipratropium 0.5 mg-albuterol 3 mg (2.5 mg base)/3 mL nebulization soln Performing Provider: Emely Meneses PA-C Performing Location: [facility] Administered by: Batsheva Boogie RN on 05/23/25 09:58 Dose Route Admin Location Dispensed Lot Number Expiration Date ND Rod Buster 3 mL inhalation 3 mL [id number] 02/13/27 55480-100-89 [employer] prednisone 20 mg tablet Performing Provider: Emely Meneses PA-C Performing Location: [facility] Administered by: Batsheva Boogie RN on 05/23/25 09:57 Dose Route Admin Location Dispensed Lot Number Expiration Date [facility] Rod Buster 40 mg PO 40 mg [id number] 09/14/25 51247-560-30 AHP Results Reviewed Results Reviewed: No acute findings noted on CXR. Assessment & Plan Assessment & Plan (1) Dyspnea: Comment: Patient is evaluated. Patient will be given a DuoNeb treatment as well as 40 mg of prednisone for initial treatment of her symptoms. 10:13am patient is re-evaluated. Pulse ox is now 96% on room air in her heart rate is 80 beats per minute. Patient's lungs are now clear to auscultation and she is moving air easier without tachypnea. There are no acute findings noted on chest x-ray. Patient will be discharged home with a tapering course of prednisone. Code(s): R06.00 - Dyspnea, unspecified Qualifiers: Dyspnea type: shortness of breath Qualified Code(s): R06.02 - Shortness of breath Plan: Prednisone taper as directed. Follow up with pulmonology as an outpatient. Orders: Orders SARS-CoV2/FLU/RSV Today J06.9 - Acute upper respiratory infection, unspecified XR chest 2V Today R06.00 - Dyspnea, unspecified AMB Nebulizer Treatment Today R06.00 - Dyspnea, unspecified AMB Prednisone Adult Dose Today R06.00 - Dyspnea, unspecified Medications: New prednisone 3 tablets x 3 days, 2 tablets x 3 days, 1 tablet x 3 days 10 mg PO DIRECTED 18 tabs 0RF Coding Level of Care Code Est Pt Level 4 (48033) Diagnoses Shortness of breath R06.02 Dyspnea type: shortness of breath CPT Codes Nebulizer Treatment - Nebulizer Treatment, initial or subsequent: 22882- Nebulizer/MDI RX initial, or Nebulizer Subsequent Treatment ([id number]) Time Spent (min) 40
[2025-05-23 09:11] VITALS: BP 136/78; PULSE 118; RESP 28; TEMP 36.8; O2SAT 91
--- OUTSIDE RECORDS SUMMARY | 2025-05-23 10:01 | XMS_ITS | Patient Health Record ---
Author Organization [facility] Address [address] [place] [phone] Care Team Providers Care Sharebroker Name Role Phone June CHINO, Arlin Primary Care Provider Koffi Ferguson [phone] Allergies No Known Allergies Reason For Referral No Information Medications Medication SIG (Take, Route, Frequency, Duration) Notes Start Date End Date Status Omeprazole 20 MG TAKE 2 CAPSULES BY M OUTH TWICE A DAY; Duration: 90 Not-Taking PriLOSEC 20 MG 2 capsules Orally BID Not-Taking Carafate 1 GM Dissolve 1 tablet in 1 ounce of warm water Orally TID 30-60 minutes AC; Duration: 30 day(s) 11/28/2021 Not-Taki ng OsmoPrep 1.102-0.398 GM 4 tablets with 8 ounces of water as directed Orally 8 times over the course of the night before the colonoscopy as directed.; Duration: 1 days 12/14/2021 Active Symbicort Active Omeprazole 20 MG 1 capsule Orally BID Not-Taking ProAir HFA Active Omeprazole 40 MG 1 Orally BID; Durati on: 30 day(s) 12/24/2019 Active Spiriva Respimat 1.25 MCG/ACT TAKE 1 PUFF BY MOUTH EVERY DAY Inhalation; Duration: 30 Active Immunizations Vaccine Route Administration Date [...] Problem Status W/U Status Risk Notes Problem Screening for malignant neoplasm of colon (023998333) Encounter for screening for malignant neoplasm of colon (Z12.11) Active confirmed Problem History of adenomatous polyp of colon (191487984) History of adenomatous polyp of colon (Z86.010) Active confirmed Problem Screening for malignant neoplasm of rectum (838552271) Encounter for screening for malignant neoplasm of rectum (Z12.12) Active confirmed Problem Dysphagia (35257642) Dysphagia (R13.10) Active confirmed Problem Esophageal stricture (87504476) Esophageal stricture (K22.2) Active confirmed Problem Erosive esophagitis (10273154) Erosive esophagitis (K22.10) Active confirmed Problem Esophageal ring (39670438) Esophageal ring (K22.2) Active confirmed Problem Esophageal dysphagia (11193710) Esophageal dysphagia (R13.14) Active confirmed Problem Esophageal dysphagia (09877835) Esophageal dysphagia (R13.10) Active confirmed Problem Diverticulosis of colon (280449814) Diverticulosis of colon (K57.30) Active confirmed Problem Esophageal dysphagia (90575257) Esophageal dysphagia (R13.19) Active confirmed Plan Of [...] Insured Coverage Start Date Coverage End Date [facility] [address] [facility] [phone] [id number] COBY QUEEN Self - patient is the insured Medical (General) History Medical History History ICD Code Bladder cancer--treated with cystoscopy COPD EGD in 2002--small hiatal he rnia and mild gastritis--biopsies were negative for H. pylori. Screening Colonoscopy in 2002--negative except for a hyperplastic polyp Denies W[place],DM,CVA,renal disease Colonoscopy 08/2016--small tu bular adenomas, diverticulosis and internal hemoorhoids Esophageal stricture--EGD's and balloon dilations in 08/2016(very tight stricture), 09/2016, and 10/2016(much improved)--hiatal hernia Pneumonia 2019 EGD with a balloon dilation in March [...]
--- OUTSIDE RECORDS SUMMARY | 2025-05-23 10:01 | XMS_ITS | Clinical Summary ---
Author Organization [facility] Address [address] [place] [phone] Phone Care Team Providers Care Project Engineer Name Role Phone Arlin Watkins MD Primary [...] Team Description 04/03/2025 Home Care Visit [facility] [address] [place] [phone] Judith Bullock, PT TELEPHONE ENCOUNTER 04/02/2025 11:30 AM EDT Home Care Visit [facility] [address] [place] [phone] Shanta Dunham, RN SN OASIS DISCHARGE VISIT 03/28/2025 1:30 PM EDT Home Care Visit [facility] [address] [place] [phone] Denys Gutierrez, OT OT EVALUATION 03/27/2025 10:30 AM EDT Home Care Visit [facility] [address] [place] [phone] Shanta Dunham RN SN HOME VISIT 03/26/2025 Home Care Visit [facility] [address] [place] [phone] Kiera Cox, OT TELEPHONE ENCOUNTER 03/25/2025 Episode Documentation Update [facility] [address] [place] [phone] Denys Brunson 03/22/2025 Home Care Visit [facility] [address] [place] [phone] Gayathri Petre, PT TELEPHONE ENCOUNTER 03/21/2025 12:00 PM EDT Home Care Visit [facility] [address] [place] [phone] Shanta Dunham, ANNE-MARIE SN HOME VISIT 03/19/2025 Episode Documentation Update [facility] [address] [place] [phone] 03/18/2025 12:30 PM EDT Home Care Visit [facility] [address] [place], [place] [phone] Shanta Dunham, ANNE-MARIE SN OASIS START OF CARE (SOC) 03/18/2025 Plan of Care Documentation [facility] [address] [place], [place] [phone] 03/16/2025 Home Care Visit [facility] [address] [place], [place] [phone] Vera Bell RN CASE COMMUNICATION 03/14/2025 5:58 AM EDT - 03/14/2025 11:59 PM EDT Hospital Encounter [facility] [address] [place] [address] Phong Griffin MD Discharge Disposition: Home or Self Care 03/14/2025 Transcribe Orders [facility] Specimen Processing [address] [place] [address] Phong Griffin MD Illness (Primary Dx) 03/12/2025 Orders Only [facility] [address] [place] [phone] HomehealthTl MD 03/11/2025 10:27 AM EDT - 03/11/2025 11:59 PM EDT Hospital Encounter [facility] [address] [place] [address] Teagan Palacio MD Discharge Disposition: Home or Self Care 03/10/2025 8:04 AM EDT - 03/10/2025 11:59 PM EDT Hospital Encounter [facility] [address] [place] [address] Teagan Palacio MD Discharge Disposition: Home or Self Care 03/10/2025 Transcribe Orders [facility] Specimen Processing [address] [place] [address] Teagan Palacio MD Tachycardia (Primary Dx) from [...] 5:45 AM EDT Illness COMPREHENSIVE METABOLIC PANEL (CMP) Routine 03/11/2025 10:27 AM EDT Illness, unspecified from Last 3 Months Results * CBC (03/14/2025 5:45 AM EDT) WBC 9.21 4.00 - 11.00 K/uL [facility] RBC 4.48 4.00 - 5.20 M/uL [facility] HGB 13.8 12.0 - 16.0 g/dL [facility] HCT 41.3 36.0 - 46.0 % [facility] PLT 247 150 - 450 K/uL [facility] MCV 92.2 80.0 - 100.0 fL [facility] MCH 30.8 27.0 - 31.0 pg [facility] MCHC 33.4 32.0 - 36.0 g/dL [facility] RDW 12.2 11.5 - 14.5 % [facility] MPV 11.1 8.4 - 12.0 fL [facility] NRBC 0.00 0.00 /100 WBCs [facility] ABSOLUTE NRBC 0.00 0.00 K/uL [facility] Blood 03/14/2025 5:45 AM EDT 03/14/2025 6:13 AM EDT us Phong Griffin MD LAB BLOOD BKR ORDERABLES Final R esult [facility] [address] [place] [address] * (ABNORMAL) Comprehensive metabolic panel (03/11/2025 10:27 AM EDT) SODIUM 141 133 - 146 mmol/L [facility] POTASSIUM 3.3 3.3 - 5.1 mmol/L [facility] CHLORIDE 95(L) 96 - 108 mmol/L [facility] CO2 35 21 - 35 mmol/L [facility] BUN 19 6 - 19 mg/dL [facility] CREATININE 0.60 0.5 - 1.5 mg/dL [facility] GLUCOSE 93 70 - 99 mg/dL [facility] ALBUMIN 3.6(L) 3.9 - 4.8 g/dL [facility] TOTAL PROTEIN 5.9(L) 6.5 - 8.0 g/dL [facility] CALCIUM 8.3(L) 8.4 - 10.3 mg/dL [facility] ALKALINE PHOSPHATASE 73 39 - 117 U/L [facility] TOTAL BILIRUBIN 0.8 0.0 - 1.2 mg/dL [facility] AST 25 0 - 37 U/L [facility] ALT 27 0 - 40 U/L [facility] GLOBULIN 2.3 1 - 4.8 g/dL [facility] EGFR 94 >59 mL/min/1.7 3m2 [facility] Comment:Estimated glomerular filtration rate calculated using the CKD-EPI refit equation. ANION GAP 14 10 - 20 mmol/L [facility] Blood 03/11/2025 10:2 7 AM EDT 03/11/2025 10:29 AM EDT us Teagan Palacio MD LAB BLOOD BKR ORDERABLES Final Result Performing Organization Address City/State/[facility] Co de Phone Number [address] [address] from Last 3 Months Insurance O O [facility] [place] [address] [place] [address] Care Teams Project Engineer Relationship Specialty Start Date End Date Arlin Watkins MD 1961 [facility] [place] [address] PCP - General Internal Medicine 03/13/25 Additional Source Comments The information contained in this document represents components of the legal health record. It is not the complete legal health record.[facility]
== END 2025-05-23 10:16 | disposition home or self-care (01) ==
PROVIDERS: PCP Internal Medicine; Visit Provider Physician Assistant
DX: R06.00 Dyspnea, unspecified (principal); R06.02 Shortness of breath

== ENCOUNTER → 2025-05-23 09:28 | Outpatient (BNV) | payer OTHER, SELFPAY | PROVIDERS: PCP Internal Medicine; Visit Provider Radiology Diagnostic Radiology | DX: J43.9 Emphysema, unspecified (principal); J98.4 Other disorders of lung | CPT/HCPCS: 71046 ==

== ENCOUNTER 2025-05-26 15:27 | Outpatient (AMB) | payer OTHER, SELFPAY ==
--- NOTE | 2025-05-26 15:33 | MHC.PC.OV ---
Vital Signs 05/26/25 15:35 Height 5 ft Weight 84 lb 8 oz BMI 16.5 BP 106/68 Blood Pressure Location Rt brachial Position Sitting Respiration 17 Pulse 104 H Pulse Source Pulse Oximeter Temp 98.0 F Temp Source Oral Pulse Oximetry (%) 94 Oxygen Delivery Method Room Air Intake Visit Reasons: 1 month follow up Intake Note: Pt is here today for her 1mo. f/u Service Attendant Required: No Allergies morphine Adverse Reaction (Intermediate, Verified 05/26/25 15:59) Vomiting Medication List - Last Reconciled 05/26/25 by Arlin Watkins MD albuterol sulfate 2.5 mg (3 mL) inhalation QID 30 days albuterol sulfate 90 mcg/actuation (Ventolin HFA) 2 puffs inhalation QID PRN 30 days cetirizine 10 mg PO DAILY cholecalciferol (vitamin D3) 1,250 mcg PO QWEEK 30 days fluticasone propion-salmeterol 500-50 mcg/dose (Wixela Inhub) 1 inh inhalation BID ipratropium-albuterol 0.5 mg-3 mg(2.5 mg base)/3 mL 3 mL inhalation DAILY PRN nebulizers As directed omeprazole 40 mg PO BID@0630,1630 prednisone 10 mg PO DIRECTED tiotropium bromide 1.25 mcg/actuation (Spiriva Respimat) 1 puff PO DAILY zolpidem 5 mg PO BEDTIME PRN Tobacco use date assessed: 05/26/25 Fall risk assessment: 1 Fall in past year Last assessed Fall Risk: 05/26/25 Dental Screening Dental Screen Date: 05/26/25 Did you have a dental visit in the last 12 months?: No Did you have a dental problem in the last 6 months where you did not have access to dental care?: No Was dental information given to patient?: Patient declined HPI 1 month follow up HPI Details The patient is a 74-year-old female presenting for follow-up after a recent COPD exacerbation. She recently received treatment at a walk-in clinic, which included a tapering course of prednisone: 30 mg for three days, followed by 20 mg for three days, and is currently on 10 mg for three days. She reports feeling significantly better with this regimen and notes that she often requires a longer course of steroids during exacerbations. During her recent illness, a chest X-ray was normal, and tests for COVID-19, RSV, and influenza were negative. Her current COPD management includes Wixela, Spiriva, and a nebulizer with DuoNeb used four times a day, which helps with phlegm expectoration. She sleeps with three pillows to aid her breathing. The patient reports she has stopped smoking and is no longer taking Chantix, which caused nausea. She denies any cravings or jitteriness since quitting. Her medical history is notable for cancer, for which she receives treatment, and macular degeneration of the left eye, managed with long-acting intraocular injections by [facility]. She had a past COVID-19 infection treated with intravenous immunoglobulin. Her immunizations are up-to-date for RSV (received July 2023) and pneumonia (Prevnar ), but she still needs an influenza vaccine and had the older shingles vaccine. She has appointments scheduled for a mammogram and a bone density scan. [facility] Medical History COPD (chronic obstructive pulmonary disease) Chronic respiratory failure with hypoxia and hypercapnia Vitamin D deficiency Macular degeneration of left eye Pulmonary nodule Multiple environmental allergies Nicotine dependence, cigarettes, uncomplicated Stress incontinence Hx of bladder cancer (~2008) Dysphagia History of COVID-19 Primary insomnia Surgical menopause Osteoporosis (~2019) Tubular adenoma of colon (~2016) Hiatal hernia Esophagitis determined by endoscopy History of esophageal stricture Surgical History Pneumothorax after biopsy History of cataract surgery History of esophageal dilatation History of bladder surgery History of hand surgery History of colonoscopy History of esophagogastroduodenoscopy (EGD) History of cystoscopy History of hysterectomy Family History Father HTN (hypertension) Mesothelioma Mother Melanoma Brother No problems noted. Brother No problems noted. Sister No problems noted. Daughter Melanoma Son No problems noted. Son No problems noted. Son No problems noted. Sister Lung cancer Social History Household Members: Significant Other Housing: House Are you a primary career portals teacher to a significant other at home: No Do you presently have visiting nurse or other home services: No Comment: 1:1 Patient Tobacco Use Status: Former Tobacco user Tobacco use type: Cigarette Cigarette Packs Per Day: 1 Cigarettes Per Day: 20.0 Years Smoked: 60 e-Cigarette/Vaping Use: Never Used Second Hand Smoke Exposure: No service: No Current occupational status: employed Cognitive needs: No Hearing needs: No Vision needs: Yes Questionnaire Thrive Questionnaire Date Thrive assessed: 01/14/25 I am a: Patient What is your living situation today?: I have a steady place to live Within the past 12 months, did the food you bought not last and you didn't have the money to get more?: Never true Within the past 12 months, did you worry whether your food would run out before you got money to buy more?: Never true Do you have trouble paying for medicines?: No Do you have trouble getting transportation to medical appointments?: No Do you have trouble paying your heating and electricity bill?: No Do you have trouble taking care of your child, family member or friend?: No Do you have trouble with day-to-day activities such as bathing, preparing meals, shopping, managing finances, etc.?: No Are you currently unemployed and looking for a job?: No Are you interested in more education?: No Please select the resources that you would like help with: None Currently or been in a relationship where the following occur: No concerns reported THRIVE Score: 0 AVERY-7 AMB Questionnaire AVERY-7 Date AVERY - 7 assessed: 01/14/25 Source: Developed by Drs. Koffi Thao, Esperanza Prince, Yeison Jules and colleagues, with an educational onesimo from [employer]. Review of Systems Const Denies chills, Denies fatigue, Denies fever(s) and Denies weakness Eyes Reports no additional complaints ENT Reports no additional complaints Card Denies chest pain, Denies irregular heart rhythm, Denies leg edema, Denies lightheadedness, Denies palpitations and Denies dyspnea Resp Reports cough (Occasional usually in the morning), Denies excessive phlegm production, Denies pain with cough, Denies dyspnea and Denies wheezing GI Reports no additional complaints Reports no additional complaints Musc Denies abnormal gait and Denies muscle weakness Neuro Denies abnormal gait and Denies weakness Psych Reports no additional complaints Endo Denies fatigue and Denies palpitations Pranav/Lymph Denies easy bruising Aller/Immun Denies seasonal rhinorrhea and Denies wheezing Physical exam (Primary Care) Vital Signs: Last Vital Signs Temp 98.0 F 05/26/25 15:35 Pulse 104 H 05/26/25 15:35 Resp 17 05/26/25 15:35 BP 106/68 05/26/25 15:35 Pulse Ox 94 05/26/25 15:35 Oxygen Delivery Method Room Air 05/26/25 15:35 BMI result Body Mass Index 16.5 Tobacco/Smoking Status: Tobacco use Status Tobacco use date assessed 05/26/25 05/26/25 15:40 Patient Tobacco Use Status Former Tobacco user 05/26/25 15:40 Tobacco use type Cigarette 05/26/25 15:40 e-Cigarette/Vaping Use Never Used 05/26/25 15:40 Thrive Assessment: Date of Thrive Assessment Date Thrive assessed 01/14/25 05/26/25 15:40 Currently or been in a relationship where the following occur: No concerns reported Const General: no acute distress Nutritional Appearance: average body habitus Orientation/consciousness: patient oriented x3 HENMT Head: Yes normocephalic Ears: external ears normal General nose exam: Normal external nose present Face and sinus: Yes face symmetric Mouth: Normal oral and palatal mucosa present and moist mucous membranes Eyes General: appearance normal, both eyes and all related structures Neck Neck: Yes full ROM, Yes no lymphadenopathy, Yes no meningeal signs and Yes supple Resp Effort & Inspection: normal respiratory effort and able to speak in complete sentences Auscultation: diminished lung sounds Cardio Rate: regular rate Rhythm: regular rhythm Heart sounds: S1 normal heart sound present and S2 normal heart sound present GI Palpation (GI): Soft to palpation, nontender, no guarding and no masses General: Yes no CVA tenderness Back/Spine/Pelvis Back: no CVA tenderness and No back tenderness Skin General skin exam: no rashes or lesions noted Neuro General: patient oriented x3, gait normal, moves all extremities, no meningeal signs, no focal motor deficits and CN's II-XI intact bilaterally Extrem General: Yes full ROM, Yes no joint enlargement, Yes no pedal edema and Yes normal gait Psych Appearance: grossly normal Mental Status: mental status grossly normal Speech and movement: Normal speech and movement present Affect: normal affect Coding Level of Care Code Est Pt Level 4 (21007) Complex EM visit Add On G2211 Diagnoses Mixed simple and mucopurulent chronic bronchitis J41.8 COPD type: chronic bronchitis Chronic bronchitis type: mixed simple and mucopurulent History of nicotine dependence Z87.891 Macular degeneration of left eye H35.30 Assessment & Plan Assessment & Plan (1) COPD (chronic obstructive pulmonary disease): Comment: ff'd by pulmonary clinic Code(s): J44.9 - Chronic obstructive pulmonary disease, unspecified Category: Medical Qualifiers: COPD type: chronic bronchitis Chronic bronchitis type: mixed simple and mucopurulent Qualified Code(s): J41.8 - Mixed simple and mucopurulent chronic bronchitis (2) History of nicotine dependence: Code(s): Z87.891 - Personal history of nicotine dependence Category: Medical (3) Macular degeneration of left eye: Comment: [facility] Code(s): H35.30 - Unspecified macular degeneration Category: Medical Plan 1. COPD with Emphysema, recovering from exacerbation The patient is a 74-year-old female with COPD who is responding well to a tapering course of oral prednisone initiated at a walk-in clinic. Physical exam reveals clear lungs, and her oxygen saturation has improved to 94%. Her chest x-ray was unremarkable and tests for influenza, COVID-19, and RSV were negative. Plan: The patient will continue the prednisone taper as prescribed. She will continue her maintenance therapy with Wixela, Spiriva, and DuoNeb nebulizer four times daily. Continue breathing exercises. She has a follow-up scheduled with her egg gatherer, Dr. Simmons, next week. The patient has successfully quit smoking but is due for several preventative care measures. She has not yet received this season's influenza vaccine and has only had the older, single-dose shingles vaccine. Plan: The patient will receive the influenza vaccine after completing her steroid course. Advised to consider the new two-dose shingles vaccine series. She will proceed with her scheduled mammogram and bone density scan. Advised to wear a mask in public to reduce infection risk. 2. Smoking Cessation The patient has successfully quit smoking cold turkey after stopping Chantix due to side effects. She reports no cravings. Plan: Encourage continued abstinence from tobacco. 4. Macular Degeneration The patient is under the care of [facility] and receives intraocular injections. Plan: I will request a consultation note from her retina specialist to be sent to our office for continuity of care. Patient was informed and verbally consented to the use of an ambient scribe for clinic note documentation during this visit.
[2025-05-26 15:35] VITALS: BP 106/68; PULSE 104; RESP 17; TEMP 36.7; O2SAT 94; BMI 16.5
--- OUTSIDE RECORDS SUMMARY | 2025-05-26 17:33 | XMS_ITS | Patient Health Record ---
Author Organization [facility] Address [address] [place] [phone] Care Team Providers Care Director Of Agronomy Name Role Phone June CHINO, Arlin Primary Care Provider Koffi Ferguson [phone] Allergies No Known Allergies Reason For Referral [...] Problem Screening for malignant neoplasm of colon (798330702) Encounter for screening for malignant neoplasm of colon (Z12.11) Active confirmed Problem History of adenomatous polyp of colon (373158129) History of adenomatous polyp of colon (Z86.010) Active confirmed Problem Screening for malignant neoplasm of rectum (456996212) Encounter for screening for malignant neoplasm of rectum (Z12.12) Active confirmed Problem Dysphagia (77934231) Dysphagia (R13.10) Active confirmed Problem Esophageal stricture (10851485) Esophageal stricture (K22.2) Active confirmed Problem Erosive esophagitis (32524968) Erosive esophagitis (K22.10) Active confirmed Problem Esophageal ring (20945370) Esophageal ring (K22.2) Active confirmed Problem Esophageal dysphagia (72021146) Esophageal dysphagia (R13.14) Active confirmed Problem Esophageal dysphagia (32084567) Esophageal dysphagia (R13.10) Active confirmed Problem Diverticulosis of colon (105965087) Diverticulosis of colon (K57.30) Active confirmed Problem Esophageal dysphagia (93958250) Esophageal dysphagia (R13.19) Active confirmed Plan Of [...] Insured Coverage Start Date Coverage End Date [facility] [address] [facility] [phone] [id number] COBY QUEEN Self - patient is the insured Medical (General) History Medical History History ICD Code Bladder cancer--treated with cystoscopy COPD EGD in 2002--small hiatal he rnia and mild gastritis--biopsies were negative for H. pylori. Screening Colonoscopy in 2002--negative except for a hyperplastic polyp Denies OH,DM,CVA,renal disease Colonoscopy 08/2016--small tu bular adenomas, diverticulosis [...]
--- OUTSIDE RECORDS SUMMARY | 2025-05-26 17:33 | XMS_ITS | Clinical Summary ---
Author Organization [facility] Address [address] [place] [phone] Phone Care Team Providers Care Door Maker Name Role Phone Arlin Watkins MD Primary [...] Team Description 04/03/2025 Home Care Visit [facility] [address] [place] [phone] Judith Bullock, PT TELEPHONE ENCOUNTER 04/02/2025 11:30 AM EDT Home Care Visit [facility] [address] [place] [phone] Shanta Dunham, RN SN OASIS DISCHARGE VISIT 03/28/2025 1:30 PM EDT Home Care Visit [facility] [address] [place] [phone] Denys Gutierrez, OT OT EVALUATION 03/27/2025 10:30 AM EDT Home Care Visit [facility] [address] [place] [phone] Shanta Dunham RN SN HOME VISIT 03/26/2025 Home Care Visit [facility] [address] [place] [phone] Kiera Cox, OT TELEPHONE ENCOUNTER 03/25/2025 Episode Documentation Update [facility] [address] [place] [phone] Denys Brunson 03/22/2025 Home Care Visit [facility] [address] [place] [phone] Gayathri Peter, PT TELEPHONE ENCOUNTER 03/21/2025 12:00 PM EDT Home Care Visit [facility] [address] [place] [phone] Shanta Dunham, ANNE-MARIE SN HOME VISIT 03/19/2025 Episode Documentation Update [facility] [address] [place] [phone] 03/18/2025 12:30 PM EDT Home Care Visit [facility] [address] [place], [place] [phone] Shanta Dunham, ANNE-MARIE SN OASIS START OF CARE (SOC) 03/18/2025 Plan of Care Documentation [facility] [address] [place], [place] [phone] 03/16/2025 Home Care Visit [facility] [address] [place], [place] [phone] Vera Bell RN CASE COMMUNICATION 03/14/2025 5:58 AM EDT - 03/14/2025 11:59 PM EDT Hospital Encounter [facility] [address] [place] [address] Phong Griffin MD Discharge Disposition: Home or Self Care 03/14/2025 Transcribe Orders [facility] [address] [place] [address] Phong Griffin MD Illness (Primary Dx) 03/12/2025 Orders Only [facility] [address] [place] [phone] HomehealthTl MD 03/11/2025 10:27 AM EDT - 03/11/2025 11:59 PM EDT Hospital Encounter [facility] [address] [place] [address] Teagan Palacio MD Discharge Disposition: Home or Self Care 03/10/2025 8:04 AM EDT - 03/10/2025 11:59 PM EDT Hospital Encounter [facility] [address] [place] [address] Teagan Palacio MD Discharge Disposition: Home or Self Care 03/10/2025 Transcribe Orders [facility] Specimen [facility] [address] [place] [address] Teagan Palacio MD Tachycardia (Primary Dx) from [...] EDT) WBC 9.21 4.00 - 11.00 K/uL [facility] RBC 4.48 4.00 - 5.20 M/uL [facility] HGB 13.8 12.0 - 16.0 g/dL [facility] HCT 41.3 36.0 - 46.0 % [facility] PLT 247 150 - 450 K/uL [facility] MCV 92.2 80.0 - 100.0 fL [facility] MCH 30.8 27.0 - 31.0 pg [facility] MCHC 33.4 32.0 - 36.0 g/dL [facility] RDW 12.2 11.5 - 14.5 % [facility] MPV 11.1 8.4 - 12.0 fL [facility] NRBC 0.00 0.00 /100 WBCs [facility] ABSOLUTE NRBC 0.00 0.00 K/uL [facility] Blood 03/14/2025 5:45 AM EDT 03/14/2025 6:13 AM EDT us Phong Griffin MD LAB BLOOD BKR ORDERABLES Final R esult [facility] [address] [place] [address] * (ABNORMAL) Comprehensive metabolic panel (03/11/2025 10:27 AM EDT) SODIUM 141 133 - 146 mmol/L [facility] POTASSIUM 3.3 3.3 - 5.1 mmol/L [facility] CHLORIDE 95(L) 96 - 108 mmol/L [facility] CO2 35 21 - 35 mmol/L [facility] BUN 19 6 - 19 mg/dL [facility] CREATININE 0.60 0.5 - 1.5 mg/dL [facility] GLUCOSE 93 70 - 99 mg/dL [facility] ALBUMIN 3.6(L) 3.9 - 4.8 g/dL [facility] TOTAL PROTEIN 5.9(L) 6.5 - 8.0 g/dL [facility] CALCIUM 8.3(L) 8.4 - 10.3 mg/dL [facility] ALKALINE PHOSPHATASE 73 39 - 117 U/L [facility] TOTAL BILIRUBIN 0.8 0.0 - 1.2 mg/dL [facility] AST 25 0 - 37 U/L [facility] ALT 27 0 - 40 U/L [facility] GLOBULIN 2.3 1 - 4.8 g/dL [facility] EGFR 94 >59 mL/min/1.7 3m2 [facility] Comment:Estimated glomerular filtration rate calculated using the CKD-EPI refit equation. ANION GAP 14 10 - 20 mmol/L [facility] Blood 03/11/2025 10:2 7 AM EDT 03/11/2025 10:29 AM EDT us Teagan Palacio MD LAB BLOOD BKR ORDERABLES Final Result Performing Organization Address City/State/[facility] Co de Phone Number [address] [address] from Last 3 Months Insurance O O [facility] [place] [address] [place] [address] Address: [address] [address] Care Teams Door Maker Relationship Specialty Start Date End Date Arlin Watkins MD [address] [place] [address] PCP - General Internal Medicine 03/13/25 Additional Source Comments The information contained in this document represents components of the legal health record. It is not the complete legal health record.[facility]
== END 2025-05-26 15:58 | disposition home or self-care (01) ==
LOC: HO.HMCC 15:28
PROVIDERS: PCP Internal Medicine; Visit Provider Internal Medicine
DX: J41.8 Mixed simple and mucopurulent chronic bronchitis (principal); Z87.891 Personal history of nicotine dependence; H35.30 Unspecified macular degeneration

== ENCOUNTER 2025-06-02 13:57 | Outpatient (AMB) | payer OTHER, SELFPAY ==
--- NOTE | 2025-06-02 14:02 | A.OFFVIS_ITS ---
Vital Signs 06/02/25 14:03 Height 5 ft 1 in Weight 84 lb 14.047 oz BMI 16.0 BP 120/52 L Blood Pressure Location Lt brachial Position Sitting Pulse 104 H Pulse Source Pulse Oximeter Pulse Oximetry (%) 95 Oxygen Delivery Method Room Air Intake Visit Reasons: COPD Licensed Practical Nurse Instructor Required: No Accompanied by: Self / Same As Patient Allergies morphine Adverse Reaction (Intermediate, Verified 06/02/25 14:05) Vomiting HPI Comments Details: The patient is a 74 year woman the with tobacco dependency along with COPD presenting with worsening shortness of breath. She has minimal smoker all her life. The patient was having issues with shortness of breath and back in 2002 she did undergo pulmonary function studies here at [place]. It demonstrated that her FEV1 was down to 54% after bronchodilators consistent with moderate to severe COPD. She has been participating in the lung cancer screening program. Her last CT scan was a year to ago. She does have moderate degree of emphysema in the upper lung zones and has the ill-defined nodular density in the right hemithorax. Her next CT scan will be in the coming months. The patient has been taking Symbicort Spiriva now for some time. These inhalers appear to be working for her. She would like not to change them at this time. As far as smoking cessation she has quit many times but she has gone back to smoking. She has tried and failed multiple medications including Wellbutrin Chantix. She also tried hypnosis. She is willing to try the Nicotrol inhaler with hopes that she can start cutting down release alternating a real cigarette with day Nicotrol inhaler. With the hope that she continue decreasing. The patient will also have pulmonary function studies are will return in 4-6 weeks. The meantime will start azithromycin 2 treated for the chronic bronchitis related to her COPD. 10/03/2022 the patient is here for a pulmonary follow-up visit. Overall she is doing a little better. She is concerned because she did have her low-dose CT scan of the chest and she was found to have multiple nodules. She has a new 6 mm pulmonary nodule and it was recommended that she have a very repeat CT scan in 3 months time. I did reassure her. We did look at the CAT scan. She does have significant emphysema. Her new pulmonary nodules do not have concerning appearance is however I do agree that repeating the CT scan in 3 months time is to correct decision. She continues use her respiratory medicine with good effect. She still struggling with smoking. We did review her pulmonary function studies demonstrating very severe COPD. The patient also has significant air trapping. Her diffusing capacity is around 40% predicted. Explained to her that if it drops further down to the 30s then she will likely require oxygen supplementation. 08/10/2023 the patient is here for a pulmonary follow-up visit. She has a scheduled procedure with Urology. Apparently she was diagnosed with bladder cancer many years ago and then was lost to follow-up. Now she has been on therapy for with urology. Although she would like to stop the therapy. She needs to have a repeat cystoscopy at this point under anesthesia. She does have severe COPD. She has been medically optimized with both Symbicort Spiriva. She continues to smoke cigarettes. She does have a productive chronic cough. [id number] severity. Typically worse in the morning. She is also part of the lung cancer screening program. Her next CT scan is going to be around November or December of 2023. Clinically from the pulmonary standpoint the patient may be able to proceed with anesthesia and surgical intervention. She does have increased risk for perioperative pulmonary complications which includes hypoxia, atelectasis, COPD exacerbation and pneumonia. At this point the patient is able to proceed with her procedure. Prior to the procedure she will start using her nebulizer more regularly to try a bronchodilator and try to clear secretions out of her lungs preemptively. 07/30/2024 the patient is here for pulmonary follow-up visit. Overall she is doing better now. Back in March she was found to have a worsening left upper lobe nodular density. She was sent for CT-guided biopsy. Was complicated by a pneumothorax and she was admitted to the hospital for several days. Initially she had a small bore chest tube that was not enough and then she had a surgically placed chest tube. After about 5 days her pneumothorax seal then she was able to be discharged. She is doing well. She continues to have a cough chest congestion. Moderate severity. She does use her inhalers with good effect. 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 Therefore, will have her get blood work including a T spot. We sent sputums today for both Gram stain culture and also AFB. She is going to follow-up with thoracic surgery and she is going to have a PET scan ordered in the coming months. In addition to that she does continue on chemo for her bladder cancer. The patient will follow-up in 3-4 months. If he has any issues prior to that she will call for an earlier assessment. 11/28/2024 the patient is here for pulmonary follow-up visit. Overall she is doing okay she does have increased chest congestion. Moderate severity. Also feels like her rescue inhalers not working. She has been on Symbicort and Spiriva. The Spiriva is reasonable but she has pain 50 dollars a month for the Symbicort. Will go ahead and Wixela that it will be a lot cheaper for her she continue the Spiriva. She will try that for now. Will go ahead and start her on the she is not better she will call. In the meantime she is following closely with oncology as she is getting immunotherapy for her bladder cancer. Again, she did have a necrotizing granuloma on biopsy. I did request blood work during the last visit but she has not had it which includes a T spot. Should get that as soon as possible. Will follow-up in 4-6 months if she has any issues prior to that she will call for an earlier assessment. 03/14/2025 the patient is here for pulmonary follow-up visit. She was in the hospital with enterovirus in a COPD exacerbation. She developed acute on chronic hypercarbic respiratory failure was very confused. She required BiPAP. Even after the BiPAP her ABG continues to be abnormal with a pCO2 of 74 mmHg even with the stable PH. Therefore her hypercarbic respiratory failure is due to her COPD. The patient is a poor prognosis and high risk for rehospitalization. Therefore, will provide her with a noninvasive ventilator to treat her COPD and respiratory failure. By doing this we can improve her prognosis decrease hospitalizations and improve her gas exchange. The patient will uses ventilator at nighttime and also as needed approximately 8 hours a day. The patient does not have any evidence of any obstructive sleep apnea this time. She will continue with the current respiratory therapy. The patient will follow-up in 2 to 3 months to assess her progress. Will set her up with a local [employer] company at this time for the noninvasive ventilator, astral. Also to note we had placed her on theophylline while she was in the hospital. She did respond well to it. But now is causing it to be nauseous and she does not like taking it. So therefore will go ahead and hold off on it for now since she is doing better from a pulmonary aspect. We did review her vaccines. She needs to get her pneumonia vaccine up-to-date, Prevnar 21. She also has a Tdap vaccine. All the other respiratory vaccines she is up-to-date with. 06/02/2025 the patient is here for pulmonary follow-up visit. The patient overall has been doing okay. She did quit smoking and she is very happy about that. She knows that she has already been very sick. The patient has been complaining of productive cough with black colored phlegm. Moderate severity. The patient has been using her respiratory therapy with partial improvement. Will go ahead and optimize her respiratory therapy and also add Ohtuvayre to her regimen to help her with her significant COPD. In the meantime will start her on a low-dose prednisone and also antibiotic to help her with the chronic bronchitis right now. She did go to urgent care and she was given a course of prednisone prior to this 1. She also had a chest x-ray which I personally reviewed demonstrating no acute disease although has significant hyperinflation and COPD. [facility] Medical History COPD (chronic obstructive pulmonary disease) Chronic respiratory failure with hypoxia and hypercapnia Vitamin D deficiency Macular degeneration of left eye Pulmonary nodule Multiple environmental allergies Nicotine dependence, cigarettes, uncomplicated Stress incontinence Hx of bladder cancer (~2008) Dysphagia History of COVID-19 Primary insomnia Surgical menopause Osteoporosis (~2019) Tubular adenoma of colon (~2016) Hiatal hernia Esophagitis determined by endoscopy History of esophageal stricture Surgical History Pneumothorax after biopsy History of cataract surgery History of esophageal dilatation History of bladder surgery History of hand surgery History of colonoscopy History of esophagogastroduodenoscopy (EGD) History of cystoscopy History of hysterectomy Family History Father HTN (hypertension) Mesothelioma Mother Melanoma Brother No problems noted. Brother No problems noted. Sister No problems noted. Daughter Melanoma Son No problems noted. Son No problems noted. Son No problems noted. Sister Lung cancer Social History Household Members: Significant Other Housing: House Are you a primary patient care technician instructor to a significant other at home: No Do you presently have visiting nurse or other home services: No Comment: 1:1 Patient Tobacco Use Status: Former Tobacco user Tobacco use type: Cigarette Cigarette Packs Per Day: 1 Cigarettes Per Day: 20.0 Years Smoked: 60 e-Cigarette/Vaping Use: Never Used Second Hand Smoke Exposure: No service: No Current occupational status: employed Cognitive needs: No Hearing needs: No Vision needs: Yes Review of Systems Const Denies chills, Denies fatigue, Denies fever(s), Denies weight gain and Denies weight loss Eyes Denies change in vision and Denies itchy eyes ENT Denies dizziness Card Denies chest pain, Denies leg edema, Denies lightheadedness, Denies palpitations, Reports dyspnea on exertion, Denies orthopnea and Denies other Resp Reports cough, Reports dyspnea on exertion and Reports wheezing GI Denies hematochezia and Denies change in stool character Musc Denies abnormal gait, Denies muscle weakness, Denies numbness, Denies radiating pain into limb and Denies tingling Neuro Denies abnormal gait, Denies dizziness, Denies numbness and Denies tingling Endo Denies fatigue and Denies palpitations Pranav/Lymph Denies easy bruising Aller/Immun Denies itchy eyes, Denies seasonal rhinorrhea and Reports wheezing Physical Exam Vital Signs: Last Vital Signs Pulse 104 H 06/02/25 14:03 BP 120/52 L 06/02/25 14:03 Pulse Ox 95 06/02/25 14:03 Oxygen Delivery Method Room Air 06/02/25 14:03 BMI result Body Mass Index 16.0 Const General: comfortable Orientation/consciousness: patient oriented x3 Limitations: no limitations HEENT Head: Yes normal to inspection Eyes General: appearance normal, both eyes and all related structures Neck Neck: Yes normal visual inspection Chest Chest palpation & inspection: normal palpation of entire chest wall Resp Effort & Inspection: normal respiratory effort Auscultation: diminished lung sounds Cardio Rate: regular rate Rhythm: regular rhythm Heart sounds: S1 normal heart sound present and S2 normal heart sound present GI Auscultation: normal bowel sounds Neuro General: patient oriented x3 Extrem General: Yes no clubbing, cyanosis or edema Assessment & Plan Assessment & Plan (1) COPD (chronic obstructive pulmonary disease): Code(s): J44.9 - Chronic obstructive pulmonary disease, unspecified Category: Medical Qualifiers: COPD type: chronic bronchitis Chronic bronchitis type: mixed simple and mucopurulent Qualified Code(s): J41.8 - Mixed simple and mucopurulent chronic bronchitis (2) Cigarette smoker two packs a day or less: Comment: quiting Code(s): F17.210 - Nicotine dependence, cigarettes, uncomplicated Category: Social Hx (3) Hiatal hernia: Code(s): K44.9 - Diaphragmatic hernia without obstruction or gangrene Category: Medical (4) Pulmonary nodules: Code(s): R91.8 - Other nonspecific abnormal finding of lung field Category: Surgical (5) Chronic respiratory failure with hypoxia and hypercapnia: Code(s): J96.11 - Chronic respiratory failure with hypoxia; J96.12 - Chronic respiratory failure with hypercapnia Category: Medical Plan continue Spiriva continue Wixela 500/50 start Spiriva start Doxycycline start low dose prednisone taper start Ohtuvayre nebs BID KENDRICK as needed Duoneb as needed Tobacco cessation F/U 4-6 months Medications: New prednisone PO daily; Take 1 tab daily x 10 days, then 1 tab every other day x 20 days 20 tabs 0RF 30 days tiotropium bromide 2.5 mcg/actuation (Spiriva Respimat) 2 puffs inhalation DAILY 1 ea 11RF 30 days doxycycline monohydrate 100 mg PO BID 28 tabs 0RF 14 days Refilled ipratropium-albuterol 0.5 mg-3 mg(2.5 mg base)/3 mL Medicare B 3 mL inhalation DAILY PRN 180 mL 11RF Shortness Of Breath Or Wheezing J41.8 - Mixed simple and mucopurulent chronic bronchitis Discontinued tiotropium bromide 1.25 mcg/actuation (Spiriva Respimat) Discontinued Reason: Doctor's Order 1 puff PO DAILY 12 mL 1RF J43.2 - Centrilobular emphysema Coding Level of Care Code Est Pt Level 4 (08838) Complex EM visit Add On G2211 Diagnoses Mixed simple and mucopurulent chronic bronchitis J41.8 COPD type: chronic bronchitis Chronic bronchitis type: mixed simple and mucopurulent Cigarette smoker two packs a day or less F17.210 Hiatal hernia K44.9 Pulmonary nodules R91.8 Chronic respiratory failure with hypoxia and hypercapnia J96.11; J96.12 Time Spent (min) 17
[2025-06-02 14:03] VITALS: BP 120/52; PULSE 104; O2SAT 95; BMI 16.0
== END 2025-06-02 14:24 | disposition home or self-care (01) ==
LOC: HO.HPS 13:58
PROVIDERS: PCP Internal Medicine; Visit Provider Hospitalist
DX: J41.8 Mixed simple and mucopurulent chronic bronchitis (principal); F17.210 Nicotine dependence, cigarettes, uncomplicated; K44.9 Diaphragmatic hernia without obstruction or gangrene; R91.8 Other nonspecific abnormal finding of lung field; J96.11 Chronic respiratory failure with hypoxia; J96.12 Chronic respiratory failure with hypercapnia
CPT/HCPCS: 99214; G2211

== ENCOUNTER 2025-06-05 13:40 | Outpatient (AMB) | payer OTHER, SELFPAY ==
--- NOTE | 2025-06-05 13:40 | A.OFFVIS_ITS ---
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 She had failed previous bladder installations. Recent cystoscopy bladder biopsy was still notable for carcinoma in Situ even though overall the bladder grossly looked improved. I want to trial combination of the Keytruda and bladder installation. History of Present Illness The patient is a 74-year-old female presenting with urothelial carcinoma and carcinoma in situ of the bladder. She is currently undergoing immunotherapy with Keytruda due to a history of urothelial carcinoma and carcinoma in situ of the bladder. A recent cystoscopy and bladder biopsy indicated persistent carcinoma in situ, despite an overall improvement in the bladder's appearance. The patient was hospitalized for two weeks following a severe illness that began with a cold. She spent four days in the emergency room and was in critical condition, necessitating discussions about resuscitation. She is currently experiencing significant weakness as a result of this hospitalization. The patient is actively working on smoking cessation, utilizing Chantix to assist in this effort. She has successfully refrained from smoking for nearly three weeks, which is anticipated to benefit her health. Results - Cystoscopy and bladder biopsy: Persistent carcinoma in situ noted, with overall bladder improvement Plan 1. Urothelial Carcinoma - Continue immunotherapy with Keytruda. - Schedule follow-up cystoscopy post-treatment to assess bladder condition. 2. Carcinoma In Situ Of The Bladder - Combination therapy with Keytruda and bladder installations planned. - Follow-up with oncology for ongoing management. 3. Preventative Care: Smoking Cessation - Continue use of Chantix to aid in smoking cessation. - Monitor progress and encourage continued abstinence from smoking. 09/27/24--Ebony is a 73-year-old female presenting with bladder cancer follow-up. 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 Despite an unsuccessful response to gemcitabine bladder instillation therapy, she is currently being treated with pembrolizumab (Keytruda). Recent bladder biopsies showed improvement; only two showed carcinoma in situ, while others were primarily inflammatory or displayed focal atypia. This suggests a positive response to current therapy. The patient has a history of nicotine use, impacting disease management and requiring cessation as part of ongoing treatment. Of note: the patient and a lung biopsy and a PET CT 08/13/24--No abnormal FDG activity seen in the left upper lobe spiculated opacity seen on recent chest x-ray 06/05/2024. Patient had a known left upper lobe mass which was biopsied and likely treated in 2023. Rest of the whole body PET scan is unremarkable. 08/01/24--Ebony is a 73-year-old female who is being followed due to urothelial carcinoma of the bladder, and CIS of bladder. Last cysto/biopsy - 01/28/24- Significant for CIS bladder. She was referred to Oncology. Currently receiving Keytruda. Last cycle scheduled for 08/08/24. Plan repeat cystoscopy bladder biopsies. 05/17/24-- Ebony is a 73-year-old female who is being followed due to urothelial carcinoma of the bladder, and CIS of bladder. Last cysto/biopsy - 01/28/24- Significant for CIS bladder. She was referred to Oncology. Currently receiving Keytruda. Initially diagnosed by another urologist in 2008. She did not have follow-up for several years and was seen in December of 2022 and is status post TURBT 02/21/2023 noting high-grade noninvasive urothelial carcinoma right lateral wall followed by gemcitabine installations. Repeat bladder biopsies 08/15/2023 noted multifocal areas of carcinoma in Situ. The patient received bladder installations of mitomycin/cytarubine, last 12/08/2023. During the course of bladder installations she did have some fatigue. Plan--After completes Keytruda, will schedule out patient cysto bladder bx. 02/16/24--s/p post repeat bladder biopsies, 01/30/24- significant for CIS is all biopsies. The patient has failed chemotherapy bladder instillations. Plan refer to oncology for evaluation for Keytruda. She was prescribed gemtesa for LUTS for urinary frequency/urgency, insurance did not cover. She states she does not want another medication called in at this time. Patient agrees with plan. 01/05/24--Ebony is a 73-year-old female who is being followed due to urothelial carcinoma of the bladder, initially diagnosed by another urologist in 2008. She did not have follow-up for several years and was seen in December of 2022 and is status post TURBT 02/21/2023 noting high-grade noninvasive urothelial carcinoma right lateral wall followed by gemcitabine installations. Repeat bladder biopsies 08/15/2023 noted multifocal areas of carcinoma in Situ. The patient received bladder installations of mitomycin/cytarubine, last 1 12/08/2023. The patient states she has been doing well she denies dysuria. During the course of bladder installations she did have some fatigue. Consent today is obtained for repeat cystoscopy bladder biopsies. 09/01/23--S/P bladder bx post gemcitabine instillations. path 08/15/23--CIS - right lat wall, left lat wall, post wall, Discussed nicotine cessation. Discussed treatment recommendation for Bladder instillation of BCG immunotherapy, not readily available. I will investigate availablity. Otherwise bladder instillation with combination gemcitobine with docetaxel. 03/13/2023?Ebony is a 72-year-old female who presents today to the office for a follow-up s/p TURBT 02/21/23. I have reviewed the CT urogram results from 02/20/2023 revealed no radiopaque urolith, enhancing renal mass or hydroureteronephrosis. Unremarkable bladder. Mild constipation. 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 Urothelial carcinoma from the okay since he is seeing me for the 1st time, rachel cotton. She reports burn ing after urination. She is still smoking cigarettes. 01/13/2023?The patient was last seen in the office on 01/13/23 by LAVON Masters. The patient denies gross hematuria. The patient has history of superficial bladder cancer, diagnosed in October of 2008. Past medical history significant for COPD and nicotine dependence, esophagitis with dysphagia. The patient is an active smoker and started smoking from the age of 17 years. In review of note from 11/07/22, VELIA Boyd documented pathology 10/2008? 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 The patient gives a history of cigarette use for over 55 years. She states that her last cystoscopy was about 3 years ago. The patient has history of hysterectomy about age 20 for menorrhagia. Urine cytology-- collected 11/07/22--? few atypical cells noted. Evaluation today UA-- Blood:200 Earle/uL, leukocytes: negative. Cystoscopy findings-- erythematous flat lesion on the posterior wall of the bladder which need further evaluation with biopsy. Plan:urine bladder/FISH cytology test, as outpatient, urine provided not sufficient to send for testing Cystoscopy TURBT discussed to be scheduled. CT urogram prior with contrast was ordered. PFSH Medical History COPD (chronic obstructive pulmonary disease) Chronic respiratory failure with hypoxia and hypercapnia Vitamin D deficiency Macular degeneration of left eye Pulmonary nodule Multiple environmental allergies Nicotine dependence, cigarettes, uncomplicated Stress incontinence Hx of bladder cancer (~2008) Dysphagia History of COVID-19 Primary insomnia Surgical menopause Osteoporosis (~2019) Tubular adenoma of colon (~2016) Hiatal hernia Esophagitis determined by endoscopy History of esophageal stricture Surgical History Pneumothorax after biopsy History of cataract surgery History of esophageal dilatation History of bladder surgery History of hand surgery History of colonoscopy History of esophagogastroduodenoscopy (EGD) History of cystoscopy History of hysterectomy Family History Father HTN (hypertension) Mesothelioma Mother Melanoma Brother No problems noted. Brother No problems noted. Sister No problems noted. Daughter Melanoma Son No problems noted. Son No problems noted. Son No problems noted. Sister Lung cancer Social History Household Members: Significant Other Housing: House Are you a primary housekeeper child care to a significant other at home: No Do you presently have visiting nurse or other home services: No Comment: 1:1 Patient Tobacco Use Status: Former Tobacco user Tobacco use type: Cigarette Cigarette Packs Per Day: 1 Cigarettes Per Day: 20.0 Years Smoked: 60 e-Cigarette/Vaping Use: Never Used Second Hand Smoke Exposure: No service: No Current occupational status: employed Cognitive needs: No Hearing needs: No Vision needs: Yes Review of Systems Const All systems reviewed & are unremarkable except as noted in HPI and below Reports no additional complaints Eyes Reports no additional complaints ENT Reports no additional complaints Card Reports no additional complaints Resp Reports no additional complaints GI Reports no additional complaints Reports as per HPI Musc Reports no additional complaints Skin/Breast Reports system reviewed and no additional complaints, except as documented Neuro Reports no additional complaints Psych Reports no additional complaints Endo Reports no additional complaints Pranav/Lymph Reports no additional complaints Aller/Immun Reports no additional complaints Telehealth Telehealth Telehealth Platform: mYwindow Location of provider rendering services: practice address Location of patient: address on file Patient Identification confirmed using: Name, : Yes Telehealth method: video Patient verbally consented to treatment: Yes Patient verbally consented to billing insurance company: Yes Patient informed of any privacy concerns related to visit: Yes Assessment & Plan Assessment & Plan (1) CIS (carcinoma in situ of bladder): Code(s): D09.0 - Carcinoma in situ of bladder Category: Medical (2) Bladder cancer: Code(s): C67.9 - Malignant neoplasm of bladder, unspecified Category: Medical (3) History of nicotine dependence: Code(s): Z87.891 - Personal history of nicotine dependence Category: Medical Plan Plan 1. Urothelial Carcinoma - Continue immunotherapy with Keytruda. - Schedule follow-up cystoscopy 2. Carcinoma In Situ Of The Bladder - Combination therapy with Keytruda and bladder installations - Follow-up with oncology for ongoing management. 3. Preventative Care: Smoking Cessation - Monitor progress and encourage continued abstinence from smoking. Patient Instructions: The patient had an opportunity to ask questions regarding treatment plan. The patient expressed understanding and agreement with the above treatment plan. The patient is aware they should contact our office by phone for worsening of their current condition or the appearance of new symptoms. Compliance is encouraged with any medications and followup testing that is ordered. It is a privilege to be allowed the opportunity to participate in the urologic care of your patient. If you have any questions or concerns regarding treatment for the above conditions please do not hesitate to contact me. The office telephone contact is [phone]. This note is constructed in part using voice recognition software. While every effort has been made to ensure accuracy product support specialist errors may have been included. Yours sincerely, Corlis Diallo-Laila, MD Scribe Plan - Not visible on output: Patient was informed and verbally consented to the use of an ambient scribe for clinic note documentation during this visit. Coding Level of Care Code Tele Est Pt Level 4 (17121) Diagnoses CIS (carcinoma in situ of bladder) D09.0 Bladder cancer C67.9 History of nicotine dependence Z87.891
--- OUTSIDE RECORDS SUMMARY | 2025-06-05 19:05 | XMS_ITS | Patient Health Record ---
Author Organization [facility] Address [address] [place] [id number] Care Team Providers Care Standards Analyst Name Role Phone June CHINO, Arlin Primary Care Provider Koffi Ferguson Unavailable [phone] Allergies No Known Allergies Reason For Referral No Information Medications Medication SIG (Take, Route, Frequency, Duration) Notes Start Date End Date Status Omeprazole 20 MG Capsule Delayed Release TAKE 2 CAPSULES BY MOUTH TWICE A DAY; Duration: 90 Not-Taking/PRN PriLOSEC 20 MG Capsule Delayed Release 2 capsules Orally BID Not -Taking/PRN Carafate 1 GM Tablet Dissolve 1 tablet i n 1 ounce of warm water Orally TID 30-60 minutes AC; Duration: 30 day(s) 11/28/2021 Not-Taking/PRN OsmoPrep 1.102-0.398 GM Tablet 4 tablets with 8 ounces of water as directed Orally 8 times over the course of the night before the colonoscopy as directed.; Duration: 1 days 12/14/2021 Active Symbicort Active Omeprazole 20 MG Tablet Delayed Release 1 capsule Orally BID Not-Taking/PRN ProAir HFA Active Omeprazole 40 MG Capsule Delayed Release 1 Orally BID; Duration: 30 day(s) 12/24/2019 Active Spiriva Respimat 1.25 MCG/ACT Aerosol Solution TAKE 1 PUFF BY MOUTH EVERY DAY Inhalation; Duration: 30 Active Immunizations Vaccine Route Administration Date Status Comme nts Influenza Unknown 03/17/2019 Administered Influenza Unknown 03/17/2021 Administered Social History Tobacco Use: Social History Observation Description Date Details (start date - stop date) Current Smoker NA - NA Social History Tobacco Use: Social Info Question Answer Notes Tobacco Use/Smoking Patient is a current smoker How many cigarettes a day do you smoke? 6-10 How soon after you wake up do you smoke your first cigarette? after 60 minutes Are you interested in quitting? 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 [employer] paper Section Notes: Smoker 1/2 ppd; no sig [...] Problem Screening for malignant neoplasm of colon (658540658) Encounter for screening for malignant neoplasm of colon (Z12.11) Active confirmed Problem History of adenomatous polyp of colon (466781865) History of adenomatous polyp of colon (Z86.010) Active confirmed Problem Screening for malignant neoplasm of rectum (785153825) Encounter for screening for malignant neoplasm of rectum (Z12.12) Active confirmed Problem Dysphagia (71438457) Dysphagia (R13.10) Active confirmed Problem Esophageal stricture (54468690) Esophageal stricture (K22.2) Active confirmed Problem Erosive esophagitis (98579739) Erosive esophagitis (K22.10) Active confirmed Problem Esophageal ring (34927473) Esophageal ring (K22.2) Active confirmed Problem Esophageal dysphagia (29237418) Esophageal dysphagia (R13.14) Active confirmed Problem Esophageal dysphagia (31343714) Esophageal dysphagia (R13.10) Active confirmed Problem Diverticulosis of colon (954359707) Diverticulosis of colon (K57.30) Active confirmed Problem Esophageal dysphagia (69520644) Esophageal dysphagia (R13.19) Active confirmed Plan Of [...] Insured Coverage Start Date Coverage End Date [facility] [address] [place] [phone] [id number] COBY QUEEN Self - patient is the [...] Date(Month/Year) Hysterectomy--both ovaries are still in place 1979 Bladder surgery-cancer--done with cystos copy
--- OUTSIDE RECORDS SUMMARY | 2025-06-05 19:06 | XMS_ITS | Clinical Summary ---
Author Organization [facility] Address [address] [place] [id number] Phone Care Team Providers Care Nut Grinder Name Role Phone Arlin Watkins MD Primary [...] Team Description 04/03/2025 Home Care Visit [facility] [address] [place] [phone] Judith Bullock, PT TELEPHONE ENCOUNTER 04/02/2025 11:30 AM EDT Home Care Visit [facility] [address] [place] [phone] Shanta Dunham, RN SN OASIS DISCHARGE VISIT 03/28/2025 1:30 PM EDT Home Care Visit [facility] [address] [place] [phone] Denys Gutierrez, OT OT EVALUATION 03/27/2025 10:30 AM EDT Home Care Visit [facility] [address] [place] [phone] Shanta Dunham RN SN HOME VISIT 03/26/2025 Home Care Visit [facility] [address] [place] [phone] Kiera Cox, OT TELEPHONE ENCOUNTER 03/25/2025 Episode Documentation Update [facility] [address] [place] [phone] Denys Brunson 03/22/2025 Home Care Visit [facility] [address] [place] [phone] Gayathri Peter, PT TELEPHONE ENCOUNTER 03/21/2025 12:00 PM EDT Home Care Visit [facility] [address] [place] [phone] Shanta Dunham, ANNE-MARIE SN HOME VISIT 03/19/2025 Episode Documentation Update [facility] [address] [place] [phone] 03/18/2025 12:30 PM EDT Home Care Visit [facility] [address], [place] [phone] Shanta Dunham, ANNE-MARIE SN OASIS START OF CARE (SOC) 03/18/2025 Plan of Care Documentation [facility] [address], [place] [phone] 03/16/2025 Home Care Visit [facility] [address], [place] [phone] Vera Bell RN CASE COMMUNICATION 03/14/2025 5:58 AM EDT - 03/14/2025 11:59 PM EDT Hospital Encounter [facility] [address] [place] [address] Phong Griffin MD Discharge Disposition: Home or Self Care 03/14/2025 Transcribe Orders [facility] Specimen Processing [address] [place] [address] Phong Griffin MD Illness (Primary Dx) 03/12/2025 Orders Only [facility] [address] [place] [phone] HomehealthTl MD 03/11/2025 10:27 AM EDT - 03/11/2025 11:59 PM EDT Hospital Encounter [facility] [address] [place] [address] Teagan Palacio MD Discharge Disposition: Home or Self Care 03/10/2025 8:04 AM EDT - 03/10/2025 11:59 PM EDT Hospital Encounter [facility] [address] [place] [address] Teagan Palacio MD Discharge Disposition: Home or Self Care 03/10/2025 Transcribe Orders [facility] Specimen Processing [address] [place] [address] Teagan Palacio MD Tachycardia (Primary Dx) from [...] EDT) WBC 9.21 4.00 - 11.00 K/uL [facility] RBC 4.48 4.00 - 5.20 M/uL [facility] HGB 13.8 12.0 - 16.0 g/dL [facility] HCT 41.3 36.0 - 46.0 % [facility] PLT 247 150 - 450 K/uL [facility] MCV 92.2 80.0 - 100.0 fL [facility] MCH 30.8 27.0 - 31.0 pg [facility] MCHC 33.4 32.0 - 36.0 g/dL [facility] RDW 12.2 11.5 - 14.5 % [facility] MPV 11.1 8.4 - 12.0 fL [facility] NRBC 0.00 0.00 /100 WBCs [facility] ABSOLUTE NRBC 0.00 0.00 K/uL [facility] Blood 03/14/2025 5:45 AM EDT 03/14/2025 6:13 AM EDT us Phong Griffin MD LAB BLOOD BKR ORDERABLES Final R esult [facility] [address] [place] [address] * (ABNORMAL) Comprehensive metabolic panel (03/11/2025 10:27 AM EDT) SODIUM 141 133 - 146 mmol/L [facility] POTASSIUM 3.3 3.3 - 5.1 mmol/L [facility] CHLORIDE 95(L) 96 - 108 mmol/L [facility] CO2 35 21 - 35 mmol/L [facility] BUN 19 6 - 19 mg/dL [facility] CREATININE 0.60 0.5 - 1.5 mg/dL [facility] GLUCOSE 93 70 - 99 mg/dL [facility] ALBUMIN 3.6(L) 3.9 - 4.8 g/dL [facility] TOTAL PROTEIN 5.9(L) 6.5 - 8.0 g/dL [facility] CALCIUM 8.3(L) 8.4 - 10.3 mg/dL [facility] ALKALINE PHOSPHATASE 73 39 - 117 U/L [facility] TOTAL BILIRUBIN 0.8 0.0 - 1.2 mg/dL [facility] AST 25 0 - 37 U/L [facility] ALT 27 0 - 40 U/L [facility] GLOBULIN 2.3 1 - 4.8 g/dL [facility] EGFR 94 >59 mL/min/1.7 3m2 [facility] Comment:Estimated glomerular filtration rate calculated using the CKD-EPI refit equation. ANION GAP 14 10 - 20 mmol/L [facility] Blood 03/11/2025 10:2 7 AM EDT 03/11/2025 10:29 AM EDT us Teagan Palacio MD LAB BLOOD BKR ORDERABLES Final Result Performing Organization Address City/State/[facility] Co de Phone Number [address] [phone] from Last 3 Months Insurance O O [facility] [place] [place], [place] [address]O [facility] [employer] [facility] Address: [address] [address] Care Teams Nut Grinder Relationship Specialty Start Date End Date Arlin Watkins MD [address] [place] [address] PCP - General Internal Medicine 03/13/25 Additional Source Comments The information contained in this document represents components of the legal health record. It is not the complete legal health record.[facility]
== END 2025-06-05 17:00 | disposition home or self-care (01) ==
LOC: HO.HUSH 13:40
PROVIDERS: PCP Internal Medicine; Visit Provider Urology
DX: D09.0 Carcinoma in situ of bladder (principal); C67.9 Malignant neoplasm of bladder, unspecified; Z87.891 Personal history of nicotine dependence
CPT/HCPCS: 99214

== ENCOUNTER 2025-07-14 10:01 | Outpatient (AMB) | payer OTHER, SELFPAY ==
[2025-07-14 10:11] VITALS: BP 117/60; PULSE 102; RESP 18; TEMP 36.9; O2SAT 97; BMI 14.7
--- NOTE | 2025-07-14 10:11 | MHC.OFFWIV ---
Intake Vital Signs 07/14/25 10:11 Height 5 ft 1 in Weight 78 lb BMI 14.7 BP 117/60 Blood Pressure Location Rt brachial Position Sitting Respiration 18 Pulse 102 H Pulse Source Pulse Oximeter Temp 98.4 F Temp Source Oral Pulse Oximetry (%) 97 Oxygen Delivery Method Room Air Intake Visit Reasons: EP-sob, cough Intake Note: Patient presents SOB, cough-productive white, cloudy x1 week. Patient Tobacco Use Status: Former Tobacco user Allergies morphine Adverse Reaction (Intermediate, Verified 07/14/25 10:13) Vomiting HPI HPI Comments History of Present Illness Details This is a 74-year-old female with a past medical history of bladder cancer and COPD not currently oxygen dependent presenting for evaluation of worsening dyspnea. Patient states for the past one week she has worsening shortness of breath. She denies having any fevers, chills, chest pain, cough or hemoptysis and is not currently on a course of prednisone therapy. Patient has been compliant with her COPD medications daily including her nebulized treatments. Patient does not currently use tobacco products. PFS Medical History COPD (chronic obstructive pulmonary disease) Chronic respiratory failure with hypoxia and hypercapnia Vitamin D deficiency Macular degeneration of left eye Pulmonary nodule Multiple environmental allergies Nicotine dependence, cigarettes, uncomplicated Stress incontinence Hx of bladder cancer (~2008) Dysphagia History of COVID-19 Primary insomnia Surgical menopause Osteoporosis (~2019) Tubular adenoma of colon (~2016) Hiatal hernia Esophagitis determined by endoscopy History of esophageal stricture Surgical History Pneumothorax after biopsy History of cataract surgery History of esophageal dilatation History of bladder surgery History of hand surgery History of colonoscopy History of esophagogastroduodenoscopy (EGD) History of cystoscopy History of hysterectomy Family History Father HTN (hypertension) Mesothelioma Mother Melanoma Brother No problems noted. Brother No problems noted. Sister No problems noted. Daughter Melanoma Son No problems noted. Son No problems noted. Son No problems noted. Sister Lung cancer Social History Household Members: Significant Other Housing: House Are you a primary wound care nurse to a significant other at home: No Do you presently have visiting nurse or other home services: No Comment: 1:1 Patient Tobacco Use Status: Former Tobacco user Tobacco use type: Cigarette Cigarette Packs Per Day: 1 Cigarettes Per Day: 20.0 Years Smoked: 60 e-Cigarette/Vaping Use: Never Used Second Hand Smoke Exposure: No service: No Current occupational status: employed Cognitive needs: No Hearing needs: No Vision needs: Yes Review of Systems Const Denies body aches, Denies chills, Denies fever(s) and Denies malaise Eyes Reports no additional complaints Card Reports no additional complaints, Reports dyspnea and Reports dyspnea on exertion Resp Reports no additional complaints, Denies chest congestion, Denies cough, Denies hemoptysis, Reports dyspnea, Reports dyspnea on exertion, Denies stridor and Denies wheezing Reports no additional complaints Musc Reports no additional complaints and Denies myalgias Skin/Breast Reports system reviewed and no additional complaints, except as documented Neuro Reports no additional complaints Psych Reports no additional complaints Endo Reports no additional complaints Aller/Immun Denies wheezing Physical Exam Vital Signs: Last Vital Signs Pulse 102 H 07/14/25 10:11 BP 117/60 07/14/25 10:11 Pulse Ox 97 07/14/25 10:11 Oxygen Delivery Method Room Air 07/14/25 10:11 BMI result Body Mass Index 14.7 Patient is afebrile. Const General: cooperative, healthy appearing, comfortable, no acute distress, well developed, alert and awake; No diaphoretic, ill appearing or lethargic Nutritional Appearance: thin Orientation/consciousness: patient oriented x3 and No lethargic Limitations: no limitations Neck Lymphatic: no lymphadenopathy noted Chest Chest palpation & inspection: normal inspection of the chest Resp Effort & Inspection: no audible wheezes, no cough, decreased respiratory effort, no grunting, no nasal flaring, no stridor, not tachypneic and symmetric chest movement Auscultation: clear to auscultation bilaterally, no rales, no rhonchi, no wheezes and diminished lung sounds Cardio Rate: regular rate Rhythm: regular rhythm Skin General skin exam: no rashes or lesions noted Neuro General: patient oriented x3 Psych Appearance: grossly normal Mental Status: mental status grossly normal Insight: Good insight present (Psych) Judgement: Good judgement present (Psych) Assessment & Plan Assessment & Plan (1) COPD (chronic obstructive pulmonary disease): Comment: Patient states that she is feeling better after the nebulizer treatment of DuoNeb therapy. She is afebrile and is not tachypneic at this time. Patient will be discharged home with a tapering course of prednisone. Code(s): J44.9 - Chronic obstructive pulmonary disease, unspecified Qualifiers: COPD type: chronic bronchitis Chronic bronchitis type: mixed simple and mucopurulent Qualified Code(s): J41.8 - Mixed simple and mucopurulent chronic bronchitis Plan: Prednisone 10 mg taper x9 days. Orders: Orders AMB Nebulizer Treatment Today J41.8 - Mixed simple and mucopurulent chronic bronchitis Medications: New ipratropium-albuterol 0.5 mg-3 mg(2.5 mg base)/3 mL 3 mL inhalation ONCE 3 mL 0RF J41.8 - Mixed simple and mucopurulent chronic bronchitis prednisone 3 tablets x 3 days, 2 tablets x 3 days, 1 tablet x 3 days 10 mg PO DIRECTED 18 tabs 0RF Coding Level of Care Code Est Pt Level 4 (25844) Diagnoses Mixed simple and mucopurulent chronic bronchitis J41.8 COPD type: chronic bronchitis Chronic bronchitis type: mixed simple and mucopurulent Time Spent (min) 30
--- OUTSIDE RECORDS SUMMARY | 2025-07-14 11:11 | XMS_ITS | Clinical Summary ---
Author Organization [facility] Address [address] [place] [phone] Phone Care Team Providers Care Zigzag Elastic Attacher Name Role Phone Arlin Watkins MD Primary [...] 2 (two) times a day. 5 Active Social History Tobacco Use Types Packs/Day [...] file Medical Devices Not on file [place] [address] [place] [address] HMO HMO HMO [place] [address] [place] [address] HMO Care Teams Zigzag Elastic Attacher Relationship Specialty Start Date End Date Arlin Watkins MD [address] [place] [id number] PCP - General Internal Medicine 03/13/25 Additional Source Comments The information contained in this document represents components of the legal health record. It is not the complete legal health record.[facility]
--- OUTSIDE RECORDS SUMMARY | 2025-07-14 11:11 | XMS_ITS | Patient Health Record ---
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 Section Notes: Smoker 1/2 ppd; [...] Problem Screening for malignant neoplasm of colon (091483069) Encounter for screening for malignant neoplasm of colon (Z12.11) Active confirmed Problem History of adenomatous polyp of colon (203558658) History of adenomatous polyp of colon (Z86.010) Active confirmed Problem Screening for malignant neoplasm of rectum (783022515) Encounter for screening for malignant neoplasm of rectum (Z12.12) Active confirmed Problem Dysphagia (01687618) Dysphagia (R13.10) Active confirmed Problem Esophageal stricture (13001019) Esophageal stricture (K22.2) Active confirmed Problem Erosive esophagitis (74580700) Erosive esophagitis (K22.10) Active confirmed Problem Esophageal ring (55797932) Esophageal ring (K22.2) Active confirmed Problem Esophageal dysphagia (29246477) Esophageal dysphagia (R13.14) Active confirmed Problem Esophageal dysphagia (15973769) Esophageal dysphagia (R13.10) Active confirmed Problem Diverticulosis of colon (860340831) Diverticulosis of colon (K57.30) Active confirmed Problem Esophageal dysphagia (06381650) Esophageal dysphagia (R13.19) Active confirmed Plan Of [...] Insured Coverage Start Date Coverage End Date [facility] [address] [place] [phone] [id number] COBY QUEEN Self - patient is the insured Medical (General) History Medical History History ICD Code Bladder cancer--treated with cystoscopy COPD EGD in 2002--small hiatal he rnia and mild gastritis--biopsies were negative for H. pylori. Screening Colonoscopy in 2002--negative except for a hyperplastic polyp Denies CA,DM,CVA,renal disease Colonoscopy 08/2016--small tu bular adenomas, diverticulosis [...]
== END 2025-07-14 11:26 | disposition home or self-care (01) ==
PROVIDERS: PCP Internal Medicine; Visit Provider Physician Assistant
DX: J41.8 Mixed simple and mucopurulent chronic bronchitis (principal)